=== PATIENT | male | born 1970 | race Caucasian/White ===

== ENCOUNTER → 2017-04-14 14:17 | Outpatient (CLI) | payer MEDICARE, MEDICAID, SELFPAY ==
[2017-04-14 16:30] LABS: Hemoglobin A1C 10.5 % (0.0-7.0)
== END ==
PROVIDERS: Visit Provider Nurse Practitioner Family
DX: E11.9 Type 2 diabetes mellitus without complications (principal)
CPT/HCPCS: 83036

== ENCOUNTER 2017-05-04 15:12 | Emergency (ER) | payer MEDICARE, MEDICAID, SELFPAY ==
[2017-05-04 15:21] VITALS: BP 164/61; PULSE 91; RESP 18; TEMP 36.4; O2SAT 97; BMI 44.9
--- NOTE | 2017-05-04 15:35 | HMH.EDGENADL ---
ED Disposition Clinical Impression: Sialoadenitis of submandibular gland, Diabetes Disposition: Home, Self-Care Condition on Discharge: Good Additional Instructions: 1- continue current abx. 2- added clindamycin. 30 motrin q 6 as needed. 4- gargle with antiseptic 3-4 times a day. 5- tight diabetes control. 6- follow up with maryuri staples in am Prescriptions: Ibuprofen [Motrin 600mg Tablet] 600 mg PO Q6HP PRN #20 tab PRN Reason: Moderate Pain Clindamycin HCl [Clindamycin 300mg Cap] 300 mg PO Q8 #21 capsule - Critical Care Critical Care Time: No Attestation: On , the high probability of a clinically significant, sudden or life threatening deterioration of the following system(s) required my full and direct attention, intervention and personal management. The time I documented below is in addition to time spent performing reported procedures but includes the following listed in this critical care notation. Medical Decision Making Vital Signs: 05/04/17 15:21 Temperature 97.6 F Temperature Source Tympanic Pulse Rate [Left Radial] 91 H Respiratory Rate 18 Blood Pressure [Left Arm] 164/61 Blood Pressure Mean [Left Arm] 95 Blood Pressure Source [Left Arm] Automatic Cuff Blood Pressure Position [Left Arm] Sitting 02 Sat by Pulse Oximetry 97 Oxygen Delivery Method Room Air - Johnnie Inquiry Pt receiving controlled substance: No Johnnie was queried for this patient: No Medical Decision Making Narrative: Patient informed me that he is an antibiotic for an upper respiratory infection starts with the letter a most likely amoxicillin or Augmentin. This will not work for a inflamed left submandibular gland which usually covers gram-negative and anaerobe. I informed him that he will need to be into antibiotics and follow-up with Kevan staples in am. General Adult HPI - General Chief complaint: PAIN Stated complaint: knot on throat Mode of Arrival: Ambulatory Limitations: No Limitations Description of Symptoms (Recalled from ER Triage Doc. by RN): lump on left side of neck that was about the size of a dime this morning and now is as big as a golf ball - History of Present Illness HPI narrative: 47 years old white male diabetic. Developed left oral pain dating down his left neck. No breathing difficulty. Onset (ago): hour(s) (4 hours.) Quality: sharp Consistency: constant Relieving factors: none Exacerbating factors: none Associated symptoms: denies other symptoms Treatments prior to arrival: none - Related Data Home Medications Medication Instructions Recorded Confirmed bupropion HCl SR 100 mg tablet,12 100 mg PO QAM tab 04/11/17 05/04/17 hr sustained-release gabapentin 100 mg capsule 100 mg PO BID cap 04/11/17 05/04/17 insulin NPH and reg human insulin 11 unit SUB-Q BID ml 04/11/17 05/04/17 100 unit/mL (70-30)subcutaneous susp lisinopril 2.5 mg tablet 2.5 mg PO QDAY 04/11/17 05/04/17 simvastatin 5 mg tablet 5 mg PO QPM 04/11/17 05/04/17 tramadol 50 mg tablet 50 mg PO BID tab 04/11/17 05/04/17 Previous Rx's Medication Instructions Recorded Clindamycin HCl [Clindamycin 300mg 300 mg PO Q8 #21 capsule 05/04/17 Cap] Ibuprofen [Motrin 600mg 600 mg PO Q6HP PRN #20 tab 05/04/17 Tablet] Allergies Allergy/AdvReac Type Severity Reaction Status Date / Time acetaminophen [From VICODIN] Allergy Unknown Unverified 03/25/17 15:26 hydrocodone [From VICODIN] Allergy Unknown Unverified 03/25/17 15:26 methadone [METHADONE] Allergy Unknown Unverified 03/25/17 15:26 morphine [MORPHINE] Allergy Unknown Unverified 03/25/17 15:26 [facility] History I have reviewed the patient's past medical history: Yes Medical History: Reports:: Diabetes Mellitus Type 2 Denies:: Cancer, Diabetes Mellitus Type 1, MRSA Other Surgeries: Yes: Hernia Repair Amputation: No Fractures: No - *Social History Educational Level: Completed High School Smoking Status: Never smo
--- NOTE | 2017-05-04 15:38 | ED_ITS ---
ED Disposition Clinical Impression: Sialoadenitis of submandibular gland, Diabetes Disposition: Home, Self-Care Condition on Discharge: Good Additional Instructions: 1- continue current abx. 2- added clindamycin. 30 motrin q 6 as needed. 4- gargle with antiseptic 3-4 times a day. 5- tight diabetes control. 6- follow up with maryuri staples in am Prescriptions: Ibuprofen [Motrin 600mg Tablet] 600 mg PO Q6HP PRN #20 tab PRN Reason: Moderate Pain Clindamycin HCl [Clindamycin 300mg Cap] 300 mg PO Q8 #21 capsule - Critical Care Critical Care Time: No Attestation: On , the high probability of a clinically significant, sudden or life threatening deterioration of the following system(s) required my full and direct attention, intervention and personal management. The time I documented below is in addition to time spent performing reported procedures but includes the following listed in this critical care notation. Medical Decision Making Vital Signs: 05/04/17 15:21 Temperature 97.6 F Temperature Source Tympanic Pulse Rate [Left Radial] 91 H Respiratory Rate 18 Blood Pressure [Left Arm] 164/61 Blood Pressure Mean [Left Arm] 95 Blood Pressure Source [Left Arm] Automatic Cuff Blood Pressure Position [Left Arm] Sitting 02 Sat by Pulse Oximetry 97 Oxygen Delivery Method Room Air - Johnnie Inquiry Pt receiving controlled substance: No Johnnie was queried for this patient: No Medical Decision Making Narrative: Patient informed me that he is an antibiotic for an upper respiratory infection starts with the letter a most likely amoxicillin or Augmentin. This will not work for a inflamed left submandibular gland which usually covers gram-negative and anaerobe. I informed him that he will need to be into antibiotics and follow-up with Kevan staples in am. General Adult HPI - General Chief complaint: PAIN Stated complaint: knot on throat Mode of Arrival: Ambulatory Limitations: No Limitations Description of Symptoms (Recalled from ER Triage Doc. by RN): lump on left side of neck that was about the size of a dime this morning and now is as big as a golf ball - History of Present Illness HPI narrative: 47 years old white male diabetic. Developed left oral pain dating down his left neck. No breathing difficulty. Onset (ago): hour(s) (4 hours.) Quality: sharp Consistency: constant Relieving factors: none Exacerbating factors: none Associated symptoms: denies other symptoms Treatments prior to arrival: none - Related Data Home Medications Medication Instructions Recorded Confirmed bupropion HCl SR 100 mg tablet,12 100 mg PO QAM tab 04/11/17 05/04/17 hr sustained-release gabapentin 100 mg capsule 100 mg PO BID cap 04/11/17 05/04/17 insulin NPH and reg human insulin 11 unit SUB-Q BID ml 04/11/17 05/04/17 100 unit/mL (70-30)subcutaneous susp lisinopril 2.5 mg tablet 2.5 mg PO QDAY 04/11/17 05/04/17 simvastatin 5 mg tablet 5 mg PO QPM 04/11/17 05/04/17 tramadol 50 mg tablet 50 mg PO BID tab 04/11/17 05/04/17 Previous Rx's Medication Instructions Recorded Clindamycin HCl [Clindamycin 300mg 300 mg PO Q8 #21 capsule 05/04/17 Cap] Ibuprofen [Motrin 600mg 600 mg PO Q6HP PRN #20 tab 05/04/17 Tablet]
[2017-05-04 15:50] VITALS: BP 162/98; PULSE 88; RESP 18; O2SAT 95
== END 2017-05-04 15:51 | disposition home or self-care (01) ==
PROVIDERS: Emergency Provider Emergency Medicine; PCP Nurse Practitioner Family
DX: K11.20 Sialoadenitis, unspecified (principal); E11.9 Type 2 diabetes mellitus without complications; Z79.4 Long term (current) use of insulin; I10 Essential (primary) hypertension; F12.10 Cannabis abuse, uncomplicated; E78.5 Hyperlipidemia, unspecified; Z88.6 Allergy status to analgesic agent
CPT/HCPCS: 99282

== ENCOUNTER → 2017-05-13 16:52 | Outpatient (REF) | payer MEDICARE, MEDICAID, SELFPAY ==
[2017-05-13 21:36] LABS: Amphetamine/Metha Screen,Urine Negative ng/mL (<1000); Barbiturates Screen,Urine Negative ng/mL (<200); Benzodiazepines Screen,Urine Negative ng/mL (200); Cannabinoid Screen,Urine Negative ng/mL (<50); Cocaine Screen,Urine Negative ng/g (<300); Methadone Screen,Urine Negative ng/mL (<300); Opiate Screen,Urine Negative ng/mL (<300); Phencyclidine Screen,Urine Negative ng/mL (<25)
== END ==
LOC: LAB 16:52
PROVIDERS: Visit Provider Nurse Practitioner Family
DX: Z79.899 Other long term (current) drug therapy (principal)
CPT/HCPCS: 80305

== ENCOUNTER → 2017-05-15 13:46 | Outpatient (CLI) | payer MEDICARE, MEDICAID, SELFPAY ==
--- NOTE | 2017-05-15 13:48 | US_ITS ---
US thyroid HISTORY: Thyroid nodules, raspy voice ITS.REASON: neck ORDERING PHYSICIAN: Miriam Jimenez PATIENT AGE: 47 years COMPARISON: None FINDINGS: The right lobe measures 4.8 x 2.4 x 2.3 cm. There is an ill-defined 17 x 7 mm area of decreased echogenicity in the deep right lobe posteriorly and may represent a developing nodule. This area is not well delineated and may be better evaluated with CT due to its depth. The left lobe is 4.1 x 2 x 2.4 cm. The isthmus is unremarkable. IMPRESSION: Thyromegaly with possible nodule on the right. Consider CT of the neck without and with contrast for confirmation.
== END ==
PROVIDERS: PCP Nurse Practitioner Family; Visit Provider Nurse Practitioner Family
DX: R59.9 Enlarged lymph nodes, unspecified (principal)
CPT/HCPCS: 76536

== ENCOUNTER → 2017-05-19 15:21 | Outpatient (CLI) | payer MEDICARE, MEDICAID, SELFPAY ==
[2017-05-19 15:43] LABS: Basophils % 0.5 % (0.1-2.0); Eosinophils # 0.1 K/mm3 (0.0-0.4); Eosinophils % 1.8 % (0.1-12.0); Hemoglobin 15.4 g/dL (14.1-18.0); Lymphocytes # 1.6 K/mm3 (0.7-4.5); Lymphocytes % 21.7 K/mm3 (10-50); Mean Corpuscular HGB Conc 34.3 g/dL (31.8-35.4); Mean Corpuscular Hemoglobin 31.1 pg (27.0-31.2); Mean Corpuscular Volume 90.8 fl (80-94); Mean Platelet Volume 7.3 fl (7.4-10.4); Monocytes # 0.3 K/mm3 (0.1-1.0); Monocytes % 3.8 % (1.7-9.3); Neutrophils # 5.3 K/mm3 (1.8-7.8); Neutrophils % 72.2 % (37.0-80.0); Platelet Count 230 K/mm3 (142-424); Red Blood Count 4.96 M/mm3 (4.60-6.20); White Blood Count 7.3 K/mm3 (4.8-10.8)
[2017-05-19 16:45] LABS: Alanine Aminotransferase 67 U/L (12-78); Albumin Level 3.6 gm/dL (3.4-5.0); Alkaline Phosphatase 82 U/L (46-116); Anion Gap 14.3 mEq/L (5-15); Bilirubin,Total 0.4 mg/dL (0.2-1.0); Blood Urea Nitrogen 14 mg/dL (7-18); Calcium 8.8 mg/dL (8.5-10.1); Carbon Dioxide 26 mmol/L (21.0-32.0); Chloride 99 mmol/L (98-107); Estimated Glomerular Filt Rate 91 ml/min (>60); GFR (African American) 110 ML/MIN (>60); Globulin 3.6 gm/dl (1.3-3.2); Sodium 135 mmol/L (136-145); Total Protein,Serum 7.2 gm/dL (6.4-8.2)
[2017-05-19 16:55] LABS: Free T4 (Free Thyroxine) 1.19 ng/dl (0.76-1.46); Thyroid Stimulating Hormone 1.53 uIU/ml (0.358-3.740)
[2017-05-19 17:00] LABS: Glucose 454 mg/dL (74-106)
[2017-05-19 17:01] LABS: Potassium 4.3 mmoL/L (3.5-5.1)
[2017-05-19 17:17] LABS: Aspartate Amino Transferase 21 U/L (15-37)
== END ==
PROVIDERS: PCP Nurse Practitioner Family; Visit Provider Otolaryngology
DX: E01.0 Iodine-deficiency related diffuse (endemic) goiter (principal); R59.0 Localized enlarged lymph nodes
CPT/HCPCS: 36415; 80053; 84439; 84443; 85025

== ENCOUNTER → 2017-05-28 13:13 | Outpatient (CLI) | payer MEDICARE, MEDICAID, SELFPAY ==
--- NOTE | 2017-05-28 13:13 | CT_ITS ---
CT soft tissue neck wo con INDICATION: Evaluate thyroid nodule, Enlarged lymph nodes, adenopathy, follow-up abnormal ultrasound ITS.REASON: LOCALIZED LYMPH NODE ORDERING PHYSICIAN: Randell Yancey MD PATIENT AGE: 47 years COMPARISON: Ultrasound of 05/15/2017 TECHNIQUE: Axial images are obtained without contrast. Sagittal and coronal reformatted images are reviewed as well. FINDINGS: Unfortunately, IV access could not be obtained despite multiple attempts. Therefore, post enhanced images were not obtained. There are scattered small lymph nodes in the neck. No dominant adenopathy is evident. The nasopharynx and pharynx, and hypopharynx have an unremarkable appearance. The epiglottis and glottic region is unremarkable. No parotid or submandibular mass. On the ultrasound of questionable a nodule in the deep aspect of the right lobe of the thyroid gland. This however cannot be confirmed by CT. The right lobe has a posterior extension with subtle decreased attenuation posteriorly that could be related to artifact.. The decreased attenuation and decreased echogenicity could be explained by the posterior extension of the thyroid lobe. The trachea and esophagus are midline. There is mild degenerative disc disease at C3-C4 with a mildly prominent anterior osteophyte at that level. Lung apices are clear. IMPRESSION: 1. Cannot confirm the presence of a thyroid nodule. Vague decreased attenuation is present in the posterior extension of the right lobe of the thyroid gland There is posterior extension of the right lobe of the thyroid gland which could account for the decreased attenuation and decreased echogenicity. Suggest 6 month follow-up ultrasound 2. Otherwise negative CT neck without contrast.
== END ==
PROVIDERS: PCP Nurse Practitioner Family; Visit Provider Otolaryngology
DX: K11.20 Sialoadenitis, unspecified (principal); D49.89 Neoplasm of unspecified behavior of other specified sites
CPT/HCPCS: 70490

== ENCOUNTER 2017-06-11 14:03 | Emergency (ER) | payer MEDICARE, MEDICAID, SELFPAY ==
[2017-06-11 14:19] VITALS: BP 129/75; PULSE 99; RESP 20; TEMP 36.8; O2SAT 96; BMI 43.2
--- NOTE | 2017-06-11 14:27 | XR_ITS ---
XR hip RT 2-3V w/pelvis HISTORY: Right hip pain ITS.REASON: Fall on right hip ORDERING PHYSICIAN: River Perry MD PATIENT AGE: 47 years COMPARISON: 01/23/2017 FINDINGS: No acute fracture or dislocation is evident. Sclerosis of the right femoral head once again noted consistent with avascular necrosis as previously described with some minimal subcortical eccentric lucency. IMPRESSION: 1. No acute fracture. 2. Avascular necrosis of the right femoral head
--- NOTE | 2017-06-11 15:23 | HMH.EDGENADL ---
ED Disposition Clinical Impression: Contusion of right hip Qualifiers: Encounter type: initial encounter Qualified Code(s): S70.01XA - Contusion of right hip, initial encounter Disposition: Home, Self-Care Condition on Discharge: Good Additional Instructions: Additional instructions for EXTREMITY PAIN: See your physician as soon as possible for further evaluation. Return to an emergency department immediately if you have uncontrollable pain, fever, loss of feeling or inability to move your injured extremity. Referrals: Garret Euceda MD [Primary Care Provider] - 3 days - Critical Care Critical Care Time: No Attestation: On 06/11/17, the high probability of a clinically significant, sudden or life threatening deterioration of the following system(s) required my full and direct attention, intervention and personal management. The time I documented below is in addition to time spent performing reported procedures but includes the following listed in this critical care notation. Medical Decision Making Vital Signs: 06/11/17 14:19 Temperature 98.3 F Temperature Source Oral Pulse Rate [Right Radial] 99 H Respiratory Rate 20 Blood Pressure [Right Arm] 129/75 Blood Pressure Mean [Right Arm] 93 Blood Pressure Source [Right Arm] Automatic Cuff Blood Pressure Position [Right Arm] Sitting 02 Sat by Pulse Oximetry 96 Oxygen Delivery Method Room Air - Radiology Data #1 Image(s): Hip Image Reviewed: Yes I have reviewed radiologist's interpretation Avascular necrosis right femoral head. No fracture or dislocation. - Johnnie Inquiry Pt receiving controlled substance: No Johnnie was queried for this patient: Yes Reference #:: [id number] Comment: 7 rxs. last rx tramadol on 03/21/18. Medical Decision Making Narrative: Call placed to Domingo Rivera to discuss the ED findings, but she is unable to be reached. General Adult HPI - General Chief complaint: PAIN Stated complaint: AO [id number] Right Hip/home ao Mode of Arrival: Ambulatory Limitations: Physical Limitations Description of Symptoms (Recalled from ER Triage Doc. by RN): Patient fell this morning at [id number], fell onto his right hip onto his tub. - History of Present Illness HPI narrative: Patient fell today striking his posterior-lateral right hip on a bathtub. He is able to walk and bear weight but says it causes pain. He has a prior history of avascular necrosis of his right hip, surgery in 2010. Had an MRI done last year and says his avascular necrosis is back. He was seen in his primary care office by Domingo Rivera, sent to the emergency room for evaluation. No numbness or weakness or other injuries. - Related Data Home Medications Medication Instructions Recorded Confirmed famotidine 20 mg tablet 20 mg PO QHS PRN 05/27/17 gabapentin 100 mg capsule 100 mg PO QHS 05/27/17 tramadol 50 mg tablet 50 mg PO .q12 tab 05/27/17 Previous Rx's Medication Instructions Recorded bupropion HCl SR 100 mg tablet,12 150 mg PO QAM #90 tab 05/13/17 hr sustained-release lisinopril 2.5 mg tablet 2.5 mg PO QDAY #90 tab 05/13/17 simvastatin 5 mg tablet 5 mg PO QPM #90 tab 05/13/17 insulin human U-100 NPH-regulr 18 unit SUB-Q BID #10 ml 06/11/17 70-30 mix 100 unit/mL subcutaneous susp Allergies Allergy/AdvReac Type Severity Reaction Status Date / Time acetaminophen [From VICODIN] Allergy Unknown Verified 06/11/17 14:25 hydrocodone [From VICODIN] Allergy Unknown Verified 06/11/17 14:25 methadone [METHADONE] Allergy Unknown Verified 06/11/17 14:25 morphine [MORPHINE] Allergy Unknown Verified 06/11/17 14:25 [facility] History I have reviewed the patient's past medical history: Yes Medical History: Reports:: Depression, Diabetes Mellitus Type 2, Hiatal Hernia, Hypertension, Kidney Stones Denies:: Cancer, Diabetes Mellitus Type 1, MRSA Comment: BX UNDER RIGHT ARM, POLYP REMOVED FROM THROAT, CORE DECOMPRESSION ON RIGHT HIP Other Surg
[2017-06-11 16:01] VITALS: BP 140/85; PULSE 78; RESP 20; TEMP 36.7; O2SAT 98
== END 2017-06-11 16:03 | disposition home or self-care (01) ==
PROVIDERS: Emergency Provider Emergency Medicine; PCP Emergency Medicine
DX: S70.01XA Contusion of right hip, initial encounter (principal); E11.9 Type 2 diabetes mellitus without complications; Z79.4 Long term (current) use of insulin; I10 Essential (primary) hypertension; F32.9 Major depressive disorder, single episode, unspecified; Z88.6 Allergy status to analgesic agent; F10.10 Alcohol abuse, uncomplicated; W18.2XXA Fall in (into) shower or empty bathtub, initial encounter; Y92.012 Bathroom of single-family (private) house as the place of occurrence of the external cause
CPT/HCPCS: 73502; 99282

== ENCOUNTER → 2017-08-07 10:26 | Outpatient (REF) | payer MEDICARE, MEDICAID, SELFPAY ==
[2017-08-07 13:41] LABS: Basophils % 0.6 % (0.1-2.0); Eosinophils # 0.2 K/mm3 (0.0-0.4); Hematocrit 46.8 % (42.0-52.0); Lymphocytes # 1.5 K/mm3 (0.7-4.5); Lymphocytes % 23.1 K/mm3 (10-50); Mean Corpuscular HGB Conc 34.2 g/dL (31.8-35.4); Mean Corpuscular Hemoglobin 31.1 pg (27.0-31.2); Mean Corpuscular Volume 90.9 fl (80-94); Monocytes # 0.4 K/mm3 (0.1-1.0); Monocytes % 5.6 % (1.7-9.3); Neutrophils # 4.4 K/mm3 (1.8-7.8); Neutrophils % 67.8 % (37.0-80.0); Platelet Count 257 K/mm3 (142-424); Red Blood Count 5.15 M/mm3 (4.60-6.20); Red Cell Distribution Width 12.5 % (11.5-17.5); White Blood Count 6.4 K/mm3 (4.8-10.8)
[2017-08-07 14:21] LABS: Alanine Aminotransferase 69 U/L (12-78); Albumin Level 3.8 gm/dL (3.4-5.0); Alkaline Phosphatase 77 U/L (46-116); Anion Gap 17.2 mEq/L (5-15); Aspartate Amino Transferase 41 U/L (15-37); Bilirubin,Total 0.6 mg/dL (0.2-1.0); Blood Urea Nitrogen 12 mg/dL (7-18); Calcium 9.7 mg/dL (8.5-10.1); Carbon Dioxide 23 mmol/L (21.0-32.0); Chloride 100 mmol/L (98-107); Chol/HDL Ratio 5.9 (1-3.5); Cholesterol 225 mg/dL (140-200); Creatinine,Serum 0.85 mg/dL (0.70-1.30); Estimated Glomerular Filt Rate 97 ml/min (>60); GFR (African American) 118 ML/MIN (>60); Globulin 3.9 gm/dl (1.3-3.2); Glucose 390 mg/dL (74-106); HDL Cholesterol 38 mg/dL (27-67); Potassium 4.2 mmoL/L (3.5-5.1); Sodium 136 mmol/L (136-145); T4 (Thyroxine) 10.5 ug/dl (4.7-13.3); Thyroid Stimulating Hormone 1.65 uIU/ml (0.358-3.740); Total Protein,Serum 7.7 gm/dL (6.4-8.2)
[2017-08-07 14:40] LABS: Hemoglobin A1C 10.2 % (0.0-7.0); Triglycerides 402 mg/dL (30-200)
[2017-08-08 10:19] LABS: Vitamin D 25 Hydroxy 18.1 ng/mL (30.0-100.0)
[2017-08-08 22:20] LABS: Testosterone,Free 8.5 pg/mL (6.8-21.5)
[2017-08-10 17:30] LABS: Testosterone, Total, LC/MS 375.2 ng/dL (264.0-916.0)
== END ==
LOC: LAB 10:26
PROVIDERS: Visit Provider Nurse Practitioner Family
DX: E11.9 Type 2 diabetes mellitus without complications (principal); R53.83 Other fatigue; N52.9 Male erectile dysfunction, unspecified
CPT/HCPCS: 80053; 80061; 82652; 83036; 84402; 84436; 84443; 85025

== ENCOUNTER → 2017-09-26 09:55 | Outpatient (CLI) | payer MEDICARE, MEDICAID, SELFPAY ==
[2017-09-26 13:59] LABS: Amphetamine/Metha Screen,Urine Negative ng/mL (<1000); Barbiturates Screen,Urine Negative ng/mL (<200); Benzodiazepines Screen,Urine Negative ng/mL (200); Cannabinoid Screen,Urine Negative ng/mL (<50); Cocaine Screen,Urine Negative ng/g (<300); Methadone Screen,Urine Negative ng/mL (<300); Opiate Screen,Urine Negative ng/mL (<300); Phencyclidine Screen,Urine Negative ng/mL (<25)
== END ==
PROVIDERS: Visit Provider Nurse Practitioner Family
DX: Z79.899 Other long term (current) drug therapy (principal)
CPT/HCPCS: 80305

== ENCOUNTER → 2018-02-24 14:28 | Outpatient (CLI) | payer MEDICARE, MEDICAID, SELFPAY ==
--- NOTE | 2018-02-24 14:30 | US_ITS ---
US thyroid HISTORY: Follow-up thyroid nodule ITS.REASON: possible thyroid nodule ORDERING PHYSICIAN: Randell Yancey MD PATIENT AGE: 47 years Comparison: 05/15/2017 FINDINGS: The isthmus is slightly prominent at 5 mm not significant change. The right lobe is 5 x 2.2 x 3.2 cm. There is an ill-defined 12 mm slightly hypoechoic nodule posteriorly not significant changed. This is not well delineated and could only represent an area of heterogeneous echogenicity. The left lobe is 4.2 x 1.8 x 2.4 cm also having some decreased echogenicity posteriorly without discrete mass. IMPRESSION: Enlarged thyroid gland with persistent area of decreased echogenicity in the right lobe posteriorly not significantly changed
== END ==
PROVIDERS: PCP Nurse Practitioner Family; Visit Provider Otolaryngology
DX: E01.0 Iodine-deficiency related diffuse (endemic) goiter (principal); E04.1 Nontoxic single thyroid nodule
CPT/HCPCS: 76536

== ENCOUNTER → 2018-05-14 14:24 | Outpatient (CLI) | payer MEDICARE, MEDICAID, SELFPAY | PROVIDERS: Visit Provider Nurse Practitioner Family | DX: R53.83 Other fatigue ==

== ENCOUNTER → 2018-05-14 17:58 | Outpatient (CLI) | payer MEDICARE, MEDICAID, SELFPAY ==
[2018-05-15 12:31] LABS: Basophils % 0.5 % (0.1-2.0); Eosinophils # 0.1 K/mm3 (0.0-0.4); Eosinophils % 1.3 % (0.1-12.0); Hematocrit 52.1 % (42.0-52.0); Hemoglobin 16.6 g/dL (14.1-18.0); Lymphocytes # 1.6 K/mm3 (0.7-4.5); Lymphocytes % 24.4 % (10-50); Mean Corpuscular HGB Conc 31.8 g/dL (31.8-35.4); Mean Corpuscular Hemoglobin 30.4 pg (27.0-31.2); Mean Corpuscular Volume 95.6 fl (80-94); Mean Platelet Volume 8.7 fl (7.4-10.4); Monocytes # 0.3 K/mm3 (0.1-1.0); Monocytes % 5.2 % (1.7-9.3); Neutrophils # 4.4 K/mm3 (1.8-7.8); Neutrophils % 68.6 % (37.0-80.0); Platelet Count 276 K/mm3 (142-424); Red Blood Count 5.45 M/mm3 (4.60-6.20); Red Cell Distribution Width 13.4 % (11.5-17.5); White Blood Count 6.4 K/mm3 (4.8-10.8)
[2018-05-15 12:51] LABS: Alanine Aminotransferase 53 U/L (12-78); Albumin/Globulin Ratio 1.1 (1.1-1.8); Alkaline Phosphatase 77 U/L (46-116); Anion Gap 14.2 mEq/L (5-15); Aspartate Amino Transferase 25 U/L (15-37); Bilirubin,Total 0.4 mg/dL (0.2-1.0); Blood Urea Nitrogen 17 mg/dL (7-18); Calcium 9.2 mg/dL (8.5-10.1); Carbon Dioxide 26 mmol/L (21.0-32.0); Chloride 99 mmol/L (98-107); Chol/HDL Ratio 7.9 (1-3.5); Cholesterol 252 mg/dL (140-200); Creatinine,Serum 0.87 mg/dL (0.70-1.30); Estimated Glomerular Filt Rate 94 ml/min (>60); Free Thyroxine Index 3.1 ug/dL (5.93-13.13); GFR (African American) 114 ML/MIN (>60); Globulin 3.7 gm/dl (1.3-3.2); Glucose 302 mg/dL (74-106); HDL Cholesterol 32 mg/dL (27-67); Phosphorous 3.4 mg/dL (2.4-4.9); Potassium 4.2 mmoL/L (3.5-5.1); Sodium 135 mmol/L (136-145); T4 (Thyroxine) 10.1 ug/dl (4.7-13.3); Thyroid Stimulating Hormone 2.75 uIU/ml (0.358-3.740); Total Protein,Serum 7.7 gm/dL (6.4-8.2); Triiodothryronine (T3) Uptake 31 % (31-39)
[2018-05-15 13:05] LABS: Triglycerides 464 mg/dL (30-200)
[2018-05-15 15:29] LABS: Hemoglobin A1C 9.5 % (0.0-7.0)
[2018-05-18 08:36] LABS: Microalbumin, Urine 41.7 ug/mL (Not Estab.); Vitamin D 25 Hydroxy 16.3 ng/mL (30.0-100.0)
== END ==
LOC: LAB 17:59 → LAB.DROPOF 05-15 09:29
PROVIDERS: Visit Provider Nurse Practitioner Family
DX: E10.8 Type 1 diabetes mellitus with unspecified complications (principal); I10 Essential (primary) hypertension; R53.83 Other fatigue
CPT/HCPCS: 80053; 80061; 80069; 82043; 82652; 83036; 84436; 84443; 84479; 85025

== ENCOUNTER → 2018-08-10 15:47 | Outpatient (CLI) | payer MEDICARE, MEDICAID, SELFPAY ==
--- NOTE | 2018-08-10 15:49 | US_ITS ---
US thyroid HISTORY: Follow-up enlarged thyroid gland with possible nodule ITS.REASON: thyroid ORDERING PHYSICIAN: Randell Yancey MD PATIENT AGE: 48 years Comparison: 02/24/2018 FINDINGS: The right lobe is 4.8 x 2.1 x 2.1 cm. The left lobe is 4.1 x 1.8 x 2.1 cm. The isthmus has an unremarkable appearance. There remains an area of decreased echogenicity along the right lobe of the posteriorly not significant changed proximally 10 x 8 mm. No new nodules are evident IMPRESSION: Overall no change in the enlarged thyroid gland with persistent hypoechoic area in the posterior aspect of the right lobe inferiorly. This is stable compared to May 15, 2017 as well
== END ==
PROVIDERS: PCP Nurse Practitioner Family; Visit Provider Otolaryngology
DX: E01.0 Iodine-deficiency related diffuse (endemic) goiter (principal)
CPT/HCPCS: 76536

== ENCOUNTER → 2019-08-09 16:49 | Outpatient (CLI) | payer MEDICARE, MEDICAID, SELFPAY ==
[2019-08-09 16:53] LABS: Adenovirus F 40/41, stool Not Detected (NotDetected); Astrovirus Not Detected (NotDetected); Campylobacter Not Detected (NotDetected); Clostridium Difficile A/B, PCR Not Detected (NotDetected); Cryptosporidium Not Detected (NotDetected); Cyclospora Cayetanesis Not Detected (NotDetected); Entamoeba histolytica Not Detected (NotDetected); Enteroaggregative E coli Not Detected (NotDetected); Enteropathogenic E coli Not Detected (NotDetected); Enterotoxigenic E coli Not Detected (NotDetected); Giardia lamblia Not Detected (NotDetected); Norovirus Not Detected (NotDetected); Plesimonas Shigalloides, PCR Not Detected (NotDetected); Rotavirus A Not Detected (NotDetected); Salmonella, PCR Not Detected (NotDetected); Sapovirus Not Detected (NotDetected); Shiga-like toxin E coli Not Detected (NotDetected); Shigella Enterovasive E coli Not Detected (NotDetected); Vibrio Cholerae Not Detected (NotDetected); Vibrio, PCR Not Detected (NotDetected); Yersinia Entercolitica, PCR Not Detected (NotDetected)
[2019-08-09 19:13] LABS: Occult Blood,Stool Negative (Negative)
== END ==
PROVIDERS: Visit Provider Emergency Medicine
DX: R19.7 Diarrhea, unspecified (principal)
CPT/HCPCS: 82272; 87506; G0328

== ENCOUNTER 2019-10-20 13:45 | Emergency (ER) | payer MEDICARE, MEDICAID, SELFPAY ==
[2019-10-20 14:08] VITALS: BP 140/84; PULSE 101; RESP 18; TEMP 36; O2SAT 97; BMI 38.9
--- NOTE | 2019-10-20 14:12 | US_ITS ---
PROCEDURE: US TESTICULAR CLINICAL INDICATION: pain and swelling Left testicular pain COMPARISON: No exams were available for comparison FINDINGS: Right testicle is 4.6 x 2 x 3.4 cm. Left testicle is 4 x 2 x 23.2 cm. There is bilateral testicular blood flow without obvious mass. There is heterogeneous echogenicity of the superior aspect of the left epididymis with some increase in blood flow suggesting epididymitis. Small left hydrocele. Small epididymal cyst noted on the right measuring 5 mm IMPRESSION: Suspect left epididymitis with small left hydrocele Dictated by: Gideon Klein MD 10/20/2019 15:26 Electronically signed by Gideon Klein MD in [place] 10/20/2019 15:26
--- NOTE | 2019-10-20 14:42 | PC.NURSE ---
Pt is with ultrasound and has been for the past several minutes. v/s delayed.
--- NOTE | 2019-10-20 14:57 | PC.NURSE ---
Pt returned from MD duran at bedside
--- NOTE | 2019-10-20 15:10 | HMH.EDGENADL ---
ED Disposition Clinical Impression: Acute epididymitis Disposition: Home, Self-Care Condition on Discharge: Good Instructions: DI for Epididymitis Prescriptions: Ciprofloxacin HCl [Cipro 500mg Tab] 500 mg PO BID 10 Days #20 tab Transmission Status: Pending to [facility] # Nabumetone 750 mg PO BID 10 Days #20 tab Transmission Status: Pending to [facility] # Referrals: Domingo Rivera APRN [Primary Care Provider] - - Critical Care Critical Care Time: No Attestation: On 10/20/19, the high probability of a clinically significant, sudden or life threatening deterioration of the following system(s) required my full and direct attention, intervention and personal management. The time I documented below is in addition to time spent performing reported procedures but includes the following listed in this critical care notation. Medical Decision Making - Medical Records Medical records reviewed: Yes: I reviewed the patient's medical records. - Johnnie Inquiry Pt receiving controlled substance: No Vital Signs: 10/20/19 14:08 Temperature 96.8 F L Temperature Source Temporal Artery Scan Pulse Rate [Radial] 101 H Respiratory Rate 18 Blood Pressure [Right Arm] 140/84 Blood Pressure Mean [Right Arm] 102 Blood Pressure Source [Right Arm] Automatic Cuff Blood Pressure Position [Right Arm] Sitting 02 Sat by Pulse Oximetry 97 Oxygen Delivery Method Room Air - Lab Data Lab results reviewed: Yes: I reviewed the patient's lab results. Orders (Tests/Meds): ED MEDICATIONS Discontinued Medications Generic Name Dose Route Start Last Admin Trade Name Freq PRN Reason Stop Dose Admin Hydromorphone HCl 2 mg 10/20/19 14:27 10/20/19 14:28 Dilaudid 2mg/Ml Syringe IM 10/20/19 14:28 2 mg ONCE ONE Administration ORDERS Category Date Time Status UA [Urinalysis and Microscopic] Stat Lab 10/20/19 14:56 Ordered US Testicular Stat Ultrasound 10/20/19 14:12 Taken - US Data US Images: Other (Testicular) Findings Narrative: Acute epididymitis General Adult HPI - General Chief complaint: PAIN Stated complaint: groin pain Time Seen by Provider: 10/20/19 15:10 Mode of Arrival: Ambulatory Limitations: No Limitations Description of Symptoms (Recalled from ER Triage Doc. by RN): Complain of swollen left testicle and pain. - History of Present Illness HPI narrative: 49-year-old male has left-sided testicular pain and some mild swelling. He states this pain started on Friday and is progressively gotten worse as the days have progressed. He rates his pain a pain secondary to 7-8 out of 10 classifies it as a dull ache/sharp sensation. He states exacerbating factors include ambulation and alleviating factors include rest. Patient denies any trauma to the area. Patient also denies any other associated symptoms such as nausea vomiting or diarrhea patient also denies any dysuria.Patient denies any recent cough or shortness of breath, patient denies any sore throat or headache, patient denies any loss of taste or smell, patient denies any malaise or fatigue, patient denies any abdominal pain nausea vomiting or diarrhea. - Related Data Home Medications Medication Instructions Recorded Confirmed vilazodone 20 mg tablet 20 mg PO DAILY 03/15/19 07/22/19 Gabapentin [Gabapentin 300mg Cap] 300 mg PO BID 07/07/19 07/22/19 Insulin Aspart Prot/Insuln Asp 8 unit SQ BID 07/07/19 07/22/19 [Novolog Mix 70-30FlexPen U-100] Pen Needle, Diabetic [Clickfine] See Rx Instructions .ROUTE 07/07/19 07/22/19 .MEDSUPPLY methylPREDNISolone [Medrol] 4 mg PO DIRECTED 07/07/19 07/22/19 Previous Rx's Medication Instructions Recorded zolpidem 5 mg tablet See Rx Instructions PO QHS PRN #45 03/08/19 tab zolpidem 10 mg tablet 10 mg PO QHS PRN #30 tab 03/09/19 Albuterol Sulfate [Proventil-HFA 1 - 2 puffs IH Q4HP PRN 30 Days #1 07/03/19 90mcg/puff Inh] inh Apixaban [E
[2019-10-20 15:26] VITALS: BP 132/89; PULSE 100; RESP 16; TEMP 36.8; O2SAT 100
== END 2019-10-20 15:27 | disposition home or self-care (01) ==
PROVIDERS: Emergency Provider Family Medicine; PCP Nurse Practitioner Family
DX: N45.1 Epididymitis (principal); E11.9 Type 2 diabetes mellitus without complications; I10 Essential (primary) hypertension; K21.9 Gastro-esophageal reflux disease without esophagitis; E78.5 Hyperlipidemia, unspecified; F41.8 Other specified anxiety disorders; Z95.0 Presence of cardiac pacemaker; Z87.442 Personal history of urinary calculi; Z88.5 Allergy status to narcotic agent
CPT/HCPCS: 76870; 96372; 99282

== ENCOUNTER 2019-10-22 12:33 | Emergency (ER) | payer MEDICARE, MEDICAID, SELFPAY ==
[2019-10-22 12:35] VITALS: BP 162/75; PULSE 104; RESP 18; TEMP 37; O2SAT 94; BMI 38.5
--- NOTE | 2019-10-22 12:40 | PC.NURSE ---
Pt wound examined and cleaned per joann pyle
--- NOTE | 2019-10-22 13:00 | PC.NURSE ---
Asked MD if he would like me to put any orders in, no new orders given
--- NOTE | 2019-10-22 15:23 | HMH.EDSKAF ---
ED Disposition Clinical Impression: Left against medical advice Disposition: Home, Self-Care Condition on Discharge: Good Instructions: DI for Skin Abscess Referrals: Domingo Rivera APRN [Primary Care Provider] - - Critical Care Critical Care Time: No Attestation: On 10/22/19, the high probability of a clinically significant, sudden or life threatening deterioration of the following system(s) required my full and direct attention, intervention and personal management. The time I documented below is in addition to time spent performing reported procedures but includes the following listed in this critical care notation. Medical Decision Making - Medical Records Medical records reviewed: Yes: I reviewed the patient's medical records. - Johnnie Inquiry Pt receiving controlled substance: No Vital Signs: 10/22/19 12:35 Temperature 98.6 F Temperature Source Oral Pulse Rate [Right] 104 H Respiratory Rate 18 Blood Pressure [Right Arm] 162/75 H Blood Pressure Mean [Right Arm] 104 02 Sat by Pulse Oximetry 94 L Medical Decision Narrative: During patient's emergency emergency course here in our department we were extremely busy and by the time he went to go see the patient he was extremely irate and would not stop using profanities. He also displayed threatening and aggressive behavior not only towards the ER physician but also 1 of the nurses as well. I politely asked him that he needs to leave or we will call the police. Skin/Abscess/FB HPI - General Chief complaint: Skin/Abscess/Foreign Body Stated complaint: boil Time Seen by Provider: 10/22/19 15:00 Mode of Arrival: Ambulatory Source of Information: Patient Limitations: No Limitations Description of Symptoms (Recalled from ER Triage Doc. by RN): Pt c/o a boil to his left groin. Pt denies fever, redness, or drainage from area. - History of Present Illness HPI narrative: 49-year-old male presents the emergency department with a possible abscess in the left groin region. Patient was recently seen here 2 days prior had an ultrasound done and diagnosed with acute epididymitis and subsequently put on anti-inflammatories and antibiotics. Patient is actually walking to his room said profanities not only to me but to the nurse as well. - Related Data Home Medications Medication Instructions Recorded Confirmed vilazodone 20 mg tablet 20 mg PO DAILY 03/15/19 07/22/19 Gabapentin [Gabapentin 300mg Cap] 300 mg PO BID 07/07/19 07/22/19 Insulin Aspart Prot/Insuln Asp 8 unit SQ BID 07/07/19 07/22/19 [Novolog Mix 70-30FlexPen U-100] Pen Needle, Diabetic [Clickfine] See Rx Instructions .ROUTE 07/07/19 07/22/19 .MEDSUPPLY methylPREDNISolone [Medrol] 4 mg PO DIRECTED 07/07/19 07/22/19 Previous Rx's Medication Instructions Recorded zolpidem 5 mg tablet See Rx Instructions PO QHS PRN #45 03/08/19 tab zolpidem 10 mg tablet 10 mg PO QHS PRN #30 tab 03/09/19 Albuterol Sulfate [Proventil-HFA 1 - 2 puffs IH Q4HP PRN 30 Days #1 07/03/19 90mcg/puff Inh] inh Apixaban [Eliquis 5mg Tablet] 10 mg PO BID 7 Days #28 tab 07/07/19 hydrocodone 5 mg-acetaminophen 325 1 tab PO BID PRN 3 Days #6 tab 07/08/19 mg tablet apixaban 5 mg tablet See Rx Instructions .ROUTE 10/04/19 .COMPLEX #60 tab Ciprofloxacin HCl [Cipro 500mg 500 mg PO BID 10 Days #20 tab 10/20/19 Tab] Nabumetone 750 mg PO BID 10 Days #20 tab 10/20/19 Allergies Allergy/AdvReac Type Severity Reaction Status Date / Time acetaminophen [From VICODIN] Allergy Unknown Verified 07/22/19 11:04 hydrocodone [From VICODIN] Allergy Unknown Verified 07/22/19 11:04 methadone [METHADONE] Allergy Unknown Verified 07/22/19 11:04 morphine [MORPHINE] Allergy Unknown Verified 07/22/19 11:04 [facility] History - Hepatitis A Screen Drug use history?: No High risk sexual behaviors?: No History of sexually transmitted infection?: No Currently employed?: No Childcare worker?: No Do you have indoor
[2019-10-22 15:55] VITALS: BP 0/0; PULSE 0; RESP 0; TEMP -17.7; TEMP 0; O2SAT 0
== END 2019-10-22 15:00 | disposition home or self-care (01) ==
PROVIDERS: Emergency Provider Family Medicine; PCP Nurse Practitioner Family
DX: Z53.21 Procedure and treatment not carried out due to patient leaving prior to being seen by health care provider (principal); L02.91 Cutaneous abscess, unspecified
CPT/HCPCS: 99211

== ENCOUNTER → 2020-02-18 17:34 | Outpatient (CLI) | payer MEDICARE, MEDICAID, SELFPAY ==
[2020-02-18 17:51] LABS: Basophils % 0.4 % (0.1-2.0); Eosinophils # 0.2 K/mm3 (0.0-0.4); Eosinophils % 2.1 % (0.1-12.0); Hematocrit 50.3 % (42.0-52.0); Hemoglobin 17.5 g/dL (14.1-18.0); Lymphocytes # 1.5 K/mm3 (0.7-4.5); Lymphocytes % 18.2 % (10-50); Mean Corpuscular HGB Conc 34.8 g/dL (31.8-35.4); Mean Corpuscular Hemoglobin 32.3 pg (27.0-31.2); Mean Corpuscular Volume 92.7 fl (80-94); Monocytes # 0.4 K/mm3 (0.1-1.0); Monocytes % 4.7 % (1.7-9.3); Neutrophils # 6.2 K/mm3 (1.8-7.8); Neutrophils % 74.6 % (37.0-80.0); Platelet Count 254 K/mm3 (142-424); Red Blood Count 5.43 M/mm3 (4.60-6.20); Red Cell Distribution Width 13.2 % (11.5-17.5); White Blood Count 8.4 K/mm3 (4.8-10.8)
[2020-02-18 17:57] LABS: Alanine Aminotransferase 54 U/L (12-78); Albumin Level 4.2 g/dl (3.5-5.0); Albumin/Globulin Ratio 1.3 (1.1-1.8); Alkaline Phosphatase 106 U/L (38-126); Anion Gap 15.2 mEq/L (5-15); Aspartate Amino Transferase 44 U/L (17-59); Bilirubin,Total 1.1 mg/dl (0.2-1.3); Blood Urea Nitrogen 12 mg/dl (9-20); Calcium 9.7 mg/dl (8.4-10.2); Carbon Dioxide 25 mmol/L (22.0-30.0); Chloride 98 mmol/L (98-107); Chol/HDL Ratio 8.5 (1-3.5); Cholesterol 237 mg/dl (140-200); Estimated Glomerular Filt Rate 121 ml/min (>60); GFR (African American) 146 ML/MIN (>60); Globulin 3.3 g/dL (1.3-3.2); Glucose 350 mg/dl (74-100); HDL Cholesterol 28 mg/dl (40-60); Potassium 4.2 mmoL/L (3.5-5.1); Sodium 134 mmol/L (136-145); Total Protein,Serum 7.5 g/dl (6.3-8.2); Triglycerides 389 mg/dl (30-150); VLDL Cholesterol 78 mg/dL (0-40)
[2020-02-18 18:09] LABS: Direct LDL Cholesterol 138.52 mg/dL (100-129)
[2020-02-18 18:14] LABS: T4 (Thyroxine) 10.8 ug/dl (5.53-11.0)
[2020-02-18 18:28] LABS: Thyroid Stimulating Hormone 1.93 uIU/mL (0.465-4.68)
[2020-02-18 18:29] LABS: 25-OH Vitamin D, Total 20.5 ng/mL (30-100)
[2020-02-18 18:53] LABS: Hemoglobin A1C 11.5 % (4.0-6.0)
== END ==
PROVIDERS: Visit Provider Nurse Practitioner Family
DX: E11.9 Type 2 diabetes mellitus without complications (principal); I10 Essential (primary) hypertension; R53.83 Other fatigue; E55.9 Vitamin D deficiency, unspecified; R06.00 Dyspnea, unspecified; Z79.4 Long term (current) use of insulin
CPT/HCPCS: 80053; 80061; 82306; 83036; 84436; 84443; 85025

== ENCOUNTER → 2020-03-25 08:02 | Outpatient (CLI) | payer MEDICARE, MEDICAID, SELFPAY ==
[2020-03-25 10:29] LABS: Coronavirus 19 IgG Antibody Negative (Negative); Coronavirus 19 IgM Antibody Negative (Negative)
== END ==
PROVIDERS: Visit Provider Internal Medicine Gastroenterology
DX: Z01.818 Encounter for other preprocedural examination (principal); Z03.818 Encounter for observation for suspected exposure to other biological agents ruled out; Z12.11 Encounter for screening for malignant neoplasm of colon
CPT/HCPCS: 36415; 86328

== ENCOUNTER 2020-03-27 09:06 | Day surgery (SDC) | payer MEDICARE, MEDICAID, SELFPAY ==
[2020-03-22 11:01] VITALS: BMI 38.5
[2020-03-27 09:30] VITALS: BP 150/73; PULSE 95; RESP 18; TEMP 36.3; O2SAT 97
[2020-03-27 09:42] LABS: POC Glucose,Bedside 232 (70-110)
--- NOTE | 2020-03-27 10:04 | HMH.ANESCL ---
[facility] Anesthesia Checklist - Structural Data Admitted From: Home Planned Operative Procedure/s: colonoscopy Consent for Planned Operative Procedure(s) Verified: Yes - Additional verifications Anesthesia Reactions: No Hx Blood Transfusions: No Blood Transfusion Reaction: Yes - Airway Assessment C-Spine Mobility Assessed: Yes TMJ Mobility Assessed: Yes Dentition: Poor Dentition - Neurological Assessment Level of Consciousness: Awake, Alert, Appropriate - Anesthesia Plan Anesthesia Risk discussed: Yes Anesthesia Plan: Verified ASA Class: III Anesthesia Type: MAC [facility] History I have reviewed the patient's past medical history: Yes Medical History: Reports:: Anxiety, Depression, Diabetes Mellitus Type 2, Hiatal Hernia, Hyperlipidemia, Hypertension, Kidney Stones, Pulmonary Embolism, Transient Ischemic Attacks (TIA) Denies:: Cancer, Diabetes Mellitus Type 1, Internal Pacemaker, MRSA, Seizures *Have you ever received a pneumonia vaccine?: Yes *Have you received a flu vaccine this season?: No Other Medical History: Reports: Blood Transfusion Reaction Anesthesia experience/problems:: none Laterality Cases: Right: Arthroscopy Hip, Bilateral: Other Other Surgeries: Yes: Hernia Repair, Other. No: Pacemaker Amputation: No Fractures: No - *Social History Last grade of school completed: GED Smoking Status: Current every day smoker Tobacco Type: e-cigarettes # Packs/Day (cigarettes): 1 Alcohol Intake: current Alcohol Intake Frequency:: holidays/special occasions only Substance Use Type: marijuana *Occupational Status:: disabled Housing: house Household Members: none *Travel in the last 8 weeks: None - Psychiatric History Pschychiatric History:: Reports:: Anxiety, Depression Family Hx:: Heart Attack, Stroke
[2020-03-27 10:25] VITALS: O2SAT 98
--- NOTE | 2020-03-27 10:43 | P.PCN_ITS ---
[facility] Procedure Note Procedure Note:: Colonoscopy Procedure Report: Colonoscopy with cold snare polypectomy and monopolar ablation/coagulation of internal hemorrhoids Endoscopist: Yoan Oliva II, MD Referring physician: Donnie MEYER Date of Procedure: March 27, 2020 Equipment: Olympus 180 variable stiffness pediatric colonoscope Sedation: MAC sedation Indication: Mr. Andrade is a 50-year-old gentleman who is here for diagnostic colonoscopy secondary to frequent rectal bleeding. This began in February 2019 and he was having blood with most bowel movements. He would also see blood clots on the tissue. Occasionally he will see blood or pink tinge in the toilet bowl. He does have chronic diarrhea for which he takes Imodium. He will often start out with a solid bowel movement that becomes more of liquid. He does get some abdominal cramps and bowel urgency. This has been going on for the last year. He does report some bloating. He has excessive wiping with obstipation/incomplete defecation. He reports no abdominal pain, weight loss or family history of colon cancer. This is his first colonoscopy. Procedure: Prior to the procedure, a history and physical exam was performed, and patient's medications and allergies were reviewed. The risks, benefits and alternatives of the sedation and procedure were discussed with the patient. All questions were answered and informed consent was obtained. The patient was brought to the procedure room. Patient identification and proposed procedure were verified by the physician and the nurse. The patient was placed in a left lateral decubitus position and the scope was passed under direct vision. Throughout the procedure, the patient's blood pressure, pulse, and oxygen saturations were monitored continuously. The colonoscopy was accomplished without difficulty. The patient tolerated the procedure well. Findings: On digital rectal examination there was normal rectal tone. There were no external hemorrhoids. The colonoscope was introduced through the anal canal to the rectum and advanced to the cecum. The ileocecal valve and appendiceal orifice were identified. The scope was advanced a short distance into the ileum which appeared grossly normal. The scope was then withdrawn into the colon. There were a total of 7 colon polyps (ascending x4 (4, 4, 6 and 7 mm), transverse x1 (8 mm) and descending x2 (3 and 5 mm)). All of these polyps were removed via cold snare polypectomy. The remaining cecum, ascending and transverse colon and mucosa were grossly normal. There were scattered diverticuli throughout the descending and sigmoid colon (LEFT colon). The rectum itself was normal. Upon retroflexion within the rectum there were grade 1-2 internal hemorrhoids. These hemorrhoids were ablated/coagulated using monopolar ablation to destruction. The preparation was excellent throughout with Daisetta Preparation Score of 9. The cecal time was 11 minutes. Impression: 1. Colonic polyps x7 2. Left-sided diverticulosis 3. Grade 1-2 internal hemorrhoids status post monopolar ablation/coagulation Plan: I would encourage bulk fiber supplementation on a long-term daily maintenance basis. We will discuss dietary measures as well. Based upon the number, size and adenomatous nature of these polyps, I would recommend repeat surveillance colonoscopy again in 3 years. I will follow up the pathology/histology.
[2020-03-27 10:45] VITALS: BP 103/67; PULSE 82; RESP 18; TEMP 36.5; O2SAT 94
[2020-03-27 10:55] VITALS: BP 153/79; PULSE 94; RESP 18; O2SAT 96
[2020-03-27 11:05] VITALS: BP 126/90; PULSE 82; RESP 18; O2SAT 97
[2020-03-27 11:45] VITALS: BP 137/77; PULSE 80; RESP 18; O2SAT 97
== END 2020-03-27 11:48 | disposition home or self-care (01) ==
LOC: OUTP 09:08
PROVIDERS: PCP Nurse Practitioner Family; Visit Provider Internal Medicine Gastroenterology
PROC: 0DJD8ZZ Inspection of Lower Intestinal Tract, Via Natural or Artificial Opening Endoscopic (ICD-10-PCS; CPT 45378; principal; 2020-03-27 10:00)
DX: K63.5 Polyp of colon; K57.30 Diverticulosis of large intestine without perforation or abscess without bleeding; K64.0 First degree hemorrhoids; E11.9 Type 2 diabetes mellitus without complications; F41.9 Anxiety disorder, unspecified; F32.9 Major depressive disorder, single episode, unspecified; E78.5 Hyperlipidemia, unspecified; I10 Essential (primary) hypertension; Z86.711 Personal history of pulmonary embolism; G45.9 Transient cerebral ischemic attack, unspecified; Z79.899 Other long term (current) drug therapy; Z79.4 Long term (current) use of insulin
CPT/HCPCS: 45385; 46930; 82962; 88305; C2618

== ENCOUNTER → 2020-05-10 13:48 | Outpatient (CLI) | payer MEDICARE, MEDICAID, SELFPAY ==
[2020-05-10 14:00] LABS: Chloride 94 mmol/L (98-107); Sodium 132 mmol/L (136-145)
[2020-05-10 14:01] LABS: Potassium 4.5 mmoL/L (3.5-5.1)
[2020-05-10 14:03] LABS: Alanine Aminotransferase 48 U/L (12-78); Albumin Level 4.6 g/dl (3.5-5.0); Albumin/Globulin Ratio 1.2 (1.1-1.8); Alkaline Phosphatase 111 U/L (38-126); Anion Gap 13.5 mEq/L (5-15); Aspartate Amino Transferase 40 U/L (17-59); Bilirubin,Total 0.6 mg/dl (0.2-1.3); Blood Urea Nitrogen 11 mg/dl (9-20); Calcium 10.4 mg/dl (8.4-10.2); Carbon Dioxide 29 mmol/L (22.0-30.0); Chol/HDL Ratio 6.5 (1-3.5); Cholesterol 265 mg/dl (140-200); Estimated Glomerular Filt Rate 120 ml/min (>60); GFR (African American) 146 ML/MIN (>60); Globulin 3.8 g/dL (1.3-3.2); HDL Cholesterol 41 mg/dl (40-60); Total Protein,Serum 8.4 g/dl (6.3-8.2)
[2020-05-10 14:09] LABS: Creatinine,Urine Random 27 mg/dL (Not Estab.)
[2020-05-10 14:14] LABS: Microalbumin < 6.000 mg/L (0-16.7)
[2020-05-10 14:16] LABS: Direct LDL Cholesterol 93.35 mg/dL (100-129)
[2020-05-10 14:22] LABS: T4 (Thyroxine) 11.4 ug/dl (5.53-11.0)
[2020-05-10 14:36] LABS: Thyroid Stimulating Hormone 3.72 uIU/mL (0.465-4.68)
[2020-05-10 14:39] LABS: Basophils # 0.1 K/mm3 (0-0.2); Basophils % 0.7 % (0.1-2.0); Eosinophils # 0.2 K/mm3 (0.0-0.4); Eosinophils % 2.2 % (0.1-12.0); Hematocrit 47.4 % (42.0-52.0); Hemoglobin 15.7 g/dL (14.1-18.0); Lymphocytes % 27.3 % (10-50); Mean Corpuscular HGB Conc 33.1 g/dL (31.8-35.4); Mean Corpuscular Volume 93.6 fl (80-94); Mean Platelet Volume 8.3 fl (7.4-10.4); Monocytes # 0.4 K/mm3 (0.1-1.0); Monocytes % 5.2 % (1.7-9.3); Neutrophils # 4.7 K/mm3 (1.8-7.8); Neutrophils % 64.5 % (37.0-80.0); Platelet Count 270 K/mm3 (142-424); Red Blood Count 5.06 M/mm3 (4.60-6.20); Red Cell Distribution Width 12.7 % (11.5-17.5); White Blood Count 7.2 K/mm3 (4.8-10.8)
[2020-05-10 15:09] LABS: Hemoglobin A1C 10.9 % (4.0-6.0)
[2020-05-10 15:15] LABS: Glucose 577 mg/dl (74-100); Triglycerides 720 mg/dl (30-150)
[2020-05-18 18:10] LABS: Testosterone, Total, LC/MS 321.4 ng/dL (264.0-916.0); Testosterone,Free 6.7 pg/mL (6.8-21.5)
== END ==
PROVIDERS: Visit Provider Nurse Practitioner Family
DX: E11.9 Type 2 diabetes mellitus without complications (principal); R06.00 Dyspnea, unspecified; I10 Essential (primary) hypertension; R53.83 Other fatigue; S70.01XA Contusion of right hip, initial encounter; Z79.4 Long term (current) use of insulin
CPT/HCPCS: 80053; 80061; 82043; 82570; 83036; 84402; 84403; 84436; 84443; 85025

== ENCOUNTER 2020-08-28 09:00 | Emergency (ER) | payer MEDICARE, MEDICAID, SELFPAY ==
[2020-08-28 09:05] VITALS: BP 132/91; PULSE 78; RESP 21; TEMP 37; O2SAT 96; BMI 43.0
--- NOTE | 2020-08-28 09:38 | HMH.EDUTC ---
[facility] [place] Clinical Impression: Diabetic foot infection Disposition: Home, Self-Care Condition on Discharge: Good Instructions: Diabetic Foot Ulcer, DI for Diabetic Foot Ulcer, Diabetic Nephropathy Additional Instructions: Keep area clean and dry Take medication as prescribed Follow up with Family Doctor for further evaluation and examination as soon as possible Follow up with Podiatry as advised, Call office for appointment Non stick dressing to the area Straight to ER if any life threatening symptoms Wear post op shoe to keep pressure off of toe Prescriptions: Mupirocin [Bactroban 2% Ointment 22gm tube] 1 applicatio TP TID 10 Days #1 tube Transmission Status: Received by [facility] # clindamycin HCL [Clindamycin HCl] 300 mg PO Q8H 7 Days #21 cap Transmission Status: Received by [facility] # Referrals: Domingo Rivera APRN [Primary Care Provider] - Flakita Topete DPM [Staff Physician] - As needed (Call office for appointment) Time of Disposition: 09:58 Medical Decision Making - Johnnie Inquiry Pt receiving controlled substance: No Johnnie was queried for this patient: No Vital Signs: 08/28/20 09:05 08/28/20 09:57 Temperature 98.6 F 98.6 F Temperature Source Oral Pulse Rate 78 Pulse Rate [Right Brachial] 78 Respiratory Rate 21 21 Blood Pressure 132/91 H Blood Pressure [Right Arm] 132/91 H Blood Pressure Mean [Right Arm] 104 Blood Pressure Source [Right Arm] Automatic Cuff Blood Pressure Position [Right Arm] Sitting 02 Sat by Pulse Oximetry 96 Oxygen Delivery Method Room Air - Physician Consults Physician Consulted: Efrem Time: 09:45 Reason -: Podiatry Eval/Care Comment/Response: Spoke with Staff in Dr Topete office and Sarah came to [facility] and observed the toe Advised to clean and dress place in post op shoe, antibiotics and patient to call office for appointment [facility] - General Stated complaint: both toes peeling Time Seen by Provider: 08/28/20 09:40 Mode of Arrival: Ambulatory Source of Information: Patient Limitations: No Limitations Description of Symptoms (Recalled from Triage Doc. by RN): PATIENT C/O SKIN PEELING OFF OF LEFT SECOND TOE AND RIGHT GREAT TOE X 3 DAYS. LEFT TOE IS RED AND POSSIBLY INFECTED HEENT Symptoms (Recalled from RN notes): No Resp Symptoms (Recalled from RN notes): No Skin Symptoms (Recalled from RN notes): Yes MS Symptoms (Recalled from RN notes): Yes Functional Status (Recalled from RN notes): WNL - History of Present Illness Provider Complaint: Patient states that he noticed a couple days ago that the skin was peeling off is left second toe and looked red and also has area that is peeling on the tip of his right great toe States that he is a diabetic and has neropathy and doesnt feel pain in his feet but today he noticed the second toe on left foot looked worse and looked infected so he came in - Related Data Home Medications Medication Instructions Recorded Confirmed Gabapentin [Gabapentin 300mg Cap] 300 mg PO . PRN 07/07/19 06/08/20 Cinnamon Bark [Cinnamon] 2,000 mg PO DAILY 03/22/20 06/08/20 Ergocalciferol (Vitamin D2) 50,000 unit PO QWEEK 03/22/20 06/08/20 [Drisdol] Loperamide HCl [Imodium A-D] 1 mg PO DAILY 03/22/20 06/08/20 lisinopriL [Lisinopril 2.5mg Tab] 2.5 mg PO DAILY 03/22/20 06/08/20 calcium polycarbophil 625 mg tablet 1,250 mg PO DAILY 04/12/20 06/08/20 Previous Rx's Medication Instructions Recorded Albuterol Sulfate [Proventil-HFA 1 - 2 puffs IH Q4HP PRN 30 Days #1 07/03/19 90mcg/puff Inh] inh zolpidem 10 mg tablet 10 mg PO QHS PRN #30 tab 02/08/20 apixaban 5 mg tablet 5 mg PO BID #180 tab 04/02/20 blood sugar diagnostic See Rx Instructions .ROUTE 04/12/20 .MEDSUPPLY #10 each blood-glucose meter See Rx Instructions .ROUTE 04/12/20 .MEDSUPPLY #1 each insulin aspar prot-insulin aspart 10 unit SQ BID #3 ml 04/12/20 100 unit/mL (70-30) subcutaneous pen pen needle, diabetic
[2020-08-28 09:57] VITALS: BP 132/91; PULSE 78; RESP 21; TEMP 37; O2SAT 96
== END 2020-08-28 10:05 | disposition home or self-care (01) ==
PROVIDERS: Emergency Provider Nurse Practitioner; PCP Nurse Practitioner Family
DX: E11.621 Type 2 diabetes mellitus with foot ulcer (principal); F41.8 Other specified anxiety disorders; I10 Essential (primary) hypertension; Z95.0 Presence of cardiac pacemaker; L97.521 Non-pressure chronic ulcer of other part of left foot limited to breakdown of skin; Z79.84 Long term (current) use of oral hypoglycemic drugs
CPT/HCPCS: G0463; 99202

== ENCOUNTER → 2020-08-31 11:59 | Outpatient (CLI) | payer MEDICARE, MEDICAID, SELFPAY ==
--- NOTE | 2020-08-31 12:14 | XR_ITS ---
PROCEDURE: XR FOOT WT BEARING LT 3V CLINICAL INDICATION: foot pain COMPARISON: No exams were available for comparison FINDINGS: No fracture or dislocation. No lytic or blastic change. There is normal mineralization. The joint spaces are well-preserved. No significant degenerative/arthritic changes. No erosive changes evident. Other findings:Minimal hypertrophic change at the neck of the talus anteriorly. Small calcaneal spur and Achilles enthesophyte. Nonspecific soft tissue calcification noted dorsal to the talus. Bandage artifact is at the 2nd toe. No obvious bony destructive changes. IMPRESSION: No acute findings. Dictated by: Gideon Klein MD 08/31/2020 13:56 Gideon Klein MD in [place] 08/31/2020 13:56
--- NOTE | 2020-08-31 12:14 | XR_ITS ---
PROCEDURE: XR FOOT WT BEARING RT 3V CLINICAL INDICATION: foot pain COMPARISON: No exams were available for comparison FINDINGS: There is bandage artifact at the great toe. No obvious bony destructive process apparent. Minimal hyperostosis involves the neck of the talus anteriorly. There is a small calcaneal spur and Achilles enthesophyte. Other findings:None. IMPRESSION: No acute findings. Dictated by: Gideon Klein MD 08/31/2020 13:55 Gideon Klein MD in [place] 08/31/2020 13:55
[2020-08-31 12:43] LABS: Basophils # 0.1 K/mm3 (0-0.2); Basophils % 0.6 % (0.1-2.0); Eosinophils # 0.2 K/mm3 (0.0-0.4); Eosinophils % 2.6 % (0.1-12.0); Hematocrit 45.1 % (42.0-52.0); Hemoglobin 15.7 g/dL (14.1-18.0); Lymphocytes # 2.1 K/mm3 (0.7-4.5); Lymphocytes % 25.5 % (10-50); Mean Corpuscular HGB Conc 34.8 g/dL (31.8-35.4); Mean Corpuscular Hemoglobin 31.4 pg (27.0-31.2); Mean Corpuscular Volume 90.2 fl (80-94); Monocytes # 0.4 K/mm3 (0.1-1.0); Monocytes % 4.8 % (1.7-9.3); Neutrophils # 5.4 K/mm3 (1.8-7.8); Neutrophils % 66.5 % (37.0-80.0); Platelet Count 286 K/mm3 (142-424); Red Cell Distribution Width 12.8 % (11.5-17.5); White Blood Count 8.1 K/mm3 (4.8-10.8)
[2020-08-31 13:17] LABS: Alanine Aminotransferase 46 U/L (12-78); Albumin Level 4.1 g/dl (3.5-5.0); Albumin/Globulin Ratio 1.3 (1.1-1.8); Alkaline Phosphatase 103 U/L (38-126); Anion Gap 13.5 mEq/L (5-15); Aspartate Amino Transferase 41 U/L (17-59); Bilirubin,Total 0.6 mg/dl (0.2-1.3); Blood Urea Nitrogen 15 mg/dl (9-20); Calcium 9.2 mg/dl (8.4-10.2); Carbon Dioxide 23 mmol/L (22.0-30.0); Chloride 100 mmol/L (98-107); Estimated Glomerular Filt Rate 120 ml/min (>60); GFR (African American) 146 ML/MIN (>60); Globulin 3.2 g/dL (1.3-3.2); Potassium 4.5 mmoL/L (3.5-5.1); Sodium 132 mmol/L (136-145); Total Protein,Serum 7.3 g/dl (6.3-8.2)
[2020-08-31 13:22] LABS: Glucose 401 mg/dl (74-100)
[2020-08-31 14:43] LABS: Hemoglobin A1C 12.4 % (4.0-6.0)
[2020-08-31 16:12] LABS: Erythrocyte Sedimentation Rate 91 mm/hr (0-15)
== END ==
PROVIDERS: Visit Provider Nurse Practitioner
DX: Z51.89 Encounter for other specified aftercare (principal); E11.628 Type 2 diabetes mellitus with other skin complications; L08.9 Local infection of the skin and subcutaneous tissue, unspecified; S70.01XA Contusion of right hip, initial encounter; Z79.4 Long term (current) use of insulin
CPT/HCPCS: 73630; 80053; 83036; 85025; 85651; 86140; 87070; 87077; 87186; 87205

== ENCOUNTER → 2020-09-19 16:42 | Outpatient (CLI) | payer MEDICARE, MEDICAID, SELFPAY ==
[2020-09-19 18:01] LABS: Basophils % 0.4 % (0.1-2.0); Eosinophils # 0.1 K/mm3 (0.0-0.4); Eosinophils % 1.7 % (0.1-12.0); Hematocrit 43.6 % (42.0-52.0); Hemoglobin 15.5 g/dL (14.1-18.0); Lymphocytes % 24.8 % (10-50); Mean Corpuscular HGB Conc 35.4 g/dL (31.8-35.4); Mean Corpuscular Hemoglobin 32.1 pg (27.0-31.2); Mean Corpuscular Volume 90.6 fl (80-94); Mean Platelet Volume 7.5 fl (7.4-10.4); Monocytes # 0.4 K/mm3 (0.1-1.0); Monocytes % 5.3 % (1.7-9.3); Neutrophils # 5.4 K/mm3 (1.8-7.8); Neutrophils % 67.7 % (37.0-80.0); Platelet Count 242 K/mm3 (142-424); Red Blood Count 4.82 M/mm3 (4.60-6.20); Red Cell Distribution Width 12.9 % (11.5-17.5)
[2020-09-19 18:45] LABS: Erythrocyte Sedimentation Rate 13 mm/hr (0-15)
[2020-09-19 19:46] LABS: Alanine Aminotransferase 44 U/L (12-78); Albumin Level 4.3 g/dl (3.5-5.0); Albumin/Globulin Ratio 1.3 (1.1-1.8); Alkaline Phosphatase 73 U/L (38-126); Anion Gap 13.5 mEq/L (5-15); Aspartate Amino Transferase 39 U/L (17-59); Bilirubin,Total 0.9 mg/dl (0.2-1.3); Blood Urea Nitrogen 14 mg/dl (9-20); Calcium 9.2 mg/dl (8.4-10.2); Carbon Dioxide 24 mmol/L (22.0-30.0); Chloride 100 mmol/L (98-107); Estimated Glomerular Filt Rate 120 ml/min (>60); GFR (African American) 146 ML/MIN (>60); Globulin 3.2 g/dL (1.3-3.2); Potassium 4.5 mmoL/L (3.5-5.1); Sodium 133 mmol/L (136-145); Total Protein,Serum 7.5 g/dl (6.3-8.2)
[2020-09-19 19:51] LABS: C-Reactive Protein 10.3 mg/L (0-4)
[2020-09-19 20:42] LABS: Glucose 458 mg/dl (74-100)
== END ==
PROVIDERS: Visit Provider Nurse Practitioner
DX: Z51.89 Encounter for other specified aftercare (principal); S70.01XA Contusion of right hip, initial encounter
CPT/HCPCS: 80053; 85025; 85651; 86140

== ENCOUNTER 2020-12-23 11:24 | Emergency (ER) | payer MEDICARE, MEDICAID, SELFPAY ==
[2020-12-23 12:31] VITALS: BP 129/73; PULSE 70; RESP 16; TEMP 36.8; O2SAT 98; BMI 37.3
--- NOTE | 2020-12-23 13:41 | HMH.EDUTC ---
[facility] [place]ression: Abscess of right groin Diabetes Qualifiers: Diabetes mellitus type: type 2 Diabetes mellitus usp insulin use: unspecified usp insulin use status Diabetes mellitus complication status: with other specified complication Qualified Code(s): E11.69 - Type 2 diabetes mellitus with other specified complication Disposition: Home, Self-Care Condition on Discharge: Good Instructions: Boil Additional Instructions: Apply warm wet compresses to the affected sites three or four times per day for 15 minutes as tolerated. Take the antibiotics as directed. Follow up with your regular doctor pn Friday. The packing will need to be removed and the wound reassessed. GO TO THE ER FOR ANY WORSENING SYMPTOMS OR CONCERNS Prescriptions: Sulfamethoxazole/Trimethoprim [Bactrim DS tablet] 1 each PO BID 10 Days #20 tab Transmission Status: Received by [facility] #[id number] Mupirocin [Bactroban 2% Ointment 22gm tube] 1 applicatio TP TID 7 Days #1 gm Transmission Status: Received by [facility] #[id number] cephALEXin [cephALEXin 500mg capsule] 500 mg PO Q6H 10 Days #40 cap Transmission Status: Received by [facility] #[id number] Referrals: Domingo Rivera APRN [Primary Care Provider] - Time of Disposition: 13:58 Medical Decision Making - Medical Records Medical records reviewed: No: I reviewed the patient's medical records. - Johnnie Inquiry Pt receiving controlled substance: No Vital Signs: 12/23/20 12:31 12/23/20 14:07 Temperature 98.2 F 98.2 F Temperature Source Oral Oral Pulse Rate 70 Pulse Rate [Apical] 70 Respiratory Rate 16 16 Blood Pressure 129/73 Blood Pressure [Right Arm] 129/73 Blood Pressure Mean [Right Arm] 91 Blood Pressure Source Automatic Cuff Blood Pressure Source [Right Arm] Automatic Cuff Blood Pressure Position Sitting Blood Pressure Position [Right Arm] Sitting 02 Sat by Pulse Oximetry 98 Oxygen Delivery Method Room Air Room Air Orders (Tests/Meds): ED MEDICATIONS Discontinued Medications Generic Name Dose Route Start Last Admin Trade Name Freq PRN Reason Stop Dose Admin Ceftriaxone Sodium 1 gm 12/23/20 13:40 12/23/20 13:48 Ceftriaxone 1gm Vial IM 12/23/20 13:41 1 gm ONCE ONE Administration Lidocaine HCl 0 ml 12/23/20 13:40 12/23/20 13:48 Lidocaine 1% 5ml Pf Vial IM 12/23/20 13:41 2.1 ml ONCE ONE Administration ORDERS Category Date Time Status Wound Culture and Gram Stain Stat Micro 12/22/20 13:58 Results Medical Decision Narrative: He refused transfer to the er. [facility] [place] - General Stated complaint: boil Time Seen by Provider: 12/23/20 12:45 Mode of Arrival: Ambulatory Source of Information: Patient Limitations: No Limitations Description of Symptoms (Recalled from Triage Doc. by RN): boil HEENT Symptoms (Recalled from RN notes): No Resp Symptoms (Recalled from RN notes): No Skin Symptoms (Recalled from RN notes): Yes (boil) MS Symptoms (Recalled from RN notes): No Functional Status (Recalled from RN notes): na - History of Present Illness Provider Complaint: He states that he has had a boil on the right side of his groin area for the past 5 days. He states that it has progressively got more swollen. He denies any fever or chills. He is a diabetic. He has had trouble with boils like this before. He refuses to go to the ER today. He states that he has went to the ER here with a similar issue and he was unsatisfied with the care he recieved. He is willing to return vahid to the ER if he goes home but begins to feel worse. - Related Data Home Medications Medication Instructions Recorded Confirmed Gabapentin [Gabapentin 300mg Cap] 300 mg PO . PRN 07/07/19 11/02/20 Cinnamon Bark [Cinnamon] 2,000 mg PO DAILY 03/22/20 11/02/20 Ergocalciferol (Vitamin D2) 50,000 unit PO QWEEK 03/22/20 11/02/20 [Drisdol] Loperamide HCl [Imodium A-D] 1 mg PO DAILY 03/22/20 0
[2020-12-23 14:07] VITALS: BP 129/73; PULSE 70; RESP 16; TEMP 36.8; O2SAT 98
== END 2020-12-23 14:00 | disposition home or self-care (01) ==
PROVIDERS: Emergency Provider Nurse Practitioner Family; PCP Nurse Practitioner Family
DX: L02.214 Cutaneous abscess of groin; E11.69 Type 2 diabetes mellitus with other specified complication; Z79.899 Other long term (current) drug therapy; Z88.6 Allergy status to analgesic agent; Z72.0 Tobacco use
CPT/HCPCS: 10060; 87070; 87077; 87186; 87205; 96372; 99202; G0463

== ENCOUNTER → 2020-12-29 11:16 | Outpatient (CLI) | payer MEDICARE, MEDICAID, SELFPAY ==
[2020-12-29 11:50] LABS: Basophils % 0.4 % (0.1-2.0); Eosinophils # 0.2 K/mm3 (0.0-0.4); Eosinophils % 2.4 % (0.1-12.0); Hematocrit 44.7 % (42.0-52.0); Lymphocytes # 2.3 K/mm3 (0.7-4.5); Lymphocytes % 28.4 % (10-50); Mean Corpuscular HGB Conc 33.6 g/dL (31.8-35.4); Mean Corpuscular Hemoglobin 31.7 pg (27.0-31.2); Mean Corpuscular Volume 94.2 fl (80-94); Monocytes # 0.4 K/mm3 (0.1-1.0); Monocytes % 4.6 % (1.7-9.3); Neutrophils # 5.2 K/mm3 (1.8-7.8); Neutrophils % 64.2 % (37.0-80.0); Platelet Count 338 K/mm3 (142-424); Red Blood Count 4.75 M/mm3 (4.60-6.20); Red Cell Distribution Width 12.2 % (11.5-17.5)
[2020-12-29 13:00] LABS: Anion Gap 15.3 mEq/L (5-15); Blood Urea Nitrogen 14 mg/dl (9-20); Calcium 9.3 mg/dl (8.4-10.2); Carbon Dioxide 26 mmol/L (22.0-30.0); Chloride 95 mmol/L (98-107); Estimated Glomerular Filt Rate 120 ml/min (>60); GFR (African American) 146 ML/MIN (>60); Potassium 4.3 mmoL/L (3.5-5.1); Sodium 132 mmol/L (136-145)
[2020-12-29 13:20] LABS: Glucose 407 mg/dl (74-100)
== END ==
PROVIDERS: Visit Provider Surgery
DX: L02.224 Furuncle of groin (principal); Z01.812 Encounter for preprocedural laboratory examination; Z11.52 Encounter for screening for COVID-19; S70.01XA Contusion of right hip, initial encounter
CPT/HCPCS: 36415; 80048; 85025; C9803; U0003; U0005

== ENCOUNTER 2021-01-01 05:58 | Day surgery (SDC) | payer MEDICARE, MEDICAID, SELFPAY ==
[2021-01-01] VITALS (11 sets, daily range): BP systolic 113–145; BP diastolic 67–87; PULSE 67–95; RESP 16–20; TEMP 36.3–36.7; O2SAT 93–100; BMI 36.4
[2021-01-01 06:41] LABS: POC Glucose,Bedside 345 (70-110)
--- NOTE | 2021-01-01 07:47 | HMH.OPNOTE ---
Date of procedure: 01/01/21 Pre-op Diagnosis:: Right groin abscess Post-op Diagnosis:: Same Procedure performed:: Incision and drainage of right groin abscess with limited debridement of subcutaneous tissue Surgeon:: Franklyn Del Rosario MD CONCESSION SUPERVISOR:: Other Anesthesia: LMA Estimated blood loss (mL): 5 Clinical Note:: Patient is a 50-year-old diabetic male referred by Denver Espinoza for right groin abscess. He states that he has had an area present in the right groin area for about 3 weeks which started as a small pimple. However, over the past week or so it had increased in size. He was seen in the urgent treatment center last Friday on 12/23/2020. Patient refused to being seen in the emergency department by report. He underwent limited incision and drainage in the [facility]. He was started on Bactrim. He followed up with his primary care provider on 12/26/2020. He was found to have an appreciable abscess and was referred for surgical consultation. Patient states that the area has actually gotten somewhat better. He was seen in the office on 12/29/2020. He had what appeared to be significant abscessed hidradenitis in the right groin with induration fluctuance and purulent drainage. Plan was made for incision and drainage. Of note, his blood sugar the day of consultation was greater than 400. The day of surgery it was 345. Patient states that he always runs blood sugar as high as 500. He has been prescribed an insulin pen but states that it does not work so he quit using it. He has been unable to tolerate Metformin because he has diarrhea. Operative findings:: Findings consistent with abscess hidradenitis. There was some necrotic purulent underlying subcutaneous debris. Operative note:: Patient was taken to the operating room. He was positioned supine position. General anesthesia was induced via LMA. Right groin area was prepped and draped in the standard surgical fashion. Lateral wound was probed which was draining pus. This communicated medially. Overlying skin was incised with electrocautery. There was some underlying purulent material which was sent for culture. There was some necrotic purulent debris in the subcutaneous tissues and this was debrided mostly using blunt abrasive debridement with Ray-Aly gauze. Once the wound was fully cleaned out it was irrigated. Hemostasis was assured. Local anesthetic was infiltrated. Wound was packed with saline moistened 4 x 4 and covered with clean dry sterile dressing. Condition: stable Disposition: PACU Specimens:: Culture sent Complications:: None immediately apparent
--- NOTE | 2021-01-01 07:57 | P.PN_ITS ---
[facility] Anesthesia Checklist - Patient Identification Patient Identification: Arm Band, Verbal (Name & ) - Structural Data Admitted From: Home Planned Operative Procedure/s: i and d right groin abcess Consent for Planned Operative Procedure(s) Verified: Yes Verified Documents: History and Physical - NPO Status Verified Time NPO: 00:00 - Chart Verification Results Verified: CBC, BMP - Additional verifications Patient : No Anesthesia Reactions: No Hx Blood Transfusions: No Blood Transfusion Reaction: Yes Cephalosporin Allergy: No Previous Colonoscopy: No - Cardiovascular Assessment Heart Sounds: S1 & S2 Pulse Strength: Baseline Pulse Rhythm: Regular Peripheral Edema: No - Airway Assessment C-Spine Mobility Assessed: Yes TMJ Mobility Assessed: Yes Dentition: Good Dentition - Neurological Assessment Level of Consciousness: Awake, Alert, Appropriate Hx Seizures: No Numbness or tingling in extremities: No - Anesthesia Plan Anesthesia Risk discussed: Yes Anesthesia Plan: Verified ASA Class: III Anesthesia Type: General [facility] History I have reviewed the patient's past medical history: Yes Medical History: Reports:: Anxiety, Depression, Diabetes Mellitus Type 2, Hiatal Hernia, Hyperlipidemia, Hypertension, Kidney Stones, Pulmonary Embolism, Seizures, Transient Ischemic Attacks (TIA) Denies:: Cancer, Diabetes Mellitus Type 1, Internal Pacemaker, MRSA *Have you ever received a pneumonia vaccine?: Yes *Have you received a flu vaccine this season?: No Other Medical History: Reports: Blood Transfusion Reaction Anesthesia experience/problems:: none Laterality Cases: Right: Arthroscopy Hip, Bilateral: Other Other Surgeries: Yes: No Previous Surgery, Colonoscopy, Hernia Repair, Other. No: Pacemaker Amputation: No Fractures: No - *Social History Last grade of school completed: High school graduate Smoking Status: Current every day smoker Tobacco Type: e-cigarettes # Packs/Day (cigarettes): 1 Alcohol Intake: current Alcohol Intake Frequency:: holidays/special occasions only Substance Use Type: marijuana Last Used Substance: days (ago) *Occupational Status:: disabled Housing: house Household Members: none *Travel in the last 8 weeks: None - Psychiatric History Pschychiatric History:: Reports:: Anxiety, Depression Family Hx:: No significant family history
--- NOTE | 2021-01-01 07:58 | HMH.ANESI ---
[facility] Anesthesia Record Part I Intake, IV Amount: 300 Estimated blood loss (mL): 10 Urine output (mL): 0 Blood Products used (#): none Blood Pressure: 113/67 SaO2: 96 Pulse Rate: 80 Respiratory Rate: 18 Temperature: 98.1 F Patient is:: Awake, Stable Stable to PACU at:: 07:54
[2021-01-01 08:06] LABS: POC Glucose,Bedside 327 (70-110)
--- NOTE | 2021-01-01 08:19 | PC.NURSE ---
0800-checked fsbs with results of 327-notified FREDI Saleem with no further orders at this time 0816-pt drinking water w/out difficulty, denies nausea
--- NOTE | 2021-01-01 08:30 | PC.NURSE ---
0822-detailed report called to LUIS Rockwell 0824-pt transported to post op via stretcher w/damon rails up and left in care of LUIS Rockwell with bed locked in lowest position, vss, pt stable
--- NOTE | 2021-01-01 13:51 | P.PN_ITS ---
[facility] Anesthesia Record Part II Discharge Time: 08:24 Destination: Surgical Day Care (OP Surgery) PACU nurse assessment reviewed?: Yes Patient Condition:: Good Anesthesia Complications:: None Swallowing reflex intact?: Yes Cyanosis?: No Blood Pressure: 133/77 Pulse Rate: 71 Temperature: 97.8 F Mental Status: Alert & Oriented Pain level:: 0 Nausea and/or vomitting:: None Intake, IV Amount: 50
== END 2021-01-01 09:17 | disposition home or self-care (01) ==
LOC: OR 06:02
PROVIDERS: PCP Nurse Practitioner Family; Visit Provider Surgery
DX: L02.214 Cutaneous abscess of groin (principal); E11.9 Type 2 diabetes mellitus without complications; F41.9 Anxiety disorder, unspecified; F32.9 Major depressive disorder, single episode, unspecified; E78.5 Hyperlipidemia, unspecified; I10 Essential (primary) hypertension; Z86.711 Personal history of pulmonary embolism; Z87.442 Personal history of urinary calculi; Z86.73 Personal history of transient ischemic attack (TIA), and cerebral infarction without residual deficits; R56.9 Unspecified convulsions; Z72.0 Tobacco use; F12.90 Cannabis use, unspecified, uncomplicated
CPT/HCPCS: 10061; 82962; 87070; 87075; 87205; 96374; J2405

== ENCOUNTER 2021-01-02 08:59 | Outpatient (CLI) | payer MEDICARE, MEDICAID, SELFPAY | END 2021-01-02 09:30 | disposition home or self-care (01) | LOC: INF 09:01 | PROVIDERS: PCP Nurse Practitioner Family; Visit Provider Surgery | DX: L02.224 Furuncle of groin (principal); Z48.01 Encounter for change or removal of surgical wound dressing | CPT/HCPCS: G0463 ==

== ENCOUNTER 2021-01-03 08:48 | Outpatient (CLI) | payer MEDICARE, MEDICAID, SELFPAY | END 2021-01-03 09:09 | disposition home or self-care (01) | LOC: INF 08:50 | PROVIDERS: PCP Nurse Practitioner Family; Visit Provider Surgery | DX: L02.224 Furuncle of groin (principal) | CPT/HCPCS: G0463 ==

== ENCOUNTER → 2021-01-03 13:33 | Outpatient (CLI) | payer MEDICARE, MEDICAID, SELFPAY ==
[2021-01-04 14:13] LABS: Hemoglobin A1C 13.6 % (4.0-6.0)
[2021-01-04 14:13] LABS: 25-OH Vitamin D, Total 15.7 ng/mL (30-100); Anion Gap 16.4 mEq/L (5-15); Blood Urea Nitrogen 9 mg/dl (9-20); Carbon Dioxide 24 mmol/L (22.0-30.0); Chloride 97 mmol/L (98-107); Estimated Glomerular Filt Rate 144 ml/min (>60); GFR (African American) 174 ML/MIN (>60); Potassium 4.4 mmoL/L (3.5-5.1); Sodium 133 mmol/L (136-145)
[2021-01-04 14:14] LABS: Alanine Aminotransferase 41 U/L (12-78); Albumin/Globulin Ratio 1.1 (1.1-1.8); Alkaline Phosphatase 94 U/L (38-126); Aspartate Amino Transferase 36 U/L (17-59); Bilirubin,Total 0.6 mg/dl (0.2-1.3); Calcium 9.8 mg/dl (8.4-10.2); Chol/HDL Ratio 4.8 (1-3.5); Cholesterol 223 mg/dl (140-200); Direct LDL Cholesterol 101.92 mg/dL (100-129); Globulin 3.8 g/dL (1.3-3.2); HDL Cholesterol 46 mg/dl (40-60); Prostate Specific Ag Screen 1.8 ng/ml (0.0-4.0); T4 (Thyroxine) 11.1 ug/dl (5.53-11.0); Thyroid Stimulating Hormone 2.71 uIU/mL (0.465-4.68); Total Protein,Serum 7.8 g/dl (6.3-8.2); Triglycerides 327 mg/dl (30-150); VLDL Cholesterol 65 mg/dL (0-40)
[2021-01-04 14:16] LABS: Glucose 508 mg/dl (74-100)
[2021-01-04 14:18] LABS: Basophils % 0.6 % (0.1-2.0); Eosinophils % 1.3 % (0.1-12.0); Hematocrit 49.1 % (42.0-52.0); Lymphocytes % 28.2 % (10-50); Mean Corpuscular HGB Conc 32.5 g/dL (31.8-35.4); Mean Corpuscular Hemoglobin 31.9 pg (27.0-31.2); Mean Corpuscular Volume 98.2 fl (80-94); Mean Platelet Volume 10.5 fl (7.4-10.4); Monocytes % 4.9 % (1.7-9.3); Platelet Count 383 K/mm3 (142-424); Red Cell Distribution Width 13.2 % (11.5-17.5); White Blood Count 7.2 K/mm3 (4.8-10.8)
[2021-01-04 14:19] LABS: Monocytes # 0.4 K/mm3 (0.1-1.0); Neutrophils # 4.7 K/mm3 (1.8-7.8)
[2021-01-04 14:20] LABS: Eosinophils # 0.1 K/mm3 (0.0-0.4)
[2021-01-06 12:09] LABS: C-Peptide 3.4 ng/mL (1.1-4.4)
== END ==
PROVIDERS: Visit Provider Nurse Practitioner Family
DX: E11.628 Type 2 diabetes mellitus with other skin complications (principal); E55.9 Vitamin D deficiency, unspecified; I10 Essential (primary) hypertension; L08.9 Local infection of the skin and subcutaneous tissue, unspecified; S70.01XA Contusion of right hip, initial encounter; Z12.5 Encounter for screening for malignant neoplasm of prostate
CPT/HCPCS: 80053; 80061; 82306; 83036; 84436; 84443; 84681; 85025; G0103; G0463

== ENCOUNTER 2021-01-04 08:44 | Outpatient (CLI) | payer MEDICARE, MEDICAID, SELFPAY | END 2021-01-04 08:59 | disposition home or self-care (01) | PROVIDERS: PCP Nurse Practitioner Family; Visit Provider Nurse Practitioner Family | DX: E55.9 Vitamin D deficiency, unspecified; Z12.5 Encounter for screening for malignant neoplasm of prostate; L02.224 Furuncle of groin; Z48.01 Encounter for change or removal of surgical wound dressing | CPT/HCPCS: G0463 ==

== ENCOUNTER 2021-01-05 08:44 | Outpatient (CLI) | payer MEDICARE, MEDICAID, SELFPAY | END 2021-01-05 09:00 | disposition home or self-care (01) | LOC: INF 08:45 | PROVIDERS: PCP Nurse Practitioner Family; Visit Provider Surgery | DX: L02.224 Furuncle of groin (principal); Z48.01 Encounter for change or removal of surgical wound dressing | CPT/HCPCS: G0463 ==

== ENCOUNTER 2021-01-06 08:38 | Outpatient (CLI) | payer MEDICARE, MEDICAID, SELFPAY | END 2021-01-06 08:45 | disposition home or self-care (01) | LOC: INF 08:41 | PROVIDERS: PCP Nurse Practitioner Family; Visit Provider Surgery | DX: L02.224 Furuncle of groin (principal); Z48.01 Encounter for change or removal of surgical wound dressing | CPT/HCPCS: G0463 ==

== ENCOUNTER 2021-01-07 09:14 | Outpatient (CLI) | payer MEDICARE, MEDICAID, SELFPAY ==
--- NOTE | 2021-01-07 15:16 | PC.NURSE ---
care completed by PEDRO Tyler RN, charting completed per Everett Tyler request.
== END 2021-01-07 09:30 | disposition home or self-care (01) ==
LOC: INF 09:16
PROVIDERS: PCP Nurse Practitioner Family; Visit Provider Surgery
DX: L02.224 Furuncle of groin (principal); Z48.01 Encounter for change or removal of surgical wound dressing
CPT/HCPCS: G0463

== ENCOUNTER 2021-01-09 08:47 | Outpatient (CLI) | payer MEDICARE, MEDICAID, SELFPAY | END 2021-01-09 09:10 | disposition home or self-care (01) | LOC: INF 08:48 | PROVIDERS: PCP Nurse Practitioner Family; Visit Provider Surgery | DX: L02.224 Furuncle of groin (principal); Z48.01 Encounter for change or removal of surgical wound dressing | CPT/HCPCS: G0463 ==

== ENCOUNTER 2021-01-10 10:25 | Outpatient (CLI) | payer MEDICARE, MEDICAID, SELFPAY | END 2021-01-10 10:42 | disposition home or self-care (01) | LOC: INF 10:26 | PROVIDERS: PCP Nurse Practitioner Family; Visit Provider Surgery | DX: L02.214 Cutaneous abscess of groin (principal); Z48.01 Encounter for change or removal of surgical wound dressing | CPT/HCPCS: G0463 ==

== ENCOUNTER 2021-01-11 10:02 | Outpatient (CLI) | payer MEDICARE, MEDICAID, SELFPAY | END 2021-01-11 11:53 | disposition home or self-care (01) | LOC: INF 10:03 | PROVIDERS: PCP Nurse Practitioner Family; Visit Provider Surgery | DX: L02.214 Cutaneous abscess of groin (principal); Z48.01 Encounter for change or removal of surgical wound dressing | CPT/HCPCS: G0463 ==

== ENCOUNTER 2021-01-12 09:08 | Outpatient (CLI) | payer MEDICARE, MEDICAID, SELFPAY | END 2021-01-12 09:41 | disposition home or self-care (01) | LOC: INF 09:10 | PROVIDERS: PCP Nurse Practitioner Family; Visit Provider Surgery | DX: L02.214 Cutaneous abscess of groin (principal); Z48.01 Encounter for change or removal of surgical wound dressing | CPT/HCPCS: G0463 ==

== ENCOUNTER 2021-01-13 09:48 | Outpatient (CLI) | payer MEDICARE, MEDICAID, SELFPAY ==
--- NOTE | 2021-01-13 11:16 | PC.NURSE ---
Old dressing removed, site cleansed with Dakin's solution and saline. Site packed with wet 2x2, covered with dry 4x4 and tegaderm. Wound bed was beefy pink with no signs of infection. Skin around site noted to have some irritation, possibly from tape from previous dressings. Pt tolerated well.
== END 2021-01-13 10:18 | disposition home or self-care (01) ==
LOC: INF 09:49
PROVIDERS: PCP Nurse Practitioner Family; Visit Provider Surgery
DX: L02.214 Cutaneous abscess of groin (principal); Z48.01 Encounter for change or removal of surgical wound dressing
CPT/HCPCS: G0463

== ENCOUNTER 2021-01-14 11:22 | Outpatient (CLI) | payer MEDICARE, MEDICAID, SELFPAY ==
[2021-01-14 11:55] VITALS: BP 131/75; PULSE 68; RESP 16; O2SAT 98
--- NOTE | 2021-01-14 12:00 | PC.NURSE ---
Old packing removed, wound cleansed with dakins solution and saline, packed w/wet 2x2 and covered w/dry 4x4 and tegaderm. Skin around wound is red and appears irritated. Pt tolerated dressing change well.
== END 2021-01-14 11:37 | disposition home or self-care (01) ==
LOC: INF 11:22
PROVIDERS: PCP Nurse Practitioner Family; Visit Provider Surgery
DX: L02.214 Cutaneous abscess of groin (principal); Z48.01 Encounter for change or removal of surgical wound dressing
CPT/HCPCS: G0463

== ENCOUNTER 2021-01-15 08:54 | Outpatient (CLI) | payer MEDICARE, MEDICAID, SELFPAY | END 2021-01-15 09:10 | disposition home or self-care (01) | LOC: INF 08:54 | PROVIDERS: PCP Nurse Practitioner Family; Visit Provider Surgery | DX: L02.214 Cutaneous abscess of groin (principal); Z48.01 Encounter for change or removal of surgical wound dressing | CPT/HCPCS: G0463 ==

== ENCOUNTER 2021-01-16 08:51 | Outpatient (CLI) | payer MEDICARE, MEDICAID, SELFPAY | END 2021-01-16 09:10 | disposition home or self-care (01) | LOC: INF 08:52 | PROVIDERS: PCP Nurse Practitioner Family; Visit Provider Surgery | DX: L02.214 Cutaneous abscess of groin (principal); Z48.01 Encounter for change or removal of surgical wound dressing | CPT/HCPCS: G0463 ==

== ENCOUNTER 2021-01-17 08:37 | Outpatient (CLI) | payer MEDICARE, MEDICAID, SELFPAY | END 2021-01-17 09:05 | disposition home or self-care (01) | LOC: INF 08:38 | PROVIDERS: PCP Nurse Practitioner Family; Visit Provider Surgery | DX: L02.214 Cutaneous abscess of groin (principal); Z48.01 Encounter for change or removal of surgical wound dressing | CPT/HCPCS: G0463 ==

== ENCOUNTER 2021-01-18 09:08 | Outpatient (CLI) | payer MEDICARE, MEDICAID, SELFPAY | END 2021-01-18 09:25 | disposition home or self-care (01) | LOC: INF 09:08 | PROVIDERS: PCP Nurse Practitioner Family; Visit Provider Surgery | DX: L02.214 Cutaneous abscess of groin (principal); Z48.01 Encounter for change or removal of surgical wound dressing | CPT/HCPCS: G0463 ==

== ENCOUNTER 2021-01-19 08:21 | Outpatient (CLI) | payer MEDICARE, MEDICAID, SELFPAY | END 2021-01-19 08:40 | disposition home or self-care (01) | LOC: INF 08:23 | PROVIDERS: PCP Nurse Practitioner Family; Visit Provider Surgery | DX: L02.214 Cutaneous abscess of groin (principal); Z48.01 Encounter for change or removal of surgical wound dressing | CPT/HCPCS: G0463 ==

== ENCOUNTER 2021-01-20 13:28 | Outpatient (CLI) | payer MEDICARE, MEDICAID, SELFPAY | END 2021-01-20 13:45 | disposition home or self-care (01) | LOC: INF 13:29 | PROVIDERS: PCP Nurse Practitioner Family; Visit Provider Surgery | DX: L02.214 Cutaneous abscess of groin (principal); Z48.01 Encounter for change or removal of surgical wound dressing | CPT/HCPCS: G0463 ==

== ENCOUNTER 2021-01-23 10:43 | Outpatient (CLI) | payer MEDICARE, MEDICAID, SELFPAY | END 2021-01-23 11:30 | disposition home or self-care (01) | LOC: INF 10:45 | PROVIDERS: PCP Nurse Practitioner Family; Visit Provider Surgery | DX: L02.214 Cutaneous abscess of groin (principal); Z48.01 Encounter for change or removal of surgical wound dressing | CPT/HCPCS: G0463 ==

== ENCOUNTER 2021-01-24 09:14 | Outpatient (CLI) | payer MEDICARE, MEDICAID, SELFPAY | END 2021-01-24 10:19 | disposition home or self-care (01) | LOC: INF 09:15 | PROVIDERS: PCP Nurse Practitioner Family; Visit Provider Surgery | DX: L02.214 Cutaneous abscess of groin (principal); Z48.01 Encounter for change or removal of surgical wound dressing | CPT/HCPCS: G0463 ==

== ENCOUNTER 2021-01-25 09:50 | Outpatient (CLI) | payer MEDICARE, MEDICAID, SELFPAY | END 2021-01-25 10:00 | disposition home or self-care (01) | LOC: INF 09:52 | PROVIDERS: PCP Nurse Practitioner Family; Visit Provider Surgery | DX: L02.214 Cutaneous abscess of groin (principal); Z48.01 Encounter for change or removal of surgical wound dressing | CPT/HCPCS: G0463 ==

== ENCOUNTER → 2021-01-26 14:49 | Outpatient (CLI) | payer MEDICARE, MEDICAID, SELFPAY | PROVIDERS: PCP Nurse Practitioner Family; Visit Provider Surgery | DX: L02.214 Cutaneous abscess of groin (principal); Z48.01 Encounter for change or removal of surgical wound dressing | CPT/HCPCS: G0463 ==

== ENCOUNTER 2021-01-28 15:27 | Outpatient (CLI) | payer MEDICARE, MEDICAID, SELFPAY ==
--- NOTE | 2021-01-28 17:19 | PC.NURSE ---
Old packing removed. Small amount of carpenter and serosanguineous drainage noted to old packing. Wound cleansed w/dakins solution and pack with dry piece of 2x2 and covered w/dry 2x2 and medipore tape. Pt tolerated well.
== END 2021-01-28 15:44 | disposition home or self-care (01) ==
LOC: INF 15:29
PROVIDERS: PCP Nurse Practitioner Family; Visit Provider Surgery
DX: L02.214 Cutaneous abscess of groin (principal); Z48.01 Encounter for change or removal of surgical wound dressing
CPT/HCPCS: G0463

== ENCOUNTER 2021-01-30 12:20 | Outpatient (CLI) | payer MEDICARE, MEDICAID, SELFPAY | END 2021-01-30 12:35 | disposition home or self-care (01) | LOC: INF 12:21 | PROVIDERS: PCP Nurse Practitioner Family; Visit Provider Surgery | DX: L02.214 Cutaneous abscess of groin (principal); Z48.01 Encounter for change or removal of surgical wound dressing | CPT/HCPCS: G0463 ==

== ENCOUNTER 2021-01-31 11:04 | Outpatient (CLI) | payer MEDICARE, MEDICAID, SELFPAY | END 2021-01-31 11:20 | disposition home or self-care (01) | LOC: INF 11:05 | PROVIDERS: PCP Nurse Practitioner Family; Visit Provider Surgery | DX: L02.214 Cutaneous abscess of groin (principal); Z48.01 Encounter for change or removal of surgical wound dressing | CPT/HCPCS: G0463 ==

== ENCOUNTER 2021-02-01 15:37 | Outpatient (CLI) | payer MEDICARE, MEDICAID, SELFPAY ==
--- NOTE | 2021-02-01 16:42 | PC.NURSE ---
1543- GREEN CHUCKS PUT DOWN FOR PT. BLANKET PROVIDED FOR PRIVACY AND NURSE STEPPED OUT OF THE ROOM FOR PT TO CHANGE.
== END 2021-02-01 15:50 | disposition home or self-care (01) ==
LOC: INF 15:38
PROVIDERS: PCP Nurse Practitioner Family; Visit Provider Surgery
DX: L02.214 Cutaneous abscess of groin (principal)
CPT/HCPCS: G0463

== ENCOUNTER 2021-02-04 09:07 | Outpatient (CLI) | payer MEDICARE, MEDICAID, SELFPAY ==
--- NOTE | 2021-02-04 09:29 | PC.NURSE ---
Dressing changed. Upon arrival pt states that his old dressing came off while in the shower. small amount of gauze was noted to still be in wound bed. wound bed irrigated with saline, edge of 4x4 packed into wound and remainder of gauze was used to cover wound. dressed with tegaderm. pt tolerated we. no exudate was noted.
== END 2021-02-04 09:29 | disposition home or self-care (01) ==
LOC: INF 09:08
PROVIDERS: PCP Nurse Practitioner Family; Visit Provider Surgery
DX: L02.214 Cutaneous abscess of groin (principal); Z48.01 Encounter for change or removal of surgical wound dressing
CPT/HCPCS: G0463

== ENCOUNTER 2021-02-08 09:53 | Outpatient (CLI) | payer MEDICARE, MEDICAID, SELFPAY | END 2021-02-08 10:18 | disposition home or self-care (01) | LOC: INF 09:54 | PROVIDERS: PCP Nurse Practitioner Family; Visit Provider Surgery | DX: L02.214 Cutaneous abscess of groin (principal); Z48.01 Encounter for change or removal of surgical wound dressing | CPT/HCPCS: G0463 ==

== ENCOUNTER → 2021-03-12 09:11 | Outpatient (CLI) | payer MEDICARE, MEDICAID, SELFPAY | PROVIDERS: PCP Nurse Practitioner Family; Visit Provider Nurse Practitioner | DX: Z20.822 Contact with and (suspected) exposure to COVID-19 (principal) | CPT/HCPCS: C9803; U0003; U0005 ==

== ENCOUNTER 2021-03-13 11:20 | Emergency (ER) | payer MEDICARE, MEDICAID, SELFPAY ==
[2021-03-13 12:59] VITALS: BP 127/80; PULSE 89; RESP 19; TEMP 36.6; O2SAT 98; BMI 37.7
--- NOTE | 2021-03-13 13:14 | HMH.EDUTC ---
[facility] [place] Impression: Abscess and cellulitis of gluteal region Disposition: Home, Self-Care Condition on Discharge: Good Instructions: Cellulitis, Clindamycin, Mupirocin Additional Instructions: *Continue taking prescxribed antibiotic(s) and be sure to take as ordered for the FULL length of time although you may be feeling better or start to see improvement in the next 24-48 hours *Monitor closely. Outlined redness so that you can monitor easier. Follow up immediately for new or worsening symptoms including but not limited to redness, swelling, streaking from site fever or chills. *Warm compress 15 minutes 3-4 times day *Never squeeze or pop these on your own. Seek immediate medical attention next time this occurs *Monitor Temp. Tylenol every 4 hours as needed and ibuprofen every 6 hours as needed (as long as your primary care doctor has told you that it is ok to take both. For fever, aches, pain. ER if no less that 101 despite Tylenol and ibuprofen Follow up with your family doctor/primary care physician in the next 48-72 hours if no improvement Return if needed Straight to ER if any life threatening symptoms Follow up with [facility] if no improvement or any worsening of symptoms Prescriptions: Mupirocin Calcium [Mupirocin 2% Cream 15gm] 1 applicatio TP TID #15 gm Transmission Status: Received by [facility] #[id number] Referrals: Domingo Rivera APRN [Primary Care Provider] - Hai Marin MD [Staff Physician] - Franklyn Del Rosario MD [Staff Physician] - Time of Disposition: 13:32 Medical Decision Making - Johnnie Inquiry Pt receiving controlled substance: No Johnnie was queried for this patient: No Vital Signs: 03/13/21 12:59 03/13/21 13:50 Temperature 98 F 98 F Temperature Source Oral Pulse Rate 89 Pulse Rate [Left] 89 Respiratory Rate 19 19 Blood Pressure 127/80 Blood Pressure [Right Arm] 127/80 Blood Pressure Mean [Right Arm] 95 02 Sat by Pulse Oximetry 98 Orders (Tests/Meds): ORDERS Category Date Time Status Wound Culture and Gram Stain Stat Micro 03/13/21 13:30 Results [facility] [place] - General Stated complaint: covid symptoms Time Seen by Provider: 03/13/21 13:14 Mode of Arrival: Ambulatory Source of Information: Patient Limitations: No Limitations Description of Symptoms (Recalled from Triage Doc. by RN): pt c/o a boil on his inner L thigh close to the groin. x3 days HEENT Symptoms (Recalled from RN notes): No Resp Symptoms (Recalled from RN notes): No Skin Symptoms (Recalled from RN notes): Yes MS Symptoms (Recalled from RN notes): No Functional Status (Recalled from RN notes): wnl - History of Present Illness Provider Complaint: Patient states that he gets a boil in his groin area and sometimes it will go away with antibiotics and sometime it has to be lanced States that he has been mashing on it and trying to care for it at home but noticed it was looking more large so he came in to get antibiotics - Related Data Home Medications Medication Instructions Recorded Confirmed Gabapentin [Gabapentin 300mg Cap] 300 mg PO . PRN 07/07/19 03/09/21 Cinnamon Bark [Cinnamon] 2,000 mg PO DAILY 03/22/20 03/09/21 Previous Rx's Medication Instructions Recorded zolpidem 10 mg tablet 10 mg PO QHS PRN #30 tab 02/08/20 insulin lispro 100 unit/mL 1 sliding scale dose SQ 01/15/21 subcutaneous solution USEASDIRECTD #10 ml flash glucose scanning reader See Rx Instructions MISCELLANE 01/31/21 .MEDSUPPLY #1 each flash glucose sensor See Rx Instructions .MEDSUPPLY #2 01/31/21 each clindamycin HCl 300 mg capsule 300 mg PO TID 14 Days #42 cap 03/09/21 Mupirocin Calcium [Mupirocin 2% 1 applicatio TP TID #15 gm 03/13/21 Cream 15gm] Allergies Allergy/AdvReac Type Severity Reaction Status Date / Time hydrocodone [From VICODIN] Allergy Unknown Unknown Verified 03/09/21 11:02 allergy reaction methadone [METHADONE] Allergy Unknown Unknown Verified 03/09
[2021-03-13 13:50] VITALS: BP 127/80; PULSE 89; RESP 19; TEMP 36.6
== END 2021-03-13 13:51 | disposition home or self-care (01) ==
PROVIDERS: Emergency Provider Nurse Practitioner; PCP Nurse Practitioner Family
DX: L02.31 Cutaneous abscess of buttock (principal); F41.8 Other specified anxiety disorders; E11.9 Type 2 diabetes mellitus without complications; I10 Essential (primary) hypertension; E78.5 Hyperlipidemia, unspecified; F17.290 Nicotine dependence, other tobacco product, uncomplicated
CPT/HCPCS: G0463; 87070; 87077; 87186; 87205; 99202

== ENCOUNTER 2021-03-14 11:32 | Observation (INO) | payer MEDICARE, MEDICAID, SELFPAY ==
[2021-03-14] VITALS (20 sets, daily range): BP systolic 96–148; BP diastolic 54–82; PULSE 75–100; RESP 12–18; TEMP 36.6–37.6; O2SAT 94–98; BMI 37.3
[2021-03-14 12:48] LABS: Coronavirus 19, PCR Not Detected (NotDetected); Influenza A, PCR Not Detected (NotDetected); Influenza B, PCR Not Detected (NotDetected)
--- NOTE | 2021-03-14 13:11 | HMH.PHAVTE ---
[facility] Pharmacy VTE Monitoring - Patient Demographics Admission date: 03/14/21 Report Date: 03/14/21 Time: 13:11 Allergies/Adverse Reactions: Patient Allergies hydrocodone [From VICODIN] Allergy (Unknown, Verified 03/14/21 10:34) Unknown allergy reaction methadone [METHADONE] Allergy (Unknown, Verified 03/14/21 10:34) Unknown allergy reaction morphine [MORPHINE] Allergy (Unknown, Verified 03/14/21 10:34) Unknown allergy reaction Height: 1.88 m Weight: 132.052 kg - Prophylaxis VTE Prophylaxis Ordered?: Yes Types of VTE Prophylaxis: TEDS Knee High Location of Applied Device: Bilateral Lower Extremeties
--- NOTE | 2021-03-14 13:19 | HMH.HP ---
*Admission Date: 03/14/21 *Chief complaint: abscess *History of present illness: 51-year-old uncontrolled diabetic male. Presented to the urgent treatment center yesterday with a several day history of LEFT medial proximal thigh abscess and left great toe ulcer. He states that this was aspirated with a needle. He followed up in office today and the area had increased in size and pain.Pt has been on antibotics and both areas has increased in indurating pass marked areas and escar tissue He is admitted for IV antibiotics and Surgical consultation was obtained. [facility] History I have reviewed the patient's past medical history: Yes Medical History: Reports:: Anxiety, Cancer, Deep Vein Thrombosis, Depression, Diabetes Mellitus Type 2, Hiatal Hernia, Hyperlipidemia, Hypertension, Kidney Stones, MRSA, Pulmonary Embolism, Transient Ischemic Attacks (TIA) Denies:: Diabetes Mellitus Type 1, Internal Pacemaker, Seizures *Have you ever received a pneumonia vaccine?: No *Have you received a flu vaccine this season?: No Other Medical History: Reports: Arthritis, Blood Transfusion Reaction, Chemotherapy Laterality Cases: Right: Arthroscopy Hip, Bilateral: Other Other Surgeries: Yes: No Previous Surgery, Colonoscopy, Hernia Repair, Other. No: Pacemaker Amputation: No Fractures: No - *Social History Smoking Status: Current every day smoker Tobacco Type: e-cigarettes # Packs/Day (cigarettes): 0 Alcohol Intake: never Alcohol Intake Frequency:: holidays/special occasions only Substance Use Type: marijuana *Occupational Status:: disabled Housing: house Household Members: none *Travel in the last 8 weeks: None - Psychiatric History Pschychiatric History:: Reports:: Anxiety, Depression Family Hx:: No significant family history Review of Systems - Review of Systems Review of systems:: pertinent systems reviewed and negative unless documented below - Constitutional Denies body ache(s), Denies increased appetite - Eyes Denies change in vision - ENT Denies change in voice - *Cardiovascular Denies chest pain with activity - *Respiratory Denies chest congestion - *Gastrointestinal Denies belching - *Genitourinary Denies difficulty urinating - *Musculoskeletal Denies abnormal walking - Integumentary/Breasts Reports boil, Reports skin ulcer, Reports wounds, Denies hair loss - *Neurologic Denies abnormal walking - Psychiatric Denies abnormal sleep pattern - Endocrine Denies excessive sweating - Hematologic/Lymphatic Denies easy bruising - Allergic/Immunologic Denies itchy eyes Meds Home Medications Medication Instructions Recorded Confirmed Type Gabapentin [Gabapentin 300mg Cap] 300 mg PO . PRN 07/07/19 03/14/21 History zolpidem 10 mg tablet 10 mg PO QHS PRN #30 tab 02/08/20 03/14/21 Rx Cinnamon Bark [Cinnamon] 2,000 mg PO DAILY 03/22/20 03/14/21 History insulin lispro 100 unit/mL 1 sliding scale dose SQ 01/15/21 03/14/21 Rx subcutaneous solution USEASDIRECTD #10 ml flash glucose scanning reader See Rx Instructions MISCELLANE 01/31/21 03/14/21 Rx .MEDSUPPLY #1 each flash glucose sensor See Rx Instructions .MEDSUPPLY #2 01/31/21 03/14/21 Rx each clindamycin HCl 300 mg capsule 300 mg PO TID 14 Days #42 cap 03/09/21 03/14/21 Rx Mupirocin Calcium [Mupirocin 2% 1 applicatio TP TID #15 gm 03/13/21 03/14/21 Rx Cream 15gm] Allergies Allergy/AdvReac Type Severity Reaction Status Date / Time hydrocodone [From VICODIN] Allergy Unknown Unknown Verified 03/14/21 10:34 allergy reaction methadone [METHADONE] Allergy Unknown Unknown Verified 03/14/21 10:34 allergy reaction morphine [MORPHINE] Allergy Unknown Unknown Verified 03/14/21 10:34 allergy reaction Exam Vital signs and Labs for Last 24 Hours: Temp Pulse Resp BP Pulse Ox 98.2 F 90 18 141/69 H 98 03/14/21 12:23 03/14/21 12:23 03/14/21 12:23 03/14/21 12:23 03/14/21 12:23 Laboratory Results - last
--- NOTE | 2021-03-14 13:38 | HMH.GSCON ---
*Admission Date: 03/14/21 *Reason for consult:: Groin abscess *History of present illness: 51-year-old diabetic male. I had recently seen him for a right groin abscess hidradenitis. This area had finally healed. He had presented to the urgent treatment center yesterday with a several day history of LEFT medial proximal thigh abscess. He states that this was aspirated with a needle. He followed up in his primary care provider's office today and the area had progressed. He is admitted for inpatient management. Surgical consultation was obtained. Review of Systems - Review of Systems Review of systems:: pertinent systems reviewed and negative unless documented below [facility] History I have reviewed the patient's past medical history: Yes Medical History: Reports:: Anxiety, Cancer, Deep Vein Thrombosis, Depression, Diabetes Mellitus Type 2, Hiatal Hernia, Hyperlipidemia, Hypertension, Kidney Stones, MRSA, Pulmonary Embolism, Transient Ischemic Attacks (TIA) Denies:: Diabetes Mellitus Type 1, Internal Pacemaker, Seizures *Have you ever received a pneumonia vaccine?: No *Have you received a flu vaccine this season?: No Other Medical History: Reports: Arthritis, Blood Transfusion Reaction, Chemotherapy Laterality Cases: Right: Arthroscopy Hip, Bilateral: Other Other Surgeries: Yes: No Previous Surgery, Colonoscopy, Hernia Repair, Other. No: Pacemaker Amputation: No Fractures: No - *Social History Smoking Status: Current every day smoker Tobacco Type: e-cigarettes # Packs/Day (cigarettes): 0 Alcohol Intake: never Alcohol Intake Frequency:: holidays/special occasions only Substance Use Type: marijuana *Occupational Status:: disabled Housing: house Household Members: none *Travel in the last 8 weeks: None - Psychiatric History Pschychiatric History:: Reports:: Anxiety, Depression Family Hx:: No significant family history Meds Home Medications Medication Instructions Recorded Confirmed Type Gabapentin [Gabapentin 300mg Cap] 300 mg PO . PRN 07/07/19 03/14/21 History zolpidem 10 mg tablet 10 mg PO QHS PRN #30 tab 02/08/20 03/14/21 Rx Cinnamon Bark [Cinnamon] 2,000 mg PO DAILY 03/22/20 03/14/21 History insulin lispro 100 unit/mL 1 sliding scale dose SQ 01/15/21 03/14/21 Rx subcutaneous solution USEASDIRECTD #10 ml flash glucose scanning reader See Rx Instructions MISCELLANE 01/31/21 03/14/21 Rx .MEDSUPPLY #1 each flash glucose sensor See Rx Instructions .MEDSUPPLY #2 01/31/21 03/14/21 Rx each clindamycin HCl 300 mg capsule 300 mg PO TID 14 Days #42 cap 03/09/21 03/14/21 Rx Mupirocin Calcium [Mupirocin 2% 1 applicatio TP TID #15 gm 03/13/21 03/14/21 Rx Cream 15gm] Allergies Allergy/AdvReac Type Severity Reaction Status Date / Time hydrocodone [From VICODIN] Allergy Unknown Unknown Verified 03/14/21 10:34 allergy reaction methadone [METHADONE] Allergy Unknown Unknown Verified 03/14/21 10:34 allergy reaction morphine [MORPHINE] Allergy Unknown Unknown Verified 03/14/21 10:34 allergy reaction Exam Vital signs and Labs for Last 24 Hours: Temp Pulse Resp BP Pulse Ox 98.2 F 90 18 141/69 H 98 03/14/21 12:23 03/14/21 12:23 03/14/21 12:23 03/14/21 12:23 03/14/21 12:23 Laboratory Results - last 24 hr 03/14/21 12:40: SARS-CoV-2 (PCR) Not detected, Influenza A Untype (PCR) Not detected, Influenza Type B (PCR) Not detected I & O for Last 24 hours: Intake & Output 03/12/21 03/13/21 03/14/21 03/15/21 11:59 11:59 11:59 11:59 Weight 291 lb 2 oz - Constitutional no acute distress - *Routine HEENT Exam Head: Present: normocephalic Eye: Present: EOMI, PERRL ENT: Present: mucous membranes moist - *Routine Neck Exam Present: supple. Absent: lymphadenopathy - *Routine Respiratory Exam Present: CTA bilaterally - *Routine Cardiovascular Exam Present: RRR - *Routine Abdominal Exam Present: soft, normoactive bowel sounds. Absent: tenderness -
[2021-03-14 13:57] LABS: Alanine Aminotransferase 30 U/L (12-78); Albumin Level 4.2 g/dl (3.5-5.0); Albumin/Globulin Ratio 1.1 (1.1-1.8); Alkaline Phosphatase 93 U/L (38-126); Anion Gap 11.1 mEq/L (5-15); Aspartate Amino Transferase 30 U/L (17-59); Bilirubin,Total 1.3 mg/dl (0.2-1.3); Blood Urea Nitrogen 9 mg/dl (9-20); Calcium 9.8 mg/dl (8.4-10.2); Carbon Dioxide 28 mmol/L (22.0-30.0); Chloride 95 mmol/L (98-107); Creatinine Clearance Estimated 278 mL/min (50-200); Estimated Glomerular Filt Rate 143 ml/min (>60); GFR (African American) 173 ML/MIN (>60); Globulin 3.9 g/dL (1.3-3.2); Glucose 336 mg/dl (74-100); Potassium 4.1 mmoL/L (3.5-5.1); Sodium 130 mmol/L (136-145); Total Protein,Serum 8.1 g/dl (6.3-8.2)
[2021-03-14 13:59] LABS: Lactic Acid 1.4 mmol/L (0.7-2.1)
--- NOTE | 2021-03-14 14:08 | HMH.PHACONS ---
- Pharmacy Consult Date: 03/14/21 Time: 14:08 Referring provider: DR. ALMARAZ Reason for Consult:: VANCOMYCIN DOSING CONSULT Allergies and ADEs:: Allergies Allergy/AdvReac Type Severity Reaction Status Date / Time hydrocodone [From VICODIN] Allergy Unknown Unknown Verified 03/14/21 10:34 allergy reaction methadone [METHADONE] Allergy Unknown Unknown Verified 03/14/21 10:34 allergy reaction morphine [MORPHINE] Allergy Unknown Unknown Verified 03/14/21 10:34 allergy reaction Home Medications:: Home Medications Medication Instructions Recorded Confirmed Type Gabapentin [Gabapentin 300mg Cap] 300 mg PO . PRN 07/07/19 03/14/21 History zolpidem 10 mg tablet 10 mg PO QHS PRN #30 tab 02/08/20 03/14/21 Rx Cinnamon Bark [Cinnamon] 2,000 mg PO DAILY 03/22/20 03/14/21 History insulin lispro 100 unit/mL 1 sliding scale dose SQ 01/15/21 03/14/21 Rx subcutaneous solution USEASDIRECTD #10 ml flash glucose scanning reader See Rx Instructions MISCELLANE 01/31/21 03/14/21 Rx .MEDSUPPLY #1 each flash glucose sensor See Rx Instructions .MEDSUPPLY #2 01/31/21 03/14/21 Rx each clindamycin HCl 300 mg capsule 300 mg PO TID 14 Days #42 cap 03/09/21 03/14/21 Rx Mupirocin Calcium [Mupirocin 2% 1 applicatio TP TID #15 gm 03/13/21 03/14/21 Rx Cream 15gm] Height: 1.88 m Weight: 132.052 kg Laboratory Results:: Laboratory Results - last 24 hr 03/14/21 12:15: Sodium 130 L, Potassium 4.1, Chloride 95 L, Carbon Dioxide 28, Anion Gap 11.1, BUN 9, Creatinine 0.60 L, Estimated Creat Clear 278, Estimated GFR 143, Est GFR ( Amer) 173, Glucose 336 H, Calcium 9.8, Total Bilirubin 1.3, AST 30, ALT 30, Alkaline Phosphatase 93, Total Protein 8.1, Albumin 4.2, Globulin 3.9 H, Albumin/Globulin Ratio 1.1 03/14/21 12:40: SARS-CoV-2 (PCR) Not detected, Influenza A Untype (PCR) Not detected, Influenza Type B (PCR) Not detected 03/14/21 13:15: Lactate 1.4 Medical History: Reports:: Anxiety, Cancer, Deep Vein Thrombosis, Depression, Diabetes Mellitus Type 2, Hiatal Hernia, Hyperlipidemia, Hypertension, Kidney Stones, MRSA, Pulmonary Embolism, Transient Ischemic Attacks (TIA) Denies:: Diabetes Mellitus Type 1, Internal Pacemaker, Seizures Assessment and Plan - Assessment and plan all Dx Assessment and Plan for all problems:: Pharmacokinetic dosing service AT Objective: Age: 51 yo Serum creatinine: 0.6 mg/dL Height: 74.0 Inches Weight (kg): 132.052 Diagnosis: GROIN ABSCESS Assessment: IBW (kg): 82.20 Dosing wt(kg): 102.1 Estimated Creatinine clearance (ml/min): 130 Clearance limited to 130 ml/min to reduce risk of overdosing. CRCL method: Cockcroft and Gault using ibw(default). Drug selected: Vancomycin Loading dose (mg): Vd (liters): 71.5 (factor used: 0.7 L/kg) Vitaliy (hr-1): 0.112 Half life (hrs): 6.19 CLvanco=?? 8.008 L/hr Recommended dose: 2000 mg Interval: 12 hrs Infusion time (hrs): 2.0 Predicted peak (mcg/mL): 33.9 Predicted trough (mcg/mL): 11.06 Adjusted body weight was selected for vancomycin dosing. Recommendations: ONE-TIME DOSE OF VANCOMYCIN 2000 MG IV GIVEN 03/14/21 AT 13:54. Give Vancomycin 2000 mg q 12 hrs with an expected Cpeak of 33.9 mcg/ml and an expected Ctrough of 11.06 mcg/ml TO START 03/15/21 AT 02:00. AUC 0-24 /EFREM Data: EFREM 0.5 mcg/mL:?? AUC/EFREM:? 999.0 EFREM 1.0 mcg/mL:?? AUC/EFREM:? 499.5 --------- EFREM 1.5 mcg/mL:?? AUC/EFREM:? 333.0 EFREM 2.0 mcg/mL:?? AUC/EFREM:? 249.8 Thank you for the consult, will continue to follow.
[2021-03-14 14:30] LABS: Basophils % 0.4 % (0.1-2.0); Eosinophils # 0.1 K/mm3 (0.0-0.4); Eosinophils % 1.2 % (0.1-12.0); Hematocrit 43.3 % (42.0-52.0); Hemoglobin 15.2 g/dL (14.1-18.0); Lymphocytes # 1.5 K/mm3 (0.7-4.5); Lymphocytes % 14.6 % (10-50); Mean Corpuscular HGB Conc 35.2 g/dL (31.8-35.4); Mean Corpuscular Hemoglobin 31.7 pg (27.0-31.2); Mean Platelet Volume 7.7 fl (7.4-10.4); Monocytes # 0.5 K/mm3 (0.1-1.0); Monocytes % 5.1 % (1.7-9.3); Neutrophils # 7.9 K/mm3 (1.8-7.8); Neutrophils % 78.7 % (37.0-80.0); Platelet Count 267 K/mm3 (142-424); Red Blood Count 4.81 M/mm3 (4.60-6.20); Red Cell Distribution Width 12.6 % (11.5-17.5); White Blood Count 10.1 K/mm3 (4.8-10.8)
--- NOTE | 2021-03-14 15:06 | XR_ITS ---
PROCEDURE INFORMATION: Exam: XR Left Foot Exam date and time: 03/14/2021 3:06 PM Age: 51 years old Clinical indication: Other: Hallux ulcer; Additional info: Left hallux ulcer TECHNIQUE: Imaging protocol: XR Left foot. Views: 3 or more views. COMPARISON: CR XR FOOT WT BEARING LT 3V 08/31/2020 12:21 PM FINDINGS: Bones/joints: Normal. Soft tissues: Soft tissue swelling great toe. IMPRESSION: Soft tissue swelling great toe.
--- NOTE | 2021-03-14 15:09 | P.CONS_ITS ---
*Admission Date: 03/14/21 <Deanna Alamo 03/14/21 17:34> *Reason for consult:: Left hallux diabetic foot ulcer <Deanna Alamo 03/14/21 17:34> *History of present illness: Podiatry consult for left hallux diabetic foot ulcer: Patient is a 51 year old diabetic male known to the podiatry team who was admitted today for Left medial proximal thigh abscess and left great toe ulcer. PCP team consulted podiatry for management of left hallux diabetic foot ulcer. Patient was resting in the bed upon entering the room alert and oriented x3. No acute distress noted. Patient assessment findings: left hallux plantar site diabetic ulcer dressing removed. Wound noted with 25 % black eschar and 75% granular. No drainage noted when compressed. Both feet present with erythema, dry cracked skin with fissures noted. Discussed with patient treatment options for left hallux ulcer as well as skin care. Patient is not a candidate for surgical intervention upon observation but will we will treat conservatily with Santyl ointment for wound and urea cream for skin care until x-rays confirm otherwise. <Deanna Alamo 03/14/21 18:10> [facility] History I have reviewed the patient's past medical history: Yes <Cyrus Alamoher 03/14/21 18:10> Medical History: Reports:: Anxiety, Cancer, Deep Vein Thrombosis, Depression, Diabetes Mellitus Type 2, Hiatal Hernia, Hyperlipidemia, Hypertension, Kidney Stones, MRSA, Pulmonary Embolism, Transient Ischemic Attacks (TIA) Denies:: Diabetes Mellitus Type 1, Internal Pacemaker, Seizures <Cyrus Alamoher 03/14/21 15:35> *Have you ever received a pneumonia vaccine?: No <CallyDeanna 03/14/21 15:35> *Have you received a flu vaccine this season?: No <CallyDeanna 03/14/21 15:35> Other Medical History: Reports: Arthritis, Blood Transfusion Reaction, Chemotherapy <CallyDeanna 03/14/21 15:35> Laterality Cases: Right: Arthroscopy Hip, Bilateral: Other <CallyDeanna 03/14/21 15:35> Other Surgeries: Yes: No Previous Surgery, Colonoscopy, Hernia Repair, Other. No: Pacemaker <[facility] 03/14/21 15:35> Amputation: No <[facility] 03/14/21 15:35> Fractures: No <[facility] 03/14/21 15:35> - *Social History Last grade of school completed: High school graduate <[facility] 03/14/21 15:35> Smoking Status: Current every day smoker <[facility] 03/14/21 15:35> Tobacco Type: e-cigarettes <[facility] 03/14/21 15:35> # Packs/Day (cigarettes): 0 <[facility] 03/14/21 15:35> Alcohol Intake: never <[facility] 03/14/21 15:35> Alcohol Intake Frequency:: holidays/special occasions only <[facility] 03/14/21 15:35> Substance Use Type: marijuana <[facility] 03/14/21 15:35> *Occupational Status:: unemployed <[facility] 03/14/21 15:35> [facility] 03/14/21 15:35> Household Members: none <[facility] 03/14/21 15:35> *Travel in the last 8 weeks: None <[facility] 03/14/21 15:35> - Psychiatric History Pschychiatric History:: Reports:: Anxiety, Depression <[facility] 03/14/21 15:35> Family Hx:: No significant family history <[facility] 03/14/21 15:35> Review of Systems - Eyes Denies change in vision <[facility] 03/14/21 18:10> - ENT Denies abnormal hearing <[facility] 03/14/21 18:10> - *Cardiovascular Denies shortness of breath <[facility] 03/14/21 18:10> - *Respiratory Denies shortness of breath <[facility] 03/14/21 18:10> - *Gastrointestinal Denies abdominal pain <Deanna Alamo - 03/14/21 18:10> - *Genitourinary Denies difficulty urinating
--- NOTE | 2021-03-14 15:09 | HMH.ORTHOCON ---
*Admission Date: 03/14/21 <Deanna Alamo 03/14/21 17:34> *Reason for consult:: Left hallux diabetic foot ulcer <Deanna Alamo 03/14/21 17:34> *History of present illness: Podiatry consult for left hallux diabetic foot ulcer: Patient is a 51 year old diabetic male known to the podiatry team who was admitted today for Left medial proximal thigh abscess and left great toe ulcer. PCP team consulted podiatry for management of left hallux diabetic foot ulcer. Patient was resting in the bed upon entering the room alert and oriented x3. No acute distress noted. Patient assessment findings: left hallux plantar site diabetic ulcer dressing removed. Wound noted with 25 % black eschar and 75% granular. No drainage noted when compressed. Both feet present with erythema, dry cracked skin with fissures noted. Discussed with patient treatment options for left hallux ulcer as well as skin care. Patient is not a candidate for surgical intervention upon observation but will we will treat conservatily with Santyl ointment for wound and urea cream for skin care until x-rays confirm otherwise. <Deanna Alamo 03/14/21 18:10> [facility] History I have reviewed the patient's past medical history: Yes <Cyrus Alamoher 03/14/21 18:10> Medical History: Reports:: Anxiety, Cancer, Deep Vein Thrombosis, Depression, Diabetes Mellitus Type 2, Hiatal Hernia, Hyperlipidemia, Hypertension, Kidney Stones, MRSA, Pulmonary Embolism, Transient Ischemic Attacks (TIA) Denies:: Diabetes Mellitus Type 1, Internal Pacemaker, Seizures <Cyrus Alamoher 03/14/21 15:35> *Have you ever received a pneumonia vaccine?: No <CallyDeanna 03/14/21 15:35> *Have you received a flu vaccine this season?: No <CallyDeanna 03/14/21 15:35> Other Medical History: Reports: Arthritis, Blood Transfusion Reaction, Chemotherapy <CallyDeanna 03/14/21 15:35> Laterality Cases: Right: Arthroscopy Hip, Bilateral: Other <CallyDeanna 03/14/21 15:35> Other Surgeries: Yes: No Previous Surgery, Colonoscopy, Hernia Repair, Other. No: Pacemaker <[facility] 03/14/21 15:35> Amputation: No <[facility] 03/14/21 15:35> Fractures: No <[facility] 03/14/21 15:35> - *Social History Last grade of school completed: High school graduate <[facility] 03/14/21 15:35> Smoking Status: Current every day smoker <[facility] 03/14/21 15:35> Tobacco Type: e-cigarettes <[facility] 03/14/21 15:35> # Packs/Day (cigarettes): 0 <[facility] 03/14/21 15:35> Alcohol Intake: never <[facility] 03/14/21 15:35> Alcohol Intake Frequency:: holidays/special occasions only <[facility] 03/14/21 15:35> Substance Use Type: marijuana <[facility] 03/14/21 15:35> *Occupational Status:: unemployed <[facility] 03/14/21 15:35> [facility] 03/[facility] 15:35> Household Members: none <[facility] 03/14/21 15:35> *Travel in the last 8 weeks: None <[facility] 03/14/21 15:35> - Psychiatric History Pschychiatric History:: Reports:: Anxiety, Depression <[facility] 03/14/21 15:35> Family Hx:: No significant family history <[facility] 03/14/21 15:35> Review of Systems - Eyes Denies change in vision <[facility] 03/14/21 18:10> - ENT Denies abnormal hearing <[facility] 03/14/21 18:10> - *Cardiovascular Denies shortness of breath <[facility] 03/14/21 18:10> - *Respiratory Denies shortness of breath <[facility] 03/14/21 18:10> - *Gastrointestinal Denies abdominal pain <[facility] 03/14/21 18:10> - *Genitourinary Denies difficulty urinating <[facility] 03/14/21 18:10> - *Musculoskeletal Denies abnormal walking <[facility] 03/14/21 18:10> - Integumentary/Breasts Reports dry skin, Reports skin ulcer (Left hallux diabetic foot ulcer), Reports other (Left groin abscess) <[facility] 03/14/21 18:10> - *Neurologic
--- NOTE | 2021-03-14 16:12 | HMH.ANESCL ---
[facility] Anesthesia Checklist - Structural Data Admitted From: Inpatient Planned Operative Procedure/s: i/d l thigh abcess Consent for Planned Operative Procedure(s) Verified: Yes - Additional verifications Anesthesia Reactions: No Hx Blood Transfusions: No Blood Transfusion Reaction: Yes - Airway Assessment C-Spine Mobility Assessed: Yes TMJ Mobility Assessed: Yes Dentition: Edentulous - Neurological Assessment Level of Consciousness: Awake, Alert, Appropriate - Anesthesia Plan Anesthesia Risk discussed: Yes Anesthesia Plan: Verified ASA Class: III Anesthesia Type: General [facility] History I have reviewed the patient's past medical history: Yes Medical History: Reports:: Anxiety, Cancer, Deep Vein Thrombosis, Depression, Diabetes Mellitus Type 2, Hiatal Hernia, Hyperlipidemia, Hypertension, Kidney Stones, MRSA, Pulmonary Embolism, Transient Ischemic Attacks (TIA) Denies:: Diabetes Mellitus Type 1, Internal Pacemaker, Seizures *Have you ever received a pneumonia vaccine?: No *Have you received a flu vaccine this season?: No Other Medical History: Reports: Arthritis, Blood Transfusion Reaction, Chemotherapy Anesthesia experience/problems:: none Laterality Cases: Right: Arthroscopy Hip, Bilateral: Other Other Surgeries: Yes: No Previous Surgery, Colonoscopy, Hernia Repair, Other. No: Pacemaker Amputation: No Fractures: No - *Social History Last grade of school completed: High school graduate Smoking Status: Current every day smoker Tobacco Type: e-cigarettes # Packs/Day (cigarettes): 0 Alcohol Intake: never Alcohol Intake Frequency:: holidays/special occasions only Substance Use Type: marijuana *Occupational Status:: unemployed Housing: house Household Members: none *Travel in the last 8 weeks: None - Psychiatric History Pschychiatric History:: Reports:: Anxiety, Depression Family Hx:: No significant family history
--- NOTE | 2021-03-14 16:17 | HMH.OPNOTE ---
Date of procedure: 03/14/21 Pre-op Diagnosis:: Abscess with soft tissue infection of the left medial proximal thigh Post-op Diagnosis:: Same Procedure performed:: Incision and drainage of complex left thigh abscess with debridement of skin and subcutaneous tissue Surgeon:: Franklyn Del Rosario MD TRAVEL REGISTERED NURSE ICU:: Rodrigue Huffman Anesthesia: LMA Estimated blood loss (mL): 15 Clinical Note:: Patient is a 51-year-old poorly controlled diabetic. He recently had a right groin abscess hidradenitis which required incision and drainage and debridement and ultimately had healed. He had presented to the [facility] last night due to a several day history of a left medial proximal thigh boil . Patient has tried to squeeze the area. He was seen and evaluated in the [facility] and given antibiotics and topical therapy. He presented to his primary care provider's office today on 03/14/2021. Patient was admitted for inpatient management due to some progression of the abscess and soft tissue infection. Operative findings:: He had an area of full-thickness necrosis of skin and subcutaneous tissue. There was underlying purulence tracking deep into the abductor muscles and fascia. There is no evidence of any necrotizing fasciitis. Operative note:: Consent was obtained and patient was taken to the operating room. He was given preoperative intravenous antibiotic consisting of vancomycin. In the operating room he was placed in a supine position. Anesthesia was induced via LMA. He was positioned in lithotomy position. The area was prepped and draped in the standard surgical fashion. A circular incision was made at the area of obvious tissue necrosis. There was underlying purulence which exuded from the wound. This was sent for aerobic anaerobic cultures. Tissue was excised. There was some underlying necrotic tissue in the subcutaneous region which was debrided using electrocautery as well. This was sent as debrided tissue. Deep probing of the wound resulted in some additional evacuation of loculated purulence. Once it was felt that all loculations were freed and obviously necrotic tissue was debrided the wound was thoroughly irrigated. Local anesthetic was infiltrated. The wound was packed with saline moistened Kerlix gauze and covered with clean dry sterile dressing. Condition: stable Disposition: PACU Specimens:: Debrided tissue Aerobic and anaerobic culture sent Complications:: None immediately apparent
--- NOTE | 2021-03-14 16:29 | HMH.ANESI ---
[facility] Anesthesia Record Part I Intake, IV Amount: 1,500 Estimated blood loss (mL): 0 Urine output (mL): 0 Blood Pressure: 102/54 SaO2: 94 Pulse Rate: 77 Respiratory Rate: 12 Temperature: 98.9 F Patient is:: Awake, Stable Stable to PACU at:: 16:25
[2021-03-14 16:41] LABS: POC Glucose,Bedside 271 (70-110)
[2021-03-14 18:14] LABS: POC Glucose,Bedside 396 (70-110)
[2021-03-15] VITALS (7 sets, daily range): BP systolic 120–159; BP diastolic 57–90; PULSE 80–95; RESP 16–20; TEMP 36.4–37.6; O2SAT 95–99; BMI 37.3
[2021-03-15 00:02] LABS: POC Glucose,Bedside 215 (70-110)
--- NOTE | 2021-03-15 03:02 | PC.NURSE ---
pt noted to be itching all over, no rash seen anywhere, no difficulty breathing or swelling noted, pt alert and on side of bed, dr. Ramírez notified and orders received for benadryl iv and tylenol po and given per orders.
--- NOTE | 2021-03-15 04:51 | PC.NURSE ---
pt has been restless most of the night, pt complained of shivering and pain, pt given dilaudid x2 doses and after second dilaudid administered pt complained of itching all over intensely, no rash noted, no soa, no other signs of adverse reactions noted, dr. bridges called for dr. aguilar and iv benadryl was given with no relief post 1 hr infusion, iv pepcid was then ordered with some slight relief but pt still complains of itching, dressing to left inner thigh/groin area reinforced after pt up and down to bathroom and sweating, started iv to right arm after complaints of iv being in left arm, dressing remains intact, pt states blood sugars at home stay in the 300-500 range due to insurance issues.
[2021-03-15 06:27] LABS: POC Glucose,Bedside 235 (70-110)
[2021-03-15 06:50] LABS: Basophils % 0.2 % (0.1-2.0); Eosinophils # 0.2 K/mm3 (0.0-0.4); Eosinophils % 1.5 % (0.1-12.0); Hematocrit 38.7 % (42.0-52.0); Lymphocytes # 1.9 K/mm3 (0.7-4.5); Mean Corpuscular HGB Conc 34.7 g/dL (31.8-35.4); Mean Corpuscular Hemoglobin 31.6 pg (27.0-31.2); Mean Corpuscular Volume 90.8 fl (80-94); Mean Platelet Volume 7.8 fl (7.4-10.4); Monocytes # 0.7 K/mm3 (0.1-1.0); Monocytes % 5.7 % (1.7-9.3); Neutrophils # 9.1 K/mm3 (1.8-7.8); Neutrophils % 76.6 % (37.0-80.0); Platelet Count 256 K/mm3 (142-424); Red Blood Count 4.26 M/mm3 (4.60-6.20); Red Cell Distribution Width 12.7 % (11.5-17.5); White Blood Count 11.9 K/mm3 (4.8-10.8)
[2021-03-15 06:59] LABS: Anion Gap 8.4 mEq/L (5-15); Blood Urea Nitrogen 14 mg/dl (9-20); Calcium 8.3 mg/dl (8.4-10.2); Carbon Dioxide 27 mmol/L (22.0-30.0); Chloride 95 mmol/L (98-107); Creatinine Clearance Estimated 278 mL/min (50-200); Estimated Glomerular Filt Rate 143 ml/min (>60); GFR (African American) 173 ML/MIN (>60); Glucose 227 mg/dl (74-100); Potassium 3.4 mmoL/L (3.5-5.1); Sodium 127 mmol/L (136-145)
--- NOTE | 2021-03-15 06:59 | HMH.GSPN ---
Subjective Narrative: Moderate pain that increases significantly with movement. He reported itching with Dilaudid. Progress Note: A&P (1) Ulcer of left great toe due to diabetes mellitus Status: Acute (2) Fissure in skin of both feet Status: Acute (3) Pain of left great toe Status: Acute (4) Diabetic foot ulcer Status: Acute (5) Xerosis of skin Status: Acute (6) Encounter for wound care Status: Acute (7) Xerosis of skin Status: Acute (8) Abscess of left thigh Status: Acute Assessment and plan: Overall, doing fairly well status post incision and drainage. No sign of spreading cellulitis. Fairly significant pain with movement/dressing changes. Seemingly, he has somewhat of an allergic reaction (itching) with Dilaudid. Dressing changes twice daily Continue IV antibiotics for now Percocet ordered Exam Vital signs and Labs for Last 24 Hours: Temp Pulse Resp BP Pulse Ox 97.5 F L 86 16 133/90 97 03/15/21 04:00 03/15/21 04:00 03/15/21 04:00 03/15/21 04:00 03/15/21 04:00 Laboratory Results - last 24 hr 03/14/21 12:15: Sodium 130 L, Potassium 4.1, Chloride 95 L, Carbon Dioxide 28, Anion Gap 11.1, BUN 9, Creatinine 0.60 L, Estimated Creat Clear 278, Estimated GFR 143, Est GFR ( Amer) 173, Glucose 336 H, Calcium 9.8, Total Bilirubin 1.3, AST 30, ALT 30, Alkaline Phosphatase 93, Total Protein 8.1, Albumin 4.2, Globulin 3.9 H, Albumin/Globulin Ratio 1.1 03/14/21 12:40: SARS-CoV-2 (PCR) Not detected, Influenza A Untype (PCR) Not detected, Influenza Type B (PCR) Not detected 03/14/21 13:15: Lactate 1.4 03/14/21 14:20: WBC 10.1, RBC 4.81, Hgb 15.2, Hct 43.3, MCV 90.0, MCH 31.7 H, MCHC 35.2, RDW 12.6, Plt Count 267, MPV 7.7, Neut % (Auto) 78.7, Lymph % (Auto) 14.6, [place] % (Auto) 5.1, Eos % (Auto) 1.2, Baso % (Auto) 0.4, Neut # (Auto) 7.9 H, Lymph # (Auto) 1.5, [place] # (Auto) 0.5, Eos # (Auto) 0.1, Baso # (Auto) 0.0 03/14/21 16:33: POC Glucose 271 H 03/14/21 18:03: POC Glucose 396 H* 03/14/21 21:34: POC Glucose 215 H 03/15/21 06:15: POC Glucose 235 H I & O for Last 24 hours: Intake & Output 03/12/21 03/13/21 03/14/21 03/15/21 11:59 11:59 11:59 11:59 Intake Total 1860 / 1860 Balance 1860 / 1860 Weight 291 lb 2 oz Microbiology Reports for the Last 24 Hours: Microbiology 03/14/21 16:02 Thigh - Left Gram Stain - Final - Constitutional no acute distress - *Routine Respiratory Exam Absent: respiratory distress - *Routine Cardiovascular Exam Absent: tachycardia - *Routine Extremities Exam Comments: Left medial thigh wound margin clean. No spreading cellulitis.
[2021-03-15 07:21] LABS: Hemoglobin 13.3 g/dL (14.1-18.0)
[2021-03-15 07:53] LABS: Hemoglobin A1C 11.4 % (4.0-6.0)
--- NOTE | 2021-03-15 08:24 | HMH.ACPN2 ---
Internal Medicine - PN: Subj *Date: 03/15/21 *Time: 10:11 Interval history: 51-year-old male patient resting in bed tolerating breakfast without difficulty, denies any nausea/vomiting/diarrhea. Does report some pain during the night he did receive 1 dose of Dilaudid with positive effect. He then reports at 2:15 AM he received another dose of Dilaudid and by 2:40 AM was itching from head to toe . He reports having morphine in the past and was ineffective, surgery has ordered Percocet for pain and we will see if that controls his pain status. He complains of intense pain during dressing changes. Currently dressing to left upper inner thigh clean/dry/intact as well as dressing to left great toe. Exam Vital signs and Labs for Last 24 Hours: Temp Pulse Resp BP Pulse Ox 97.5 F L 86 16 133/90 97 03/15/21 04:00 03/15/21 04:00 03/15/21 04:00 03/15/21 04:00 03/15/21 04:00 Laboratory Results - last 24 hr 03/14/21 12:15: Sodium 130 L, Potassium 4.1, Chloride 95 L, Carbon Dioxide 28, Anion Gap 11.1, BUN 9, Creatinine 0.60 L, Estimated Creat Clear 278, Estimated GFR 143, Est GFR ( Amer) 173, Glucose 336 H, Calcium 9.8, Total Bilirubin 1.3, AST 30, ALT 30, Alkaline Phosphatase 93, Total Protein 8.1, Albumin 4.2, Globulin 3.9 H, Albumin/Globulin Ratio 1.1 03/14/21 12:40: SARS-CoV-2 (PCR) Not detected, Influenza A Untype (PCR) Not detected, Influenza Type B (PCR) Not detected 03/14/21 13:15: Lactate 1.4 03/14/21 14:20: WBC 10.1, RBC 4.81, Hgb 15.2, Hct 43.3, MCV 90.0, MCH 31.7 H, MCHC 35.2, RDW 12.6, Plt Count 267, MPV 7.7, Neut % (Auto) 78.7, Lymph % (Auto) 14.6, [place] % (Auto) 5.1, Eos % (Auto) 1.2, Baso % (Auto) 0.4, Neut # (Auto) 7.9 H, Lymph # (Auto) 1.5, [place] # (Auto) 0.5, Eos # (Auto) 0.1, Baso # (Auto) 0.0 03/14/21 16:33: POC Glucose 271 H 03/14/21 18:03: POC Glucose 396 H* 03/14/21 21:34: POC Glucose 215 H 03/15/21 05:43: WBC 11.9 H, RBC 4.26 L, Hgb 13.3 L D, Hct 38.7 L, MCV 90.8, MCH 31.6 H, MCHC 34.7, RDW 12.7, Plt Count 256, MPV 7.8, Neut % (Auto) 76.6, Lymph % (Auto) 16.0, [place] % (Auto) 5.7, Eos % (Auto) 1.5, Baso % (Auto) 0.2, Neut # (Auto) 9.1 H, Lymph # (Auto) 1.9, [place] # (Auto) 0.7, Eos # (Auto) 0.2, Baso # (Auto) 0.0 03/15/21 05:43: Sodium 127 L, Potassium 3.4 L, Chloride 95 L, Carbon Dioxide 27, Anion Gap 8.4, BUN 14 D, Creatinine 0.60 L, Estimated Creat Clear 278, Estimated GFR 143, Est GFR ( Amer) 173, Glucose 227 H D, Calcium 8.3 L 03/15/21 05:43: Hemoglobin A1c 11.4 H D 03/15/21 06:15: POC Glucose 235 H I & O for Last 24 hours: Intake & Output 03/12/21 03/13/21 03/14/21 03/15/21 23:59 23:59 23:59 23:59 Intake Total 1860 / 1860 Balance 1860 / 1860 Weight 291 lb 2 oz Microbiology Reports for the Last 24 Hours: Microbiology 03/14/21 16:02 Thigh - Left Gram Stain - Final 03/14/21 16:02 Thigh - Left Abscess Culture - Preliminary - Constitutional no acute distress - *Routine HEENT Exam Head: Present: normocephalic Eye: Present: EOMI ENT: Present: mucous membranes moist - *Routine Neck Exam Present: trachea midline. Absent: tracheal deviation - *Routine Respiratory Exam Present: CTA bilaterally. Absent: accessory muscle use - *Routine Cardiovascular Exam Present: RRR - *Routine Abdominal Exam Present: soft, normoactive bowel sounds. Absent: tenderness - *Routine Extremities Exam Present: full ROM, pulses intact. Absent: cyanosis, clubbing - *Routine Skin Exam Present: dry, warm, wounds. Absent: intact, erythema Comments: Drsg L Inner Upper Thigh C/D/I Drsg L Grt Toe C/D/I - *Routine Neurological Exam Present: alert, oriented X3. Absent: motor deficit - Routine Psychiatric Exam Present: normal affect, normal thought process. Absent: homicidal ideation Assessment and Plan (1) Ulcer of left great toe due to diabetes mellitus Start date: 03/14/21 Start time: 14:45 Status: Acute Category: Medical Code(s): E11.621 - Type 2 diabet
--- NOTE | 2021-03-15 08:47 | HMH.ORTHPN ---
Subjective Date: 03/15/21 <Minoo Monsivais - 03/15/21 10:08> Time: 08:15 <Minoo Monsivais - 03/15/21 10:08> Principal diagnosis: Left hallux diabetic foot ulcer <Minoo Monsivais - 03/15/21 10:08> Interval history: Patient resting in bed this morning denied any pain to the left hallux. He was reporting the pain that was from his postop site left groin with removal of abscess. Plan to do Santyl and dry sterile dressing on the patient this morning. <Minoo Monsivais - 03/15/21 10:08> PN: Obj Ex Vital signs: Temp Pulse Resp BP Pulse Ox 98.0 F 90 18 148/67 H 95 03/15/21 12:00 03/15/21 12:00 03/15/21 12:00 03/15/21 12:00 03/15/21 12:00 <Flakita Topete - 03/15/21 15:21> Temp Pulse Resp BP Pulse Ox 97.5 F L 86 16 133/90 97 03/15/21 04:00 03/15/21 04:00 03/15/21 04:00 03/15/21 04:00 03/15/21 04:00 <Minoo Monsivais - 03/15/21 10:08> - Constitutional no acute distress <Minoo Monsivais - 03/15/21 10:08> - Routine HEENT Exam Head: Present: normocephalic <Minoo Monsivais - 03/15/21 10:08> Eye: Present: EOMI <Minoo Monsivais - 03/15/21 10:08> ENT: Present: mucous membranes moist <Minoo Monsivais - 03/15/21 10:08> - Routine Neck Exam Present: trachea midline <Minoo Monsivais - 03/15/21 10:08> - Routine Respiratory Exam Absent: accessory muscle use, respiratory distress <Minoo Monsivais - 03/15/21 10:08> - Routine Cardiovascular Exam Present: RRR <Minoo Monsivais - 03/15/21 10:08> - Routine Abdominal Exam Present: soft <Minoo Monsivais - 03/15/21 10:08> - Routine Extremities Exam Present: full ROM, pulses intact, normal capillary refill. Absent: edema, calf tenderness <Minoo Monsivais - 03/15/21 10:08> - Detailed Lower Extremity Exam Bottom foot image: 1 - Left hallux diabetic ulcer, no drainage noted. 5% brown eschar, 75% yellow fibrotic tissue, 20% granular tissue noted. Site was cleaned with saline flush and then dressed with Santyl on the ulcer with dry gauze and Coban dressing. The area was not debrided at bedside this morning. Site measurements are still approximated from yesterday's post debridement measurements 2.0 x 2.5 x 0.0 cm. Placed order for nursing to continue to do daily dressing changes while patient remains in patient with the Santyl, dry 4 x 4, Coban dressing changes. <Minoo Monsivais - 03/15/21 10:08> - Routine Back/Spine/Pelvis Exam Back/Spine: Present: full ROM <Minoo Monsivais Kenn - 03/15/21 10:08> - Routine Skin Exam Present: erythema, dry, warm, lesions (Surgical incision site covered with dry sterile dressing from a left groin abscess I&D yesterday), wounds (Left hallux diabetic ulcer) <Minoo Monsivais Kenn - 03/15/21 10:08> - Routine Neurological Exam Present: oriented X3, moving all extremities, normal tone, hearing grossly intact, normal speech <Minoo Monsivais Kenn 03/15/21 10:08> - Routine Psychiatric Exam Present: normal affect, cooperative <Minoo Monsivais Kenn 03/15/21 10:08> Progress Note: A&P (1) Ulcer of left great toe due to diabetes mellitus Status: Acute (2) Fissure in skin of both feet Status: Acute (3) Pain of left great toe Status: Acute (4) Diabetic foot ulcer Status: Acute (5) Xerosis of skin Status: Acute (6) Encounter for wound care Status: Acute (7) Xerosis of skin Status: Acute (8) Abscess of left thigh Status: Acute <Minoo Monsivais Kenn - 03/15/21 08:47> (1) Ulcer of left great toe due to diabetes mellitus Status: Acute (2) Fissure in skin of both feet Status: Acute (3) Pain of left great toe Status: Acute (4) Diabetic foot ulcer Status: Acute (5) Xerosis of skin Status: Acute (6) Encounter for wound care Status: Acute (7) Xerosis of skin Status: Acute (8) Abscess of left thigh Status: Acute (9) Obesity (BMI 30-39.9) Status: Acute
--- NOTE | 2021-03-15 09:01 | P.PN_ITS ---
[facility] Anesthesia Record Part II Discharge Time: 16:55 Destination: Surgical Day Care (OP Surgery) PACU nurse assessment reviewed?: Yes Patient Condition:: Good Anesthesia Complications:: None Swallowing reflex intact?: Yes Cyanosis?: No Blood Pressure: 131/67 Pulse Rate: 80 Temperature: 97.9 F Mental Status: Alert & Oriented Pain level:: 0 Nausea and/or vomitting:: None Intake, IV Amount: 0
--- NOTE | 2021-03-15 11:31 | SW/DCPLANNER ---
Addendum entered by Supriya Dubon 03/16/21 11:56: PATIENT MAY DISCHARGE OVER THE WEEKEND AND WILL RETURN BACK TO [facility] FOR WOUND CARE AND POSSIBLY IV ANTIBIOTICS... Original Note: I spoke with this patient this AM regarding the possible need for IV antibiotics and daily dressing changes once medically stable for discharge. I explained to patient different options: home with home health and assistance from family w/ for dressing changes and IV antibiotics vs return to [facility] outpatient daily for services. Patient stated that he would not have assistance at home and prefers to return to [facility] outpatient daily. I will continue to follow up with this patient until medically stable for discharge. Patient could potentially discharge home tomorrow.
--- NOTE | 2021-03-15 12:56 | DIET.NUTRFU ---
RD provided and reviewed diabetic diet recommendations. RD encouraged him to start making small changes, if the diabetes continues to be poorly controlled he will experience further health issues. Patient unwilling to change lifestyle/diet feels his finical issues inhabit him from making changes. Only has limited amount of food stamps and access to meds.
--- NOTE | 2021-03-15 18:46 | PC.NURSE ---
DSG CHANGED PER ORDER TO SURGICAL INCISION ON THIGH. DSG TO GREAT TOE CHANGED THIS SHIFT BY PODIATRY. PT STATES THAT HIS PAIN IS WELL CONTROLLED WITH PERCOCET FOR DSG CHANGES.
[2021-03-16] VITALS: BP 148/80; PULSE 96; RESP 20; TEMP 36.8; O2SAT 95
[2021-03-16 02:00] LABS: Vancomycin,Trough 8.2 ug/mL (5.0-10.0)
[2021-03-16 04:00] VITALS: BP 137/82; PULSE 95; RESP 22; TEMP 36.8; O2SAT 98
[2021-03-16 05:00] VITALS: BMI 38.1
--- NOTE | 2021-03-16 05:22 | PC.NURSE ---
pt has been restless and awake all shift, dressing changed x1 and pt tolerated well, pt was pre-medicated with prescribed pain pills prior to dressing change, VSS, vancomycin continued at scheduled dose after calling trough to pharmacy nightwatch emr implementation specialist. pt states that he will not give himself shots at home for his diabetes and that if he cannot receive the omnipod that he will not comply after discussing importance of diabetic management.
--- NOTE | 2021-03-16 05:27 | HMH.PHAINT ---
pharmacy was called with vancomycin trough prior to administration, jennifer with pharmacy night watch stated to give normal scheduled dose of vancomycin, repeated and verified.
[2021-03-16 06:59] LABS: Chloride 98 mmol/L (98-107); Potassium 4.1 mmoL/L (3.5-5.1); Sodium 135 mmol/L (136-145)
[2021-03-16 07:02] LABS: Anion Gap 12.1 mEq/L (5-15); Blood Urea Nitrogen 13 mg/dl (9-20); Carbon Dioxide 29 mmol/L (22.0-30.0); Creatinine Clearance Estimated 243 mL/min (50-200); Estimated Glomerular Filt Rate 120 ml/min (>60); GFR (African American) 145 ML/MIN (>60)
[2021-03-16 07:03] LABS: Calcium 8.8 mg/dl (8.4-10.2); Glucose 288 mg/dl (74-100)
[2021-03-16 07:56] LABS: Vancomycin,Peak 18.1 ug/ml (11-39)
[2021-03-16 08:00] VITALS: BP 126/69; PULSE 89; RESP 16; TEMP 36.7; O2SAT 98
[2021-03-16 08:00] LABS: Basophils % 0.3 % (0.1-2.0); Eosinophils # 0.1 K/mm3 (0.0-0.4); Eosinophils % 1.3 % (0.1-12.0); Hematocrit 43.1 % (42.0-52.0); Hemoglobin 14.6 g/dL (14.1-18.0); Lymphocytes # 1.7 K/mm3 (0.7-4.5); Lymphocytes % 18.4 % (10-50); Mean Corpuscular Hemoglobin 31.3 pg (27.0-31.2); Mean Corpuscular Volume 92.2 fl (80-94); Mean Platelet Volume 7.4 fl (7.4-10.4); Monocytes # 0.5 K/mm3 (0.1-1.0); Monocytes % 4.9 % (1.7-9.3); Neutrophils # 7.1 K/mm3 (1.8-7.8); Neutrophils % 75.2 % (37.0-80.0); Platelet Count 322 K/mm3 (142-424); Red Blood Count 4.68 M/mm3 (4.60-6.20); Red Cell Distribution Width 12.1 % (11.5-17.5); White Blood Count 9.5 K/mm3 (4.8-10.8)
--- NOTE | 2021-03-16 08:01 | HMH.GSPN ---
Subjective Narrative: Patient without significant complaints. He does state that he has some difficulty sitting on the bowel movement due to the wound. Progress Note: A&P (1) Ulcer of left great toe due to diabetes mellitus Status: Acute (2) Fissure in skin of both feet Status: Acute (3) Pain of left great toe Status: Acute (4) Diabetic foot ulcer Status: Acute (5) Xerosis of skin Status: Acute (6) Encounter for wound care Status: Acute (7) Xerosis of skin Status: Acute (8) Abscess of left thigh Status: Acute (9) Obesity (BMI 30-39.9) Status: Acute Assessment and Plan for All Diagnoses:: Patient showed some increase in white blood cell count yesterday. Cultures pending. He is only on vancomycin. Due to the persistence and the cellulitis may need to add more broad-spectrum coverage. I will add Zosyn. Exam Vital signs and Labs for Last 24 Hours: Temp Pulse Resp BP Pulse Ox 98.3 F 95 H 22 137/82 98 03/16/21 04:00 03/16/21 04:00 03/16/21 04:00 03/16/21 04:00 03/16/21 04:00 Laboratory Results - last 24 hr 03/16/21 01:18: Vancomycin Trough 8.2 03/16/21 06:20: Sodium 135 L, Potassium 4.1 D, Chloride 98, Carbon Dioxide 29, Anion Gap 12.1, BUN 13, Creatinine 0.70, Estimated Creat Clear 243, Estimated GFR 120, Est GFR ( Amer) 145, Glucose 288 H, Calcium 8.8 I & O for Last 24 hours: Intake & Output 03/13/21 03/14/21 03/15/21 03/16/21 11:59 11:59 11:59 11:59 Intake Total 2220 / 2220 360 / 360 Output Total 0 / 0 Balance 2220 / 2220 360 / 360 Weight 291 lb 2 oz 297 lb Microbiology Reports for the Last 24 Hours: Microbiology 03/14/21 16:02 Thigh - Left Gram Stain - Final 03/14/21 16:02 Thigh - Left Abscess Culture - Preliminary - *Routine Skin Exam Comments: Wound is clean. However there is some induration and a quite extensive erythema persistent.
--- NOTE | 2021-03-16 09:50 | HMH.ACPN2 ---
Internal Medicine - PN: Subj *Date: 03/16/21 *Time: 08:10 Interval history: pt laying in bed states some pain and discomfort. Exam Vital signs and Labs for Last 24 Hours: Temp Pulse Resp BP Pulse Ox 98.0 F 89 16 126/69 98 03/16/21 08:00 03/16/21 08:00 03/16/21 08:00 03/16/21 08:00 03/16/21 08:00 Laboratory Results - last 24 hr 03/16/21 01:18: Vancomycin Trough 8.2 03/16/21 06:20: WBC 9.5, RBC 4.68, Hgb 14.6, Hct 43.1, MCV 92.2, MCH 31.3 H, MCHC 34.0, RDW 12.1, Plt Count 322 D, MPV 7.4, Neut % (Auto) 75.2, Lymph % (Auto) 18.4, [place] % (Auto) 4.9, Eos % (Auto) 1.3, Baso % (Auto) 0.3, Neut # (Auto) 7.1, Lymph # (Auto) 1.7, [place] # (Auto) 0.5, Eos # (Auto) 0.1, Baso # (Auto) 0.0 03/16/21 06:20: Sodium 135 L, Potassium 4.1 D, Chloride 98, Carbon Dioxide 29, Anion Gap 12.1, BUN 13, Creatinine 0.70, Estimated Creat Clear 243, Estimated GFR 120, Est GFR ( Amer) 145, Glucose 288 H, Calcium 8.8 03/16/21 06:20: Vancomycin Peak 18.1 I & O for Last 24 hours: Intake & Output 03/13/21 03/14/21 03/15/21 03/16/21 11:59 11:59 11:59 11:59 Intake Total 2220 / 2220 840 / 840 Output Total 0 / 0 Balance 2220 / 2220 840 / 840 Weight 291 lb 2 oz 297 lb Microbiology Reports for the Last 24 Hours: Microbiology 03/14/21 16:02 Thigh - Left Gram Stain - Final 03/14/21 16:02 Thigh - Left Abscess Culture - Preliminary - Constitutional no acute distress, obese - *Routine HEENT Exam Head: Present: normocephalic Eye: Present: PERRL ENT: Present: mucous membranes moist - *Routine Neck Exam Present: supple. Absent: lymphadenopathy - *Routine Respiratory Exam Present: CTA bilaterally - *Routine Cardiovascular Exam Present: RRR - *Routine Abdominal Exam Present: soft, normoactive bowel sounds - *Routine Extremities Exam Present: normal capillary refill. Absent: cyanosis, clubbing, edema - *Routine Skin Exam Present: wounds Comments: left upper inter thigh redness and packing in place - *Routine Neurological Exam Present: alert, oriented X3 Assessment and Plan (1) Ulcer of left great toe due to diabetes mellitus Start date: 03/14/21 Start time: 14:45 Status: Acute Category: Medical Code(s): E11.621 - Type 2 diabetes mellitus with foot ulcer; L97.529 - Non-pressure chronic ulcer of other part of left foot with unspecified severity (2) Fissure in skin of both feet Start date: 03/14/21 Start time: 14:45 Status: Acute Category: Medical Code(s): R23.4 - Changes in skin texture (3) Pain of left great toe Start date: 03/14/21 Start time: 14:45 Status: Acute Category: Medical Code(s): M79.675 - Pain in left toe(s) (4) Diabetic foot ulcer Start date: 03/14/21 Start time: 14:45 Status: Acute Category: Medical Code(s): E11.621 - Type 2 diabetes mellitus with foot ulcer; L97.509 - Non-pressure chronic ulcer of other part of unspecified foot with unspecified severity (5) Xerosis of skin Status: Acute Category: Medical Code(s): L85.3 - Xerosis cutis (6) Encounter for wound care Status: Acute Category: Medical Code(s): Z51.89 - Encounter for other specified aftercare (7) Xerosis of skin Start date: 03/14/21 Start time: 14:45 Status: Acute Category: Medical Code(s): L85.3 - Xerosis cutis (8) Abscess of left thigh Status: Acute Category: Medical Code(s): L02.416 - Cutaneous abscess of left lower limb (9) Obesity (BMI 30-39.9) Status: Acute Category: Medical Code(s): E66.9 - Obesity, unspecified - Assessment and plan all Dx Assessment and Plan for all problems:: rounded with dr aguilar all orders per dr aguilar wait culture results
--- NOTE | 2021-03-16 10:47 | HMH.PHACONS ---
- Pharmacy Consult Date: 03/16/21 Time: 10:47 Referring provider: DR ALMARAZ Reason for Consult:: VANCOMYCIN DOSING ADJUSTMENT Allergies and ADEs:: Allergies Allergy/AdvReac Type Severity Reaction Status Date / Time hydrocodone [From VICODIN] Allergy Unknown Unknown Verified 03/14/21 10:34 allergy reaction methadone [METHADONE] Allergy Unknown Unknown Verified 03/14/21 10:34 allergy reaction morphine [MORPHINE] Allergy Unknown Unknown Verified 03/14/21 10:34 allergy reaction Home Medications:: Home Medications Medication Instructions Recorded Confirmed Type Gabapentin [Gabapentin 300mg Cap] 300 mg PO NEEDED PRN 07/07/19 03/15/21 History Cinnamon Bark [Cinnamon] 2,000 mg PO DAILY 03/22/20 03/15/21 History Insulin Lispro 0 unit SQ DIRECTED 03/14/21 03/15/21 History Zolpidem Tartrate 10 mg PO HSP PRN 03/15/21 03/15/21 History Height: 1.88 m Weight: 134.717 kg Laboratory Results:: Laboratory Results - last 24 hr 03/16/21 01:18: Vancomycin Trough 8.2 03/16/21 06:20: WBC 9.5, RBC 4.68, Hgb 14.6, Hct 43.1, MCV 92.2, MCH 31.3 H, MCHC 34.0, RDW 12.1, Plt Count 322 D, MPV 7.4, Neut % (Auto) 75.2, Lymph % (Auto) 18.4, [place] % (Auto) 4.9, Eos % (Auto) 1.3, Baso % (Auto) 0.3, Neut # (Auto) 7.1, Lymph # (Auto) 1.7, [place] # (Auto) 0.5, Eos # (Auto) 0.1, Baso # (Auto) 0.0 03/16/21 06:20: Sodium 135 L, Potassium 4.1 D, Chloride 98, Carbon Dioxide 29, Anion Gap 12.1, BUN 13, Creatinine 0.70, Estimated Creat Clear 243, Estimated GFR 120, Est GFR ( Amer) 145, Glucose 288 H, Calcium 8.8 03/16/21 06:20: Vancomycin Peak 18.1 Medical History: Reports:: Anxiety, Cancer, Deep Vein Thrombosis, Depression, Diabetes Mellitus Type 2, Hiatal Hernia, Hyperlipidemia, Hypertension, Kidney Stones, MRSA, Pulmonary Embolism, Transient Ischemic Attacks (TIA) Denies:: Diabetes Mellitus Type 1, Internal Pacemaker, Seizures Assessment and Plan (1) Ulcer of left great toe due to diabetes mellitus Start date: 03/14/21 Start time: 14:45 Status: Acute Category: Medical Code(s): E11.621 - Type 2 diabetes mellitus with foot ulcer; L97.529 - Non-pressure chronic ulcer of other part of left foot with unspecified severity (2) Fissure in skin of both feet Start date: 03/14/21 Start time: 14:45 Status: Acute Category: Medical Code(s): R23.4 - Changes in skin texture (3) Pain of left great toe Start date: 03/14/21 Start time: 14:45 Status: Acute Category: Medical Code(s): M79.675 - Pain in left toe(s) (4) Diabetic foot ulcer Start date: 03/14/21 Start time: 14:45 Status: Acute Category: Medical Code(s): E11.621 - Type 2 diabetes mellitus with foot ulcer; L97.509 - Non-pressure chronic ulcer of other part of unspecified foot with unspecified severity (5) Xerosis of skin Status: Acute Category: Medical Code(s): L85.3 - Xerosis cutis (6) Encounter for wound care Status: Acute Category: Medical Code(s): Z51.89 - Encounter for other specified aftercare (7) Xerosis of skin Start date: 03/14/21 Start time: 14:45 Status: Acute Category: Medical Code(s): L85.3 - Xerosis cutis (8) Abscess of left thigh Status: Acute Category: Medical Code(s): L02.416 - Cutaneous abscess of left lower limb (9) Obesity (BMI 30-39.9) Status: Acute Category: Medical Code(s): E66.9 - Obesity, unspecified - Assessment and plan all Dx Assessment and Plan for all problems:: Pharmacokinetic dosing service Objective: Age: 51 yo Serum creatinine: 0.7 mg/dL Height: 74.0 Inches Weight (kg): 132.052 Diagnosis: GROIN ABSCESS Assessment: IBW (kg): 82.20 Dosing wt(kg): 102.1 Estimated Creatinine clearance (ml/min): 120 Clearance limited to 130 ml/min to reduce risk of overdosing. CRCL method: Cockcroft and Gault using ibw(default). Drug selected: Vanc
[2021-03-16 11:35] LABS: POC Glucose,Bedside 323 (70-110)
--- NOTE | 2021-03-16 12:46 | P.PN_ITS ---
Subjective Narrative: Patient without complaints. Progress Note: A&P (1) Ulcer of left great toe due to diabetes mellitus Status: Acute (2) Fissure in skin of both feet Status: Acute (3) Pain of left great toe Status: Acute (4) Diabetic foot ulcer Status: Acute (5) Xerosis of skin Status: Acute (6) Encounter for wound care Status: Acute (7) Xerosis of skin Status: Acute (8) Abscess of left thigh Status: Acute (9) Obesity (BMI 30-39.9) Status: Acute Assessment and Plan for All Diagnoses:: Cultures still pending. Given the degree of persistent cellulitis recommend awaiting culture results. If they do return as MRSA I would recommend outpatient Zyvox as opposed to Bactrim. Would also advocate adding anaerobic coverage such as clindamycin. For outpatient dressings recommend once daily packing with saline moistened gauze. Exam Vital signs and Labs for Last 24 Hours: Temp Pulse Resp BP Pulse Ox 98.0 F 89 16 126/69 98 03/16/21 08:00 03/16/21 08:00 03/16/21 08:00 03/16/21 08:00 03/16/21 08:00 Laboratory Results - last 24 hr 03/16/21 01:18: Vancomycin Trough 8.2 03/16/21 06:20: WBC 9.5, RBC 4.68, Hgb 14.6, Hct 43.1, MCV 92.2, MCH 31.3 H, MCHC 34.0, RDW 12.1, Plt Count 322 D, MPV 7.4, Neut % (Auto) 75.2, Lymph % (Auto) 18.4, [place] % (Auto) 4.9, Eos % (Auto) 1.3, Baso % (Auto) 0.3, Neut # (Auto) 7.1, Lymph # (Auto) 1.7, [place] # (Auto) 0.5, Eos # (Auto) 0.1, Baso # (Auto) 0.0 03/16/21 06:20: Sodium 135 L, Potassium 4.1 D, Chloride 98, Carbon Dioxide 29, Anion Gap 12.1, BUN 13, Creatinine 0.70, Estimated Creat Clear 243, Estimated GFR 120, Est GFR ( Amer) 145, Glucose 288 H, Calcium 8.8 03/16/21 06:20: Vancomycin Peak 18.1 03/16/21 11:11: POC Glucose 323 H* I & O for Last 24 hours: Intake & Output 03/14/21 03/15/21 03/16/21 03/17/21 11:59 11:59 11:59 11:59 Intake Total 2220 / 2220 840 / 840 Output Total 0 / 0 Balance 2220 / 2220 840 / 840 Weight 291 lb 2 oz 297 lb Microbiology Reports for the Last 24 Hours: Microbiology 03/14/21 16:02 Thigh - Left Gram Stain - Final 03/14/21 16:02 Thigh - Left Abscess Culture - Preliminary
[2021-03-16 16:00] VITALS: BP 140/80; PULSE 88; RESP 16; TEMP 36.9; O2SAT 95
[2021-03-16 16:03] LABS: POC Glucose,Bedside 273 (70-110)
--- NOTE | 2021-03-16 16:49 | PC.NURSE ---
Pt has been pleasant and cooperative this shift. A&O X4. No complaints of pain thus far. Pt is on room air with sats. >90%. Lungs CTA. No edema noted. LT great toe dressing changed this AM with Santyl, 4X4's, and Coban. LT thigh/groin dressing changed this AM with saline-soaked 4X4, dry 4X4, and perforated tape. Appetite is good and pt eats the majority of all meals. Pt ambulates independently to/from the bathroom and throughout the room. FSBS results have been 323 and 273. Urine is clear and yellow. No BM thus far today. 20 G peripheral IV in the RT forearm is patent and infusing NS @ 50 ML/HR. VSS. Call light within reach. Will continue to monitor.
[2021-03-16 19:21] VITALS: BP 122/73; PULSE 87; RESP 20; TEMP 37.5; O2SAT 98
[2021-03-16 20:00] VITALS: RESP 20; O2SAT 98
[2021-03-16 21:47] LABS: POC Glucose,Bedside 336 (70-110)
[2021-03-17 04:00] VITALS: BP 136/80; PULSE 79; RESP 22; TEMP 36.9; O2SAT 99
--- NOTE | 2021-03-17 04:35 | PC.NURSE ---
pt A&Ox4, has been ambulating in room and hallway, complained of pain one time this shift and was treated per JUN, dressing change done to left inner thigh this shift, pt remains on room air, O2 sats 98-99%
[2021-03-17 05:20] VITALS: BMI 39.3
[2021-03-17 06:34] LABS: Basophils % 0.3 % (0.1-2.0); Eosinophils # 0.2 K/mm3 (0.0-0.4); Eosinophils % 1.8 % (0.1-12.0); Hematocrit 41.2 % (42.0-52.0); Hemoglobin 13.8 g/dL (14.1-18.0); Lymphocytes # 2.1 K/mm3 (0.7-4.5); Mean Corpuscular HGB Conc 33.6 g/dL (31.8-35.4); Mean Corpuscular Hemoglobin 30.8 pg (27.0-31.2); Mean Corpuscular Volume 91.6 fl (80-94); Mean Platelet Volume 7.2 fl (7.4-10.4); Monocytes # 0.5 K/mm3 (0.1-1.0); Monocytes % 5.4 % (1.7-9.3); Neutrophils % 68.5 % (37.0-80.0); Platelet Count 330 K/mm3 (142-424); Red Cell Distribution Width 12.2 % (11.5-17.5); White Blood Count 8.7 K/mm3 (4.8-10.8)
[2021-03-17 06:50] LABS: Chloride 100 mmol/L (98-107); Potassium 4.1 mmoL/L (3.5-5.1); Sodium 135 mmol/L (136-145)
[2021-03-17 06:53] LABS: Anion Gap 11.1 mEq/L (5-15); Blood Urea Nitrogen 9 mg/dl (9-20); Calcium 8.7 mg/dl (8.4-10.2); Carbon Dioxide 28 mmol/L (22.0-30.0); Creatinine Clearance Estimated 251 mL/min (50-200); Estimated Glomerular Filt Rate 120 ml/min (>60); GFR (African American) 145 ML/MIN (>60); Glucose 353 mg/dl (74-100)
[2021-03-17 08:00] VITALS: BP 137/73; PULSE 80; RESP 14; TEMP 36.7; O2SAT 99
--- NOTE | 2021-03-17 10:06 | HMH.GSPN ---
Subjective Narrative: He states that he feels a little better now . Dressing changes are a little less painful . Progress Note: A&P (1) Ulcer of left great toe due to diabetes mellitus Status: Acute (2) Fissure in skin of both feet Status: Acute (3) Pain of left great toe Status: Acute (4) Diabetic foot ulcer Status: Acute (5) Xerosis of skin Status: Acute (6) Encounter for wound care Status: Acute (7) Xerosis of skin Status: Acute (8) Abscess of left thigh Status: Acute Assessment and plan: Overall, showing slow improvement status post incision and drainage and antibiotic coverage (now on vancomycin/Zosyn). Final cultures still pending. Forwarded from Dr. Del Rosario's evaluation yesterday: Given the degree of persistent cellulitis recommend awaiting culture results. If they do return as MRSA I would recommend outpatient Zyvox as opposed to Bactrim. Would also advocate adding anaerobic coverage such as clindamycin. For outpatient dressings recommend once daily packing with saline moistened gauze. (9) Obesity (BMI 30-39.9) Status: Acute Exam Vital signs and Labs for Last 24 Hours: Temp Pulse Resp BP Pulse Ox 98.0 F 80 14 137/73 99 03/17/21 08:00 03/17/21 08:00 03/17/21 08:00 03/17/21 08:00 03/17/21 08:00 Laboratory Results - last 24 hr 03/16/21 11:11: POC Glucose 323 H* 03/16/21 15:32: POC Glucose 273 H 03/16/21 20:26: POC Glucose 336 H* 03/17/21 05:43: WBC 8.7, RBC 4.50 L, Hgb 13.8 L, Hct 41.2 L, MCV 91.6, MCH 30.8, MCHC 33.6, RDW 12.2, Plt Count 330, MPV 7.2 L, Neut % (Auto) 68.5, Lymph % (Auto) 24.0, [place] % (Auto) 5.4, Eos % (Auto) 1.8, Baso % (Auto) 0.3, Neut # (Auto) 6.0, Lymph # (Auto) 2.1, [place] # (Auto) 0.5, Eos # (Auto) 0.2, Baso # (Auto) 0.0 03/17/21 05:43: Sodium 135 L, Potassium 4.1, Chloride 100, Carbon Dioxide 28, Anion Gap 11.1, BUN 9 D, Creatinine 0.70, Estimated Creat Clear 251, Estimated GFR 120, Est GFR ( Amer) 145, Glucose 353 H D, Calcium 8.7 I & O for Last 24 hours: Intake & Output 03/14/21 03/15/21 03/16/21 03/17/21 11:59 11:59 11:59 11:59 Intake Total 2220 / 2220 840 / 840 5965 / 5965 Output Total 0 / 0 Balance 2220 / 2220 840 / 840 5965 / 5965 Weight 291 lb 2 oz 297 lb 306 lb 6 oz Microbiology Reports for the Last 24 Hours: Microbiology 03/14/21 16:02 Thigh - Left - Final 03/14/21 13:15 Blood Blood Culture - Preliminary NO GROWTH AFTER 48 HOURS 03/14/21 13:15 Blood Blood Culture - Preliminary NO GROWTH AFTER 48 HOURS 03/14/21 16:02 Thigh - Left Gram Stain - Final 03/14/21 16:02 Thigh - Left Abscess Culture - Preliminary - Constitutional no acute distress - *Routine Respiratory Exam Absent: respiratory distress - *Routine Cardiovascular Exam Absent: tachycardia - *Routine Skin Exam Comments: Left groin wound margin clean. Some improvement with regard to cellulitic component. No spreading cellulitis.
[2021-03-17 13:10] LABS: POC Glucose,Bedside 249 (70-110)
--- NOTE | 2021-03-17 13:47 | PC.WOUNDNOTE ---
LT inner-thigh surgical wound
[2021-03-17 15:55] LABS: POC Glucose,Bedside 263 (70-110)
[2021-03-17 16:00] VITALS: BP 159/97; PULSE 85; RESP 16; TEMP 36.7; O2SAT 96
--- NOTE | 2021-03-17 17:14 | HMH.ACPN2 ---
Internal Medicine - PN: Subj *Date: 03/17/21 *Time: 08:00 Interval history: pt states he feels some better, would like to go home Exam Vital signs and Labs for Last 24 Hours: Temp Pulse Resp BP Pulse Ox 98.1 F 85 16 159/97 H 96 03/17/21 16:00 03/17/21 16:00 03/17/21 16:00 03/17/21 16:00 03/17/21 16:00 Laboratory Results - last 24 hr 03/16/21 20:26: POC Glucose 336 H* 03/17/21 05:43: WBC 8.7, RBC 4.50 L, Hgb 13.8 L, Hct 41.2 L, MCV 91.6, MCH 30.8, MCHC 33.6, RDW 12.2, Plt Count 330, MPV 7.2 L, Neut % (Auto) 68.5, Lymph % (Auto) 24.0, [place] % (Auto) 5.4, Eos % (Auto) 1.8, Baso % (Auto) 0.3, Neut # (Auto) 6.0, Lymph # (Auto) 2.1, [place] # (Auto) 0.5, Eos # (Auto) 0.2, Baso # (Auto) 0.0 03/17/21 05:43: Sodium 135 L, Potassium 4.1, Chloride 100, Carbon Dioxide 28, Anion Gap 11.1, BUN 9 D, Creatinine 0.70, Estimated Creat Clear 251, Estimated GFR 120, Est GFR ( Amer) 145, Glucose 353 H D, Calcium 8.7 03/17/21 12:24: POC Glucose 249 H 03/17/21 15:44: POC Glucose 263 H I & O for Last 24 hours: Intake & Output 03/15/21 03/16/21 03/17/21 03/18/21 11:59 11:59 11:59 11:59 Intake Total 2220 / 2220 840 / 840 5965 / 5965 480 / 480 Output Total 0 / 0 Balance 2220 / 2220 840 / 840 5965 / 5965 480 / 480 Weight 297 lb 306 lb 6 oz Microbiology Reports for the Last 24 Hours: Microbiology 03/14/21 16:02 Thigh - Left Gram Stain - Final 03/14/21 16:02 Thigh - Left Abscess Culture - Preliminary 03/14/21 16:02 Thigh - Left - Final 03/14/21 13:15 Blood Blood Culture - Preliminary NO GROWTH AFTER 48 HOURS 03/14/21 13:15 Blood Blood Culture - Preliminary NO GROWTH AFTER 48 HOURS - Constitutional no acute distress - *Routine HEENT Exam Head: Present: normocephalic Eye: Present: PERRL ENT: Present: mucous membranes moist - *Routine Neck Exam Present: supple. Absent: lymphadenopathy - *Routine Respiratory Exam Present: CTA bilaterally - *Routine Cardiovascular Exam Present: RRR - *Routine Abdominal Exam Present: soft, normoactive bowel sounds. Absent: tenderness - *Routine Extremities Exam Absent: cyanosis, clubbing, edema - *Routine Skin Exam Present: wounds Comments: dressing c/d/i, redness noted - *Routine Neurological Exam Present: alert, oriented X3 Assessment and Plan (1) Ulcer of left great toe due to diabetes mellitus Start date: 03/14/21 Start time: 14:45 Status: Acute Category: Medical Code(s): E11.621 - Type 2 diabetes mellitus with foot ulcer; L97.529 - Non-pressure chronic ulcer of other part of left foot with unspecified severity (2) Fissure in skin of both feet Start date: 03/14/21 Start time: 14:45 Status: Acute Category: Medical Code(s): R23.4 - Changes in skin texture (3) Pain of left great toe Start date: 03/14/21 Start time: 14:45 Status: Acute Category: Medical Code(s): M79.675 - Pain in left toe(s) (4) Diabetic foot ulcer Start date: 03/14/21 Start time: 14:45 Status: Acute Category: Medical Code(s): E11.621 - Type 2 diabetes mellitus with foot ulcer; L97.509 - Non-pressure chronic ulcer of other part of unspecified foot with unspecified severity (5) Xerosis of skin Status: Acute Category: Medical Code(s): L85.3 - Xerosis cutis (6) Encounter for wound care Status: Acute Category: Medical Code(s): Z51.89 - Encounter for other specified aftercare (7) Xerosis of skin Start date: 03/14/21 Start time: 14:45 Status: Acute Category: Medical Code(s): L85.3 - Xerosis cutis (8) Abscess of left thigh Status: Acute Category: Medical Code(s): L02.416 - Cutaneous abscess of left lower limb (9) Obesity (BMI 30-39.9) Status: Acute Category: Medical Code(s): E66.9 - Obesity, unspecified - Assessment and plan all Dx Assessment and Plan for all problems:: lauren rounded all orders per lauren wait f
--- NOTE | 2021-03-17 17:18 | PC.NURSE ---
Pt has been pleasant and cooperative this shift. A&O X4. No complaints of pain thus far. Pt is on room air with sats. >90%. Lungs CTA. No edema noted. LT great toe dressing changed this AM with Santyl, 4X4's, and Coban. LT thigh/groin dressing changed this AM with saline-soaked 4X4, dry 4X4, and perforated tape. Appetite is good and pt eats the majority of all meals. Pt ambulates independently to/from the bathroom and throughout the room. Pt also sat up in the recliner for several hours today. FSBS results have been 249 and 263. Urine is clear and yellow. No BM thus far this shift. 20 G peripheral IV in the LT forearm is patent and infusing NS @ 50 ML/HR. VSS. Call light within reach. Will continue to monitor.
--- NOTE | 2021-03-17 19:00 | PC.WOUNDNOTE ---
Stage 2 ulceration noted to LT great toe. Santyl applied and covered with 4X4 + Coban.
[2021-03-17 20:00] VITALS: BP 126/66; PULSE 90; RESP 20; TEMP 36.8; O2SAT 97
[2021-03-17 21:11] LABS: POC Glucose,Bedside 288 (70-110)
[2021-03-17 21:33] LABS: POC Glucose,Bedside 272 (70-110)
[2021-03-17 21:33] LABS: POC Glucose,Bedside 267 (70-110)
[2021-03-17 21:33] LABS: POC Glucose,Bedside 267 (70-110)
[2021-03-17 21:33] LABS: POC Glucose,Bedside 333 (70-110)
[2021-03-17 21:33] LABS: POC Glucose,Bedside 246 (70-110)
[2021-03-18 04:01] VITALS: BP 146/73; PULSE 64; RESP 18; TEMP 36.7; O2SAT 97
[2021-03-18 05:15] VITALS: BMI 39.4
[2021-03-18 05:37] LABS: POC Glucose,Bedside 225 (70-110)
--- NOTE | 2021-03-18 06:37 | PC.NURSE ---
pt has rested well t/o shift, has ambulated in room, dressing change done this shift, remains on room air, no complaints of pain this shift
--- NOTE | 2021-03-18 07:12 | HMH.GSPN ---
Subjective Narrative: Patient states that he feels fine . He states that he want(s) to go home . Progress Note: A&P (1) Ulcer of left great toe due to diabetes mellitus Status: Acute (2) Fissure in skin of both feet Status: Acute (3) Pain of left great toe Status: Acute (4) Diabetic foot ulcer Status: Acute (5) Xerosis of skin Status: Acute (6) Encounter for wound care Status: Acute (7) Xerosis of skin Status: Acute (8) Abscess of left thigh Status: Acute Assessment and plan: Overall continuing to improve on vancomycin/Zosyn. Final cultures remain pending. As the patient has improved on Zosyn and vancomycin, it may ultimately be reasonable to discharge on Augmentin and appropriate MRSA coverage. Please see Dr. Del Rosario's note from 03/16 forwarded below. Forwarded from Dr. Del Rosario's evaluation 03/16: Given the degree of persistent cellulitis recommend awaiting culture results. If they do return as MRSA I would recommend outpatient Zyvox as opposed to Bactrim. Would also advocate adding anaerobic coverage such as clindamycin. For outpatient dressings recommend once daily packing with saline moistened gauze. (9) Obesity (BMI 30-39.9) Status: Acute Exam Vital signs and Labs for Last 24 Hours: Temp Pulse Resp BP Pulse Ox 98.0 F 64 18 146/73 H 97 03/18/21 04:01 03/18/21 04:01 03/18/21 04:01 03/18/21 04:01 03/18/21 04:01 Laboratory Results - last 24 hr 03/15/21 12:11: POC Glucose 267 H 03/15/21 17:28: POC Glucose 246 H 03/15/21 22:14: POC Glucose 272 H 03/16/21 06:31: POC Glucose 267 H 03/17/21 05:52: POC Glucose 333 H* 03/17/21 12:24: POC Glucose 249 H 03/17/21 15:44: POC Glucose 263 H 03/17/21 20:26: POC Glucose 288 H 03/18/21 02:10: Vancomycin Trough 10.0 03/18/21 05:29: POC Glucose 225 H I & O for Last 24 hours: Intake & Output 03/15/21 03/16/21 03/17/21 03/18/21 11:59 11:59 11:59 11:59 Intake Total 2220 / 2220 840 / 840 5965 / 5965 3075 / 3075 Output Total 0 / 0 Balance 2220 / 2220 840 / 840 5965 / 5965 3075 / 3075 Weight 297 lb 306 lb 6 oz 307 lb 6 oz Microbiology Reports for the Last 24 Hours: Microbiology 03/14/21 16:02 Thigh - Left Gram Stain - Final 03/14/21 16:02 Thigh - Left Abscess Culture - Preliminary - Constitutional no acute distress - *Routine Respiratory Exam Absent: respiratory distress - *Routine Cardiovascular Exam Absent: tachycardia - *Routine Skin Exam Comments: Wound base with patchy granulation and beefy redness . No marginal spreading cellulitis.
[2021-03-18 07:16] LABS: Basophils % 0.2 % (0.1-2.0); Eosinophils # 0.1 K/mm3 (0.0-0.4); Hematocrit 37.7 % (42.0-52.0); Hemoglobin 12.9 g/dL (14.1-18.0); Lymphocytes # 1.6 K/mm3 (0.7-4.5); Lymphocytes % 23.6 % (10-50); Mean Corpuscular HGB Conc 34.1 g/dL (31.8-35.4); Mean Corpuscular Volume 90.9 fl (80-94); Mean Platelet Volume 7.1 fl (7.4-10.4); Monocytes # 0.3 K/mm3 (0.1-1.0); Monocytes % 4.8 % (1.7-9.3); Neutrophils # 4.8 K/mm3 (1.8-7.8); Neutrophils % 69.3 % (37.0-80.0); Platelet Count 282 K/mm3 (142-424); Red Blood Count 4.15 M/mm3 (4.60-6.20); Red Cell Distribution Width 12.1 % (11.5-17.5); White Blood Count 6.9 K/mm3 (4.8-10.8)
[2021-03-18 07:25] LABS: Chloride 105 mmol/L (98-107); Potassium 3.8 mmoL/L (3.5-5.1); Sodium 136 mmol/L (136-145)
[2021-03-18 07:28] LABS: Anion Gap 9.8 mEq/L (5-15); Blood Urea Nitrogen 7 mg/dl (9-20); Calcium 8.4 mg/dl (8.4-10.2); Carbon Dioxide 25 mmol/L (22.0-30.0); Creatinine Clearance Estimated 252 mL/min (50-200); Estimated Glomerular Filt Rate 120 ml/min (>60); GFR (African American) 145 ML/MIN (>60); Glucose 216 mg/dl (74-100)
[2021-03-18 07:54] LABS: Vancomycin,Peak 19.1 ug/ml (11-39)
[2021-03-18 08:00] VITALS: BP 135/84; PULSE 86; RESP 14; TEMP 36.9; O2SAT 97
--- NOTE | 2021-03-18 09:05 | HMH.PHACONS ---
- Pharmacy Consult Date: 03/18/21 Time: 09:05 Referring provider: DR. ALMARAZ Reason for Consult:: VANCOMYCIN LEVELS AND DOSE CHANGE Allergies and ADEs:: Allergies Allergy/AdvReac Type Severity Reaction Status Date / Time hydrocodone [From VICODIN] Allergy Unknown Unknown Verified 03/14/21 10:34 allergy reaction methadone [METHADONE] Allergy Unknown Unknown Verified 03/14/21 10:34 allergy reaction morphine [MORPHINE] Allergy Unknown Unknown Verified 03/14/21 10:34 allergy reaction Home Medications:: Home Medications Medication Instructions Recorded Confirmed Type Gabapentin [Gabapentin 300mg Cap] 300 mg PO NEEDED PRN 07/07/19 03/15/21 History Cinnamon Bark [Cinnamon] 2,000 mg PO DAILY 03/22/20 03/15/21 History Insulin Lispro 0 unit SQ DIRECTED 03/14/21 03/15/21 History Zolpidem Tartrate 10 mg PO HSP PRN 03/15/21 03/15/21 History Height: 1.88 m Weight: 139.423 kg Laboratory Results:: Laboratory Results - last 24 hr 03/15/21 12:11: POC Glucose 267 H 03/15/21 17:28: POC Glucose 246 H 03/15/21 22:14: POC Glucose 272 H 03/16/21 06:31: POC Glucose 267 H 03/17/21 05:52: POC Glucose 333 H* 03/17/21 12:24: POC Glucose 249 H 03/17/21 15:44: POC Glucose 263 H 03/17/21 20:26: POC Glucose 288 H 03/18/21 02:10: Vancomycin Trough 10.0 03/18/21 05:29: POC Glucose 225 H 03/18/21 06:50: WBC 6.9, RBC 4.15 L, Hgb 12.9 L, Hct 37.7 L, MCV 90.9, MCH 31.0, MCHC 34.1, RDW 12.1, Plt Count 282, MPV 7.1 L, Neut % (Auto) 69.3, Lymph % (Auto) 23.6, [place] % (Auto) 4.8, Eos % (Auto) 2.0, Baso % (Auto) 0.2, Neut # (Auto) 4.8, Lymph # (Auto) 1.6, [place] # (Auto) 0.3, Eos # (Auto) 0.1, Baso # (Auto) 0.0 03/18/21 06:50: Sodium 136, Potassium 3.8, Chloride 105, Carbon Dioxide 25, Anion Gap 9.8, BUN 7 L, Creatinine 0.70, Estimated Creat Clear 252, Estimated GFR 120, Est GFR ( Amer) 145, Glucose 216 H, Calcium 8.4 03/18/21 06:50: Vancomycin Peak 19.1 Medical History: Reports:: Anxiety, Cancer, Deep Vein Thrombosis, Depression, Diabetes Mellitus Type 2, Hiatal Hernia, Hyperlipidemia, Hypertension, Kidney Stones, MRSA, Pulmonary Embolism, Transient Ischemic Attacks (TIA) Denies:: Diabetes Mellitus Type 1, Internal Pacemaker, Seizures Assessment and Plan (1) Ulcer of left great toe due to diabetes mellitus Start date: 03/14/21 Start time: 14:45 Status: Acute Category: Medical Code(s): E11.621 - Type 2 diabetes mellitus with foot ulcer; L97.529 - Non-pressure chronic ulcer of other part of left foot with unspecified severity (2) Fissure in skin of both feet Start date: 03/14/21 Start time: 14:45 Status: Acute Category: Medical Code(s): R23.4 - Changes in skin texture (3) Pain of left great toe Start date: 03/14/21 Start time: 14:45 Status: Acute Category: Medical Code(s): M79.675 - Pain in left toe(s) (4) Diabetic foot ulcer Start date: 03/14/21 Start time: 14:45 Status: Acute Category: Medical Code(s): E11.621 - Type 2 diabetes mellitus with foot ulcer; L97.509 - Non-pressure chronic ulcer of other part of unspecified foot with unspecified severity (5) Xerosis of skin Status: Acute Category: Medical Code(s): L85.3 - Xerosis cutis (6) Encounter for wound care Status: Acute Category: Medical Code(s): Z51.89 - Encounter for other specified aftercare (7) Xerosis of skin Start date: 03/14/21 Start time: 14:45 Status: Acute Category: Medical Code(s): L85.3 - Xerosis cutis (8) Abscess of left thigh Status: Acute Category: Medical Code(s): L02.416 - Cutaneous abscess of left lower limb (9) Obesity (BMI 30-39.9) Status: Acute Category: Medical Code(s): E66.9 - Obesity, unspecified - Assessment and plan all Dx Assessment and Plan for all problems:: BASED ON PATIENT FACTORS AND VANCOMYCIN TROUGH LEVEL OF 10.0 AND PEAK OF 19.1, RECOMMEND INCREASING VANCOMYCIN DOSE TO 2,750MG EVERY 12 HOURS. CALCULATED AUC IS 583.7. PHARMACY WILL CO
--- NOTE | 2021-03-18 10:15 | HMH.DCSUM ---
General - General Admission date:: 03/14/21 Discharge date: 03/18/21 HPI HPI: 51-year-old uncontrolled diabetic male. Presented to the urgent treatment center yesterday with a several day history of LEFT medial proximal thigh abscess and left great toe ulcer. He states that this was aspirated with a needle. He followed up in office today and the area had increased in size and pain.Pt has been on antibotics and both areas has increased in indurating pass marked areas and escar tissue He is admitted for IV antibiotics and Surgical consultation was obtained. Hospital Course Hospital Course: pt was admitted with abscess and was seen by surg -51-year-old diabetic male. I had recently seen him for a right groin abscess hidradenitis. This area had finally healed. He had presented to the urgent treatment center yesterday with a several day history of LEFT medial proximal thigh abscess. He states that this was aspirated with a needle. He followed up in his primary care provider's office today and the area had progressed. Pre-op Diagnosis:: Abscess with soft tissue infection of the left medial proximal thigh Post-op Diagnosis:: Same Procedure performed:: Incision and drainage of complex left thigh abscess with debridement of skin and subcutaneous tissue Surgeon:: Franklyn Del Rosario MD PRODUCT MARKETING ENGINEER:: Rodrigue Huffman Anesthesia: LMA Estimated blood loss (mL): 15 Clinical Note:: Patient is a 51-year-old poorly controlled diabetic. He recently had a right groin abscess hidradenitis which required incision and drainage and debridement and ultimately had healed. He had presented to the [facility] last night due to a several day history of a left medial proximal thigh boil . Patient has tried to squeeze the area. He was seen and evaluated in the [facility] and given antibiotics and topical therapy. He presented to his primary care provider's office today on 03/14/2021. Patient was admitted for inpatient management due to some progression of the abscess and soft tissue infection. Operative findings:: He had an area of full-thickness necrosis of skin and subcutaneous tissue. There was underlying purulence tracking deep into the abductor muscles and fascia. There is no evidence of any necrotizing fasciitis. Operative note:: Consent was obtained and patient was taken to the operating room. He was given preoperative intravenous antibiotic consisting of vancomycin. In the operating room he was placed in a supine position. Anesthesia was induced via LMA. He was positioned in lithotomy position. The area was prepped and draped in the standard surgical fashion. A circular incision was made at the area of obvious tissue necrosis. There was underlying purulence which exuded from the wound. This was sent for aerobic anaerobic cultures. Tissue was excised. There was some underlying necrotic tissue in the subcutaneous region which was debrided using electrocautery as well. This was sent as debrided tissue. Deep probing of the wound resulted in some additional evacuation of loculated purulence. Once it was felt that all loculations were freed and obviously necrotic tissue was debrided the wound was thoroughly irrigated. Local anesthetic was infiltrated. The wound was packed with saline moistened Kerlix gauze and covered with clean dry sterile dressing. pt also was seen by podiatry consult for left hallux diabetic foot ulcer: Patient is a 51 year old diabetic male known to the podiatry team who was admitted today for Left medial proximal thigh abscess and left great toe ulcer. PCP team consulted podiatry for management of left hallux diabetic foot ulcer. Patient was resting in the bed upon entering the room alert and oriented x3. No acute distress noted. Patient assessment findings: left hallux plantar site diabetic ulcer dressing removed. Wound noted with 25 % black eschar and 75% granular. No drainage noted when compressed. Both feet present with erythema, dry cr
[2021-03-18 11:58] LABS: POC Glucose,Bedside 307 (70-110)
[2022-01-03 10:55] LABS: POC Glucose,Bedside 276 (70-110)
== END 2021-03-18 15:05 | disposition home or self-care (01) ==
PROVIDERS: Nurse Practitioner Family; Surgery; Admitting Provider Emergency Medicine; PCP Emergency Medicine; Visit Provider Emergency Medicine
PROC: (CPT 10061; principal; 2021-03-14 15:30)
DX: L02.416 Cutaneous abscess of left lower limb (principal); E11.65 Type 2 diabetes mellitus with hyperglycemia; E11.621 Type 2 diabetes mellitus with foot ulcer; L97.512 Non-pressure chronic ulcer of other part of right foot with fat layer exposed; Z79.4 Long term (current) use of insulin; L03.116 Cellulitis of left lower limb; B95.1 Streptococcus, group B, as the cause of diseases classified elsewhere; Z20.822 Contact with and (suspected) exposure to COVID-19; L97.521 Non-pressure chronic ulcer of other part of left foot limited to breakdown of skin
CPT/HCPCS: 10061; 11042; G0378; G0379; 36415; 73630; 80048; 80053; 80202; 82962; 83036; 83605; 85025; 87040; 87070; 87075; 87077; 87186; 87205; 88304; C9803; J2405; J2543; J3370; U0003; U0005

== ENCOUNTER → 2021-03-19 08:21 | Outpatient (CLI) | payer MEDICARE, MEDICAID, SELFPAY | PROVIDERS: PCP Nurse Practitioner Family; Visit Provider Surgery | DX: L02.416 Cutaneous abscess of left lower limb (principal) | CPT/HCPCS: G0463 ==

== ENCOUNTER 2021-03-20 07:59 | Outpatient (CLI) | payer MEDICARE, MEDICAID, SELFPAY ==
[2021-03-20 20:15] VITALS: BP 196/108; PULSE 92; RESP 18; TEMP 36.7; O2SAT 97
== END 2021-03-20 20:30 | disposition home or self-care (01) ==
PROVIDERS: PCP Nurse Practitioner Family; Visit Provider Surgery
DX: L02.214 Cutaneous abscess of groin (principal); Z48.01 Encounter for change or removal of surgical wound dressing
CPT/HCPCS: G0463

== ENCOUNTER 2021-03-21 10:58 | Outpatient (CLI) | payer MEDICARE, MEDICAID, SELFPAY | END 2021-03-21 20:58 | disposition home or self-care (01) | LOC: INF 10:59 | PROVIDERS: PCP Nurse Practitioner Family; Visit Provider Surgery | DX: L02.214 Cutaneous abscess of groin (principal); Z48.01 Encounter for change or removal of surgical wound dressing | CPT/HCPCS: G0463 ==

== ENCOUNTER 2021-03-22 08:18 | Outpatient (CLI) | payer MEDICARE, MEDICAID, SELFPAY ==
[2021-03-22 20:39] VITALS: BMI 25.2
== END 2021-03-22 20:43 | disposition home or self-care (01) ==
PROVIDERS: PCP Nurse Practitioner Family; Visit Provider Surgery
DX: L02.214 Cutaneous abscess of groin (principal); Z48.01 Encounter for change or removal of surgical wound dressing; E11.621 Type 2 diabetes mellitus with foot ulcer; L97.529 Non-pressure chronic ulcer of other part of left foot with unspecified severity
CPT/HCPCS: G0463

== ENCOUNTER 2021-03-23 08:37 | Outpatient (CLI) | payer MEDICARE, MEDICAID, SELFPAY ==
[2021-03-23 21:45] VITALS: BMI 24.5
== END 2021-03-23 22:00 | disposition home or self-care (01) ==
LOC: INF 08:38
PROVIDERS: PCP Nurse Practitioner Family; Visit Provider Surgery
DX: L02.214 Cutaneous abscess of groin (principal); Z48.01 Encounter for change or removal of surgical wound dressing
CPT/HCPCS: G0463

== ENCOUNTER → 2021-03-24 09:47 | Outpatient (CLI) | payer MEDICARE, MEDICAID, SELFPAY | PROVIDERS: PCP Nurse Practitioner Family; Visit Provider Surgery | DX: L02.214 Cutaneous abscess of groin (principal); Z48.01 Encounter for change or removal of surgical wound dressing | CPT/HCPCS: G0463 ==

== ENCOUNTER 2021-03-25 08:27 | Outpatient (CLI) | payer MEDICARE, MEDICAID, SELFPAY ==
--- NOTE | 2021-03-25 08:30 | PC.NURSE ---
Dressing was changed in the Er by Arias Larson RN.
[2021-03-25 20:58] VITALS: BP 144/79; PULSE 73; RESP 18; TEMP 36.9; O2SAT 99
--- NOTE | 2021-03-25 21:05 | PC.NURSE ---
Wound dressing changed per material handling warehouse supervisor request. See documentation for details. Pt tolerated well and left via ambulation. No additional complaints or requests offered.
== END 2021-03-25 08:50 | disposition home or self-care (01) ==
PROVIDERS: PCP Nurse Practitioner Family; Visit Provider Surgery
DX: L02.214 Cutaneous abscess of groin (principal); Z48.01 Encounter for change or removal of surgical wound dressing
CPT/HCPCS: G0463

== ENCOUNTER → 2021-03-26 20:54 | Outpatient (CLI) | payer MEDICARE, MEDICAID, SELFPAY ==
[2021-03-26 20:56] VITALS: BP 124/85; PULSE 89; RESP 16; TEMP 36.9; O2SAT 99; BMI 34.4
--- NOTE | 2021-03-26 21:00 | PC.NURSE ---
Dressing change to left inner thigh. Old dressing with moderate amount of serous sang drainage, excoriation present around wound. Patient complains of pain with dressing removal. Wound cleansed with normal saline, saline soaked guauze packed into wound, tunnelling present, with moderate amount of yellow tissue present. Wound covered with ABD pad and covered with tegaderm instead of tape.
== END ==
PROVIDERS: PCP Emergency Medicine; Visit Provider Surgery
DX: L02.214 Cutaneous abscess of groin (principal); Z48.01 Encounter for change or removal of surgical wound dressing
CPT/HCPCS: G0463

== ENCOUNTER 2021-03-27 08:06 | Outpatient (CLI) | payer MEDICARE, MEDICAID, SELFPAY | END 2021-03-27 23:30 | disposition home or self-care (01) | LOC: INF 08:07 | PROVIDERS: PCP Nurse Practitioner Family; Visit Provider Surgery | DX: L02.214 Cutaneous abscess of groin (principal); Z48.01 Encounter for change or removal of surgical wound dressing | CPT/HCPCS: G0463 ==

== ENCOUNTER 2021-03-28 08:03 | Outpatient (CLI) | payer MEDICARE, MEDICAID, SELFPAY | END 2021-03-28 20:39 | disposition home or self-care (01) | LOC: INF 08:04 | PROVIDERS: PCP Nurse Practitioner Family; Visit Provider Surgery | DX: L02.214 Cutaneous abscess of groin (principal); Z48.01 Encounter for change or removal of surgical wound dressing | CPT/HCPCS: G0463 ==

== ENCOUNTER 2021-03-29 09:00 | Outpatient (RCR) | payer MEDICARE, MEDICAID, SELFPAY ==
--- NOTE | 2021-03-20 15:08 | HMH.PTOPWND ---
Rehab Outpt Wound Evaluation Rehab OP Wound Evaluation Start: 03/20/21 13:47 Freq: Status: Active Protocol: Document 03/20/21 14:25 RAZA (Rec: 03/20/21 15:08 PHORNE [id number]) Electronically Signed By Kelechi Jones, PT 03/20/21 14:25 Subjective/History History History Pt is 51 yowm who presents with L Great Toe DFU x ~ 2 wks per his report. He states, I really don' t know what caused it, it was just like a blister somehow. He also has hx of L thigh abcess that he had I&D performed on and is currently receiving IV Abx. 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 Subjective Subjective He reports no c/o pain in the L foot today. Wound Eval Wound Left Great Toe Wound Type Diabetic Foot Ulcer Is This a Chronic Wound No Wound Length (cm) 2.0 Wound Width (cm) 2.3 Wound Bed Appearance [place],Yellow Percentage Granulated (%) 95 Percentage of Eschar (Yellow) (%) 5 Wound Margins Description Well Defined Surrounding Tissue Appearance Indurated Drainage Description Serosanguineous Drainage Amount Small Wound Topical Solution/Irrigant Saline Irrigant Primary Dressing collagen Comment puracol Wound Secondary Dressing Type Composite,Gauze Roll/Wrap Wound Debridement Method Sharps,Forceps,Gauze Wound Debridement Amount of Tissue Minimal Removed Dressing Change Patient Tolerance Tolerated Well Wound Problems/Impairments Impairments Problems/Impairmments Impaired Endurance,Impaired Gait Pattern,Impaired Walking, Impaired Standing,Increased Edema,Wound Care Needs, Impaired Self Care/Self Management Prognosis Rehab Potential Good Clinical Impression Consistent with Diagnosis Yes Short Term Goals Number of Weeks 4 Decrease Wound Area Yes: by 50% Senior Living Goals Number of Weeks 8 Decrease Wound Area Yes: by 100% Patient to be Ind w/ HEP
== END 2021-03-29 09:05 | disposition home or self-care (01) ==
LOC: PT 09:00
PROVIDERS: PCP Nurse Practitioner Family; Visit Provider Nurse Practitioner Family
DX: E11.621 Type 2 diabetes mellitus with foot ulcer (principal); L97.529 Non-pressure chronic ulcer of other part of left foot with unspecified severity; Z79.4 Long term (current) use of insulin
CPT/HCPCS: 97162

== ENCOUNTER 2021-03-29 11:10 | Outpatient (CLI) | payer MEDICARE, MEDICAID, SELFPAY | END 2021-03-29 20:27 | disposition home or self-care (01) | PROVIDERS: PCP Nurse Practitioner Family; Visit Provider Surgery | DX: L02.214 Cutaneous abscess of groin (principal); Z48.01 Encounter for change or removal of surgical wound dressing | CPT/HCPCS: G0463 ==

== ENCOUNTER 2021-03-30 08:07 | Outpatient (CLI) | payer MEDICARE, MEDICAID, SELFPAY | END 2021-03-30 21:00 | disposition home or self-care (01) | LOC: INF 08:09 | PROVIDERS: PCP Nurse Practitioner Family; Visit Provider Surgery | DX: L02.214 Cutaneous abscess of groin (principal); Z48.01 Encounter for change or removal of surgical wound dressing | CPT/HCPCS: G0463 ==

== ENCOUNTER 2021-03-31 11:51 | Outpatient (CLI) | payer MEDICARE, MEDICAID, SELFPAY ==
--- NOTE | 2021-03-31 12:10 | PC.NURSE ---
PT ARRIVED- DRESSING CHANGED COMPLETED TO LEFT GROIN/BUTTOCKS AREA. YELLOW/SEROSANG DRAINAGE SOAKED THROUGH PACKING. IRRIGATED AND PACKED PER ORDER. RED EXCORIATION NOTED AROUND AREA. STERILE DRESSING REAPPLIED. PT TOLERATED WELL.
[2021-03-31 12:20] VITALS: BP 141/67; PULSE 71; RESP 20; TEMP 36.6; O2SAT 96
--- NOTE | 2021-03-31 21:48 | PC.NURSE ---
OLD DRESSING REMOVED FROM LEFT UPPER THIGH/GROIN AREA. CLEANSED SITE WITH NS. PACKED INCISION WITH SALINE MOIST GAUZE, COVERED WITH STERILE 4X4'S, ABD PAD AND MEDIPORE TAPE. PATIENT TOLERATED DRESSING CHANGE WELL.
== END 2021-03-31 21:51 | disposition home or self-care (01) ==
PROVIDERS: PCP Nurse Practitioner Family; Visit Provider Surgery
DX: L02.214 Cutaneous abscess of groin (principal); Z48.01 Encounter for change or removal of surgical wound dressing
CPT/HCPCS: G0463

== ENCOUNTER → 2021-04-01 11:19 | Outpatient (CLI) | payer MEDICARE, MEDICAID, SELFPAY ==
[2021-04-01 11:44] VITALS: BP 162/96; PULSE 88; RESP 20; TEMP 36.6; O2SAT 96
== END ==
PROVIDERS: PCP Nurse Practitioner Family; Visit Provider Surgery
DX: L02.214 Cutaneous abscess of groin (principal); Z48.01 Encounter for change or removal of surgical wound dressing
CPT/HCPCS: G0463

== ENCOUNTER 2021-04-02 10:12 | Outpatient (CLI) | payer MEDICARE, MEDICAID, SELFPAY ==
[2021-04-02 22:30] VITALS: BP 140/74; PULSE 90; RESP 18; TEMP 36.7; O2SAT 97
--- NOTE | 2021-04-02 22:56 | PC.WOUNDNOTE ---
REMOVED PURELENT DRAINAGE DRESSING,IRRIGATED WOUND SITE WITH STERILE WATER AND DID A WET TO DRY DRESSING WITH 4X4 GAUZE,TELFA AND TEGADERM.PT TOLERATED WELL
== END 2021-04-02 10:45 | disposition home or self-care (01) ==
LOC: INF 10:13
PROVIDERS: PCP Nurse Practitioner Family; Visit Provider Surgery
DX: L02.214 Cutaneous abscess of groin (principal); Z48.01 Encounter for change or removal of surgical wound dressing
CPT/HCPCS: G0463

== ENCOUNTER 2021-04-03 11:16 | Outpatient (CLI) | payer MEDICARE, MEDICAID, SELFPAY ==
--- NOTE | 2021-04-03 20:36 | PC.WOUNDNOTE ---
Dressing change to left inner thigh, Tissue surrounding wound pink, center of wound beefy red. granulated tissue present. wound packed with guaze soaked in normal saline, covered with tegaderm dressing.
== END 2021-04-03 11:35 | disposition home or self-care (01) ==
LOC: INF 11:16
PROVIDERS: PCP Nurse Practitioner Family; Visit Provider Surgery
DX: L02.214 Cutaneous abscess of groin (principal); Z48.01 Encounter for change or removal of surgical wound dressing
CPT/HCPCS: G0463

== ENCOUNTER 2021-04-04 08:54 | Outpatient (CLI) | payer MEDICARE, MEDICAID, SELFPAY | END 2021-04-04 21:01 | disposition home or self-care (01) | LOC: INF 08:56 | PROVIDERS: PCP Nurse Practitioner Family; Visit Provider Surgery | DX: L02.214 Cutaneous abscess of groin (principal); Z48.01 Encounter for change or removal of surgical wound dressing | CPT/HCPCS: G0463 ==

== ENCOUNTER → 2021-04-05 12:33 | Outpatient (CLI) | payer MEDICARE, MEDICAID, SELFPAY | PROVIDERS: Visit Provider Nurse Practitioner | DX: U07.1 COVID-19 (principal) | CPT/HCPCS: C9803; U0003; U0005 ==

== ENCOUNTER 2021-04-05 12:42 | Outpatient (CLI) | payer MEDICARE, MEDICAID, SELFPAY | END 2021-04-05 13:05 | disposition home or self-care (01) | LOC: INF 12:43 | PROVIDERS: PCP Nurse Practitioner Family; Visit Provider Surgery | DX: L02.214 Cutaneous abscess of groin (principal); Z48.01 Encounter for change or removal of surgical wound dressing | CPT/HCPCS: C9803; G0463; U0003; U0005 ==

== ENCOUNTER → 2021-04-06 08:14 | Outpatient (CLI) | payer MEDICARE, MEDICAID, SELFPAY ==
--- NOTE | 2021-04-06 10:10 | PC.NURSE ---
0810 - REMOVED PACKING AND DRESSING FROM WOUND. IRRIGATED WOUND WITH NS. WOUND BED RED AND MOIST. PACKED WITH DRY 4X4, COVERED WITH 2 DRY 4X4'S FOLDED IN HALF AND HELD IN PLACE WITH 2 TEGADERMS. PT TESTED COVID POSITIVE YESTERDAY SO FULL PPE WAS WORN WHILE IN PT ROOM.
== END ==
PROVIDERS: PCP Nurse Practitioner Family; Visit Provider Surgery
DX: L02.214 Cutaneous abscess of groin (principal); Z48.01 Encounter for change or removal of surgical wound dressing
CPT/HCPCS: G0463

== ENCOUNTER 2021-04-07 08:17 | Outpatient (CLI) | payer MEDICARE, MEDICAID, SELFPAY ==
--- NOTE | 2021-04-07 09:07 | PC.NURSE ---
Old packing removed. Moderate amount of drainage noted. Cleansed w/ns and packed w/dry 4x4. Covered w/dry 4x4 and tegaderm. Skin around incision is firm and red. Pt tolerated well.
== END 2021-04-07 20:26 | disposition home or self-care (01) ==
PROVIDERS: PCP Nurse Practitioner Family; Visit Provider Surgery
DX: L02.214 Cutaneous abscess of groin (principal); Z48.01 Encounter for change or removal of surgical wound dressing
CPT/HCPCS: G0463

== ENCOUNTER 2021-04-08 08:13 | Outpatient (CLI) | payer MEDICARE, MEDICAID, SELFPAY | END 2021-04-08 20:21 | disposition home or self-care (01) | LOC: INF 08:13 | PROVIDERS: PCP Nurse Practitioner Family; Visit Provider Surgery | DX: L02.214 Cutaneous abscess of groin (principal); Z48.01 Encounter for change or removal of surgical wound dressing | CPT/HCPCS: G0463 ==

== ENCOUNTER → 2021-04-09 08:27 | Outpatient (CLI) | payer MEDICARE, MEDICAID, SELFPAY | PROVIDERS: PCP Nurse Practitioner Family; Visit Provider Surgery | DX: L02.214 Cutaneous abscess of groin (principal); Z48.01 Encounter for change or removal of surgical wound dressing | CPT/HCPCS: G0463 ==

== ENCOUNTER 2021-04-10 08:16 | Outpatient (CLI) | payer MEDICARE, MEDICAID, SELFPAY ==
--- NOTE | 2021-04-10 08:37 | PC.NURSE ---
Pt states he is having increase in symptoms r/t covid positive dx. Pt was advised to seek further tx at ED but pt refused.
== END 2021-04-10 08:37 | disposition home or self-care (01) ==
LOC: INF 08:17
PROVIDERS: PCP Nurse Practitioner Family; Visit Provider Surgery
DX: L02.214 Cutaneous abscess of groin (principal); Z48.01 Encounter for change or removal of surgical wound dressing
CPT/HCPCS: G0463

== ENCOUNTER → 2021-04-11 08:29 | Outpatient (CLI) | payer MEDICARE, MEDICAID, SELFPAY | PROVIDERS: PCP Nurse Practitioner Family; Visit Provider Surgery | DX: L02.214 Cutaneous abscess of groin (principal); Z48.01 Encounter for change or removal of surgical wound dressing | CPT/HCPCS: G0463 ==

== ENCOUNTER 2021-04-11 08:45 | Emergency (ER) | payer MEDICARE, MEDICAID, SELFPAY ==
[2021-04-11 08:46] VITALS: BP 163/91; PULSE 109; RESP 20; TEMP 36.7; O2SAT 95; BMI 38.5
[2021-04-11 08:55] LABS: POC Glucose,Bedside 244 (70-110)
--- NOTE | 2021-04-11 08:56 | XR_ITS ---
FINAL REPORT CLINICAL HISTORY: cough FINDINGS: SINGLE VIEW CHEST The heart is normal in size. The mediastinum is unremarkable. There are patchy airspace infiltrates in the left perihilar region and the middle right base consistent with acute pneumonia. There is no pneumothorax. IMPRESSION: Acute pneumonia as described. Recommend continued follow-up. Reviewed, Interpreted and Dictated by Johan Peralta MD Transcribed by Indira Johns Authenticated by Johan Peralta MD on 04/11/2021 10:15:26 AM [facility]
[2021-04-11 09:00] VITALS: BP 135/89; PULSE 98; RESP 16; O2SAT 96
[2021-04-11 09:09] VITALS: BMI 38.5
--- NOTE | 2021-04-11 09:10 | PC.NURSE ---
rad notified of xray order
[2021-04-11 09:31] VITALS: BP 164/101; PULSE 91; RESP 16; O2SAT 97
--- NOTE | 2021-04-11 09:45 | HMH.EDGENADL ---
ED Disposition Clinical Impression: Pneumonia due to COVID-19 virus Disposition: Home, Self-Care Condition on Discharge: Good Instructions: Pneumonia-Adult Prescriptions: Albuterol Sulfate [Albuterol Sulfate Hfa] 2 puff IH Q4HP PRN #1 each PRN Reason: Wheezing Transmission Status: Pending to [facility] # methylPREDNISolone [Medrol 4mg tab] 4 mg PO DIRECTED #21 tab Transmission Status: Pending to [facility] # Azithromycin [Z-Chinedu 250mg Tab] 250 mg PO DIRECTED #6 tab Transmission Status: Pending to [facility] # Referrals: Domingo Rivera APRN [Primary Care Provider] - - Critical Care Critical Care Time: No Attestation: On 04/11/21, the high probability of a clinically significant, sudden or life threatening deterioration of the following system(s) required my full and direct attention, intervention and personal management. The time I documented below is in addition to time spent performing reported procedures but includes the following listed in this critical care notation. Medical Decision Making - Medical Records Medical records reviewed: Yes: I reviewed the patient's medical records. - Johnnie Inquiry Pt receiving controlled substance: No Vital Signs: 04/11/21 08:46 04/11/21 09:00 04/11/21 09:31 Temperature 98.1 F Temperature Source Oral Pulse Rate 98 H 91 H Pulse Rate [Right Radial] 109 H Respiratory Rate 20 16 16 Blood Pressure 135/89 164/101 H Blood Pressure [Right Arm] 163/91 H Blood Pressure Mean 104 117 Blood Pressure Mean [Right Arm] 115 Blood Pressure Source [Right Arm] Automatic Cuff Blood Pressure Position [Right Arm] Sitting 02 Sat by Pulse Oximetry 95 96 97 Oxygen Delivery Method Room Air - Lab Data Lab Results 04/11/21 08:47: POC Glucose 244 H Orders (Tests/Meds): ED MEDICATIONS Discontinued Medications Generic Name Dose Route Start Last Admin Trade Name Freq PRN Reason Stop Dose Admin Dexamethasone 10 mg 04/11/21 08:56 04/11/21 09:21 Dexamethasone 4mg Tablet PO 04/11/21 08:57 10 mg ONCE ONE Administration Diphenhydramine HCl 25 mg 04/11/21 08:56 04/11/21 09:21 Diphenhydramine 25mg Capsule PO 04/11/21 08:57 25 mg ONCE ONE Administration ORDERS Category Date Time Status XR chest portable Stat Exams 04/11/21 08:56 Taken - Radiology Data #1 Image(s): Chest Image Reviewed: Yes I reviewed the patient's radiology results, Yes I reviewed the patient's radiology image Bilateral infiltrates concerning for viral pneumonia - Reevaluation(s) Time: 10:11 Reevaluation #1: On reevaluation, patient is feeling better. Again there is no respiratory distress. We ambulated the patient without any desaturations. No supplemental oxygen required. Patient is also received cough suppression present from primary care physician. We will be discharging him on a short course antibiotics and steroids. Needs a follow-up in 48 hours. Given strict return precautions. Verbalized understanding. Medical Decision Narrative: 51-year-old male presented with some cough and shortness of breath. Findings are consistent with bronchitis versus pneumonia secondary to Covid. Patient is not in any respiratory distress. Not require supplemental oxygen. Work-up initiated. General Adult HPI - General Chief complaint: Weakness Stated complaint: weakness, covid + Time Seen by Provider: 04/11/21 08:50 Mode of Arrival: Ambulatory Limitations: No Limitations Description of Symptoms (Recalled from ER Triage Doc. by RN): Pt reports generalized weakness, productive cough, no appetite and chills, pt skin is clammy in nature. Pt reports he tested positive for covid 19 approx 1 week ago. Pt reports NAGEL for approx 2-3 days. No distress noted. - History of Present Illness HPI narrative: 51-year-old male presented to the emergency department with some generalized weakness and cough
[2021-04-11 10:01] VITALS: BP 125/59; PULSE 89; RESP 16; O2SAT 96
[2021-04-11 10:19] VITALS: BP 125/59; PULSE 87; RESP 18; TEMP 36.7; O2SAT 97
== END 2021-04-11 10:19 | disposition home or self-care (01) ==
PROVIDERS: Emergency Provider Emergency Medicine; PCP Nurse Practitioner Family
DX: U07.1 COVID-19 (principal); J12.82 Pneumonia due to coronavirus disease 2019; E11.65 Type 2 diabetes mellitus with hyperglycemia; E78.5 Hyperlipidemia, unspecified; I10 Essential (primary) hypertension; I25.10 Atherosclerotic heart disease of native coronary artery without angina pectoris; F17.290 Nicotine dependence, other tobacco product, uncomplicated; Z79.899 Other long term (current) drug therapy
CPT/HCPCS: 71045; 82962; 99282; G0463

== ENCOUNTER → 2021-04-12 08:20 | Outpatient (CLI) | payer MEDICARE, MEDICAID, SELFPAY | PROVIDERS: PCP Nurse Practitioner Family; Visit Provider Surgery | DX: L02.214 Cutaneous abscess of groin (principal); Z48.01 Encounter for change or removal of surgical wound dressing | CPT/HCPCS: G0463 ==

== ENCOUNTER 2021-04-14 16:23 | Inpatient (IN) | payer MEDICARE, MEDICAID, SELFPAY ==
[2021-04-14 16:24] VITALS: BP 124/64; PULSE 92; RESP 26; TEMP 36.5; O2SAT 85; BMI 38.5
[2021-04-14 16:37] VITALS: O2SAT 92
--- NOTE | 2021-04-14 16:39 | XR_ITS ---
PROCEDURE INFORMATION: Exam: XR Chest Exam date and time: 04/14/2021 4:39 PM Age: 51 years old Clinical indication: Cough TECHNIQUE: Imaging protocol: XR of the chest. Views: 1 view. COMPARISON: CR XR CHEST PORTABLE 04/11/2021 9:41 AM FINDINGS: Lungs: There are patchy opacities in the mid and lower lungs bilaterally which may reflect atelectasis or pneumonitis. Pleural spaces: No pleural effusion. No pneumothorax. Heart/Mediastinum: Unremarkable. No cardiomegaly. Bones/joints: Unremarkable. IMPRESSION: Atelectasis versus pneumonitis in the mid and lower lungs.
--- NOTE | 2021-04-14 16:39 | ECG_ITS ---
APPROVED REPORT Exam: Resting ECG HR:88 bpm ECG Measurements Heart Rate 88 AXES [place] 110 P 65 QRSd 134 QRS -41 QT 410 T 55 QTc 496 Conclusion Sinus rhythm with short [place] with fusion complexes Left axis deviation Right bundle branch block Moderate voltage criteria for LVH, may be normal variant Abnormal ECG Electronically signed by : Abilio Ramírez MD 04/15/2021 09:00:21
--- NOTE | 2021-04-14 16:41 | HMH.EDGENADL ---
ED Disposition Clinical Impression: COVID-19 Respiratory failure Qualifiers: Chronicity: acute Respiratory failure complication: hypoxia Qualified Code(s): J96.01 - Acute respiratory failure with hypoxia Pneumonia Qualifiers: Pneumonia type: due to COVID-19 virus Qualified Code(s): U07.1 - COVID-19 Disposition: Admitted As Inpatient Condition on Discharge: Serious Time of Disposition: 18:19 - Critical Care Critical Care Time: Yes Attestation: On 04/14/21, the high probability of a clinically significant, sudden or life threatening deterioration of the following system(s) required my full and direct attention, intervention and personal management. The time I documented below is in addition to time spent performing reported procedures but includes the following listed in this critical care notation. Total Critical Care Time: 30 Vital system(s) involved:: Circulatory Failure, Respiratory Failure My critical care processes included: Assessment & monitoring of V/S, Initial and Re-exams, Data Review/Interpretation, Coordinating Care, Medication Orders and management, Documentation Medical Decision Making - Medical Records Medical records reviewed: Yes: I reviewed the patient's medical records. - Johnnie Inquiry Pt receiving controlled substance: No Vital Signs: 04/14/21 16:24 04/14/21 16:37 Temperature 97.7 F Temperature Source Oral Pulse Rate [Left Radial] 92 H Respiratory Rate 26 H Blood Pressure [Right Arm] 124/64 Blood Pressure Mean [Right Arm] 84 Blood Pressure Source [Right Arm] Automatic Cuff Blood Pressure Position [Right Arm] Sitting 02 Sat by Pulse Oximetry 85 L 92 L Oxygen Delivery Method Room Air Nasal Cannula Oxygen Flow Rate (LPM) 3 - Lab Data Lab Results 04/14/21 16:57: WBC 7.6, RBC 5.14, Hgb 15.7, Hct 46.4, MCV 90.3, MCH 30.5, MCHC 33.8, RDW 13.7, Plt Count 261, MPV 8.9, Neut % (Auto) 82.8 H, Lymph % (Auto) 12.9, [place] % (Auto) 2.9, Eos % (Auto) 0.3, Baso % (Auto) 1.0, Neut # (Auto) 6.3, Lymph # (Auto) 1.0, [place] # (Auto) 0.2, Eos # (Auto) 0.0, Baso # (Auto) 0.1 04/14/21 16:57: D-Dimer 1.58 H 04/14/21 16:57: Sodium 132 L, Potassium 3.5, Chloride 98, Carbon Dioxide 26, Anion Gap 11.5, BUN 14, Creatinine 0.70, Estimated Creat Clear 246, Estimated GFR 120, Est GFR ( Amer) 145, Glucose 326 H, Calcium 9.2, Total Bilirubin 1.2, AST 50, ALT 36, Alkaline Phosphatase 86, Troponin I < 0.01, C-Reactive Protein 109.5 H, Total Protein 8.1, Albumin 4.0, Globulin 4.1 H, Albumin/Globulin Ratio 1.0 L Result diagrams: 04/14/21 16:57 04/14/21 16:57 Orders (Tests/Meds): ED MEDICATIONS Discontinued Medications Generic Name Dose Route Start Last Admin Trade Name Freq PRN Reason Stop Dose Admin Dexamethasone Sodium Phosphate 8 mg 04/14/21 18:11 Dexamethasone 4mg/Ml 1ml Vial IV 04/14/21 18:12 ONCE ONE Enoxaparin Sodium 40 mg 04/14/21 18:12 Enoxaparin 40mg/0.4ml Syringe SQ 04/14/21 18:13 ONCE ONE Iopamidol 70 ml 04/14/21 18:33 04/14/21 18:38 Iopamidol-370 (76%);100ml Bottle IV 04/14/21 18:34 70 ml ONCE ONE Administration Iopamidol 70 ml 04/14/21 18:35 Iopamidol-370 (76%);100ml Bottle IV 04/14/21 18:36 ONCE ONE Sodium Chloride 50 ml 04/14/21 18:33 04/14/21 18:37 0.9 % Sodium Chloride 50 Ml Vial IV 04/14/21 18:34 50 ml ONCE ONE Administration Sodium Chloride 10 ml 04/14/21 18:33 04/14/21 18:37 Sodium Chloride 0.9% 10ml Syr (Rad Only) IV 04/14/21 18:34 10 ml ONCE ONE Administration Sodium Chloride 50 ml 04/14/21 18:35 0.9 % Sodium Chloride 50 Ml Vial IV 04/14/21 18:36 ONCE ONE Sodium Chloride 10 ml 04/14/21 18:35 Sodium Chloride 0.9% 10ml Syr (Rad Only) IV 04/14/21 18:36 ONCE ONE ORDERS Category Date Time Status CT angio chest PE protocol Stat Cat Scan 04/14/21 18:12 Taken Troponin I Q3H Lab 04/14/21 19:45 Ordered Troponin I Q3H Lab 04/14/21 22:45 Ordered ECG Request by /Serenity Sta
[2021-04-14 17:00] VITALS: BP 131/78; PULSE 84; RESP 18; O2SAT 95
[2021-04-14 17:47] LABS: Basophils # 0.1 K/mm3 (0-0.2); Eosinophils % 0.3 % (0.1-12.0); Hematocrit 46.4 % (42.0-52.0); Hemoglobin 15.7 g/dL (14.1-18.0); Lymphocytes % 12.9 % (10-50); Mean Corpuscular HGB Conc 33.8 g/dL (31.8-35.4); Mean Corpuscular Hemoglobin 30.5 pg (27.0-31.2); Mean Corpuscular Volume 90.3 fl (80-94); Mean Platelet Volume 8.9 fl (7.4-10.4); Monocytes # 0.2 K/mm3 (0.1-1.0); Monocytes % 2.9 % (1.7-9.3); Neutrophils # 6.3 K/mm3 (1.8-7.8); Neutrophils % 82.8 % (37.0-80.0); Platelet Count 261 K/mm3 (142-424); Red Blood Count 5.14 M/mm3 (4.60-6.20); Red Cell Distribution Width 13.7 % (11.5-17.5); White Blood Count 7.6 K/mm3 (4.8-10.8)
[2021-04-14 17:54] LABS: Alanine Aminotransferase 36 U/L (12-78); Alkaline Phosphatase 86 U/L (38-126); Anion Gap 11.5 mEq/L (5-15); Aspartate Amino Transferase 50 U/L (17-59); Bilirubin,Total 1.2 mg/dl (0.2-1.3); Blood Urea Nitrogen 14 mg/dl (9-20); Calcium 9.2 mg/dl (8.4-10.2); Carbon Dioxide 26 mmol/L (22.0-30.0); Chloride 98 mmol/L (98-107); Creatinine Clearance Estimated 246 mL/min (50-200); Estimated Glomerular Filt Rate 120 ml/min (>60); GFR (African American) 145 ML/MIN (>60); Globulin 4.1 g/dL (1.3-3.2); Glucose 326 mg/dl (74-100); Potassium 3.5 mmoL/L (3.5-5.1); Sodium 132 mmol/L (136-145); Total Protein,Serum 8.1 g/dl (6.3-8.2)
[2021-04-14 18:00] VITALS: BP 133/69; PULSE 81; RESP 18; O2SAT 96
[2021-04-14 18:00] LABS: C-Reactive Protein 109.5 mg/L (0-4)
[2021-04-14 18:01] LABS: D-Dimer 1.58 ug/mL (0.0-0.5)
[2021-04-14 18:09] LABS: Troponin I < 0.01 ng/ml (0.00-0.034)
--- NOTE | 2021-04-14 18:12 | CT_ITS ---
PROCEDURE INFORMATION: Exam: CTA Chest With Contrast Exam date and time: 04/14/2021 6:12 PM Age: 51 years old Clinical indication: Cough; Patient HX: Covid positive -- patient contrast limited lost iv access before bollus of contrast went in all the way. Limited; Additional info: Positive d-dimer, short of breath, covid TECHNIQUE: Imaging protocol: Computed tomographic angiography of the chest with contrast. 3D rendering (Not supervised by radiologist): MIP and/or 3D reconstructed images were created by the technologist. Radiation optimization: All CT scans at this facility use at least one of these dose optimization techniques: automated exposure control; mA and/or kV adjustment per patient size (includes targeted exams where dose is matched to clinical indication); or iterative reconstruction. Contrast material: ISOVUE; Contrast volume: 70 ml; Contrast route: INTRAVENOUS (IV); COMPARISON: CR XR CHEST PORTABLE 04/14/2021 5:01 PM FINDINGS: Pulmonary arteries: Bolus timing is insufficient for definitive exclusion of small peripheral pulmonary emboli. No central pulmonary embolism is identified. Aorta: The thoracic aorta is normal caliber. No aneurysm or dissection is seen. Lungs: Ground-glass and patchy densities are seen in the lungs bilaterally, favoring the lower lobes and peripheral regions, consistent with the reported history of Covid. Pleural spaces: No pleural effusion. No pneumothorax. Heart: No cardiomegaly or pericardial effusion. Lymph nodes: Mediastinal and hilar lymphadenopathy is nonspecific, likely reactive. Spleen: Splenomegaly is incidentally noted. Bones/joints: Unremarkable. No acute fracture. IMPRESSION: 1. No central pulmonary embolism identified. 2. Ground-glass and patchy densities in the lungs bilaterally, appearance typical for Covid pneumonitis.
[2021-04-14 18:46] VITALS: BMI 36.1
[2021-04-14 18:59] LABS: Influenza A, PCR Not Detected (NotDetected); Influenza B, PCR Not Detected (NotDetected)
--- NOTE | 2021-04-14 19:09 | PC.NURSE ---
med/surg not able to take report on this time. med rec completed.
[2021-04-14 19:26] LABS: Coronavirus 19, PCR Detected (NotDetected)
[2021-04-14 20:05] LABS: Troponin I < 0.01 ng/ml (0.00-0.034)
[2021-04-14 20:33] VITALS: BP 108/59; PULSE 90; RESP 22; TEMP 36.6; O2SAT 94
--- NOTE | 2021-04-14 20:47 | PC.NURSE ---
patient up to floor via wheelchair @ this time
--- NOTE | 2021-04-14 20:57 | PC.NURSE ---
Confirmed with Dr. Euceda that pt is not admitted to step-down status. 2nd fl WC, and Charge Nurse notified
[2021-04-14 21:13] VITALS: BP 163/91; PULSE 94; RESP 26; TEMP 36.6; O2SAT 90
[2021-04-14 23:10] LABS: POC Glucose,Bedside 316 (70-110)
[2021-04-15] VITALS: BP 159/76; PULSE 66; RESP 20; TEMP 36.3; O2SAT 95
[2021-04-15 04:00] VITALS: BP 111/65; PULSE 79; RESP 22; TEMP 36.5; O2SAT 96
--- NOTE | 2021-04-15 04:59 | PC.WOUNDNOTE ---
open wound to left groin (apprx. 1cm in length at widest segment and 4 cm wide) that was previously an abscess that was I&D. Pt comes outpt for dressing changes. Pt gets wet to dry dressings secured with tegaderm. diabetic ulcer to L great toe. Pt states they also do drsg changes for this outpt. He is not exactly sure what they use for this except they put something on it that is in a silver package then wrap it with coban.
[2021-04-15 05:11] VITALS: BMI 36.1
[2021-04-15 06:01] LABS: POC Glucose,Bedside 473 (70-110)
--- NOTE | 2021-04-15 06:03 | PC.NURSE ---
called Dr. Euceda regarding blood glucose of 473. MD is going to look at patient chart then call back.
[2021-04-15 06:14] LABS: Basophils % 0.5 % (0.1-2.0); Eosinophils % 0.1 % (0.1-12.0); Hematocrit 42.6 % (42.0-52.0); Hemoglobin 14.3 g/dL (14.1-18.0); Lymphocytes # 0.5 K/mm3 (0.7-4.5); Lymphocytes % 8.5 % (10-50); Mean Corpuscular HGB Conc 33.7 g/dL (31.8-35.4); Mean Corpuscular Hemoglobin 30.8 pg (27.0-31.2); Mean Corpuscular Volume 91.4 fl (80-94); Mean Platelet Volume 8.6 fl (7.4-10.4); Monocytes # 0.2 K/mm3 (0.1-1.0); Monocytes % 2.9 % (1.7-9.3); Neutrophils # 5.2 K/mm3 (1.8-7.8); Platelet Count 225 K/mm3 (142-424); Red Blood Count 4.66 M/mm3 (4.60-6.20); Red Cell Distribution Width 13.7 % (11.5-17.5); White Blood Count 5.9 K/mm3 (4.8-10.8)
[2021-04-15 06:16] LABS: MANUAL DIFFERENTIAL MANUAL DIFFERENTIAL (MANUAL DIFF)
[2021-04-15 06:29] LABS: Lymphocytes % 10 % (10-50); Monocytes % 1 % (2-9); Neutrophils % 82 % (42-76); Platelet Estimate Normal; RBC Morphology Normal; Total Cells Counted 100
--- NOTE | 2021-04-15 06:31 | PC.NURSE ---
Called down to ER regarding blood glucose that I called about earlier and have not yet recieved orders for. [employer] asked Dr. Euceda if he is putting in orders or would call back with orders. states he will put orders in. Waiting for orders at this time.
[2021-04-15 06:34] LABS: Anion Gap 10.3 mEq/L (5-15); Blood Urea Nitrogen 15 mg/dl (9-20); Calcium 8.8 mg/dl (8.4-10.2); Carbon Dioxide 27 mmol/L (22.0-30.0); Chloride 98 mmol/L (98-107); Creatinine Clearance Estimated 323 mL/min (50-200); Estimated Glomerular Filt Rate 177 ml/min (>60); GFR (African American) 214 ML/MIN (>60); Glucose 396 mg/dl (74-100); Potassium 4.3 mmoL/L (3.5-5.1); Sodium 131 mmol/L (136-145)
--- NOTE | 2021-04-15 07:00 | XR_ITS ---
PROCEDURE INFORMATION: Exam: XR Chest Exam date and time: 04/15/2021 7:00 AM Age: 51 years old Clinical indication: Cough and shortness of breath; Additional info: Covid TECHNIQUE: Imaging protocol: XR of the chest. Views: 1 view. COMPARISON: CR XR CHEST PORTABLE 04/14/2021 5:01 PM FINDINGS: Lungs: Patchy left greater than right airspace disease is noted, this is improved on the right as compared to prior study. Pleural spaces: Unremarkable. No pleural effusion. No pneumothorax. Heart/Mediastinum: Unremarkable. No cardiomegaly. Bones/joints: Unremarkable. IMPRESSION: Improving infiltrates.
--- NOTE | 2021-04-15 07:22 | PC.NURSE ---
passed on to dayshimarija RN about pts blood glucose this AM and that no new orders have been recieved yet.
[2021-04-15 07:44] LABS: POC Glucose,Bedside 391 (70-110)
[2021-04-15 08:00] VITALS: BP 184/89; PULSE 66; RESP 18; TEMP 36.7; O2SAT 92
[2021-04-15 11:42] LABS: POC Glucose,Bedside 416 (70-110)
[2021-04-15 12:00] VITALS: BP 181/87; PULSE 93; RESP 20; TEMP 36.8; O2SAT 92
--- NOTE | 2021-04-15 12:57 | P.CONPHA_ITS ---
[facility] Pharmacy VTE Monitoring - Patient Demographics Admission date: 04/14/21 Report Date: 04/15/21 Time: 12:57 Allergies/Adverse Reactions: Patient Allergies hydrocodone [From VICODIN] Allergy (Unknown, Verified 04/02/21 14:15) Unknown allergy reaction hydromorphone [From Dilaudid] Allergy (Unknown, Verified 04/15/21 00:09) Rash methadone [METHADONE] Allergy (Unknown, Verified 04/02/21 14:15) Unknown allergy reaction morphine [MORPHINE] Allergy (Unknown, Verified 04/02/21 14:15) Unknown allergy reaction Height: 1.88 m Weight: 127.913 kg Patient Problems: Current Active Problems Respiratory failure (Acute) COVID-19 (Acute) Pneumonia (Acute) - VTE Risk Labs: VTE Related Lab Results Hgb 14.3 g/dL (14.1-18.0) 04/15/21 05:18 Hct 42.6 % (42.0-52.0) 04/15/21 05:18 Plt Count 225 K/mm3 (142-424) 04/15/21 05:18 BUN 15 mg/dl (9-20) 04/15/21 05:18 Creatinine 0.50 mg/dl (0.66-1.25) L D 04/15/21 05:18 Estimated Creat Clear 323 mL/min (50-200) H 04/15/21 05:18 Was VTE Risk Assessment Performed: Yes VTE Score: 8 VTE Risk Level: Moderate Risk Clinical Trial Participant: No - Prophylaxis VTE Prophylaxis Ordered?: Yes Types of VTE Prophylaxis: TEDS Knee High Location of Applied Device: Bilateral Lower Extremeties
--- NOTE | 2021-04-15 12:57 | HMH.PHAINT ---
MEDICATION RECONCILIATION COMPLETE USING LIST FROM MOST RECENT DISCHARGE, MD OFFICE VISITS, AND EXTERNAL PHARMACY FILL HISTORY.
--- NOTE | 2021-04-15 13:31 | HMH.HP ---
*Admission Date: 04/14/21 *Chief complaint: soa *History of present illness: 51-year-old male presented to the emergency department shortness of breath. He tested positive for COVID-19 9 days ago on 04/05/2021. Initially his symptoms are mild, cough and shortness of breath. Over the last 3 days symptoms have worsen, such as frequent cough,Feels very ill, fevers, chills and short of breath. Patient states he has to rest freq due to weakness and soa. Unable to eat and drink. Pt also has a abcess that requires packing on left groin. Patient admitted and consult for pulm placed. covid orders placed [facility] History I have reviewed the patient's past medical history: Yes Medical History: Reports:: Anxiety, Cancer, Coronary Artery Disease, Deep Vein Thrombosis, Depression, Diabetes Mellitus Type 2, Hiatal Hernia, Hyperlipidemia, Hypertension, Kidney Stones, MRSA, Pulmonary Embolism, Transient Ischemic Attacks (TIA) Denies:: Diabetes Mellitus Type 1, Internal Pacemaker, Seizures *Have you ever received a pneumonia vaccine?: No *Have you received a flu vaccine this season?: No Other Medical History: Reports: Anemia, Arthritis, Blood Transfusion Reaction, Chemotherapy Laterality Cases: Right: Arthroscopy Hip, Bilateral: Other Other Surgeries: Yes: No Previous Surgery, Colonoscopy, Hernia Repair, Other. No: Pacemaker Amputation: No Fractures: No - *Social History Smoking Status: Current every day smoker Tobacco Type: e-cigarettes # Packs/Day (cigarettes): 1 Alcohol Intake: current Alcohol Intake Frequency:: holidays/special occasions only Substance Use Type: marijuana *Occupational Status:: disabled Housing: house Household Members: none *Travel in the last 8 weeks: None - Psychiatric History Pschychiatric History:: Reports:: Anxiety, Depression Family Hx:: Heart Attack, Stroke Review of Systems - Review of Systems Review of systems:: pertinent systems reviewed and negative unless documented below - Constitutional Reports body ache(s), Reports chills, Reports fatigue, Denies fever(s) - Eyes Denies blurry vision - ENT Denies bleeding gums - *Cardiovascular Reports shortness of breath, Denies chest pain at rest - *Respiratory Reports chest congestion, Reports cough, Reports shortness of breath, Reports shortness of breath with activity - *Gastrointestinal Denies abdominal pain - *Genitourinary Denies difficulty urinating - *Musculoskeletal Denies joint pain - Integumentary/Breasts Denies bleeding lesions, Denies rash - *Neurologic Reports weakness, Denies seizure-like activity, Denies headache(s), Denies fainting - Psychiatric Denies lack of enjoyment - Endocrine Denies excessive sweating - Hematologic/Lymphatic Denies easy bruising - Allergic/Immunologic Denies itchy eyes Meds Home Medications Medication Instructions Recorded Confirmed Type Gabapentin [Gabapentin 300mg Cap] 300 mg PO BIDP PRN 07/07/19 04/15/21 History Zolpidem Tartrate 10 mg PO HSP PRN 03/15/21 04/15/21 History Albuterol Sulfate [Albuterol 2 puff IH Q4HP PRN #1 each 04/11/21 04/15/21 Rx Sulfate Hfa] Insulin Lispro 0 unit SQ DIRECTED 04/15/21 04/15/21 History Allergies Allergy/AdvReac Type Severity Reaction Status Date / Time hydrocodone [From VICODIN] Allergy Unknown Unknown Verified 04/02/21 14:15 allergy reaction hydromorphone [From Dilaudid] Allergy Unknown Rash Verified 04/15/21 00:09 methadone [METHADONE] Allergy Unknown Unknown Verified 04/02/21 14:15 allergy reaction morphine [MORPHINE] Allergy Unknown Unknown Verified 04/02/21 14:15 allergy reaction Exam Vital signs and Labs for Last 24 Hours: Temp Pulse Resp BP Pulse Ox 98.3 F 93 H 20 181/87 H 92 L 04/15/21 12:00 04/15/21 12:00 04/15/21 12:00 04/15/21 12:00 04/15/21 12:00 Laboratory Results - last 24 hr 04/14/21 16:57: WBC 7.6, RBC 5.14, Hgb 15.7, Hct 46.4, MCV 90.3, MCH 30.5, MCHC 33.8, RDW 13.7, Pl
[2021-04-15 15:32] VITALS: BP 157/82; PULSE 86; RESP 18; TEMP 36.7; O2SAT 91
[2021-04-15 17:52] LABS: POC Glucose,Bedside 328 (70-110)
--- NOTE | 2021-04-15 17:58 | PC.NURSE ---
Contacted by dispatch and notified that the patient had been located and was being transported to [facility]. Salena RN and Cristóbal MEYER at this time
--- NOTE | 2021-04-15 20:40 | HMH.DCSUM ---
General - General Admission date:: 04/14/21 Discharge date: 04/15/21 HPI HPI: 51-year-old male presented to the emergency department shortness of breath. He tested positive for COVID-19 9 days ago on 04/05/2021. Initially his symptoms are mild, cough and shortness of breath. Over the last 3 days symptoms have worsen, such as frequent cough,Feels very ill, fevers, chills and short of breath. Patient states he has to rest freq due to weakness and soa. Unable to eat and drink. Pt also has a abcess that requires packing on left groin. Patient admitted and consult for pulm placed. covid orders placed Hospital Course Hospital Course: Laboratory Tests 04/14/21 04/14/21 04/14/21 16:57 16:57 16:57 WBC 7.6 RBC 5.14 Hgb 15.7 Hct 46.4 MCV 90.3 MCH 30.5 MCHC 33.8 RDW 13.7 Plt Count 261 MPV 8.9 Neut % (Auto) 82.8 H Lymph % (Auto) 12.9 Rowan % (Auto) 2.9 Eos % (Auto) 0.3 Baso % (Auto) 1.0 Neut # (Auto) 6.3 Lymph # (Auto) 1.0 Rowan # (Auto) 0.2 Eos # (Auto) 0.0 Baso # (Auto) 0.1 Total Counted Neutrophils % (Manual) Band Neutrophils % Lymphocytes % (Manual) Monocytes % (Manual) Platelet Estimate RBC Morphology D-Dimer 1.58 H Sodium 132 L Potassium 3.5 Chloride 98 Carbon Dioxide 26 Anion Gap 11.5 BUN 14 Creatinine 0.70 Estimated Creat Clear 246 Estimated GFR 120 Est GFR ( Amer) 145 Glucose 326 H POC Glucose Calcium 9.2 Total Bilirubin 1.2 AST 50 ALT 36 Alkaline Phosphatase 86 Troponin I < 0.01 C-Reactive Protein 109.5 H Total Protein 8.1 Albumin 4.0 Globulin 4.1 H Albumin/Globulin Ratio 1.0 L SARS-CoV-2 (PCR) Influenza A Untype (PCR) Influenza Type B (PCR) 04/14/21 04/14/21 04/14/21 18:43 19:38 22:32 WBC RBC Hgb Hct MCV MCH MCHC RDW Plt Count MPV Neut % (Auto) Lymph % (Auto) Rowan % (Auto) Eos % (Auto) Baso % (Auto) Neut # (Auto) Lymph # (Auto) Rowan # (Auto) Eos # (Auto) Baso # (Auto) Total Counted Neutrophils % (Manual) Band Neutrophils % Lymphocytes % (Manual) Monocytes % (Manual) Platelet Estimate RBC Morphology D-Dimer Sodium Potassium Chloride Carbon Dioxide Anion Gap BUN Creatinine Estimated Creat Clear Estimated GFR Est GFR ( Amer) Glucose POC Glucose 316 H* Calcium Total Bilirubin AST ALT Alkaline Phosphatase Troponin I < 0.01 C-Reactive Protein Total Protein Albumin Globulin Albumin/Globulin Ratio SARS-CoV-2 (PCR) Detected A Influenza A Untype (PCR) Not detected Influenza Type B (PCR) Not detected 04/15/21 04/15/21 04/15/21 05:18 05:18 05:48 WBC 5.9 RBC 4.66 Hgb 14.3 Hct 42.6 MCV 91.4 MCH 30.8 MCHC 33.7 RDW 13.7 Plt Count 225 MPV 8.6 Neut % (Auto) 88.0 H Lymph % (Auto) 8.5 L Rowan % (Auto) 2.9 Eos % (Auto) 0.1 Baso % (Auto) 0.5 Neut # (Auto) 5.2 Lymph # (Auto) 0.5 L Rowan # (Auto) 0.2 Eos # (Auto) 0.0 Baso # (Auto) 0.0 Total Counted 100 Neutrophils % (Manual) 82 H Band Neutrophils % 7.0 Lymphocytes % (Manual) 10 Monocytes % (Manual) 1 L Platelet Estimate Normal RBC Morphology Normal D-Dimer Sodium 131 L Potassium 4.3 D Chloride 98 Carbon Dioxide 27 Anion Gap 10.3 BUN 15 Creatinine 0.50 L D Estimated Creat Clear 323 H Estimated GFR 177 Est GFR ( Amer) 214 D Glucose 396 H D POC Glucose 473 H* Calcium 8.8 Total Bilirubin AST ALT Alkaline Phosphatase Troponin I C-Reactive Protein Total Protein Albumin Globulin Albumin/Globulin Ratio SARS-CoV-2 (PCR) Influenza A Untype (PCR) Influenza Type B (PCR) 04/15/21 04/15/21
== END 2021-04-15 17:10 | disposition left against medical advice (07) | DRG 177 ==
LOC: ER 18:19 → 2ND 19:52
PROVIDERS: Admitting Provider Emergency Medicine; Emergency Provider Emergency Medicine; PCP Nurse Practitioner Family; Visit Provider Emergency Medicine
DX: U07.1 COVID-19 (principal); J12.82 Pneumonia due to coronavirus disease 2019; L02.416 Cutaneous abscess of left lower limb; Z85.9 Personal history of malignant neoplasm, unspecified; I25.10 Atherosclerotic heart disease of native coronary artery without angina pectoris; Z86.718 Personal history of other venous thrombosis and embolism; E11.9 Type 2 diabetes mellitus without complications; Z86.711 Personal history of pulmonary embolism; E78.5 Hyperlipidemia, unspecified; F17.290 Nicotine dependence, other tobacco product, uncomplicated; Z86.73 Personal history of transient ischemic attack (TIA), and cerebral infarction without residual deficits; E66.9 Obesity, unspecified; Z68.36 Body mass index [BMI] 36.0-36.9, adult; Z79.4 Long term (current) use of insulin
CPT/HCPCS: 71045; 71275; 80048; 80053; 82962; 84484; 85007; 85025; 85378; 86140; 87070; 87205; 93005; 96374; 96375; 99282; 99284; C9803; G0463; Q9967; U0003; U0005

== ENCOUNTER → 2021-07-23 19:18 | Outpatient (CLI) | payer MEDICARE, MEDICAID, SELFPAY | PROVIDERS: Visit Provider Nurse Practitioner Family | DX: T25.111A Burn of first degree of right ankle, initial encounter (principal); Z51.89 Encounter for other specified aftercare; B96.89 Other specified bacterial agents as the cause of diseases classified elsewhere; B95.7 Other staphylococcus as the cause of diseases classified elsewhere | CPT/HCPCS: 87070; 87077; 87186; 87205 ==

== ENCOUNTER 2021-08-31 09:29 | Emergency (ER) | payer MEDICARE, MEDICAID, SELFPAY ==
[2021-08-31 09:35] VITALS: BP 149/91; PULSE 102; RESP 19; TEMP 36.7; O2SAT 98; BMI 38.5
--- NOTE | 2021-08-31 10:07 | HMH.EDUTC ---
[facility] [place] Clinical Impression: Abscess Disposition: Home, Self-Care Condition on Discharge: Good Instructions: Trimethoprim/Sulfamethoxazole (Alternative Therapy), Cephalexin, DI for Skin Abscess Additional Instructions: *Start antibiotic(s) immediately and be sure to take as ordered for the FULL length of time although you may be feeling better or start to see improvement in the next 24-48 hours *Monitor closely. Outlined redness so that you can monitor easier. Follow up immediately for new or worsening symptoms including but not limited to redness, swelling, streaking from site fever or chills. *Warm compress 15 minutes 3-4 times day *Never squeeze or pop these on your own. Seek immediate medical attention next time this occurs *Monitor Temp. Tylenol every 4 hours as needed and ibuprofen every 6 hours as needed (as long as your primary care doctor has told you that it is ok to take both. For fever, aches, pain. ER if no less that 101 despite Tylenol and ibuprofen Follow up with your family doctor/primary care physician in the next 48-72 hours if no improvement Follow up in surgical clinic as schedule for evaluation of abscess Straight to ER if any worsening of symptoms, fever chills or body aches Prescriptions: Sulfamethoxazole/Trimethoprim [Bactrim DS tablet] 1 each PO BID 10 Days #20 tab Transmission Status: Received by [facility] #[id number] Mupirocin [Bactroban 2% Ointment 22gm tube] 1 applicatio TP TID 10 Days #22 gm Transmission Status: Received by [facility] #[id number] cephALEXin [cephALEXin 500mg capsule*] 500 mg PO QID 10 Days #40 cap Transmission Status: Received by [facility] #[id number] Referrals: ProviderDelbert MD [Primary Care Provider] - Franklyn Del Rosario MD [Staff Physician] - 09/04/21 10:30 am Time of Disposition: 10:28 Medical Decision Making - Johnnie Inquiry Pt receiving controlled substance: No Johnnie was queried for this patient: No Vital Signs: 08/31/21 09:35 08/31/21 10:12 Temperature 98.1 F 98.1 F Temperature Source Oral Pulse Rate 102 H Pulse Rate [Right Brachial] 102 H Respiratory Rate 19 19 Blood Pressure 149/91 H Blood Pressure [Right Arm] 149/91 H Blood Pressure Mean [Right Arm] 110 Blood Pressure Source [Right Arm] Automatic Cuff Blood Pressure Position [Right Arm] Sitting 02 Sat by Pulse Oximetry 98 Oxygen Delivery Method Room Air Medical Decision Narrative: Discussed with patient and recommended transfer to the ED for further work up and evaluation and he refused said he did not want to go to the ED Discussed with patient about I&D and he refused States that he wants to try antibiotics and if they do not help he will see Surgical clinic next week Discussed with patient risks and he agreed that he would return straight to ED for any worsening of symptoms fever or chills and he agreed to return despite the risks still refused transfer to the ED and I&D State that he has it draining when he applies heat [facility] HPI - General Stated complaint: abcess/boil Time Seen by Provider: 08/31/21 10:07 Mode of Arrival: Ambulatory Source of Information: Patient Limitations: No Limitations Description of Symptoms (Recalled from Triage Doc. by RN): PATIENT C/O BOIL TO INSIDE OF LEFT THIGH X 4 DAYS HEENT Symptoms (Recalled from RN notes): No Resp Symptoms (Recalled from RN notes): No Skin Symptoms (Recalled from RN notes): Yes MS Symptoms (Recalled from RN notes): No Functional Status (Recalled from RN notes): WNL - History of Present Illness Provider Complaint: Patient states that he has a boil on his left upper leg just below his buttock area States that he gets these and sometimes they will go away with antibiotics and he has had a couple that has had to be opened States that he has been having some drainage from it and wanted to come in to get some antibiotics to try to see if it would clear it up and he will follow up with surgical clinic if it doesnt im
[2021-08-31 10:12] VITALS: BP 149/91; PULSE 102; RESP 19; TEMP 36.7; O2SAT 98
== END 2021-08-31 10:33 | disposition home or self-care (01) ==
PROVIDERS: Emergency Provider Nurse Practitioner
DX: L02.416 Cutaneous abscess of left lower limb; Z88.5 Allergy status to narcotic agent; Z88.6 Allergy status to analgesic agent
CPT/HCPCS: 99212; G0463

== ENCOUNTER 2021-09-05 10:40 | Outpatient (CLI) | payer MEDICARE, MEDICAID, SELFPAY | END 2021-09-05 11:00 | disposition home or self-care (01) | LOC: INF 10:41 | PROVIDERS: Visit Provider Surgery | DX: L02.416 Cutaneous abscess of left lower limb (principal); Z48.01 Encounter for change or removal of surgical wound dressing | CPT/HCPCS: G0463 ==

== ENCOUNTER 2021-09-06 11:06 | Outpatient (CLI) | payer MEDICARE, MEDICAID, SELFPAY | END 2021-09-06 11:21 | disposition home or self-care (01) | LOC: INF 11:07 | PROVIDERS: Visit Provider Surgery | DX: L02.416 Cutaneous abscess of left lower limb (principal); Z48.01 Encounter for change or removal of surgical wound dressing | CPT/HCPCS: G0463 ==

== ENCOUNTER 2021-09-07 10:58 | Outpatient (CLI) | payer MEDICARE, MEDICAID, SELFPAY | END 2021-09-07 11:12 | disposition home or self-care (01) | LOC: INF 10:59 | PROVIDERS: Visit Provider Surgery | DX: L02.416 Cutaneous abscess of left lower limb (principal); Z48.01 Encounter for change or removal of surgical wound dressing | CPT/HCPCS: G0463 ==

== ENCOUNTER 2021-09-10 10:52 | Outpatient (CLI) | payer MEDICARE, MEDICAID, SELFPAY | END 2021-09-10 11:04 | disposition home or self-care (01) | LOC: INF 10:53 | PROVIDERS: Visit Provider Surgery | DX: L02.416 Cutaneous abscess of left lower limb (principal); Z48.01 Encounter for change or removal of surgical wound dressing | CPT/HCPCS: G0463 ==

== ENCOUNTER 2021-09-11 12:08 | Outpatient (CLI) | payer MEDICARE, MEDICAID, SELFPAY | END 2021-09-11 12:16 | disposition home or self-care (01) | LOC: INF 12:08 | PROVIDERS: Visit Provider Surgery | DX: L02.416 Cutaneous abscess of left lower limb (principal); Z48.01 Encounter for change or removal of surgical wound dressing | CPT/HCPCS: G0463 ==

== ENCOUNTER 2021-09-13 11:25 | Outpatient (CLI) | payer MEDICARE, MEDICAID, SELFPAY | END 2021-09-13 11:45 | disposition home or self-care (01) | LOC: INF 11:26 | PROVIDERS: Visit Provider Surgery | DX: L02.416 Cutaneous abscess of left lower limb (principal); Z48.01 Encounter for change or removal of surgical wound dressing | CPT/HCPCS: G0463 ==

== ENCOUNTER 2021-09-14 13:27 | Outpatient (CLI) | payer MEDICARE, MEDICAID, SELFPAY | END 2021-09-14 13:45 | disposition home or self-care (01) | LOC: INF 13:28 | PROVIDERS: Visit Provider Surgery | DX: L02.416 Cutaneous abscess of left lower limb (principal); Z48.01 Encounter for change or removal of surgical wound dressing | CPT/HCPCS: G0463 ==

== ENCOUNTER → 2021-09-17 13:27 | Outpatient (CLI) | payer MEDICARE, MEDICAID, SELFPAY | PROVIDERS: Visit Provider Surgery | DX: L02.416 Cutaneous abscess of left lower limb (principal); Z48.01 Encounter for change or removal of surgical wound dressing | CPT/HCPCS: G0463 ==

== ENCOUNTER 2022-02-05 20:42 | Emergency (ER) | payer MEDICARE, MEDICAID, SELFPAY ==
[2022-02-05 20:42] VITALS: BP 117/77; PULSE 88; RESP 20; TEMP 36.6; O2SAT 96; BMI 38.5
--- NOTE | 2022-02-05 20:55 | XR_ITS ---
PROCEDURE INFORMATION: Exam: XR Chest Exam date and time: 02/05/2022 9:03 PM Age: 51 years old Clinical indication: Other: Congestion TECHNIQUE: Imaging protocol: Radiologic exam of the chest. Views: 2 views. COMPARISON: CR XR CHEST PORTABLE 04/15/2021 6:03 AM FINDINGS: Lungs: No consolidation. Pleural spaces: No significant pleural effusion. No pneumothorax. Heart/Mediastinum: No cardiomegaly. Bones/joints: No displaced fracture. Soft tissues: Unremarkable. IMPRESSION: No definite acute cardiopulmonary disease.
[2022-02-05 21:57] LABS: Coronavirus 19, PCR Not Detected (NotDetected); Influenza A, PCR Detected (NotDetected); Influenza B, PCR Not Detected (NotDetected)
--- NOTE | 2022-02-05 23:23 | HMH.EDURI ---
Discharge Plan Disposition Patient Disposition: Home, Self-Care Prescriptions Prescriptions: New benzonatate 100 mg Capsule 100 mg PO Q8H Qty: 20 0RF prednisone [prednisone] 20 mg tablet 20 mg PO BID Qty: 10 0RF oseltamivir [Tamiflu] 75 mg capsule 75 mg PO BID 5 Days Qty: 10 0RF No Action tetracycline 500 mg capsule 500 mg PO Q12H 14 Days Qty: 28 0RF Referrals Follow up/Referrals: Provider,Referral, MD [Primary Care Provider] - See instructions Clinical Impressions Clinical Impression: Flu syndrome Instructions Patient Instructions: Influenza Discharge ED Provider: Garret Euceda URI/Sore Throat HPI General Chief Complaint: Upper Respiratory Infection Stated Complaint: SOA, runny nose,cough,chills Time Seen by Provider: 02/05/22 23:24 Mode of Arrival: Ambulatory Source of Information: Patient Limitations: No Limitations Description of Symptoms (Recalled from ER Triage Doc. by RN): pt c/o fever,chills,runny nose, congestion since friday History of Present Illness HPI Narrative: fever with uri sx with cough Complaint: fever and cough Onset (ago): day(s) Duration: intermittent Severity: moderate Relieving factors: OTC cold medicine Able to tolerate fluids by mouth: Yes Treatments prior to arrival: acetaminophen, ibuprofen and cold medicine Related Data Previous Rx's Medication Instructions Recorded tetracycline 500 mg capsule 500 mg PO Q12H 14 days #28 caps 09/18/21 benzonatate 100 mg capsule 100 mg PO Q8H #20 caps 02/05/22 oseltamivir 75 mg capsule (Tamiflu) 75 mg PO BID 5 days #10 caps 02/05/22 prednisone 20 mg tablet 20 mg PO BID #10 tabs 02/05/22 Allergies Allergy/AdvReac Type Severity Reaction Status Date / Time hydrocodone [From VICODIN] Allergy Unknown Unknown Verified 10/09/21 10:46 allergy reaction hydromorphone [From Dilaudid] Allergy Unknown Rash Verified 10/09/21 10:46 methadone [METHADONE] Allergy Unknown Unknown Verified 10/09/21 10:46 allergy reaction morphine [MORPHINE] Allergy Unknown Unknown Verified 10/09/21 10:46 allergy reaction PFSH PFSH Medical History (Updated 02/05/22 @ 23:41 by Garret Euceda MD) Diabetes Dyspnea Hypertensive disorder Social History Smoking Status: Current every day smoker tobacco type: e-cigarettes second hand exposure: No alcohol intake: never substance use type: marijuana current occupational status: other Travel in the last 8 weeks: None household members: none housing: house number of children: 0 current occupational exposures/hazards: No caffeine: No ROS Obtained: Yes All systems reviewed & no additional complaints except as documented Physical Exam General General appearance: alert and obese Head Head exam: normocephalic Eye Eye exam: Present PERRL and EOMI ENT ENT exam: Present mucous membranes moist Neck Neck exam: Present trachea midline Respiratory Respiratory exam: Present normal lung sounds bilaterally; Absent respiratory distress Cardiovascular Cardiovascular exam: Present regular rate Abdominal Exam Abdominal exam: Present soft Extremities Exam Extremities exam: Present full ROM Neurological Exam Neurological exam: Present alert, oriented X3 and CN II-XII intact Psychiatric Psychiatric exam: Present normal affect Skin Skin exam: Absent rash Medical Decision Making Medical Records Medical records reviewed: Yes I reviewed the patient's medical records. Johnnie Inquiry Pt receiving controlled substance: No Vital Signs: 02/05/22 20:42 Temperature 98 F Temperature Source Oral Pulse Rate [Right] 88 Respiratory Rate 20 Blood Pressure [Right Arm] 117/77 Blood Pressure Mean [Right Arm] 90 02 Sat by Pulse Oximetry 96 Lab Data Lab results reviewed: Yes I reviewed the patient's lab results. Lab Results 02/05/22 21:57: SARS-CoV-2 (PCR) Not detected, Influenza A Untype (PCR) Detected A, Influenza Type B (PCR) No
[2022-02-05 23:34] VITALS: BP 121/74; PULSE 80; RESP 20; TEMP 36.6; O2SAT 96
== END 2022-02-05 23:44 | disposition home or self-care (01) ==
PROVIDERS: Emergency Provider Emergency Medicine
DX: J10.1 Influenza due to other identified influenza virus with other respiratory manifestations (principal)
CPT/HCPCS: 71046; 99283; C9803; U0003; U0005

== ENCOUNTER → 2022-06-24 07:16 | Outpatient (CLI) | payer MEDICARE, MEDICAID, SELFPAY ==
[2022-06-24 07:23] LABS: MANUAL DIFFERENTIAL MANUAL DIFFERENTIAL (MANUAL DIFF)
[2022-06-24 08:32] LABS: Basophils # 0.1 K/mm3 (0-0.2); Basophils % 0.7 % (0.1-2.0); Eosinophils # 0.3 K/mm3 (0.0-0.4); Eosinophils % 3.4 % (0.1-12.0); Hematocrit 44.9 % (42.0-52.0); Hemoglobin 14.8 g/dL (14.1-18.0); Lymphocytes % 25.5 % (10-50); Mean Corpuscular Hemoglobin 30.4 pg (27.0-31.2); Mean Corpuscular Volume 92.2 fl (80-94); Monocytes # 0.4 K/mm3 (0.1-1.0); Monocytes % 5.5 % (1.7-9.3); Neutrophils # 5.2 K/mm3 (1.8-7.8); Neutrophils % 64.8 % (37.0-80.0); Platelet Count 286 K/mm3 (142-424); Red Blood Count 4.87 M/mm3 (4.60-6.20); Red Cell Distribution Width 12.7 % (11.5-17.5)
[2022-06-24 08:38] LABS: Hemoglobin A1C 9.7 % (4.0-6.0)
[2022-06-24 08:39] LABS: Alanine Aminotransferase 23 U/L (12-78); Albumin Level 3.8 g/dl (3.5-5.0); Albumin/Globulin Ratio 1.3 (1.1-1.8); Alkaline Phosphatase 69 U/L (38-126); Aspartate Amino Transferase 28 U/L (17-59); Bilirubin,Total 0.6 mg/dl (0.2-1.3); Blood Urea Nitrogen 15 mg/dl (9-20); Calcium 8.7 mg/dl (8.4-10.2); Carbon Dioxide 29 mmol/L (22.0-30.0); Chloride 98 mmol/L (98-107); Chol/HDL Ratio 3.5 (1-3.5); Cholesterol 159 mg/dl (140-200); Estimated Glomerular Filt Rate 119 ml/min (>60); GFR (African American) 144 ML/MIN (>60); Globulin 2.9 g/dL (1.3-3.2); Glucose 241 mg/dl (74-100); HDL Cholesterol 45 mg/dl (40-60); Sodium 133 mmol/L (136-145); Total Protein,Serum 6.7 g/dl (6.3-8.2); Triglycerides 90 mg/dl (30-150); VLDL Cholesterol 18 mg/dL (0-40)
[2022-06-24 08:52] LABS: Direct LDL Cholesterol 99.67 mg/dL (100-129)
[2022-06-24 09:13] LABS: Prostate Specific Ag Screen 0.9 ng/ml (0.0-4.0); Thyroid Stimulating Hormone 2.49 uIU/mL (0.465-4.68)
[2022-06-24 09:24] LABS: Lymphocytes % 28 % (10-50); Monocytes % 9 % (2-9); Neutrophils % 63 % (42-76); Platelet Estimate Normal; RBC Morphology Normal; Total Cells Counted 100
== END ==
PROVIDERS: PCP Family Medicine; Visit Provider Family Medicine
DX: E11.628 Type 2 diabetes mellitus with other skin complications (principal); E66.9 Obesity, unspecified; G62.9 Polyneuropathy, unspecified; I10 Essential (primary) hypertension; L08.9 Local infection of the skin and subcutaneous tissue, unspecified; M19.90 Unspecified osteoarthritis, unspecified site; R06.00 Dyspnea, unspecified; Z12.5 Encounter for screening for malignant neoplasm of prostate; Z68.35 Body mass index [BMI] 35.0-35.9, adult
CPT/HCPCS: 36415; 80053; 80061; 83036; 84443; 85007; 85014; 85018; 85048; 85049; G0103

== ENCOUNTER → 2022-07-10 13:48 | Outpatient (CLI) | payer MEDICARE, MEDICAID, SELFPAY ==
[2022-07-10 14:22] LABS: Basophils # 0.1 K/mm3 (0-0.2); Basophils % 0.6 % (0.1-2.0); Eosinophils # 0.1 K/mm3 (0.0-0.4); Eosinophils % 1.4 % (0.1-12.0); Hematocrit 40.6 % (42.0-52.0); Hemoglobin 13.6 g/dL (14.1-18.0); Lymphocytes # 1.9 K/mm3 (0.7-4.5); Lymphocytes % 18.6 % (10-50); Mean Corpuscular HGB Conc 33.5 g/dL (31.8-35.4); Mean Corpuscular Hemoglobin 30.5 pg (27.0-31.2); Mean Corpuscular Volume 91.2 fl (80-94); Mean Platelet Volume 7.3 fl (7.4-10.4); Monocytes # 0.6 K/mm3 (0.1-1.0); Monocytes % 5.7 % (1.7-9.3); Neutrophils # 7.4 K/mm3 (1.8-7.8); Neutrophils % 73.6 % (37.0-80.0); Platelet Count 346 K/mm3 (142-424); Red Blood Count 4.45 M/mm3 (4.60-6.20); Red Cell Distribution Width 12.6 % (11.5-17.5)
[2022-07-10 19:31] LABS: Chloride 104 mmol/L (98-107); Potassium 4.1 mmoL/L (3.5-5.1); Sodium 136 mmol/L (136-145)
[2022-07-10 19:34] LABS: Anion Gap 10.1 mEq/L (5-15); Blood Urea Nitrogen 16 mg/dl (9-20); Calcium 8.9 mg/dl (8.4-10.2); Carbon Dioxide 26 mmol/L (22.0-30.0); Estimated Glomerular Filt Rate 119 ml/min (>60); GFR (African American) 144 ML/MIN (>60); Glucose 193 mg/dl (74-100)
== END ==
PROVIDERS: PCP Family Medicine; Visit Provider Surgery Vascular Surgery
DX: I73.9 Peripheral vascular disease, unspecified (principal); I10 Essential (primary) hypertension
CPT/HCPCS: 36415; 80048; 85025

== ENCOUNTER → 2022-09-11 10:26 | Outpatient (CLI) | payer MEDICARE, MEDICAID, SELFPAY | PROVIDERS: PCP Nurse Practitioner Family; Visit Provider Nurse Practitioner Family | DX: E11.40 Type 2 diabetes mellitus with diabetic neuropathy, unspecified (principal); Z79.4 Long term (current) use of insulin ==

== ENCOUNTER → 2022-09-13 09:36 | Outpatient (CLI) | payer MEDICARE, MEDICAID, SELFPAY ==
[2022-09-13 10:41] LABS: Creatinine,Urine Random 73 mg/dL (Not Estab.)
[2022-09-13 10:46] LABS: Microalbumin < 6.000 mg/L (0-16.7)
[2022-09-13 10:47] LABS: Basophils % 0.3 % (0.1-2.0); Eosinophils # 0.2 K/mm3 (0.0-0.4); Eosinophils % 3.1 % (0.1-12.0); Hematocrit 37.7 % (42.0-52.0); Hemoglobin 12.4 g/dL (14.1-18.0); Lymphocytes # 1.6 K/mm3 (0.7-4.5); Lymphocytes % 23.7 % (10-50); Mean Corpuscular Hemoglobin 30.4 pg (27.0-31.2); Mean Platelet Volume 7.6 fl (7.4-10.4); Monocytes # 0.4 K/mm3 (0.1-1.0); Monocytes % 5.4 % (1.7-9.3); Neutrophils # 4.7 K/mm3 (1.8-7.8); Neutrophils % 67.5 % (37.0-80.0); Platelet Count 249 K/mm3 (142-424); Red Cell Distribution Width 13.4 % (11.5-17.5); White Blood Count 6.9 K/mm3 (4.8-10.8)
[2022-09-13 11:11] LABS: Alanine Aminotransferase 30 U/L (12-78); Albumin Level 3.9 g/dl (3.5-5.0); Albumin/Globulin Ratio 1.3 (1.1-1.8); Alkaline Phosphatase 69 U/L (38-126); Anion Gap 13.2 mEq/L (5-15); Aspartate Amino Transferase 34 U/L (17-59); Bilirubin,Total 0.5 mg/dl (0.2-1.3); Blood Urea Nitrogen 15 mg/dl (9-20); Carbon Dioxide 29 mmol/L (22.0-30.0); Chloride 101 mmol/L (98-107); Estimated Glomerular Filt Rate 143 ml/min (>60); GFR (African American) 173 ML/MIN (>60); Globulin 3.1 g/dL (1.3-3.2); Glucose 160 mg/dl (74-100); Potassium 4.2 mmoL/L (3.5-5.1); Sodium 139 mmol/L (136-145)
== END ==
PROVIDERS: PCP Nurse Practitioner Family; Visit Provider Nurse Practitioner Family
DX: E11.40 Type 2 diabetes mellitus with diabetic neuropathy, unspecified (principal); Z79.4 Long term (current) use of insulin; D64.9 Anemia, unspecified
CPT/HCPCS: 36415; 80053; 82043; 82570; 85025

== ENCOUNTER → 2022-11-11 15:03 | Outpatient (CLI) | payer MEDICARE, MEDICAID, SELFPAY ==
[2022-11-11 14:48] LABS: Hemoglobin A1C 10.1 % (4.0-6.0)
== END ==
PROVIDERS: PCP Nurse Practitioner Family; Visit Provider Nurse Practitioner Family
DX: E11.69 Type 2 diabetes mellitus with other specified complication; Z79.4 Long term (current) use of insulin
CPT/HCPCS: 83036

== ENCOUNTER → 2023-02-06 11:16 | Outpatient (CLI) | payer MEDICARE, MEDICAID, SELFPAY ==
[2023-02-06 11:14] LABS: Alanine Aminotransferase 40 U/L (12-78); Albumin Level 4.6 g/dl (3.5-5.0); Albumin/Globulin Ratio 1.2 (1.1-1.8); Alkaline Phosphatase 82 U/L (38-126); Anion Gap 15.6 mEq/L (5-15); Aspartate Amino Transferase 42 U/L (17-59); Bilirubin,Total 0.9 mg/dl (0.2-1.3); Blood Urea Nitrogen 19 mg/dl (9-20); Carbon Dioxide 29 mmol/L (22.0-30.0); Chloride 99 mmol/L (98-107); Estimated Glomerular Filt Rate 119 ml/min (>60); GFR (African American) 144 ML/MIN (>60); Globulin 3.8 g/dL (1.3-3.2); Glucose 250 mg/dl (74-100); Potassium 4.6 mmoL/L (3.5-5.1); Sodium 139 mmol/L (136-145); Total Protein,Serum 8.4 g/dl (6.3-8.2)
[2023-02-06 12:29] LABS: Hemoglobin A1C 8.9 % (4.0-6.0)
== END ==
PROVIDERS: PCP Nurse Practitioner Family; Visit Provider Nurse Practitioner Family
DX: E11.65 Type 2 diabetes mellitus with hyperglycemia (principal); Z01.89 Encounter for other specified special examinations; E11.69 Type 2 diabetes mellitus with other specified complication
CPT/HCPCS: 80053; 83036

== ENCOUNTER 2023-05-15 17:21 | Outpatient (CLI) | payer MEDICARE, MEDICAID, SELFPAY ==
[2023-05-15 23:54] LABS: Hemoglobin A1C 9.6 % (4.0-6.0)
== END 2023-05-15 23:59 ==
LOC: LAB.DROPOF 17:22
PROVIDERS: PCP Nurse Practitioner Family; Visit Provider Nurse Practitioner Family
DX: E11.9 Type 2 diabetes mellitus without complications (principal); Z79.85 Long-term (current) use of injectable non-insulin antidiabetic drugs
CPT/HCPCS: 83036

== ENCOUNTER 2023-05-22 10:52 | Outpatient (CLI) | payer MEDICARE, MEDICAID, SELFPAY ==
[2023-05-22 11:18] LABS: Basophils % 0.2 % (0.1-2.0); Eosinophils # 0.3 K/mm3 (0.0-0.4); Hemoglobin 15.7 g/dL (14.1-18.0); Lymphocytes # 1.8 K/mm3 (0.7-4.5); Lymphocytes % 11.9 % (10-50); Mean Corpuscular HGB Conc 35.6 g/dL (31.8-35.4); Mean Corpuscular Hemoglobin 31.2 pg (27.0-31.2); Mean Corpuscular Volume 87.6 fl (80-94); Mean Platelet Volume 7.5 fl (7.4-10.4); Monocytes # 0.6 K/mm3 (0.1-1.0); Monocytes % 3.9 % (1.7-9.3); Neutrophils # 12.4 K/mm3 (1.8-7.8); Neutrophils % 81.9 % (37.0-80.0); Platelet Count 373 K/mm3 (142-424); Red Blood Count 5.02 M/mm3 (4.60-6.20); White Blood Count 15.1 K/mm3 (4.8-10.8)
[2023-05-22 11:21] LABS: MANUAL DIFFERENTIAL MANUAL DIFFERENTIAL (MANUAL DIFF)
[2023-05-22 11:31] LABS: Eosinophils % 1 % (0-3); Lymphocytes % 13 % (10-50); Monocytes % 5 % (2-9); Neutrophils % 81 % (42-76); Total Cells Counted 100
[2023-05-22 11:32] LABS: Platelet Estimate Normal; RBC Morphology Normal
[2023-05-22 11:51] LABS: Anion Gap 15.2 mEq/L (5-15); Blood Urea Nitrogen 14 mg/dl (9-20); Calcium 9.6 mg/dl (8.4-10.2); Carbon Dioxide 24 mmol/L (22.0-30.0); Chloride 103 mmol/L (98-107); Estimated Glomerular Filt Rate 119 ml/min (>60); GFR (African American) 144 ML/MIN (>60); Glucose 219 mg/dl (74-100); Potassium 4.2 mmoL/L (3.5-5.1); Sodium 138 mmol/L (136-145)
== END 2023-05-22 23:59 ==
PROVIDERS: PCP Nurse Practitioner Family; Visit Provider Surgery
DX: L02.215 Cutaneous abscess of perineum (principal)
CPT/HCPCS: 36415; 80048; 85007; 85025

== ENCOUNTER 2023-05-23 10:59 | Day surgery (SDC) | payer MEDICARE, MEDICAID, SELFPAY ==
[2023-05-22 11:37] VITALS: BMI 33.2
[2023-05-23] VITALS (8 sets, daily range): BP systolic 122–176; BP diastolic 38–91; PULSE 75–91; RESP 14–19; TEMP 36.1–36.3; O2SAT 94–100
[2023-05-23 11:54] LABS: POC Glucose,Bedside 218 (70-110)
--- NOTE | 2023-05-23 12:06 | EXP.ANES.CKL ---
[facility] Disclaimer: The information contained in this section may have been updated after the patient was seen, as this information can be updated by other users. Medical History Abscess Abscess and cellulitis of gluteal region Abscess of left thigh Abscess of right groin Acute epididymitis Bronchitis Cellulitis Contusion of right hip COVID-19 Diabetes Diabetes mellitus type 2, uncontrolled, with complications Diabetic foot infection Diabetic foot ulcer Digital nerve laceration, finger Dyspnea Encounter for wound care Fissure in skin of both feet Fissure in skin of foot Flu syndrome Full thickness burn of right ankle Hemorrhoids Hypertensive disorder Influenza B Laceration of left middle finger Left against medical advice Noncompliance Open wound of right ankle Pain of left great toe Pain of toe of left foot Pain of toe of right foot Pneumonia Pneumonia due to COVID-19 virus Removal of staple Respiratory failure Routine lab draw Sialoadenitis of submandibular gland Sinusitis Superficial burn of right ankle Ulcer of left great toe due to diabetes mellitus Ulcer of right great toe due to diabetes mellitus Ulcer of second toe of left foot URI (upper respiratory infection) Viral infection Surgical History H/O colonoscopy H/O hernia repair S/P foot surgery, right 07/21/2022 pressure ulcer Status post surgery Family History Mother Dementia Diabetes Stroke Father Coronary artery disease Heart attack Social History Smoking Status: Former smoker tobacco type: e-cigarettes years smoked: 30 how long ago did patient quit smokin07/21/2022 second hand exposure: No alcohol intake: never substance use type: marijuana current occupational status: disabled Travel in the last 8 weeks: None household members: none housing: house number of children: 0 current occupational exposures/hazards: No caffeine: No [facility] Anesthesia Checklist Patient Identification Patient Identification: Arm Band and Family Structural Data Admitted From: Home Planned Operative Procedure/s: Perenium I & D Verified Documents: Surgical Consent and History and Physical NPO Status Verified Time NPO: 00:00 Additional verifications Patient : No Anesthesia Reactions: No Hx Blood Transfusions: No Blood Transfusion Reaction: No Cephalosporin Allergy: No Previous Colonoscopy: Yes Airway Assessment Mallampati Score:: Class II C-Spine Mobility Assessed: Yes TMJ Mobility Assessed: Yes Dentition: Edentulous Neurological Assessment Level of Consciousness: Awake, Alert, Appropriate and Follows Commands Hx Seizures: No Numbness or tingling in extremities: No Anesthesia Plan ASA Class: II Anesthesia Type: General Preoperative Comments Pre-Operative Comments: Smokes cigs and Marijuana.
[2023-05-23] MEDS: BUPIVACAINE 0.5% W/EPI 1:200,000 30ML VIAL 30 ML IJ (13:15)
[2023-05-23] MEDS: CLINDAMYCIN PHOSPHATE/D5W 900 MG/50 ML PIGGYBACK 106 MG IV (13:15)
--- NOTE | 2023-05-23 13:28 | P.OP_ITS ---
Date of procedure: 05/23/23 Pre-op Diagnosis:: Right perineal abscess Post-op Diagnosis:: Same Procedure performed:: Incision and drainage of complex perineal abscess Surgeon:: Franklyn Del Rosario MD Anesthesia: LMA Estimated blood loss (mL): 10 Clinical Note:: Patient is a 53-year-old male with history of diabetes with complications, hidradenitis. I had previously seen him for soft tissue infection abscesses. Have performed incision and drainage of right groin abscess on 01/01/2021, and incision and drainage of left medial proximal thigh abscess on 03/14/2021. He also was seen in August 2021 with an additional area in the proximal medial thigh which was able to be managed without surgical intervention. He states that he has had a boil in the buttock region for about 3 weeks. Has become much more severe over the past couple of weeks. He apparently was seen in the emergency department at [facility] in the afternoon of 05/21/2023. Incision and drainage in the emergency department was offered but the patient declined. Reportedly he was given prescription for antibiotics and pain medication. He had not filled this as of the time he was seen in the office yesterday on 05/22/2023. He had presented to his primary care provider with severe pain and was sent for urgent outpatient surgical evaluation. Patient was found to have significant right anterior peroneal soft tissue infection. Arrangements were made for incision and drainage to be done under anesthesia soon as possible. Operative findings:: He had about an 8 x 6 cm area of induration with abscess formation in the right perineum. It was tracking towards the right hemiscrotum and actually noted to be tracking towards the rectum but appeared to be more peritoneal as opposed to perirectal. Operative note:: Patient was taken to the operating room. He was positioned in supine position. General anesthesia was induced via LMA. He was then repositioned in lithotomy position. The area was prepped and draped in the standard surgical fashion. He had some appreciable soft tissue swelling with significant induration in the right perineal location measuring about 8 x 6 cm. There was some edema and blistering of the skin overlying this lesion. Incision was made centrally overlying the area of induration. The tissues were rather thickened but abscess cannot cavity was ultimately encountered. Some thick pus exuded from the wound. This was sent for culture. The wound was probed and opened somewhat using electrocautery. Loculations were freed. Underlying tissues were inspected and there appeared to be no evidence of any necrotizing infection of the subcutaneous tissues. Wound was then thoroughly irrigated. Local anesthetic was infiltrated. Wound was packed with dry Kerlix gauze and covered with clean dry sterile dressing. Condition: stable Disposition: PACU Complications:: None immediately apparent
--- NOTE | 2023-05-23 13:47 | EXP.ANES.I ---
[facility] Anesthesia Record Part I Anesthesia Record I Intake, IV Amount: 400 Hydration: Adequate Estimated blood loss (mL): 10 Urine output (mL): 0 Blood Products used (#): none Blood Pressure: 148/38 SaO2: 95 Pulse Rate: 75 Airway Patency: Patent Respiratory Rate: 18 Temperature: 97.2 F Patient is:: Drowsy and Stable Stable to PACU at:: 13:37
[2023-05-23] MEDS: KETOROLAC 30MG/ML VIAL 30 MG IV (13:48)
[2023-05-23 14:00] LABS: POC Glucose,Bedside 221 (70-110)
--- NOTE | 2023-05-24 11:56 | P.PNANES_ITS ---
[facility] Anesthesia Record Part II Anesthesia Record Part II Discharge Time: 14:07 Destination: Surgical Day Care (OP Surgery) PACU nurse assessment reviewed?: Yes Patient Condition:: Good Anesthesia Complications:: None Swallowing reflex intact?: Yes Airway Patency: Patent Cyanosis?: No Blood Pressure: 138/63 SaO2: 100 Respiratory Rate: 19 Pulse Rate: 85 Temperature: 97.3 F Mental Status: Alert & Oriented Pain level:: 8 Nausea and/or vomitting:: None Intake, IV Amount: 0 Hydration: Adequate
[2023-05-24 11:57] VITALS: BP 138/63; PULSE 85; RESP 19; TEMP 36.3; O2SAT 100
== END 2023-05-23 14:20 | disposition home or self-care (01) ==
PROVIDERS: PCP Nurse Practitioner Family; Visit Provider Surgery
PROC: (CPT 10060; principal; 2023-05-23 13:00)
DX: L02.215 Cutaneous abscess of perineum (principal); B96.89 Other specified bacterial agents as the cause of diseases classified elsewhere; E11.69 Type 2 diabetes mellitus with other specified complication; L73.2 Hidradenitis suppurativa
CPT/HCPCS: 10060; 82962; 87070; 87075; 87205; 96374; J2405

== ENCOUNTER 2023-05-24 09:09 | Outpatient (CLI) | payer MEDICARE, MEDICAID, SELFPAY ==
[2023-05-24 09:36] VITALS: BMI 35.2
[2023-05-24] MEDS: LIDOCAINE 2% UROJET 10ML TP (10:08)
--- NOTE | 2023-05-24 10:16 | PC.NURSE ---
Pt was unable to tolerate wound packing. photoflash powder mixer gen surg MD Hayden was called and she gave verbal orders to use urojet lidocaine in wound. Pt was able to tolerate packing afterwards.
== END 2023-05-24 10:16 | disposition home or self-care (01) ==
LOC: INF 09:10
PROVIDERS: PCP Nurse Practitioner Family; Visit Provider Surgery
DX: L02.215 Cutaneous abscess of perineum (principal); Z48.01 Encounter for change or removal of surgical wound dressing
CPT/HCPCS: G0463

== ENCOUNTER 2023-05-25 14:50 | Outpatient (CLI) | payer MEDICARE, MEDICAID, SELFPAY ==
[2023-05-25 15:28] VITALS: BMI 28.2
[2023-05-25] MEDS: LIDOCAINE 2% UROJET 10ML TP (15:33)
== END 2023-05-25 15:34 | disposition home or self-care (01) ==
LOC: INF 14:51
PROVIDERS: PCP Nurse Practitioner Family; Visit Provider Surgery
DX: L02.215 Cutaneous abscess of perineum (principal); Z48.01 Encounter for change or removal of surgical wound dressing
CPT/HCPCS: G0463

== ENCOUNTER 2023-05-26 12:06 | Outpatient (CLI) | payer MEDICARE, MEDICAID, SELFPAY ==
[2023-05-26] MEDS: LIDOCAINE 2% UROJET 10ML 10 ML (12:40)
== END 2023-05-26 23:59 ==
PROVIDERS: PCP Nurse Practitioner Family; Visit Provider Surgery
DX: L02.215 Cutaneous abscess of perineum (principal); Z48.01 Encounter for change or removal of surgical wound dressing
CPT/HCPCS: G0463

== ENCOUNTER 2023-05-27 11:01 | Outpatient (CLI) | payer MEDICARE, MEDICAID, SELFPAY ==
[2023-05-27] MEDS: LIDOCAINE 2% UROJET 10ML 10 ML (11:21)
--- NOTE | 2023-05-27 11:33 | PC.NURSE ---
lidocaine gel applied as ordered to wound area as ordered after removing old packing and prior to cleansing/repacking
== END 2023-05-27 11:38 | disposition home or self-care (01) ==
LOC: INF 11:02
PROVIDERS: PCP Nurse Practitioner Family; Visit Provider Surgery
DX: L02.215 Cutaneous abscess of perineum (principal); Z48.01 Encounter for change or removal of surgical wound dressing
CPT/HCPCS: G0463

== ENCOUNTER 2023-05-29 14:09 | Outpatient (CLI) | payer MEDICARE, MEDICAID, SELFPAY ==
[2023-05-29] MEDS: LIDOCAINE 2% UROJET 10ML 10 ML (14:25)
== END 2023-05-29 14:32 | disposition home or self-care (01) ==
LOC: INF 14:10
PROVIDERS: PCP Nurse Practitioner Family; Visit Provider Surgery
DX: L02.215 Cutaneous abscess of perineum (principal)
CPT/HCPCS: G0463

== ENCOUNTER 2023-05-30 13:30 | Outpatient (CLI) | payer MEDICARE, MEDICAID, SELFPAY | END 2023-05-30 13:45 | disposition home or self-care (01) | LOC: INF 13:31 | PROVIDERS: PCP Nurse Practitioner Family; Visit Provider Surgery | DX: L02.215 Cutaneous abscess of perineum (principal); Z48.01 Encounter for change or removal of surgical wound dressing | CPT/HCPCS: G0463 ==

== ENCOUNTER 2023-06-01 13:20 | Outpatient (CLI) | payer MEDICARE, MEDICAID, SELFPAY | END 2023-06-01 23:59 | PROVIDERS: PCP Nurse Practitioner Family; Visit Provider Surgery | DX: L02.215 Cutaneous abscess of perineum (principal); Z48.01 Encounter for change or removal of surgical wound dressing | CPT/HCPCS: G0463 ==

== ENCOUNTER 2023-06-02 14:20 | Outpatient (CLI) | payer MEDICARE, MEDICAID, SELFPAY ==
[2023-06-02] MEDS: LIDOCAINE 2% UROJET 10ML 10 ML (14:47)
== END 2023-06-02 14:52 | disposition home or self-care (01) ==
LOC: INF 14:20
PROVIDERS: PCP Nurse Practitioner Family; Visit Provider Surgery
DX: L02.215 Cutaneous abscess of perineum (principal); Z48.01 Encounter for change or removal of surgical wound dressing
CPT/HCPCS: G0463

== ENCOUNTER 2023-06-05 14:54 | Outpatient (CLI) | payer MEDICARE, MEDICAID, SELFPAY ==
[2023-06-05] MEDS: LIDOCAINE 2% UROJET 10ML 10 ML (15:01)
== END 2023-06-05 15:41 | disposition home or self-care (01) ==
LOC: INF 14:54
PROVIDERS: PCP Nurse Practitioner Family; Visit Provider Surgery
DX: L02.215 Cutaneous abscess of perineum (principal); Z48.01 Encounter for change or removal of surgical wound dressing
CPT/HCPCS: G0463

== ENCOUNTER 2023-06-07 11:58 | Outpatient (CLI) | payer MEDICARE, MEDICAID, SELFPAY | END 2023-06-07 23:59 | PROVIDERS: PCP Nurse Practitioner Family; Visit Provider Surgery | DX: L02.215 Cutaneous abscess of perineum (principal); Z48.01 Encounter for change or removal of surgical wound dressing | CPT/HCPCS: G0463 ==

== ENCOUNTER 2023-06-09 01:50 | Outpatient (CLI) | payer MEDICARE, MEDICAID, SELFPAY ==
[2023-06-09 01:50] VITALS: BP 139/81; PULSE 95; RESP 16; TEMP 36.6; O2SAT 99
[2023-06-09 02:46] VITALS: BMI 34.5
[2023-06-09] MEDS: LIDOCAINE 2% UROJET 10ML TP (03:00)
== END 2023-06-09 23:59 ==
PROVIDERS: PCP Nurse Practitioner Family; Visit Provider Surgery
DX: L02.215 Cutaneous abscess of perineum (principal); Z48.01 Encounter for change or removal of surgical wound dressing
CPT/HCPCS: G0463

== ENCOUNTER 2023-06-11 11:57 | Outpatient (CLI) | payer MEDICARE, MEDICAID, SELFPAY ==
[2023-06-11] MEDS: LIDOCAINE 2% UROJET 10ML 10 ML (12:13)
== END 2023-06-11 12:15 | disposition home or self-care (01) ==
LOC: INF 11:58
PROVIDERS: PCP Nurse Practitioner Family; Visit Provider Surgery
DX: L02.215 Cutaneous abscess of perineum (principal); Z48.01 Encounter for change or removal of surgical wound dressing
CPT/HCPCS: G0463

== ENCOUNTER 2023-06-12 09:50 | Outpatient (CLI) | payer MEDICARE, MEDICAID, SELFPAY ==
[2023-06-12] MEDS: LIDOCAINE 2% UROJET 10ML 10 ML (10:00)
== END 2023-06-12 10:10 | disposition home or self-care (01) ==
LOC: INF 09:52
PROVIDERS: PCP Nurse Practitioner Family; Visit Provider Surgery
DX: L02.215 Cutaneous abscess of perineum (principal); Z48.01 Encounter for change or removal of surgical wound dressing
CPT/HCPCS: G0463

== ENCOUNTER 2023-06-13 13:01 | Outpatient (CLI) | payer MEDICARE, MEDICAID, SELFPAY ==
[2023-06-13] MEDS: LIDOCAINE 2% UROJET 10ML 10 ML (13:10)
== END 2023-06-13 13:20 | disposition home or self-care (01) ==
LOC: INF 13:02
PROVIDERS: PCP Nurse Practitioner Family; Visit Provider Surgery
DX: L02.215 Cutaneous abscess of perineum (principal); Z48.01 Encounter for change or removal of surgical wound dressing
CPT/HCPCS: G0463

== ENCOUNTER 2023-06-14 11:45 | Outpatient (CLI) | payer MEDICARE, MEDICAID, SELFPAY | END 2023-06-14 23:59 | PROVIDERS: PCP Nurse Practitioner Family; Visit Provider Surgery | DX: Z48.01 Encounter for change or removal of surgical wound dressing (principal) | CPT/HCPCS: G0463 ==

== ENCOUNTER 2023-06-15 09:21 | Outpatient (CLI) | payer MEDICARE, MEDICAID, SELFPAY | END 2023-06-15 23:59 | PROVIDERS: PCP Nurse Practitioner Family; Visit Provider Surgery | DX: Z48.01 Encounter for change or removal of surgical wound dressing (principal) | CPT/HCPCS: G0463 ==

== ENCOUNTER 2023-06-16 11:51 | Outpatient (CLI) | payer MEDICARE, MEDICAID, SELFPAY ==
[2023-06-16] MEDS: LIDOCAINE 2% UROJET 10ML 10 ML (12:05)
== END 2023-06-16 12:15 | disposition home or self-care (01) ==
LOC: INF 11:53
PROVIDERS: PCP Nurse Practitioner Family; Visit Provider Surgery
DX: L02.215 Cutaneous abscess of perineum (principal); Z48.01 Encounter for change or removal of surgical wound dressing
CPT/HCPCS: G0463

== ENCOUNTER 2023-06-17 14:02 | Outpatient (CLI) | payer MEDICARE, MEDICAID, SELFPAY ==
[2023-06-17] MEDS: LIDOCAINE 2% UROJET 10ML 10 ML (14:15)
== END 2023-06-17 14:25 | disposition home or self-care (01) ==
PROVIDERS: PCP Nurse Practitioner Family; Visit Provider Surgery
DX: L02.215 Cutaneous abscess of perineum (principal); Z48.01 Encounter for change or removal of surgical wound dressing
CPT/HCPCS: G0463

== ENCOUNTER 2023-06-18 15:09 | Outpatient (CLI) | payer MEDICARE, MEDICAID, SELFPAY ==
[2023-06-18] MEDS: LIDOCAINE 2% UROJET 10ML 10 ML UR (15:25)
--- NOTE | 2023-06-18 16:04 | PC.NURSE ---
1525-REMOVED DRESSING FROM WOUND. IRRIGATED WITH NS, NUMBED WITH LIDOCAINE GEL, IRRIGATED AGAIN WITH NS, THEN DRIED OUT WITH GAUZE. PACKED WITH DRY GAUZE, COVERED WITH DRY GAUZE, THEN COVERED WITH TEGADERM.
== END 2023-06-18 15:35 | disposition home or self-care (01) ==
LOC: INF 15:11
PROVIDERS: PCP Nurse Practitioner Family; Visit Provider Surgery
DX: L02.215 Cutaneous abscess of perineum (principal); Z48.01 Encounter for change or removal of surgical wound dressing
CPT/HCPCS: G0463

== ENCOUNTER 2023-06-19 10:00 | Outpatient (CLI) | payer MEDICARE, MEDICAID, SELFPAY ==
[2023-06-19] MEDS: LIDOCAINE 2% UROJET 10ML 10 ML (10:10)
== END 2023-06-19 10:15 | disposition home or self-care (01) ==
LOC: INF 10:01
PROVIDERS: PCP Nurse Practitioner Family; Visit Provider Surgery
DX: Z48.01 Encounter for change or removal of surgical wound dressing (principal)
CPT/HCPCS: G0463

== ENCOUNTER 2023-06-20 15:08 | Outpatient (CLI) | payer MEDICARE, MEDICAID, SELFPAY ==
[2023-06-20] MEDS: LIDOCAINE 2% UROJET 10ML 10 ML (15:20)
--- NOTE | 2023-06-20 15:46 | PC.NURSE ---
1520-REMOVED DRESSING FROM RIGHT BUTTOCK. IRRIGATED WITH NS, APPLIED LIDOCAINE IN AND AROUND WOUND, IRRIGATED AGAIN WITH NS. DRIED OUT USING GAUZE, PACKED AND COVERED WITH DRY GAUZE, AND PLACED TEGADERM OVER TO HOLD IN PLACE.
== END 2023-06-20 15:30 | disposition home or self-care (01) ==
LOC: INF 15:09
PROVIDERS: PCP Nurse Practitioner Family; Visit Provider Surgery
DX: Z48.89 Encounter for other specified surgical aftercare (principal)
CPT/HCPCS: G0463

== ENCOUNTER 2023-06-22 09:47 | Outpatient (CLI) | payer MEDICARE, MEDICAID, SELFPAY | END 2023-06-22 09:59 | disposition home or self-care (01) | LOC: INF 09:47 | PROVIDERS: PCP Nurse Practitioner Family; Visit Provider Surgery | DX: L02.215 Cutaneous abscess of perineum (principal); Z48.01 Encounter for change or removal of surgical wound dressing | CPT/HCPCS: G0463 ==

== ENCOUNTER 2023-06-23 14:02 | Outpatient (CLI) | payer MEDICARE, MEDICAID, SELFPAY ==
[2023-06-23] MEDS: LIDOCAINE 2% UROJET 10ML 10 ML UR (14:05)
== END 2023-06-23 14:15 | disposition home or self-care (01) ==
LOC: INF 14:03
PROVIDERS: PCP Nurse Practitioner Family; Visit Provider Surgery
DX: Z48.01 Encounter for change or removal of surgical wound dressing (principal)
CPT/HCPCS: G0463

== ENCOUNTER 2023-06-24 12:29 | Outpatient (CLI) | payer MEDICARE, MEDICAID, SELFPAY ==
[2023-06-24] MEDS: LIDOCAINE 2% UROJET 10ML 10 ML TP (12:45)
== END 2023-06-24 12:50 | disposition home or self-care (01) ==
LOC: INF 12:30
PROVIDERS: PCP Nurse Practitioner Family; Visit Provider Surgery
DX: Z48.01 Encounter for change or removal of surgical wound dressing (principal)
CPT/HCPCS: G0463

== ENCOUNTER 2023-06-25 14:39 | Outpatient (CLI) | payer MEDICARE, MEDICAID, SELFPAY ==
[2023-06-25] MEDS: LIDOCAINE 2% UROJET 10ML TP (15:08)
== END 2023-06-25 15:07 | disposition home or self-care (01) ==
LOC: INF 14:40
PROVIDERS: PCP Nurse Practitioner Family; Visit Provider Surgery
DX: L02.215 Cutaneous abscess of perineum (principal); Z48.01 Encounter for change or removal of surgical wound dressing
CPT/HCPCS: G0463

== ENCOUNTER 2023-06-27 14:14 | Outpatient (CLI) | payer MEDICARE, MEDICAID, SELFPAY ==
[2023-06-27] MEDS: LIDOCAINE 2% UROJET 10ML 10 ML UR (14:20)
== END 2023-06-27 14:30 | disposition home or self-care (01) ==
LOC: INF 14:14
PROVIDERS: PCP Nurse Practitioner Family; Visit Provider Surgery
DX: Z48.01 Encounter for change or removal of surgical wound dressing (principal)
CPT/HCPCS: G0463

== ENCOUNTER 2023-06-28 13:25 | Outpatient (CLI) | payer MEDICARE, MEDICAID, SELFPAY ==
[2023-06-28] MEDS: LIDOCAINE 2% UROJET 10ML 10 ML TP (13:35)
== END 2023-06-28 23:59 ==
PROVIDERS: PCP Nurse Practitioner Family; Visit Provider Surgery
DX: Z48.01 Encounter for change or removal of surgical wound dressing (principal)
CPT/HCPCS: G0463

== ENCOUNTER 2023-06-29 13:56 | Outpatient (CLI) | payer MEDICARE, MEDICAID, SELFPAY ==
[2023-06-29] MEDS: LIDOCAINE 2% UROJET 10ML 10 ML TP (14:27)
== END 2023-06-29 14:38 | disposition home or self-care (01) ==
LOC: INF 13:58
PROVIDERS: PCP Nurse Practitioner Family; Visit Provider Surgery
DX: L02.215 Cutaneous abscess of perineum (principal)
CPT/HCPCS: G0463

== ENCOUNTER 2023-06-30 14:27 | Outpatient (CLI) | payer MEDICARE, MEDICAID, SELFPAY ==
[2023-06-30] MEDS: LIDOCAINE 2% UROJET 10ML 10 ML (14:40)
== END 2023-06-30 14:50 | disposition home or self-care (01) ==
PROVIDERS: PCP Nurse Practitioner Family; Visit Provider Surgery
DX: Z48.01 Encounter for change or removal of surgical wound dressing (principal)
CPT/HCPCS: G0463

== ENCOUNTER 2023-07-01 09:30 | Outpatient (CLI) | payer MEDICARE, MEDICAID, SELFPAY | END 2023-07-01 10:00 | disposition home or self-care (01) | LOC: INF 09:31 | PROVIDERS: PCP Nurse Practitioner Family; Visit Provider Surgery | DX: Z48.01 Encounter for change or removal of surgical wound dressing (principal) | CPT/HCPCS: G0463 ==

== ENCOUNTER 2023-07-02 11:46 | Outpatient (CLI) | payer MEDICARE, MEDICAID, SELFPAY | END 2023-07-02 12:34 | disposition home or self-care (01) | LOC: INF 11:47 | PROVIDERS: PCP Nurse Practitioner Family; Visit Provider Surgery | DX: Z48.01 Encounter for change or removal of surgical wound dressing (principal) | CPT/HCPCS: G0463 ==

== ENCOUNTER 2023-07-03 14:05 | Outpatient (CLI) | payer MEDICARE, MEDICAID, SELFPAY | END 2023-07-03 14:45 | disposition home or self-care (01) | LOC: INF 14:06 | PROVIDERS: PCP Nurse Practitioner Family; Visit Provider Surgery | DX: Z48.01 Encounter for change or removal of surgical wound dressing (principal) | CPT/HCPCS: G0463 ==

== ENCOUNTER 2023-07-04 13:55 | Outpatient (CLI) | payer MEDICARE, MEDICAID, SELFPAY | END 2023-07-04 14:15 | disposition home or self-care (01) | LOC: INF 13:57 | PROVIDERS: PCP Nurse Practitioner Family; Visit Provider Surgery | DX: Z48.01 Encounter for change or removal of surgical wound dressing (principal) | CPT/HCPCS: G0463 ==

== ENCOUNTER 2023-07-05 14:08 | Outpatient (CLI) | payer MEDICARE, MEDICAID, SELFPAY ==
[2023-07-05 14:10] VITALS: BP 151/75; PULSE 66; TEMP 36.5; O2SAT 94
--- NOTE | 2023-07-05 14:41 | PC.NURSE ---
Old packing removed, drainage greenish in color noted to packing. wound bed irrigated with ns then patted dry. new 2x2 moistened and inserted into wound bed. covered with tegaderm.
== END 2023-07-05 23:59 ==
PROVIDERS: PCP Nurse Practitioner Family; Visit Provider Surgery
DX: Z48.01 Encounter for change or removal of surgical wound dressing (principal)
CPT/HCPCS: G0463

== ENCOUNTER 2023-07-06 13:00 | Outpatient (CLI) | payer MEDICARE, MEDICAID, SELFPAY | END 2023-07-06 23:59 | PROVIDERS: PCP Nurse Practitioner Family; Visit Provider Surgery | DX: Z48.01 Encounter for change or removal of surgical wound dressing (principal) | CPT/HCPCS: G0463 ==

== ENCOUNTER 2023-07-08 13:19 | Outpatient (CLI) | payer MEDICARE, MEDICAID, SELFPAY | END 2023-07-08 13:47 | disposition home or self-care (01) | LOC: INF 13:20 | PROVIDERS: PCP Nurse Practitioner Family; Visit Provider Surgery | DX: Z48.89 Encounter for other specified surgical aftercare (principal) | CPT/HCPCS: G0463 ==

== ENCOUNTER 2023-07-09 12:50 | Outpatient (CLI) | payer MEDICARE, MEDICAID, SELFPAY | END 2023-07-09 13:05 | disposition home or self-care (01) | LOC: INF 12:51 | PROVIDERS: PCP Nurse Practitioner Family; Visit Provider Surgery | DX: Z48.01 Encounter for change or removal of surgical wound dressing (principal) | CPT/HCPCS: G0463 ==

== ENCOUNTER 2023-07-10 14:26 | Outpatient (CLI) | payer MEDICARE, MEDICAID, SELFPAY | END 2023-07-10 14:54 | disposition home or self-care (01) | LOC: INF 14:27 | PROVIDERS: PCP Nurse Practitioner Family; Visit Provider Surgery | DX: Z48.01 Encounter for change or removal of surgical wound dressing (principal) | CPT/HCPCS: G0463 ==

== ENCOUNTER 2023-07-11 15:21 | Outpatient (CLI) | payer MEDICARE, MEDICAID, SELFPAY | END 2023-07-11 15:34 | disposition home or self-care (01) | LOC: INF 15:22 | PROVIDERS: PCP Nurse Practitioner Family; Visit Provider Surgery | DX: L02.215 Cutaneous abscess of perineum (principal); Z48.01 Encounter for change or removal of surgical wound dressing | CPT/HCPCS: G0463 ==

== ENCOUNTER 2023-07-13 08:39 | Outpatient (CLI) | payer MEDICARE, MEDICAID, SELFPAY | END 2023-07-13 23:59 | LOC: INF 08:40 | PROVIDERS: PCP Nurse Practitioner Family; Visit Provider Surgery | DX: L02.215 Cutaneous abscess of perineum (principal); Z48.01 Encounter for change or removal of surgical wound dressing | CPT/HCPCS: G0463 ==

== ENCOUNTER 2023-07-14 12:32 | Outpatient (CLI) | payer MEDICARE, MEDICAID, SELFPAY | END 2023-07-14 12:52 | disposition home or self-care (01) | LOC: INF 12:33 | PROVIDERS: PCP Nurse Practitioner Family; Visit Provider Surgery | DX: Z48.01 Encounter for change or removal of surgical wound dressing (principal) | CPT/HCPCS: G0463 ==

== ENCOUNTER 2023-07-16 14:17 | Outpatient (CLI) | payer MEDICARE, MEDICAID, SELFPAY | END 2023-07-16 14:32 | disposition home or self-care (01) | LOC: INF 14:18 | PROVIDERS: PCP Nurse Practitioner Family; Visit Provider Surgery | DX: Z48.01 Encounter for change or removal of surgical wound dressing (principal) | CPT/HCPCS: G0463 ==

== ENCOUNTER 2023-07-17 13:01 | Outpatient (CLI) | payer MEDICARE, MEDICAID, SELFPAY | END 2023-07-17 13:25 | disposition home or self-care (01) | PROVIDERS: PCP Nurse Practitioner Family; Visit Provider Surgery | DX: L02.215 Cutaneous abscess of perineum (principal); Z48.01 Encounter for change or removal of surgical wound dressing | CPT/HCPCS: G0463 ==

== ENCOUNTER 2023-07-19 13:16 | Outpatient (CLI) | payer MEDICARE, MEDICAID, SELFPAY | END 2023-07-19 23:59 | disposition home or self-care (01) | PROVIDERS: PCP Nurse Practitioner Family; Visit Provider Surgery | DX: L02.215 Cutaneous abscess of perineum (principal); Z48.01 Encounter for change or removal of surgical wound dressing | CPT/HCPCS: G0463 ==

== ENCOUNTER 2023-07-20 13:11 | Outpatient (CLI) | payer MEDICARE, MEDICAID, SELFPAY | END 2023-07-20 13:57 | disposition home or self-care (01) | LOC: INF 13:12 | PROVIDERS: PCP Nurse Practitioner Family; Visit Provider Surgery | DX: L02.215 Cutaneous abscess of perineum (principal); Z48.01 Encounter for change or removal of surgical wound dressing | CPT/HCPCS: G0463 ==

== ENCOUNTER 2023-07-22 13:13 | Outpatient (CLI) | payer MEDICARE, MEDICAID, SELFPAY | END 2023-07-22 13:30 | disposition home or self-care (01) | LOC: INF 13:13 | PROVIDERS: PCP Nurse Practitioner Family; Visit Provider Surgery | DX: L02.215 Cutaneous abscess of perineum (principal); Z48.01 Encounter for change or removal of surgical wound dressing | CPT/HCPCS: G0463 ==

== ENCOUNTER 2023-07-23 13:08 | Outpatient (CLI) | payer MEDICARE, MEDICAID, SELFPAY | END 2023-07-23 13:15 | disposition home or self-care (01) | LOC: INF 13:09 | PROVIDERS: PCP Nurse Practitioner Family; Visit Provider Surgery | DX: L02.215 Cutaneous abscess of perineum (principal); Z48.01 Encounter for change or removal of surgical wound dressing | CPT/HCPCS: G0463 ==

== ENCOUNTER 2023-07-24 15:15 | Outpatient (CLI) | payer MEDICARE, MEDICAID, SELFPAY | END 2023-07-24 15:36 | disposition home or self-care (01) | LOC: INF 15:16 | PROVIDERS: PCP Nurse Practitioner Family; Visit Provider Surgery | DX: L02.215 Cutaneous abscess of perineum (principal); Z48.01 Encounter for change or removal of surgical wound dressing | CPT/HCPCS: G0463 ==

== ENCOUNTER 2023-07-25 14:26 | Outpatient (CLI) | payer MEDICARE, MEDICAID, SELFPAY | END 2023-07-25 14:48 | disposition home or self-care (01) | LOC: INF 14:28 | PROVIDERS: PCP Nurse Practitioner Family; Visit Provider Surgery | DX: L02.215 Cutaneous abscess of perineum (principal); Z48.01 Encounter for change or removal of surgical wound dressing | CPT/HCPCS: G0463 ==

== ENCOUNTER 2023-07-26 14:49 | Outpatient (CLI) | payer MEDICARE, MEDICAID, SELFPAY | END 2023-07-26 23:59 | disposition home or self-care (01) | LOC: INF 14:50 | PROVIDERS: PCP Nurse Practitioner Family; Visit Provider Surgery | DX: L02.215 Cutaneous abscess of perineum (principal); Z48.01 Encounter for change or removal of surgical wound dressing | CPT/HCPCS: G0463 ==

== ENCOUNTER 2023-07-27 14:08 | Outpatient (CLI) | payer MEDICARE, MEDICAID, SELFPAY | END 2023-07-27 23:59 | disposition home or self-care (01) | LOC: INF 14:10 | PROVIDERS: PCP Nurse Practitioner Family; Visit Provider Surgery | DX: L02.215 Cutaneous abscess of perineum (principal); Z48.01 Encounter for change or removal of surgical wound dressing | CPT/HCPCS: G0463 ==

== ENCOUNTER 2023-07-28 12:48 | Outpatient (CLI) | payer MEDICARE, MEDICAID, SELFPAY | END 2023-07-28 13:18 | disposition home or self-care (01) | LOC: INF 12:50 | PROVIDERS: PCP Nurse Practitioner Family; Visit Provider Surgery | DX: L02.215 Cutaneous abscess of perineum (principal); Z48.01 Encounter for change or removal of surgical wound dressing | CPT/HCPCS: G0463 ==

== ENCOUNTER 2023-08-14 12:33 | Outpatient (CLI) | payer MEDICARE, MEDICAID, SELFPAY ==
[2023-08-14 12:08] LABS: Microscopic, Urine URINE MICROSCOPIC (MICROSCOPIC)
[2023-08-14 12:20] LABS: Appearance,Urine CLEAR (Clear); Basophils # 0.1 K/mm3 (0-0.2); Basophils % 0.7 % (0.1-2.0); Bilirubin,Urine Negative (Negative); Blood, Urine TRACE-I (Negative); Color,Urine YELLOW (Yellow); Eosinophils # 0.4 K/mm3 (0.0-0.4); Eosinophils % 3.7 % (0.1-12.0); Glucose,Urine (UA) 3+ (Negative); Hematocrit 45.2 % (42.0-52.0); Hemoglobin 14.8 g/dL (14.1-18.0); Ketones,Urine Negative (Negative); Leukocyte Esterase,Urine TRACE (Negative); Lymphocytes # 2.1 K/mm3 (0.7-4.5); Lymphocytes % 20.1 % (10-50); Mean Corpuscular HGB Conc 32.8 g/dL (31.8-35.4); Mean Corpuscular Hemoglobin 31.1 pg (27.0-31.2); Mean Corpuscular Volume 94.7 fl (80-94); Mean Platelet Volume 8.6 fl (7.4-10.4); Monocytes # 0.4 K/mm3 (0.1-1.0); Monocytes % 3.9 % (1.7-9.3); Neutrophils # 7.4 K/mm3 (1.8-7.8); Neutrophils % 71.5 % (37.0-80.0); Nitrate,Urine POSITIVE (Negative); PH,Urine 6.5 (5.0-8.5); Platelet Count 337 K/mm3 (142-424); Protein,Urine TRACE (Negative); Red Blood Count 4.77 M/mm3 (4.60-6.20); Red Cell Distribution Width 13.2 % (11.5-17.5); Urobilinogen,Urine 0.2 EU/dl (0.2); White Blood Count 10.4 K/mm3 (4.8-10.8)
[2023-08-14 12:52] LABS: Alanine Aminotransferase 28 U/L (12-78); Albumin Level 4.2 g/dl (3.5-5.0); Albumin/Globulin Ratio 1.1 (1.1-1.8); Alkaline Phosphatase 79 U/L (38-126); Anion Gap 14.4 mEq/L (5-15); Aspartate Amino Transferase 34 U/L (17-59); Bilirubin,Total 0.7 mg/dl (0.2-1.3); Blood Urea Nitrogen 12 mg/dl (9-20); Calcium 9.4 mg/dl (8.4-10.2); Carbon Dioxide 28 mmol/L (22.0-30.0); Chloride 101 mmol/L (98-107); Chol/HDL Ratio 3.9 (1-3.5); Cholesterol 180 mg/dl (140-200); Estimated Glomerular Filt Rate 119 ml/min (>60); GFR (African American) 144 ML/MIN (>60); Globulin 3.7 g/dL (1.3-3.2); Glucose 271 mg/dl (74-100); HDL Cholesterol 46 mg/dl (40-60); Potassium 4.4 mmoL/L (3.5-5.1); Sodium 139 mmol/L (136-145); Total Protein,Serum 7.9 g/dl (6.3-8.2); Triglycerides 87 mg/dl (30-150); VLDL Cholesterol 17 mg/dL (0-40)
[2023-08-14 13:03] LABS: Direct LDL Cholesterol 115.25 mg/dL (100-129)
[2023-08-14 13:11] LABS: 25-OH Vitamin D, Total 13.8 ng/mL (30-100); Free T4 (Free Thyroxine) 1.17 ng/dl (0.78-2.19)
[2023-08-14 13:23] LABS: Prostate Specific Ag Screen 2.5 ng/ml (0.0-4.0); Thyroid Stimulating Hormone 1.62 uIU/mL (0.465-4.68)
[2023-08-14 13:42] LABS: Vitamin B12 414 pg/mL (239-931)
[2023-08-14 13:45] LABS: Bacteria,Urine 1+ /lpf; Squamous Epithelial Cell,Urine Occasional #/hpf (0-5)
[2023-08-14 15:34] LABS: Hemoglobin A1C 9.4 % (4.0-6.0)
[2023-08-14 21:27] LABS: Microalbumin/Creatinine Ratio 143.5
[2023-08-14 21:34] LABS: Creatinine,Urine Random 98 mg/dL (Not Estab.)
[2023-08-15 22:30] LABS: Neisseria gonorrhoeae, NAA Negative (Negative)
[2023-08-16 11:33] LABS: HBsAg Screen Negative (Negative); HCV Ab Non Reactive (Non Reactive); HIV Screen 4th Generation wRfx Non Reactive (Non Reactive); Hep A Ab, IGM Negative (Negative); Hep B Core Ab, IgM Negative (Negative)
[2023-08-16 12:10] LABS: Rapid Plasma Reagin Ab Titer Non Reactive titer (NonRea<1:1)
[2023-08-21 14:17] LABS: HSV-1 DNA Negative (Negative); HSV-2 DNA Negative (Negative)
== END 2023-08-14 23:59 | disposition home or self-care (01) ==
LOC: LAB.DROPOF 12:34
PROVIDERS: PCP Nurse Practitioner Family; Visit Provider Nurse Practitioner Family
DX: E11.9 Type 2 diabetes mellitus without complications (principal); Z11.3 Encounter for screening for infections with a predominantly sexual mode of transmission; D64.9 Anemia, unspecified; R39.198 Other difficulties with micturition; N39.43 Post-void dribbling; E11.69 Type 2 diabetes mellitus with other specified complication; Z13.220 Encounter for screening for lipoid disorders; F32.A Depression, unspecified; E66.9 Obesity, unspecified; R10.9 Unspecified abdominal pain; G62.9 Polyneuropathy, unspecified; Z12.5 Encounter for screening for malignant neoplasm of prostate; E55.9 Vitamin D deficiency, unspecified; I10 Essential (primary) hypertension; B95.7 Other staphylococcus as the cause of diseases classified elsewhere; Z11.4 Encounter for screening for human immunodeficiency virus [HIV]
CPT/HCPCS: 80053; 80061; 80074; 81001; 82043; 82306; 82570; 82607; 83036; 84156; 84439; 84443; 85025; 86593; 86703; 87086; 87088; 87186; 87491; 87529; 87591; G0103; G0432

== ENCOUNTER 2023-08-18 14:05 | Observation (INO) | payer MEDICARE, MEDICAID, SELFPAY ==
[2023-08-18] VITALS (10 sets, daily range): BP systolic 117–202; BP diastolic 58–107; PULSE 66–96; RESP 16–19; TEMP 36.6–36.8; O2SAT 96–99; BMI 34.1
--- NOTE | 2023-08-18 14:20 | PC.NURSE ---
Triaging pt at this time. He is visibly uncomfortable, calling out in the bed oh my god & ugh . He is not forthcoming with information repeating It's in my chart and I don't know or refusing to respond to questions. I let pt know I will view his recent PCP visit and med list / ax list. He asked for a blanket. I let him know I will bring one.
--- NOTE | 2023-08-18 14:21 | CT_ITS ---
FINAL REPORT CLINICAL HISTORY: Acute abdominal pain, nausea vomit diarrhea COMPARISON: 03/30/2018 FINDINGS: CT OF THE ABDOMEN AND PELVIS WITH CONTRAST Axial CT images of the abdomen and pelvis were obtained after the administration of IV contrast. Coronal and sagittal reformatted images were also obtained and reviewed. This study was performed with techniques to keep radiation doses as low as reasonably achievable (ALARA). Individualized dose reduction techniques using automated exposure control or adjustment of mA and/or kV according to the patient's size were employed. Abdomen: The lung bases are clear. The heart is normal in size. There is fatty infiltration of the liver. The spleen is unremarkable. No adrenal mass is present. The pancreas has an unremarkable appearance. There is a nonobstructing right renal stone smaller than 3 mm present. The aorta is normal in caliber, with mild vascular calcifications. There is no free fluid or adenopathy. No mass or abnormal fluid collection is seen. Pelvis: The appendix is normal in appearance. The urinary bladder is remarkable for bladder wall thickening. There is a 24 x 38 mm low-attenuation mass in the right side of the prostate gland, a finding of uncertain etiology and new since prior CT of 2018. This may represent a cyst or an abscess. There is no evidence of mass or adenopathy. There is wall thickening involving the transverse and descending portions of the colon, worrisome for colitis. IMPRESSION: Wall thickening involving the transverse and descending colon, worrisome for colitis. Low-attenuation mass as described in the right side of the prostate gland, new since the prior CT of 2018. This may represent a cyst or abscess. Bladder wall thickening, of uncertain etiology. Small less than 3 mm in size nonobstructing right renal stone. Reviewed, Interpreted and Dictated by Franklyn Edward III, MD Transcribed by Mell Ayala Authenticated and [facility]
--- NOTE | 2023-08-18 14:21 | ED_ITS ---
<Statement entered by Skye Hargrove DO - 08/18/23 15:27> I was consulted by the SERA, and we discussed the complexity of the problems being addressed. I approved the treatment and management plan for this patient's care in the emergency department, thus performing a substantive portion of the medical decision making. Skye Hargrove DO Discharge Plan Disposition Patient Disposition: Admitted Condition: Serious Clinical Impressions Clinical Impression: Intractable nausea and vomiting, Prostate mass Discharge ED Provider: Skye Hargrove General Adult HPI <SHYANNE Farah - Last Filed: 08/18/23 20:41> General Chief complaint: Nausea/Vomiting/Diarrhea Stated complaint: vomiting Time Seen by Provider: 08/18/23 14:11 History of Present Illness HPI narrative: Patient presents for evaluation of nausea vomiting diarrhea and urinary symptoms. Patient reports that he has had difficulty with urination over the last month with pain pressure dribbling. Patient saw his PCP on 08/14/2023 and was diagnosed with a urinary tract infection and started on Macrobid. Patient states that he has been on Macrobid it is making me sick . Patient also reports being prescribed Ozempic but not taking it correctly . He reports that he is now been taught how to take it correctly and is taking his first correct dose. Patient was recently tested for STDs as he has become sexually active again with men and was concerned that possibly he had a sexual transmitted disease given his urinary symptoms. Patient reports abdominal pain in the suprapubic area as well. Patient denies chest pain shortness of breath fever chills hemoptysis hematochezia melena hematemesis hematuria. Related Data Home Medications Medication Instructions Recorded Confirmed famotidine 20 mg tablet 20 mg PO DAILY PRN Stomach Upset 01/09/23 08/14/23 Previous Rx's Medication Instructions Recorded Ultra-Thin II Ins Pen [place] 29 #100 ea 06/17/22 gauge x 1/2 (pen needle, diabetic) blood sugar diagnostic (OneTouch #100 ea 09/16/22 Verio test strips) blood-glucose meter #1 ea 09/16/22 lancets 33 gauge #100 ea 09/16/22 clopidogrel 75 mg tablet 75 mg PO DAILY #90 tabs 03/10/23 ondansetron 4 mg disintegrating 4 mg PO Q8H PRN nausea and 03/10/23 tablet vomiting #30 tabs semaglutide 2 mg/dose (8 mg/3 mL) 2 mg (0.75 mL) SQ WEEKLY #3 mL 08/14/23 subcutaneous pen injector cholecalciferol (vitamin D3) 1,250 1,250 mcg PO WEEKLY #12 caps 08/15/23 mcg (50,000 unit) capsule tetracycline 500 mg capsule 500 mg PO Q6H 7 days #28 caps 08/17/23 Allergies Allergy/AdvReac Type Severity Reaction Status Date / Time hydrocodone [From VICODIN] Allergy Unknown Unknown Verified 08/14/23 08:56 allergy reaction methadone [METHADONE] Allergy Unknown Unknown Verified 08/14/23 08:56 allergy reaction morphine [MORPHINE] Allergy Unknown Unknown Verified 08/14/23 08:56 allergy reaction percocet AdvReac Mild itch Uncoded 08/14/23 08:56 [facility] <SHYANNE Farah - Last Filed: 08/18/23 20:41> [facility] Disclaimer: The information contained in this section may have been updated after the patient was seen, as this information can be updated by other users. Medical History (Updated 08/18/23 @ 20:02 by SHYANNE Farah) Establishing care with new doctor, encounter for Shingles rash URI (upper respiratory infection) Routine lab draw Diabetes mellitus type 2, uncontrolled, with complications Flu syndrome Superficial burn of right ankle Full thickness burn of right ankle Noncompliance Open wound of right ankle Pneumonia COVID-19 Respiratory failure Pneumonia due to COVID-19 virus Abscess of left thigh Diabetic foot ulcer Pain of left great toe Fissure in skin of both feet Ulcer of left great toe due to diabetes mellitus Abscess Abscess and cellulitis of gluteal region Abscess of right groin Fissure in skin of foot Ulcer of second toe of left foot Ulcer of right great toe due to diabetes mellitus Encounter for wound care Pain of toe of right foot Pain of toe of left foot Diabetic foot infection Acute epididymitis Viral infection Sinusitis Bronchitis Influenza B Left against medical advice Hemorrhoids Cellulitis Removal of staple Digital nerve laceration, finger Laceration of left middle finger Contusion of right hip Dyspnea Hypertensive disorder Diabetes Sialoadenitis of submandibular gland Surgical History History of incision and drainage S/P foot surgery, right H/O colonoscopy H/O hernia repair Status post surgery Family History Mother Dementia Diabetes Stroke Father Coronary artery disease Heart attack Social History Smoking Status: Former smoker tobacco type: e-cigarettes years smoked: 30 how long ago did patient quit smokin07/21/2022 second hand exposure: No alcohol intake: never substance use type: marijuana current occupational status: disabled Travel in the last 8 weeks: None household members: none housing: house number of children: 0 current occupational exposures/hazards: No caffeine: No <SHYANNE Farah - Last Filed: 08/18/23 20:41> ROS Obtained: Yes Systems reviewed as appropriate & no additional complaints except as documented Physical Exam <SHYANNE Farah - Last Filed: 08/18/23 20:41> General General appearance: alert and in no apparent distress Chest Chest inspection: Present normal inspection Respiratory Respiratory exam: Present normal lung sounds bilaterally Cardiovascular Cardiovascular exam: Present regular rate, normal rhythm and normal heart sounds Abdominal Exam Abdominal exam: Present soft, tenderness (Tender to palpation in suprapubic area no masses felt.) and normal bowel sounds; Absent distention, guarding, rebound or rigidity Extremities Exam Extremities exam: Present normal inspection Back Exam Back exam: Present normal inspection; Absent CVA tenderness (R) or CVA tenderness (L) Neurological Exam Neurological exam: Present alert, oriented X3 and CN II-XII intact Psychiatric Psychiatric exam: Present normal affect and other (Patient is irritable and angry and confrontational.) Skin Skin exam: Present warm Medical Decision Making <SHYANNE Farah Last Filed: 08/18/23 20:41> Medical Records Medical records reviewed: Yes I reviewed the patient's medical records. Johnnie Inquiry Pt receiving controlled substance: No Vital Signs: 08/18/23 14:06 08/18/23 15:10 08/18/23 15:30 Temperature 97.8 F Temperature Source Oral Pulse Rate 83 66 Pulse Rate [Right] 87 Respiratory Rate 19 Blood Pressure 149/95 H 169/77 H Blood Pressure [Right Arm] 202/107 H Blood Pressure Mean 116 107 Blood Pressure Mean [Right Arm] 138 Blood Pressure Source [Right Arm] Automatic Cuff 02 Sat by Pulse Oximetry 96 99 96 Oxygen Delivery Method Room Air 08/18/23 16:30 08/18/23 17:00 08/18/23 17:30 Temperature Temperature Source Pulse Rate 78 78 71 Pulse Rate [Right] Respiratory Rate 16 16 16 Blood Pressure 129/88 157/91 H 174/79 H Blood Pressure [Right Arm] Blood Pressure Mean 99 112 110 Blood Pressure Mean [Right Arm] Blood Pressure Source [Right Arm] 02 Sat by Pulse Oximetry 97 98 96 Oxygen Delivery Method 08/18/23 18:30 08/18/23 19:01 08/18/23 19:30 Temperature Temperature Source Pulse Rate 92 H 93 H 96 H Pulse Rate [Right] Respiratory Rate Blood Pressure 154/89 H 163/92 H 124/58 L Blood Pressure [Right Arm] Blood Pressure Mean 107 80 Blood Pressure Mean [Right Arm] Blood Pressure Source [Right Arm] 02 Sat by Pulse Oximetry 96 97 98 Oxygen Delivery Method Room Air Room Air Room Air Lab Data Lab results reviewed: Yes I reviewed the patient's lab results. Lab Results 08/18/23 14:59: WBC 10.7, RBC 5.05, Hgb 15.5, Hct 45.3, MCV 89.7, MCH 30.7, MCHC 34.2, RDW 13.4, Plt Count 333, MPV 7.6, Neut % (Auto) 83.0 H, Lymph % (Auto) 11.8, [place] % (Auto) 3.7, Eos % (Auto) 1.1, Baso % (Auto) 0.4, Neut # (Auto) 8.9 H, Lymph # (Auto) 1.3, [place] # (Auto) 0.4, Eos # (Auto) 0.1, Baso # (Auto) 0.0, Sodium 140, Potassium 3.5, Chloride 103, Carbon Dioxide 26, Anion Gap 14.5, BUN 13, Creatinine 0.80, Estimated Creat Clear 186, Estimated GFR 102, Est GFR ( Amer) 123, Glucose 195 H, Calcium 10.0, Magnesium 1.6, Total Bilirubin 1.1, AST 36, ALT 34, Alkaline Phosphatase 91, Total Protein 8.7 H, Albumin 4.4, Globulin 4.3 H, Albumin/Globulin Ratio 1.0 L, TSH 1.72 08/18/23 19:45: Urine Color Yellow, Urine Appearance Clear, Urine pH 6.5, Ur Specific [place] 1.015, Urine Protein 2+, Urine Glucose (UA) Negative, Urine Ketones 2+, Urine Blood Negative, Urine Nitrate Negative, Urine Bilirubin 1+ A, Urine Urobilinogen 1.0, Ur Leukocyte Esterase Negative, Urine RBC None, Urine WBC 3-5, Ur Squamous Epith Cells Occasional, Urine Bacteria None 08/18/23 14:59 08/18/23 14:59 Orders (Tests/Meds): ED MEDICATIONS Generic Name Dose Route Start Last Admin Trade Name Freq PRN Reason Stop Dose Admin Acetaminophen 650 mg 08/18/23 21:46 Acetaminophen 325mg Tab PO 09/17/23 21:45 Q4HP PRN Fever or Mild Pain (1-3) Levofloxacin/Dextrose 750 mg in 150 mls @ 100 mls/hr 08/18/23 21:45 08/18/23 22:16 Levofloxacin 750mg/150ml Premix IV 08/28/23 21:44 100 mls/hr Q24H CAS Administration Sodium Chloride 1,000 mls @ 100 mls/hr 08/18/23 21:45 08/18/23 22:16 Sod Chlor 0.9% 1000ml Bag IV 09/17/23 21:44 100 mls/hr .Q10H CAS Administration Ibuprofen 400 mg 08/18/23 21:46 Ibuprofen 400 Mg Tablet PO 09/17/23 21:45 Q6HP PRN Mild Pain (1-3) Insulin Human Lispro 0 unit 08/19/23 06:00 08/19/23 05:44 Humalog 100 Units/Ml 3ml Vial (Ssi) SQ 09/18/23 05:59 Not Given ACHS CAS Protocol Morphine Sulfate 2 mg 08/18/23 21:46 Morphine 2mg/Ml Syringe IV 09/17/23 21:45 Q4HP PRN Severe Pain (7-10) Ondansetron HCl 4 mg 08/18/23 21:46 Ondansetron 4mg/2ml Vial IV 09/17/23 21:45 Q8HP PRN Nausea Promethazine HCl 25 mg 08/18/23 21:46 Promethazine 25mg Tablet PO 09/17/23 21:45 Q6HP PRN Nausea And Vomiting Sodium Chloride 10 ml 08/18/23 21:38 Sodium Chloride 0.9% 10ml Flush Syringe IV 09/17/23 21:37 NEEDED PRN Maintain IV Site Discontinued Medications Generic Name Dose Route Start Last Admin Trade Name Whitney PRN Reason Stop Dose Admin Acetaminophen 1,000 mg 08/18/23 14:21 08/18/23 14:56 Acetaminophen 1,000mg/100ml Vial IV 08/18/23 14:22 1,000 mg ONCE ONE Administration Cocaine HCl 1 ml 08/18/23 19:32 08/18/23 22:04 Cocaine 4% Topical Soln 4ml Bottle TP 08/18/23 19:33 Not Given ONCE ONE Droperidol 5 mg 08/18/23 18:43 08/18/23 18:51 Droperidol 5mg/2ml Vial IV 08/18/23 18:44 5 mg ONCE ONE Administration Epinephrine HCl 1 mg 08/18/23 19:32 08/18/23 22:04 Epinephrine 1 Mg/Ml Ampul TP 08/18/23 19:33 Not Given ONCE ONE Lactated Ringer's 1,000 mls @ 999 mls/hr 08/18/23 14:21 08/18/23 14:56 Lactated Ringer's 1000 Ml Bag IV 08/18/23 15:21 999 mls/hr .Q1H1M ONE Administration Trimethoprim/Sulfamethoxazole 260 mls @ 173.333 mls/hr 08/18/23 20:00 08/18/23 22:44 10 ml/ Dextrose IV 08/28/23 19:59 Not Given Q12H CAS Clindamycin Phosphate 900 mg in 50 mls @ 100 mls/hr 08/18/23 20:01 08/18/23 22:44 Clindamycin 900mg/50ml D5w Premix IV 08/28/23 20:00 Not Given Q8H CAS Ketorolac Tromethamine 15 mg 08/18/23 14:21 08/18/23 14:56 Ketorolac 30mg/Ml Vial IV 08/18/23 14:22 15 mg ONCE ONE Administration Lidocaine HCl 1 ml 08/18/23 19:32 08/18/23 22:04 Lidocaine 2% Urojet 10ml TP 08/18/23 19:33 Not Given ONCE ONE Ondansetron HCl 4 mg 08/18/23 14:21 08/18/23 14:56 Ondansetron 4mg Odt SL 08/18/23 14:22 4 mg ONCE ONE Administration Promethazine HCl 12.5 mg 08/18/23 15:29 08/18/23 15:39 Promethazine Hcl 25mg/Ml 1ml Vial IV 08/18/23 15:30 12.5 mg ONCE ONE Administration Promethazine HCl 25 mg 08/18/23 17:26 08/18/23 17:39 Promethazine Hcl 25mg/Ml 1ml Vial IV 08/18/23 17:27 25 mg ONCE ONE Administration Sodium Chloride 25 ml 08/18/23 15:29 08/18/23 15:39 Sodium Chloride 0.9% 25ml Bag IV 08/18/23 15:30 25 ml ONCE ONE Administration Sodium Chloride 25 ml 08/18/23 17:26 08/18/23 17:39 Sodium Chloride 0.9% 25ml Bag IV 08/18/23 17:27 25 ml ONCE ONE Administration ORDERS Category Date Time Status CT abdomen pelvis w con Stat Cat Scan 08/18/23 14:21 Completed CBC w/Auto Diff [Complete Blood Count Auto Diff] Stat Lab 08/18/23 14:59 Completed CMP [Comprehensive Metabolic Panel] Stat Lab 08/18/23 14:59 Completed Diarrhea 23 Panel, PCR Stat Lab 08/18/23 14:22 Ordered Magnesium Stat Lab 08/18/23 14:59 Completed Thyroid Stimulating Hormone Stat Lab 08/18/23 14:59 Completed UA [Urinalysis and Microscopic] Stat Lab 08/18/23 19:45 Completed Medical Decision Narrative: In summary patient is a 83-year-old male who presents to the emergency department for evaluation of nausea vomiting diarrhea and dysuria. Patient had a UTI that was positive for Staph aureus on culture on 08/14/2023. Patient was started on Macrobid by his PCP. Patient is hypertensive but with a normal heart rate of 87 and normal sinus rhythm on the monitor, satting at 96% on room air respiratory rate of 19 Upon arrival, afebrile. Physical exam is remarkable for suprapubic tenderness without any masses normal bowel sounds negative CVA tenderness bilaterally.. Differential diagnosis includes urinary outlet obstruction, urinary tract infection, prostatitis, prostate abscess, colitis, bowel obstruction, etc. Initial workup will be conducted with hematologic labs, CT scan abdomen pelvis with contrast, urinalysis. Initial interventions include crystalloid bolus Toradol Tylenol Zofran. Initial workup reviewed by me was normal white count normal creatinine normal GFR however my informal interpretation of his imaging his imaging shows thickened bowel loops suggestive of colitis versus enteritis and a right prostate lobe mass versus abscess along with prostate enlargement and thickened bladder wall radiologist read pending. Upon repeat evaluation patient is continued to have vomiting and has been refractory to increasing doses of Zofran and full doses of Phenergan. Given this I had interactive discussion with [facility] regarding patient management. Unfortunately they are on divert however urology recommended placement of the Lo catheter and initiation of IV antibiotics and admission and if patient remained hemodynamically stable they would follow him up as an outpatient in their clinic. Given this I had an interactive discussion with hospital medicine who is agreed for admission for further evaluation and care. <[place] Richard, DO - Last Filed: 08/18/23 23:48> Vital Signs: 08/18/23 14:06 08/18/23 15:10 08/18/23 15:30 Temperature 97.8 F Temperature Source Oral Pulse Rate 83 66 Pulse Rate [Right] 87 Respiratory Rate 19 Blood Pressure 149/95 H 169/77 H Blood Pressure [Right Arm] 202/107 H Blood Pressure Mean 116 107 Blood Pressure Mean [Right Arm] 138 Blood Pressure Source [Right Arm] Automatic Cuff 02 Sat by Pulse Oximetry 96 99 96 Oxygen Delivery Method Room Air 08/18/23 16:30 08/18/23 17:00 08/18/23 17:30 Temperature Temperature Source Pulse Rate 78 78 71 Pulse Rate [Right] Respiratory Rate 16 16 16 Blood Pressure 129/88 157/91 H 174/79 H Blood Pressure [Right Arm] Blood Pressure Mean 99 112 110 Blood Pressure Mean [Right Arm] Blood Pressure Source [Right Arm] 02 Sat by Pulse Oximetry 97 98 96 Oxygen Delivery Method 08/18/23 18:30 08/18/23 19:01 08/18/23 19:30 Temperature Temperature Source Pulse Rate 92 H 93 H 96 H Pulse Rate [Right] Respiratory Rate Blood Pressure 154/89 H 163/92 H 124/58 L Blood Pressure [Right Arm] Blood Pressure Mean 107 80 Blood Pressure Mean [Right Arm] Blood Pressure Source [Right Arm] 02 Sat by Pulse Oximetry 96 97 98 Oxygen Delivery Method Room Air Room Air Room Air Lab Data Lab Results 08/18/23 14:59: WBC 10.7, RBC 5.05, Hgb 15.5, Hct 45.3, MCV 89.7, MCH 30.7, MCHC 34.2, RDW 13.4, Plt Count 333, MPV 7.6, Neut % (Auto) 83.0 H, Lymph % (Auto) 11.8, [place] % (Auto) 3.7, Eos % (Auto) 1.1, Baso % (Auto) 0.4, Neut # (Auto) 8.9 H, Lymph # (Auto) 1.3, [place] # (Auto) 0.4, Eos # (Auto) 0.1, Baso # (Auto) 0.0, Sodium 140, Potassium 3.5, Chloride 103, Carbon Dioxide 26, Anion Gap 14.5, BUN 13, Creatinine 0.80, Estimated Creat Clear 186, Estimated GFR 102, Est GFR ( Amer) 123, Glucose 195 H, Calcium 10.0, Magnesium 1.6, Total Bilirubin 1.1, AST 36, ALT 34, Alkaline Phosphatase 91, Total Protein 8.7 H, Albumin 4.4, Globulin 4.3 H, Albumin/Globulin Ratio 1.0 L, TSH 1.72 08/18/23 19:45: Urine Color Yellow, Urine Appearance Clear, Urine pH 6.5, Ur Specific [place] 1.015, Urine Protein 2+, Urine Glucose (UA) Negative, Urine Ketones 2+, Urine Blood Negative, Urine Nitrate Negative, Urine Bilirubin 1+ A, Urine Urobilinogen 1.0, Ur Leukocyte Esterase Negative, Urine RBC None, Urine WBC 3-5, Ur Squamous Epith Cells Occasional, Urine Bacteria None Orders (Tests/Meds): ED MEDICATIONS Generic Name Dose Route Start Last Admin Trade Name Freq PRN Reason Stop Dose Admin Acetaminophen 650 mg 08/18/23 21:46 Acetaminophen 325mg Tab PO 09/17/23 21:45 Q4HP PRN Fever or Mild Pain (1-3) Levofloxacin/Dextrose 750 mg in 150 mls @ 100 mls/hr 08/18/23 21:45 08/18/23 22:16 Levofloxacin 750mg/150ml Premix IV 08/28/23 21:44 100 mls/hr Q24H CAS Administration Sodium Chloride 1,000 mls @ 100 mls/hr 08/18/23 21:45 08/18/23 22:16 Sod Chlor 0.9% 1000ml Bag IV 09/17/23 21:44 100 mls/hr .Q10H CAS Administration Ibuprofen 400 mg 08/18/23 21:46 Ibuprofen 400 Mg Tablet PO 09/17/23 21:45 Q6HP PRN Mild Pain (1-3) Insulin Human Lispro 0 unit 08/19/23 06:00 08/19/23 05:44 Humalog 100 Units/Ml 3ml Vial (Ssi) SQ 09/18/23 05:59 Not Given ACHS CAS Protocol Morphine Sulfate 2 mg 08/18/23 21:46 Morphine 2mg/Ml Syringe IV 09/17/23 21:45 Q4HP PRN Severe Pain (7-10) Ondansetron HCl 4 mg 08/18/23 21:46 Ondansetron 4mg/2ml Vial IV 09/17/23 21:45 Q8HP PRN Nausea Promethazine HCl 25 mg 08/18/23 21:46 Promethazine 25mg Tablet PO 09/17/23 21:45 Q6HP PRN Nausea And Vomiting Sodium Chloride 10 ml 08/18/23 21:38 Sodium Chloride 0.9% 10ml Flush Syringe IV 09/17/23 21:37 NEEDED PRN Maintain IV Site Discontinued Medications Generic Name Dose Route Start Last Admin Trade Name Freq PRN Reason Stop Dose Admin Acetaminophen 1,000 mg 08/18/23 14:21 08/18/23 14:56 Acetaminophen 1,000mg/100ml Vial IV 08/18/23 14:22 1,000 mg ONCE ONE Administration Cocaine HCl 1 ml 08/18/23 19:32 08/18/23 22:04 Cocaine 4% Topical Soln 4ml Bottle TP 08/18/23 19:33 Not Given ONCE ONE Droperidol 5 mg 08/18/23 18:43 08/18/23 18:51 Droperidol 5mg/2ml Vial IV 08/18/23 18:44 5 mg ONCE ONE Administration Epinephrine HCl 1 mg 08/18/23 19:32 08/18/23 22:04 Epinephrine 1 Mg/Ml Ampul TP 08/18/23 19:33 Not Given ONCE ONE Lactated Ringer's 1,000 mls @ 999 mls/hr 08/18/23 14:21 08/18/23 14:56 Lactated Ringer's 1000 Ml Bag IV 08/18/23 15:21 999 mls/hr .Q1H1M ONE Administration Trimethoprim/Sulfamethoxazole 260 mls @ 173.333 mls/hr 08/18/23 20:00 08/18/23 22:44 10 ml/ Dextrose IV 08/28/23 19:59 Not Given Q12H CAS Clindamycin Phosphate 900 mg in 50 mls @ 100 mls/hr 08/18/23 20:01 08/18/23 22:44 Clindamycin 900mg/50ml D5w Premix IV 08/28/23 20:00 Not Given Q8H CAS Ketorolac Tromethamine 15 mg 08/18/23 14:21 08/18/23 14:56 Ketorolac 30mg/Ml Vial IV 08/18/23 14:22 15 mg ONCE ONE Administration Lidocaine HCl 1 ml 08/18/23 19:32 08/18/23 22:04 Lidocaine 2% Urojet 10ml TP 08/18/23 19:33 Not Given ONCE ONE Ondansetron HCl 4 mg 08/18/23 14:21 08/18/23 14:56 Ondansetron 4mg Odt SL 08/18/23 14:22 4 mg ONCE ONE Administration Promethazine HCl 12.5 mg 08/18/23 15:29 08/18/23 15:39 Promethazine Hcl 25mg/Ml 1ml Vial IV 08/18/23 15:30 12.5 mg ONCE ONE Administration Promethazine HCl 25 mg 08/18/23 17:26 08/18/23 17:39 Promethazine Hcl 25mg/Ml 1ml Vial IV 08/18/23 17:27 25 mg ONCE ONE Administration Sodium Chloride 25 ml 08/18/23 15:29 08/18/23 15:39 Sodium Chloride 0.9% 25ml Bag IV 08/18/23 15:30 25 ml ONCE ONE Administration Sodium Chloride 25 ml 08/18/23 17:26 08/18/23 17:39 Sodium Chloride 0.9% 25ml Bag IV 08/18/23 17:27 25 ml ONCE ONE Administration ORDERS Category Date Time Status CT abdomen pelvis w con Stat Cat Scan 08/18/23 14:21 Completed CBC w/Auto Diff [Complete Blood Count Auto Diff] Stat Lab 08/18/23 14:59 Completed CMP [Comprehensive Metabolic Panel] Stat Lab 08/18/23 14:59 Completed Diarrhea 23 Panel, PCR Stat Lab 08/18/23 14:22 Ordered Magnesium Stat Lab 08/18/23 14:59 Completed Thyroid Stimulating Hormone Stat Lab 08/18/23 14:59 Completed UA [Urinalysis and Microscopic] Stat Lab 08/18/23 19:45 Completed Medical Decision Narrative: In summary patient is a 83-year-old male who presents to the emergency department for evaluation of nausea vomiting diarrhea and dysuria. Patient had a UTI that was positive for Staph aureus on culture on 08/14/2023. Patient was started on Macrobid by his PCP. Patient is hypertensive but with a normal heart rate of 87 and normal sinus rhythm on the monitor, satting at 96% on room air respiratory rate of 19 Upon arrival, afebrile. Physical exam is remarkable for suprapubic tenderness without any masses normal bowel sounds negative CVA tenderness bilaterally.. Differential diagnosis includes urinary outlet obstruction, urinary tract infection, prostatitis, prostate abscess, colitis, bowel obstruction, etc. Initial workup will be conducted with hematologic labs, CT scan abdomen pelvis with contrast, urinalysis. Initial interventions include crystalloid bolus Toradol Tylenol Zofran. Initial workup reviewed by me was normal white count normal creatinine normal GFR however my informal interpretation of his imaging his imaging shows thickened bowel loops suggestive of colitis versus enteritis and a right prostate lobe mass versus abscess along with prostate enlargement and thickened bladder wall radiologist read pending. Upon repeat evaluation patient is continued to have vomiting and has been refractory to increasing doses of Zofran and full doses of Phenergan. Given this I had interactive discussion with [facility] regarding patient management. Unfortunately they are on divert however urology recommended placement of the Lo catheter and initiation of IV antibiotics and admission and if patient remained hemodynamically stable they would follow him up as an outpatient in their clinic. Given this I had an interactive discussion with hospital medicine who is agreed for admission for further evaluation and care. EKG personally interpreted by me. Sinus rhythm with sinus arrhythmia with rate of 78 bpm. No ischemic changes. I was consulted by the SERA, and we discussed the complexity of the problems being addressed. I approved the treatment and management plan for this patient's care in the Emergency Department, thus performing a substantive portion of the medical decision making. [place] Richard, Critical Care <SHYANNE Farah - Last Filed: 08/18/23 20:41> Critical Care Time Critical Care Time: No
--- NOTE | 2023-08-18 14:21 | PC.NURSE ---
Pt screamed somebody promised me a Goddammed blanket . I was receiving orders from the provider and collecting items to begin an IV. I brought 3 blankets to the pt and let him know why the blankets were not immediately brought to him. His call light is at bedside, however pt did not use it. Re-educated him to where the call light is and to please press the red button to call to staff. He stated his understanding.
--- NOTE | 2023-08-18 14:37 | PC.NURSE ---
pt refusing IV at this time
--- NOTE | 2023-08-18 14:40 | PC.NURSE ---
Pt ambulatory to bathroom
[2023-08-18] MEDS: KETOROLAC 30MG/ML VIAL 15 MG IV (14:56)
[2023-08-18] MEDS: LACTATED RINGERS 1000ML 1,000 ML 999 ML IV (14:56)
[2023-08-18] MEDS: ACETAMINOPHEN 1,000MG/100ML VIAL 1000 MG IV (14:56)
[2023-08-18] MEDS: ONDANSETRON 4MG ODT 4 MG SL (14:56)
--- NOTE | 2023-08-18 15:07 | PC.NURSE ---
Dr. Hargrove at [facility]
[2023-08-18 15:20] LABS: Chloride 103 mmol/L (98-107)
[2023-08-18 15:21] LABS: Basophils % 0.4 % (0.1-2.0); Eosinophils # 0.1 K/mm3 (0.0-0.4); Eosinophils % 1.1 % (0.1-12.0); Hematocrit 45.3 % (42.0-52.0); Hemoglobin 15.5 g/dL (14.1-18.0); Lymphocytes # 1.3 K/mm3 (0.7-4.5); Lymphocytes % 11.8 % (10-50); Mean Corpuscular HGB Conc 34.2 g/dL (31.8-35.4); Mean Corpuscular Hemoglobin 30.7 pg (27.0-31.2); Mean Corpuscular Volume 89.7 fl (80-94); Mean Platelet Volume 7.6 fl (7.4-10.4); Monocytes # 0.4 K/mm3 (0.1-1.0); Monocytes % 3.7 % (1.7-9.3); Neutrophils # 8.9 K/mm3 (1.8-7.8); Platelet Count 333 K/mm3 (142-424); Potassium 3.5 mmoL/L (3.5-5.1); Red Blood Count 5.05 M/mm3 (4.60-6.20); Red Cell Distribution Width 13.4 % (11.5-17.5); Sodium 140 mmol/L (136-145); White Blood Count 10.7 K/mm3 (4.8-10.8)
[2023-08-18 15:23] LABS: Alanine Aminotransferase 34 U/L (12-78); Alkaline Phosphatase 91 U/L (38-126); Anion Gap 14.5 mEq/L (5-15); Aspartate Amino Transferase 36 U/L (17-59); Bilirubin,Total 1.1 mg/dl (0.2-1.3); Blood Urea Nitrogen 13 mg/dl (9-20); Carbon Dioxide 26 mmol/L (22.0-30.0); Creatinine Clearance Estimated 186 mL/min (50-200); Estimated Glomerular Filt Rate 102 ml/min (>60); GFR (African American) 123 ML/MIN (>60)
[2023-08-18 15:24] LABS: Albumin Level 4.4 g/dl (3.5-5.0); Globulin 4.3 g/dL (1.3-3.2); Glucose 195 mg/dl (74-100); Magnesium 1.6 mg/dl (1.6-2.3); Total Protein,Serum 8.7 g/dl (6.3-8.2)
[2023-08-18] MEDS: PROMETHAZINE HCL 25MG/ML 1ML VIAL 12.5 MG IV (15:39)
[2023-08-18] MEDS: SODIUM CHLORIDE 0.9% 25ML BAG 25 ML IV ×2 (15:39→17:39)
--- NOTE | 2023-08-18 15:39 | PC.NURSE ---
pt going to ct
--- NOTE | 2023-08-18 15:42 | PC.NURSE ---
[facility] will come back in 10 min. for pt.
[2023-08-18 16:05] LABS: Thyroid Stimulating Hormone 1.72 uIU/mL (0.465-4.68)
--- NOTE | 2023-08-18 16:06 | PC.NURSE ---
pt returned from CT
[2023-08-18] MEDS: PROMETHAZINE HCL 25MG/ML 1ML VIAL 25 MG IV (17:39)
--- NOTE | 2023-08-18 18:10 | PC.NURSE ---
CT being power-shared to [facility]
--- NOTE | 2023-08-18 18:11 | PC.NURSE ---
Called [facility] for transfer, state they will have a provider call us back.
--- NOTE | 2023-08-18 18:48 | ECG_ITS ---
APPROVED REPORT Exam: Resting ECG HR:78 bpm ECG Measurements Heart Rate 78 AXES GA 143 P 38 QRSd 145 QRS -63 QT 413 T 23 QTc 447 Conclusion SINUS RHYTHM WITH SINUS ARRHYTHMIA RIGHT BUNDLE BRANCH BLOCK [120+ ms QRS DURATION, UPRIGHT V1, 40+ ms S IN I/aVL/V4/V5/V6] LEFT ANTERIOR FASCICULAR BLOCK [QRS AXIS <= -45, QR IN I, RS IN II] MINIMAL VOLTAGE CRITERIA FOR LVH, CONSIDER NORMAL VARIANT [MEETS CRITERIA IN ONE OF: R(aVL), S(V1), R(V5), R(V5/V6)+S(V1)] POSSIBLE ANTERIOR MYOCARDIAL INFARCTION , OF INDETERMINATE AGE [30 ms Q WAVE IN V3/V4, OR R < 0.2 mV IN V4] ABNORMAL ECG UNCONFIRMED REPORT Electronically signed by : CAMILLE CAPONE, 08/18/2023 23:50:25
[2023-08-18] MEDS: droPERidol 5MG/2ML VIAL 5 MG IV (18:51)
--- NOTE | 2023-08-18 19:10 | PC.NURSE ---
Mynor Moura [facility]C [facility] for [facility]
--- NOTE | 2023-08-18 20:03 | PC.NURSE ---
House called for admission
--- NOTE | 2023-08-18 20:32 | PC.NURSE ---
report called to LUIS caputo
[2023-08-18 20:36] LABS: Microscopic, Urine URINE MICROSCOPIC (MICROSCOPIC)
[2023-08-18 20:38] LABS: Appearance,Urine CLEAR (Clear); Blood, Urine Negative (Negative); Color,Urine YELLOW (Yellow); Glucose,Urine (UA) Negative (Negative); Ketones,Urine 2+ (Negative); Leukocyte Esterase,Urine Negative (Negative); Nitrate,Urine Negative (Negative); PH,Urine 6.5 (5.0-8.5); Protein,Urine 2+ (Negative); Specific Gravity, Urine 1.015 (1.005-1.030)
[2023-08-18 20:39] LABS: Bilirubin,Urine 1+ (Negative)
[2023-08-18 20:48] LABS: Squamous Epithelial Cell,Urine Occasional #/hpf (0-5)
--- NOTE | 2023-08-18 22:05 | PC.NURSE ---
When doing admission questions, pt kept blanket over head, responded each question with i dont know Fuck look it up should be in my records . Completed admission to best of my ability.
[2023-08-18] MEDS: 0.9 % SODIUM CHLORIDE 1000ML 1,000 ML 100 ML IV (22:16)
[2023-08-18] MEDS: LEVOFLOXACIN/D5W 750 MG/150 ML 750 MG/150 ML PIGGYBACK 100 MG IV (22:16)
--- NOTE | 2023-08-18 22:27 | PC.NURSE ---
Went in to hang IV fluids, pt said fuck cant you guys leave me alone I stated what i was doing. do what you have to do. Went to flush IV, pt screamed owe lady youre hurting me Went to check IV dressing, dressing all wrinkled, pulled dressing a little to check IV insertion, lady stop hurting me Pt request new nurse. Notified charge nurse.
--- NOTE | 2023-08-18 22:35 | PC.NURSE ---
IV placed in pt left wrist. Report received from Viktoria Novoa RN at this time. Pt is very confrontational with other staff and agitated.
--- NOTE | 2023-08-18 23:06 | EXP.HP ---
History of Present Illness *Admission Date: 08/18/23 *Reason for visit:: Difficulty with urination *History of present illness: This is a 53-year-old male with a past medical history of major depressive disorder, anxiety, T2DM, obesity, hypertension, CAD who presents to the emergency department today with complaints of difficulty with urination. States approximately 3 days ago he developed difficulty starting stream, dribbling, incomplete emptying of bladder. He was seen by his primary care doctor who started him on Macrobid. He states since that continuing symptoms. States that he also was concerned for an STD as he is been engaging in sexual intercourse with a man. Does have a history of rectal abscesses but denies any rectal pain at this time. Denies any fever. Further review of systems difficult to obtain secondary to patient's unwillingness to complete workup and further conversation Emergency department workup notable for urinalysis with +2 ketones, +1 bilirubin. Laboratory evaluation stable. CT imaging notable for wall thickening involving the transverse and descending colon worrisome for colitis with low attenuation mass on the right side of the prostate gland new since 2018. This may represent cyst or abscess. Bladder wall thickening as well. ED provider did consult with [facility] for possible transfer but recommended Lo catheter placement and IV antibiotics given patient is nontoxic-appearance. Patient can be discharged home to follow-up with urology outpatient if patient does not become sicker in the next 48 hours. [facility] Disclaimer: The information contained in this section may have been updated after the patient was seen, as this information can be updated by other users. Medical History (Updated 08/18/23 @ 20:02 by SHYANNE Farah) Establishing care with new doctor, encounter for Shingles rash URI (upper respiratory infection) Routine lab draw Diabetes mellitus type 2, uncontrolled, with complications Flu syndrome Superficial burn of right ankle Full thickness burn of right ankle Noncompliance Open wound of right ankle Pneumonia COVID-19 Respiratory failure Pneumonia due to COVID-19 virus Abscess of left thigh Diabetic foot ulcer Pain of left great toe Fissure in skin of both feet Ulcer of left great toe due to diabetes mellitus Abscess Abscess and cellulitis of gluteal region Abscess of right groin Fissure in skin of foot Ulcer of second toe of left foot Ulcer of right great toe due to diabetes mellitus Encounter for wound care Pain of toe of right foot Pain of toe of left foot Diabetic foot infection Acute epididymitis Viral infection Sinusitis Bronchitis Influenza B Left against medical advice Hemorrhoids Cellulitis Removal of staple Digital nerve laceration, finger Laceration of left middle finger Contusion of right hip Dyspnea Hypertensive disorder Diabetes Sialoadenitis of submandibular gland Surgical History History of incision and drainage S/P foot surgery, right H/O colonoscopy H/O hernia repair Status post surgery Family History Mother Dementia Diabetes Stroke Father Coronary artery disease Heart attack Social History Smoking Status: Former smoker tobacco type: e-cigarettes years smoked: 30 how long ago did patient quit smokin07/21/2022 second hand exposure: No alcohol intake: never substance use type: marijuana current occupational status: disabled Travel in the last 8 weeks: None household members: none housing: house number of children: 0 current occupational exposures/hazards: No caffeine: No Review of Systems Review of Systems Review of systems:: pertinent systems reviewed and negative unless documented below Meds Home Medications and Allergies Home Medications Medication Instructions Recorded Confirmed Type Ultra-Thin II Ins Pen [place] 29 #100 ea 06/17/22 08/14/23 Rx gauge x 1/2 (pen needle, diabetic) blood sugar diagnostic (OneTouch #100 ea 09/16/22 08/14/23 Rx Verio test strips) blood-glucose meter #1 ea 09/16/22 08/14/23 Rx lancets 33 gauge #100 ea 09/16/22 08/14/23 Rx famotidine 20 mg tablet 20 mg PO DAILY PRN Stomach Upset 01/09/23 08/14/23 History clopidogrel 75 mg tablet 75 mg PO DAILY #90 tabs 03/10/23 08/14/23 Rx ondansetron 4 mg disintegrating 4 mg PO Q8H PRN nausea and 03/10/23 08/14/23 Rx tablet vomiting #30 tabs semaglutide 2 mg/dose (8 mg/3 mL) 2 mg (0.75 mL) SQ WEEKLY #3 mL 08/14/23 08/14/23 Rx subcutaneous pen injector cholecalciferol (vitamin D3) 1,250 1,250 mcg PO WEEKLY #12 caps 08/15/23 08/15/23 Rx mcg (50,000 unit) capsule tetracycline 500 mg capsule 500 mg PO Q6H 7 days #28 caps 08/17/23 08/17/23 Rx New Prescriptions to Start Prescriptions: Allergies Allergy/AdvReac Type Severity Reaction Status Date / Time hydrocodone [From VICODIN] Allergy Unknown Unknown Verified 08/14/23 08:56 allergy reaction methadone [METHADONE] Allergy Unknown Unknown Verified 08/14/23 08:56 allergy reaction morphine [MORPHINE] Allergy Unknown Unknown Verified 08/14/23 08:56 allergy reaction percocet AdvReac Mild itch Uncoded 08/14/23 08:56 Exam Data for Last 24 hours Vital signs and Labs for Last 24 Hours: Temp Pulse Resp BP Pulse Ox O2 Del Method 98.2 F 84 16 117/75 98 Room Air 08/18/23 20:53 08/18/23 20:53 08/18/23 20:53 08/18/23 20:53 08/18/23 19:30 08/18/23 21:00 Laboratory Results - last 24 hr 08/18/23 14:59: WBC 10.7, RBC 5.05, Hgb 15.5, Hct 45.3, MCV 89.7, MCH 30.7, MCHC 34.2, RDW 13.4, Plt Count 333, MPV 7.6, Neut % (Auto) 83.0 H, Lymph % (Auto) 11.8, [place] % (Auto) 3.7, Eos % (Auto) 1.1, Baso % (Auto) 0.4, Neut # (Auto) 8.9 H, Lymph # (Auto) 1.3, [place] # (Auto) 0.4, Eos # (Auto) 0.1, Baso # (Auto) 0.0, Sodium 140, Potassium 3.5, Chloride 103, Carbon Dioxide 26, Anion Gap 14.5, BUN 13, Creatinine 0.80, Estimated Creat Clear 186, Estimated GFR 102, Est GFR ( Amer) 123, Glucose 195 H, Calcium 10.0, Magnesium 1.6, Total Bilirubin 1.1, AST 36, ALT 34, Alkaline Phosphatase 91, Total Protein 8.7 H, Albumin 4.4, Globulin 4.3 H, Albumin/Globulin Ratio 1.0 L, TSH 1.72 08/18/23 19:45: Urine Color Yellow, Urine Appearance Clear, Urine pH 6.5, Ur Specific [place] 1.015, Urine Protein 2+, Urine Glucose (UA) Negative, Urine Ketones 2+, Urine Blood Negative, Urine Nitrate Negative, Urine Bilirubin 1+ A, Urine Urobilinogen 1.0, Ur Leukocyte Esterase Negative, Urine RBC None, Urine WBC 3-5, Ur Squamous Epith Cells Occasional, Urine Bacteria None I & O for Last 24 hours: Intake & Output 08/15/23 08/16/23 08/17/23 08/18/23 23:59 23:59 23:59 23:59 Weight 120.656 kg Constitutional Constitutional: no acute distress *Routine HEENT Exam Head: Present normocephalic Eye: Present EOMI and PERRL ENT: Present mucous membranes moist *Routine Neck Exam Neck: Present supple; Absent lymphadenopathy *Routine Respiratory Exam Respiratory: Present CTA bilaterally *Routine Cardiovascular Exam Cardiovascular: Present RRR *Routine Abdominal Exam Abdominal: Present soft and normoactive bowel sounds; Absent tenderness *Routine Rectal Exam Rectal:: deferred *Routine Genitalia Exam Genitalia:: deferred *Routine Extremities Exam Extremities: Absent cyanosis, clubbing or edema *Routine Skin Exam Skin: Present warm; Absent rash *Routine Neurological Exam Neurological: Present alert and oriented X3 Assessment and Plan *Assessment and plan (1) Prostate mass: Status: Acute Category: Medical Code(s): N42.89 - Other specified disorders of prostate (2) Intractable nausea and vomiting: Status: Acute Category: Medical Code(s): R11.2 - Nausea with vomiting, unspecified (3) Slow urinary stream: Status: Acute Category: Medical Code(s): R39.198 - Other difficulties with micturition (4) MDD (major depressive disorder), recurrent episode: Status: Acute Qualifiers: Major depression episode severity: moderate Qualified Code(s): F33.1 - Major depressive disorder, recurrent, moderate Category: Medical Code(s): F33.9 - Major depressive disorder, recurrent, unspecified (5) Type 2 diabetes mellitus with diabetic neuropathy, with long-term current use of insulin: Status: Acute Category: Medical Code(s): E11.40 - Type 2 diabetes mellitus with diabetic neuropathy, unspecified; Z79.4 - longterm (current) use of insulin Plan #Prostate mass versus abscess Lo catheter placement. Continue maintenance IV fluids. Will continue IV Levaquin. Will need outpatient follow-up with urology for mass versus abscess #Intractable nausea vomiting Continue antiemetics. Labs stable #MDD Continue mood stabilization medications #CAD Continue home Plavix statin #T2DM Reports being on monotherapy with Ozempic Will check A1c Continue sliding scale DVT PPx SCDs Full Code
[2023-08-19 04:00] VITALS: BP 138/77; PULSE 85; RESP 18; TEMP 36.6; O2SAT 98; BMI 35.1
--- NOTE | 2023-08-19 04:37 | PC.NURSE ---
Pt is alert and oriented x4 and currently tolerating RA. Pt was aggressive staff upon admission but finally calmed down. Pt has had no acute changes this shift and denies needs.
[2023-08-19 05:42] LABS: POC Glucose,Bedside 136 (70-110)
[2023-08-19 07:11] LABS: Eosinophils # 0.2 K/mm3 (0.0-0.4); Lymphocytes # 2.1 K/mm3 (0.7-4.5)
[2023-08-19 07:24] LABS: Basophils # 0.1 K/mm3 (0-0.2); Basophils % 0.4 % (0.1-2.0); Hematocrit 38.6 % (42.0-52.0); Lymphocytes % 17.6 % (10-50); Mean Corpuscular HGB Conc 34.1 g/dL (31.8-35.4); Mean Corpuscular Hemoglobin 30.7 pg (27.0-31.2); Mean Platelet Volume 7.9 fl (7.4-10.4); Monocytes # 0.7 K/mm3 (0.1-1.0); Monocytes % 5.8 % (1.7-9.3); Neutrophils # 8.8 K/mm3 (1.8-7.8); Neutrophils % 74.2 % (37.0-80.0); Platelet Count 291 K/mm3 (142-424); Red Blood Count 4.29 M/mm3 (4.60-6.20); Red Cell Distribution Width 13.3 % (11.5-17.5); White Blood Count 11.8 K/mm3 (4.8-10.8)
[2023-08-19 07:31] LABS: Hemoglobin 13.2 g/dL (14.1-18.0)
[2023-08-19 08:00] VITALS: BP 136/74; PULSE 80; RESP 24; TEMP 36.4; O2SAT 98
[2023-08-19 08:15] LABS: Anion Gap 12.1 mEq/L (5-15); Blood Urea Nitrogen 14 mg/dl (9-20); Calcium 9.1 mg/dl (8.4-10.2); Carbon Dioxide 27 mmol/L (22.0-30.0); Chloride 102 mmol/L (98-107); Creatinine Clearance Estimated 256 mL/min (50-200); Estimated Glomerular Filt Rate 142 ml/min (>60); GFR (African American) 172 ML/MIN (>60); Glucose 124 mg/dl (74-100); Potassium 3.1 mmoL/L (3.5-5.1); Sodium 138 mmol/L (136-145)
--- NOTE | 2023-08-19 09:26 | HMH.PHAINT1 ---
Pharmacy Intervention Comments: MEDICATION RECONCILIATION COMPLETED ON PATIENT USING EXTERNAL FILL HISTORY FROM PHARMACY AND LIST FROM PCP OFFICE. -JOVAN ARROYO, VLADISLAVD
[2023-08-19] MEDS: POTASSIUM CHLORIDE 20MEQ TAB 40 MEQ PO (10:41)
[2023-08-19 11:00] LABS: POC Glucose,Bedside 183 (70-110)
--- NOTE | 2023-08-19 11:09 | P.DS_ITS ---
General Admission date:: 08/18/23 Discharge date: 08/19/23 HPI HPI HPI: This is a 53-year-old male with a past medical history of major depressive disorder, anxiety, T2DM, obesity, hypertension, CAD who presents to the emergency department today with complaints of difficulty with urination. States approximately 3 days ago he developed difficulty starting stream, dribbling, incomplete emptying of bladder. He was seen by his primary care doctor who started him on Macrobid. He states since that continuing symptoms. States that he also was concerned for an STD as he is been engaging in sexual intercourse w ith a man. Does have a history of rectal abscesses but denies any rectal pain at this time. Denies any fever. Further review of systems difficult to obtain secondary to patient's unwillingness to complete workup and further conversation Emergency department workup notable for urinalysis with +2 ketones, +1 bilirubin. Laboratory evaluation stable. CT imaging notable for wall thickening involving the transverse and descending colon worrisome for colitis with low attenuation mass on the right side of the prostate gland new since 2018. This may represent cyst or abscess. Bladder wall thickening as well. ED provider did consult with [facility] for possible transfer but recommended Guillory catheter placement and IV antibiotics given patient is nontoxic- appearance. Patient can be discharged home to follow-up with urology outpatient if patient does not become sicker in the next 48 hours. Hospital Course Hospital Course Hospital Course: #Prostate mass versus abscess Colitis DC on doxycyclin, Levofloxacin and flagyl follow up with urology as OP #Intractable nausea vomiting- resolved Stable for Discharge and f/u with urology as OP, patient will be discharged with guillory catheter until seen by urology. total time spent . 38 mins Exam Data for Last 24 hours Vital signs and Labs for Last 24 Hours: Temp Pulse Resp BP Pulse Ox O2 Del Method 97.5 F L 80 24 136/74 98 Room Air 08/19/23 08:00 08/19/23 08:00 08/19/23 08:00 08/19/23 08:00 08/19/23 08:00 08/19/23 10:26 Laboratory Results - last 24 hr 08/18/23 14:59: WBC 10.7, RBC 5.05, Hgb 15.5, Hct 45.3, MCV 89.7, MCH 30.7, MCHC 34.2, RDW 13.4, Plt Count 333, MPV 7.6, Neut % (Auto) 83.0 H, Lymph % (Auto) 11.8, [place] % (Auto) 3.7, Eos % (Auto) 1.1, Baso % (Auto) 0.4, Neut # (Auto) 8.9 H, Lymph # (Auto) 1.3, [place] # (Auto) 0.4, Eos # (Auto) 0.1, Baso # (Auto) 0.0, Sodium 140, Potassium 3.5, Chloride 103, Carbon Dioxide 26, Anion Gap 14.5, BUN 13, Creatinine 0.80, Estimated Creat Clear 186, Estimated GFR 102, Est GFR ( Amer) 123, Glucose 195 H, Calcium 10.0, Magnesium 1.6, Total Bilirubin 1.1, AST 36, ALT 34, Alkaline Phosphatase 91, Total Protein 8.7 H, Albumin 4.4, Globulin 4.3 H, Albumin/Globulin Ratio 1.0 L, TSH 1.72 08/18/23 19:45: Urine Color Yellow, Urine Appearance Clear, Urine pH 6.5, Ur Specific [place] 1.015, Urine Protein 2+, Urine Glucose (UA) Negative, Urine Ketones 2+, Urine Blood Negative, Urine Nitrate Negative, Urine Bilirubin 1+ A, Urine Urobilinogen 1.0, Ur Leukocyte Esterase Negative, Urine RBC None, Urine WBC 3-5, Ur Squamous Epith Cells Occasional, Urine Bacteria None 08/19/23 05:16: POC Glucose 136 H 08/19/23 06:18: WBC 11.8 H, RBC 4.29 L, Hgb 13.2 L D, Hct 38.6 L, MCV 90.0, MCH 30.7, MCHC 34.1, RDW 13.3, Plt Count 291, MPV 7.9, Neut % (Auto) 74.2, Lymph % (Auto) 17.6, [place] % (Auto) 5.8, Eos % (Auto) 2.0, Baso % (Auto) 0.4, Neut # (Auto) 8.8 H, Lymph # (Auto) 2.1, [place] # (Auto) 0.7, Eos # (Auto) 0.2, Baso # (Auto) 0.1, Sodium 138, Potassium 3.1 L, Chloride 102, Carbon Dioxide 27, Anion Gap 12.1, BUN 14, Creatinine 0.60 L D, Estimated Creat Clear 256, Estimated GFR 142, Est GFR ( Amer) 172 D, Glucose 124 H D, Calcium 9.1 08/19/23 10:45: POC Glucose 183 H I & O for Last 24 hours: Intake & Output 08/16/23 08/17/23 08/18/23 08/19/23 23:59 23:59 23:59 23:59 Intake Total 1070 / 1070 Output Total 550 / 550 Balance 520 / 520 Weight 120.656 kg 124.148 kg Constitutional Constitutional: no acute distress *Routine HEENT Exam Head: Present normocephalic Eye: Present EOMI and PERRL ENT: Present mucous membranes moist *Routine Neck Exam Neck: Present supple; Absent lymphadenopathy *Routine Respiratory Exam Respiratory: Present CTA bilaterally *Routine Cardiovascular Exam Cardiovascular: Present RRR *Routine Abdominal Exam Abdominal: Present soft and normoactive bowel sounds; Absent tenderness *Routine Extremities Exam Extremities: Absent cyanosis, clubbing or edema *Routine Skin Exam Skin: Present warm; Absent rash *Routine Neurological Exam Neurological: Present alert and oriented X3 Results Data Completed and Pending Labs on day of discharge: Labs from last 24 hours 08/19/23 08/19/23 08/19/23 10:45 06:18 05:16 WBC 11.8 H RBC 4.29 L Hgb 13.2 L D Hct 38.6 L MCV 90.0 MCH 30.7 MCHC 34.1 RDW 13.3 Plt Count 291 MPV 7.9 Neut % (Auto) 74.2 Lymph % (Auto) 17.6 [place] % (Auto) 5.8 Eos % (Auto) 2.0 Baso % (Auto) 0.4 Neut # (Auto) 8.8 H Lymph # (Auto) 2.1 [place] # (Auto) 0.7 Eos # (Auto) 0.2 Baso # (Auto) 0.1 Sodium 138 Potassium 3.1 L Chloride 102 Carbon Dioxide 27 Anion Gap 12.1 BUN 14 Creatinine 0.60 L D Estimated Creat Clear 256 Estimated GFR 142 Est GFR ( Amer) 172 D Glucose 124 H D POC Glucose 183 H 136 H Calcium 9.1 Magnesium Total Bilirubin AST ALT Alkaline Phosphatase Total Protein Albumin Globulin Albumin/Globulin Ratio TSH Urine Color Urine Appearance Urine pH Ur Specific [place] Urine Protein Urine Glucose (UA) Urine Ketones Urine Blood Urine Nitrate Urine Bilirubin Urine Urobilinogen Ur Leukocyte Esterase Urine RBC Urine WBC Ur Squamous Epith Cells Urine Bacteria 08/18/23 08/18/23 19:45 14:59 WBC 10.7 RBC 5.05 Hgb 15.5 Hct 45.3 MCV 89.7 MCH 30.7 MCHC 34.2 RDW 13.4 Plt Count 333 MPV 7.6 Neut % (Auto) 83.0 H Lymph % (Auto) 11.8 [place] % (Auto) 3.7 Eos % (Auto) 1.1 Baso % (Auto) 0.4 Neut # (Auto) 8.9 H Lymph # (Auto) 1.3 [place] # (Auto) 0.4 Eos # (Auto) 0.1 Baso # (Auto) 0.0 Sodium 140 Potassium 3.5 Chloride 103 Carbon Dioxide 26 Anion Gap 14.5 BUN 13 Creatinine 0.80 Estimated Creat Clear 186 Estimated GFR 102 Est GFR ( Amer) 123 Glucose 195 H POC Glucose Calcium 10.0 Magnesium 1.6 Total Bilirubin 1.1 AST 36 ALT 34 Alkaline Phosphatase 91 Total Protein 8.7 H Albumin 4.4 Globulin 4.3 H Albumin/Globulin Ratio 1.0 L TSH 1.72 Urine Color Yellow Urine Appearance Clear Urine pH 6.5 Ur Specific [place] 1.015 Urine Protein 2+ Urine Glucose (UA) Negative Urine Ketones 2+ Urine Blood Negative Urine Nitrate Negative Urine Bilirubin 1+ A Urine Urobilinogen 1.0 Ur Leukocyte Esterase Negative Urine RBC None Urine WBC 3-5 Ur Squamous Epith Cells Occasional Urine Bacteria None DS: Diagnosis Discharge Diagnosis (1) Prostate mass: Status: Acute Code(s): N42.89 - Other specified disorders of prostate (2) Intractable nausea and vomiting: Status: Acute Code(s): R11.2 - Nausea with vomiting, unspecified (3) Slow urinary stream: Status: Acute Code(s): R39.198 - Other difficulties with micturition (4) MDD (major depressive disorder), recurrent episode: Status: Acute Code(s): F33.9 - Major depressive disorder, recurrent, unspecified Qualifiers: Major depression episode severity: moderate Qualified Code(s): F33.1 - Major depressive disorder, recurrent, moderate (5) Type 2 diabetes mellitus with diabetic neuropathy, with long-term current use of insulin: Status: Acute Code(s): E11.40 - Type 2 diabetes mellitus with diabetic neuropathy, unspecified; Z79.4 - 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 Meds Home Medications and Allergies Home Medications Medication Instructions Recorded Confirmed Type Ultra-Thin II Ins Pen [place] 29 #100 ea 06/17/22 08/19/23 Rx gauge x 1/2 (pen needle, diabetic) blood sugar diagnostic (OneTouch #100 ea 09/16/22 08/19/23 Rx Verio test strips) blood-glucose meter #1 ea 09/16/22 08/19/23 Rx lancets 33 gauge #100 ea 09/16/22 08/19/23 Rx famotidine 20 mg tablet 20 mg PO DAILY 01/09/23 08/19/23 History clopidogrel 75 mg tablet 75 mg PO DAILY #90 tabs 03/10/23 08/19/23 Rx semaglutide 2 mg/dose (8 mg/3 mL) 2 mg (0.75 mL) SQ WEEKLY #3 mL 08/14/23 08/19/23 Rx subcutaneous pen injector cholecalciferol (vitamin D3) 1,250 1,250 mcg PO WEEKLY #12 caps 08/15/23 08/19/23 Rx mcg (50,000 unit) capsule tetracycline 500 mg capsule 500 mg PO Q6H 7 days #28 caps 08/17/23 08/19/23 Rx doxycycline hyclate 100 mg capsule 100 mg PO BID 10 days #20 caps 08/19/23 Rx levofloxacin 750 mg tablet 750 mg PO DAILY 10 days #10 tabs 08/19/23 Rx metronidazole 500 mg tablet 500 mg PO TID 7 days #21 tabs 08/19/23 Rx New Prescriptions to Start Prescriptions: doxycycline hyclate Eusebio,Irfan levofloxacin Eusebio,Irfan metronidazole Eusebio,Irfan Allergies Allergy/AdvReac Type Severity Reaction Status Date / Time acetaminophen [From Percocet] Allergy Intermediate Rash Verified 08/19/23 08:10 oxycodone [From Percocet] Allergy Intermediate Rash Verified 08/19/23 08:10 hydrocodone [From VICODIN] Allergy Unknown Unknown Verified 08/14/23 08:56 allergy reaction methadone [METHADONE] Allergy Unknown Unknown Verified 08/14/23 08:56 allergy reaction morphine [MORPHINE] Allergy Unknown Unknown Verified 08/14/23 08:56 allergy reaction Discharge Plan Disposition Patient Disposition: Home, Self-Care Condition: Good Follow up Plan Follow up with: Clementina Yost APRN [Nurse Practitioner] - Enter time for follow up Brian Ralph MD [Staff Physician] - 08/22/23 10:30 am ([facility]) Prescriptions/Medication Reconciliation: New doxycycline hyclate 100 mg capsule 100 mg PO BID 10 Days Qty: 20 0RF levofloxacin 750 mg tablet 750 mg PO DAILY 10 Days Qty: 10 0RF metronidazole 500 mg tablet 500 mg PO TID 7 Days Qty: 21 0RF Continued (DME) pen needle, diabetic [Ultra-Thin II Ins Pen [place]] 29 gauge x 1/2 needle See Rx Instructions .ROUTE .MEDSUPPLY Qty: 100 1RF Rx Instructions: qid famotidine 20 mg tablet 20 mg PO DAILY clopidogrel 75 mg tablet 75 mg PO DAILY Qty: 90 1RF semaglutide 2 mg/dose (8 mg/3 mL) pen injector 2 mg SQ WEEKLY Qty: 3 5RF tetracycline 500 mg capsule 500 mg PO Q6H 7 Days Qty: 28 0RF (DME) blood-glucose meter Misc See Rx Instructions .MEDSUPPLY Qty: 1 0RF Rx Instructions: As directed (DME) lancets 33 gauge misc See Rx Instructions .MEDSUPPLY Qty: 100 0RF Rx Instructions: Check Glucose 4 times daily (DME) OneTouch Verio test strips Strip See Rx Instructions .MEDSUPPLY Qty: 100 0RF Rx Instructions: Check Glucose 4 times daily cholecalciferol (vitamin D3) 1,250 mcg (50,000 unit) capsule 1,250 mcg PO WEEKLY Qty: 12 1RF Problem Reconciliation Problems Reviewed?: Yes Patient Discharge Instructions ACTIVITY: Ambulate as tolerated DIET: continue same diet Patient Instructions: DI for Nausea -- Adult, DI for Vomiting -- Adult Providers Primary Care Provider: Provider,Referral Admit Provider: Clint Juarez Attending Provider: Clint Juarez
== END 2023-08-19 12:01 | disposition home or self-care (01) ==
LOC: ER 20:02 → 2ND 20:08
PROVIDERS: Nurse Practitioner Acute Care; Physician Assistant; Admitting Provider Internal Medicine Adolescent Medicine; Emergency Provider Emergency Medicine; Visit Provider Internal Medicine Adolescent Medicine
DX: N42.89 Other specified disorders of prostate (principal); R11.2 Nausea with vomiting, unspecified; R39.198 Other difficulties with micturition; F33.1 Major depressive disorder, recurrent, moderate; E11.40 Type 2 diabetes mellitus with diabetic neuropathy, unspecified; Z79.4 Long term (current) use of insulin; F17.210 Nicotine dependence, cigarettes, uncomplicated; Z79.85 Long-term (current) use of injectable non-insulin antidiabetic drugs; F41.9 Anxiety disorder, unspecified; F32.A Depression, unspecified; Z79.899 Other long term (current) drug therapy; I25.10 Atherosclerotic heart disease of native coronary artery without angina pectoris; K52.9 Noninfective gastroenteritis and colitis, unspecified
CPT/HCPCS: 36415; 51702; 74177; 80048; 80053; 81001; 82962; 83735; 84443; 85025; 93005; 99285; G0378; J0131; J1790; J1956

== ENCOUNTER 2023-08-20 08:05 | Observation (INO) | payer MEDICARE, MEDICAID, SELFPAY ==
[2023-08-20] VITALS (8 sets, daily range): BP systolic 125–187; BP diastolic 62–110; PULSE 75–104; RESP 13–20; TEMP 36.4–36.7; O2SAT 98–100; BMI 32.1; BMI 32.8
--- NOTE | 2023-08-20 08:29 | ED_ITS ---
Discharge Plan Disposition Patient Disposition: Admitted Chief Complaint: Nausea/Vomiting/Diarrhea Clinical Impressions Clinical Impression: Vomiting Discharge ED Provider: Johnny Merritt General Adult HPI General Chief complaint: Nausea/Vomiting/Diarrhea Stated complaint: vomitting, cold sweats Time Seen by Provider: 08/20/23 08:08 Mode of Arrival: Ambulatory Source of Information: Patient Limitations: No Limitations Description of Symptoms (Recalled from ER Triage Doc. by RN): pt presents to ED with c/o vomitting that began this am approx 0530. pt reports he was discharged home yesterday. History of Present Illness HPI narrative: 53-year-old male history of hyper tension upper lip edema, poorly controlled with neuropathy, lower extremity wound, chronic prostatitis presenting with vomiting. Patient states that he has been recently increased on numerous of his diabetic medications including insulin, oral antihyperglycemic, semaglutide injections. Last weekOn 08/14/2023, patient semaglutide was increased to 2 mg, since that time he has been vomiting consistently. Unable to tolerate almost any p.o. intake. Was just admitted to the hospital here and discharged yesterday, 08/18. Discharged on doxycycline, Levaquin, Flagyl concerning for colitis and prostatitis. Recommended to return if he continues vomiting. Patient started vomiting at 5 AM today, 08/19. Is vomited 5 or 6 times since. No blood in his vomit. Still having bowel movements and passing gas. Epigastric pain in the setting of vomiting that does not radiate. Feels generally unwell and weak. Please note that above description of symptoms, in this electronic medical record under categorization of recalled from ER triage doctor by RN are reflective of an initial nursing assessment, however, is not reflective of my full history and physical exam that was personally taken and clarified. Consequentially, this preceding description of symptoms, which may include the patient's categorized chief complaint in the EMR, do not reflect my personal clinical impression, and the ultimate description of history of present illness and patient stated complaints should be deferred to this section of the note. Unless stated otherwise or congruent with this section of the note, additional signs, symptoms, or incongruence should be interpreted as inaccurate with my clinical impression. Related Data Home Medications Medication Instructions Recorded Confirmed famotidine 20 mg tablet 20 mg PO DAILY 01/09/23 08/19/23 Previous Rx's Medication Instructions Recorded Ultra-Thin II Ins Pen [place] 29 #100 ea 06/17/22 gauge x 1/2 (pen needle, diabetic) blood sugar diagnostic (OneTouch #100 ea 09/16/22 Verio test strips) blood-glucose meter #1 ea 09/16/22 lancets 33 gauge #100 ea 09/16/22 clopidogrel 75 mg tablet 75 mg PO DAILY #90 tabs 03/10/23 semaglutide 2 mg/dose (8 mg/3 mL) 2 mg (0.75 mL) SQ WEEKLY #3 mL 08/14/23 subcutaneous pen injector cholecalciferol (vitamin D3) 1,250 1,250 mcg PO WEEKLY #12 caps 08/15/23 mcg (50,000 unit) capsule tetracycline 500 mg capsule 500 mg PO Q6H 7 days #28 caps 08/17/23 doxycycline hyclate 100 mg capsule 100 mg PO BID 10 days #20 caps 08/19/23 levofloxacin 750 mg tablet 750 mg PO DAILY 10 days #10 tabs 08/19/23 metronidazole 500 mg tablet 500 mg PO TID 7 days #21 tabs 08/19/23 Allergies Allergy/AdvReac Type Severity Reaction Status Date / Time acetaminophen [From Percocet] Allergy Intermediate Rash Verified 08/19/23 08:10 oxycodone [From Percocet] Allergy Intermediate Rash Verified 08/19/23 08:10 hydrocodone [From VICODIN] Allergy Unknown Unknown Verified 08/14/23 08:56 allergy reaction methadone [METHADONE] Allergy Unknown Unknown Verified 08/14/23 08:56 allergy reaction morphine [MORPHINE] Allergy Unknown Unknown Verified 08/14/23 08:56 allergy reaction PFSH PFSH Disclaimer: The information contained in this section may have been updated after the patient was seen, as this information can be updated by other users. Medical History (Updated 08/20/23 @ 12:32 by Johnny Merritt MD) Establishing care with new doctor, encounter for Shingles rash URI (upper respiratory infection) Routine lab draw Diabetes mellitus type 2, uncontrolled, with complications Flu syndrome Superficial burn of right ankle Full thickness burn of right ankle Noncompliance Open wound of right ankle Pneumonia COVID-19 Respiratory failure Pneumonia due to COVID-19 virus Abscess of left thigh Diabetic foot ulcer Pain of left great toe Fissure in skin of both feet Ulcer of left great toe due to diabetes mellitus Abscess Abscess and cellulitis of gluteal region Abscess of right groin Fissure in skin of foot Ulcer of second toe of left foot Ulcer of right great toe due to diabetes mellitus Encounter for wound care Pain of toe of right foot Pain of toe of left foot Diabetic foot infection Acute epididymitis Viral infection Sinusitis Bronchitis Influenza B Left against medical advice Hemorrhoids Cellulitis Removal of staple Digital nerve laceration, finger Laceration of left middle finger Contusion of right hip Dyspnea Hypertensive disorder Diabetes Sialoadenitis of submandibular gland Surgical History History of incision and drainage S/P foot surgery, right H/O colonoscopy H/O hernia repair Status post surgery Family History Mother Dementia Diabetes Stroke Father Coronary artery disease Heart attack Social History Smoking Status: Current every day smoker tobacco type: e-cigarettes years smoked: 30 how long ago did patient quit smokin07/21/2022 second hand exposure: No alcohol intake: never substance use type: marijuana current occupational status: disabled Travel in the last 8 weeks: None household members: none housing: house number of children: 0 current occupational exposures/hazards: No caffeine: No ROS Obtained: Yes All systems reviewed & no additional complaints except as documented Physical Exam General General appearance: alert and in no apparent distress Head Head exam: atraumatic and normocephalic Eye Eye exam: Present normal appearance, PERRL and EOMI ENT ENT exam: Present mucous membranes moist Neck Neck exam: Present normal inspection, full ROM and trachea midline Respiratory Respiratory exam: Absent respiratory distress, wheezes, stridor, accessory muscle use or prolonged expiratory phase Cardiovascular Cardiovascular exam: Present normal rhythm Abdominal Exam Abdominal exam: Present soft; Absent distention, tenderness, guarding, rebound or rigidity Extremities Exam Extremities exam: Absent edema Neurological Exam Neurological exam: Present alert, oriented X3, CN II-XII intact and normal gait; Absent motor sensory deficit Skin Skin exam: Present warm and dry; Absent diaphoresis or erythema Medical Decision Making Medical Records Medical records reviewed: Yes I reviewed the patient's medical records. Johnnie Inquiry Pt receiving controlled substance: No Johnnie was queried for this patient: No Vital Signs: 08/20/23 08:06 08/20/23 10:59 08/20/23 11:00 Temperature 98.1 F Temperature Source Oral Pulse Rate 104 H 101 H Pulse Rate [Left Radial] 75 Respiratory Rate 13 Blood Pressure 180/110 H 187/104 H Blood Pressure [Right Arm] 158/86 H Blood Pressure Mean Blood Pressure Mean [Right Arm] 110 02 Sat by Pulse Oximetry 98 99 98 Oxygen Delivery Method Room Air Room Air Room Air 08/20/23 12:12 Temperature Temperature Source Pulse Rate 101 H Pulse Rate [Left Radial] Respiratory Rate Blood Pressure 170/81 H Blood Pressure [Right Arm] Blood Pressure Mean 120 Blood Pressure Mean [Right Arm] 02 Sat by Pulse Oximetry 99 Oxygen Delivery Method Room Air Lab Data Lab Results 08/20/23 08:31: WBC 11.1 H, RBC 4.74, Hgb 14.7, Hct 43.3, MCV 91.4, MCH 31.0, MCHC 33.9, RDW 13.3, Plt Count 306, MPV 8.0, Neut % (Auto) 81.5 H, Lymph % (Auto) 11.7, [place] % (Auto) 4.3, Eos % (Auto) 2.0, Baso % (Auto) 0.4, Neut # (Auto) 9.0 H, Lymph # (Auto) 1.3, [place] # (Auto) 0.5, Eos # (Auto) 0.2, Baso # (Auto) 0.1, Sodium 140, Potassium 3.7, Chloride 103, Carbon Dioxide 25, Anion Gap 15.7 H, BUN 13, Creatinine 0.70, Estimated Creat Clear 200, Estimated GFR 119, Est GFR ( Amer) 144, Glucose 164 H, Calcium 9.7, Total Bilirubin 1.1, AST 35, ALT 30, Alkaline Phosphatase 77, Total Protein 8.1, Albumin 4.2, G lobulin 3.9 H, Albumin/Globulin Ratio 1.1, Lipase 108 08/20/23 08:34: VBG pH 7.40, VBG pCO2 36.2, VBG pO2 58.1 H, VBG HCO3 22.1 L, VBG Total CO2 23.2, VBG O2 Saturation 88.7 H, VBG Base Excess -2.7 L, VBG Lactic Acid 1.3 08/20/23 09:56: Urine Color Yellow, Urine Appearance Clear, Urine pH 6.0, Ur Specific [place] >= 1.030, Urine Protein 2+, Urine Glucose (UA) Trace, Urine Ketones 3+, Urine Blood 3+, Urine Nitrate Negative, Urine Bilirubin 1+ A, Urine Urobilinogen 1.0, Ur Leukocyte Esterase Trace, Urine RBC 20-50, Urine WBC 5-10, Ur Squamous Epith Cells Occasional, Urine Bacteria 1+, Urine Mucus 1+ 08/20/23 08:31 08/20/23 08:31 Orders (Tests/Meds): ED MEDICATIONS Generic Name Dose Route Start Last Admin Trade Name Freq PRN Reason Stop Dose Admin Heparin Sodium (Porcine) 5,000 unit 08/20/23 12:15 Heparin Sodium 5,000 Unit/Ml Vial SQ 09/19/23 12:14 Q8H CAS Lactated Ringer's 1,000 mls @ 50 mls/hr 08/20/23 12:15 Lactated Ringer's 1000 Ml Bag IV 09/19/23 12:14 .Q20H CAS Promethazine HCl 25 mg 08/20/23 12:14 Promethazine Hcl 25mg/Ml 1ml Vial IV 09/19/23 12:13 Q6HP PRN Nausea And Vomiting Sodium Chloride 8 ml 08/20/23 08:48 Sodium Chloride 0.9% 10ml Vial IV 09/19/23 08:47 NEEDED PRN dilute pepcid Sodium Chloride 10 ml 08/20/23 12:14 Sodium Chloride 0.9% 10ml Flush Syringe IV 09/19/23 12:13 NEEDED PRN Maintain IV Site Sodium Chloride 25 ml 08/20/23 12:14 Sodium Chloride 0.9% 25ml Bag IV 09/19/23 12:13 NEEDED PRN for Use with IV Promethazine Discontinued Medications Generic Name Dose Route Start Last Admin Trade Name Freq PRN Reason Stop Dose Admin Belladonna Alkaloids 60 ml 08/20/23 08:48 08/20/23 08:53 Belladonna Alkaloids 60 Ml Ml PO 08/20/23 08:49 60 ml ONCE ONE Administration Famotidine 20 mg 08/20/23 08:48 08/20/23 08:53 Famotidine 20mg/2ml Vial IV 08/20/23 08:49 20 mg ONCE ONE Administration Lactated Ringer's 1,000 mls @ 999 mls/hr 08/20/23 08:25 08/20/23 08:41 Lactated Ringer's 1000 Ml Bag IV 08/20/23 09:25 999 mls/hr .Q1H1M ONE Administration Metoclopramide HCl 10 mg 08/20/23 08:25 08/20/23 08:41 Metoclopramide Hcl 10mg/2ml Vial IVP 08/20/23 08:26 10 mg ONCE ONE Administration Ondansetron HCl 4 mg 08/20/23 08:48 08/20/23 08:53 Ondansetron 4mg/2ml Vial IV 08/20/23 08:49 4 mg ONCE ONE Administration ORDERS Category Date Time Status CBC w/Auto Diff [Complete Blood Count Auto Diff] Stat Lab 08/20/23 08:31 Completed CMP [Comprehensive Metabolic Panel] Stat Lab 08/20/23 08:31 Completed Lipase Stat Lab 08/20/23 08:31 Completed UA [Urinalysis and Microscopic] Stat Lab 08/20/23 09:56 Completed VBG [Venous Blood Gas] Stat RT 08/20/23 08:34 Completed Medical Decision Narrative: 53-year-old male history of hyper tension upper lip edema, poorly controlled with neuropathy, lower extremity wound, chronic prostatitis presenting with vomiting. Patient states that he has been recently increased on numerous of his diabetic medications including insulin, oral antihyperglycemic, semaglutide injections. Last weekOn 08/14/2023, patient semaglutide was increased to 2 mg, since that time he has been vomiting consistently. Unable to tolerate almost any p.o. intake. Was just admitted to the hospital here and discharged yesterday, 08/18. Discharged on doxycycline, Levaquin, Flagyl concerning for colitis and prostatitis. Recommended to return if he continues vomiting. Patient started vomiting at 5 AM today, 08/19. Is vomited 5 or 6 times since. No blood in his vomit. Still having bowel movements and passing gas. Epigastric pain in the setting of vomiting that does not radiate. No abdominal discomfort or nausea vomiting. Feels generally unwell and weak. Should be noted that patient has had numerous medication changes which is likely complicating this ED visit. History was obtained via conversation with patient and chart review. On arrival, patient hemodynamically stable, alert, oriented x4, appropriate, GCS 15, moving all extremities spontaneously, pupils equal and reactive to light. Full physical exam performed and significant for tired appearing male no acute distress. Nontachycardic, normotensive, not actively retching on my exam. Abdomen is soft, nontender, nondistended. No overlying skin changes. Differential includes gastroparesis, medication side effect, pancreatitis, gastritis, enteritis, PUD, among others. Patient was given Reglan, fluids for symptomatic management and correction of underlying abnormalities. Workup independently interpreted and significant for nonactionable CBC or chemistry. VBG nonactionable. Lipase negative. UA with concern for ketones and UTI, patient currently on antibiotics for this. Patient's anion gap negative at 15.7, not acidotic and glucose only 164. CT abdomen pelvis was considered, but not administered at this time. Patient has story concerning for gastroparesis in the setting of uncontrolled diabetes and use of injectable GLP-1. Abdomen exam is benign and patient still passing gas, low concern for SBO or other acutely intervenable pathology. Patient to be admitted. Hospital medicine contacted and case was discussed at length, patient to be admitted. Reassurance given to patient, is recommended that next time he received injections, if ever, cut the dose in half, he voices understanding. Because patient high risk for clinical decompensation, deemed appropriate for inpatient admission. Results were relayed to patient who voiced understanding and patient was agreeable to inpatient admission and management. Patient was admitted to the hospital for further definitive management. Critical Care Critical Care Time Critical Care Time: No
[2023-08-20 08:41] LABS: Lactate Venous 1.3 mmol/L (0.4-2.0); VBG Base Excess -2.7 mmol/L (-2.4-2.3); VBG HCO3 22.1 mmol/L (23-30); VBG Oxygen Saturation 88.7 % (50-70); VBG PCO2 36.2 mmol/L (35-51); VBG PO2 58.1 mmol/L (28-40); VBG Total CO2 23.2 mmol/L (23-27)
[2023-08-20] MEDS: METOCLOPRAMIDE HCL 10MG/2ML VIAL 10 MG IVP (08:41)
[2023-08-20] MEDS: LACTATED RINGERS 1000ML 1,000 ML 999 ML IV (08:41)
[2023-08-20 08:53] LABS: Basophils # 0.1 K/mm3 (0-0.2); Basophils % 0.4 % (0.1-2.0); Eosinophils # 0.2 K/mm3 (0.0-0.4); Hematocrit 43.3 % (42.0-52.0); Hemoglobin 14.7 g/dL (14.1-18.0); Lymphocytes # 1.3 K/mm3 (0.7-4.5); Lymphocytes % 11.7 % (10-50); Mean Corpuscular HGB Conc 33.9 g/dL (31.8-35.4); Mean Corpuscular Volume 91.4 fl (80-94); Monocytes # 0.5 K/mm3 (0.1-1.0); Monocytes % 4.3 % (1.7-9.3); Neutrophils % 81.5 % (37.0-80.0); Platelet Count 306 K/mm3 (142-424); Red Blood Count 4.74 M/mm3 (4.60-6.20); Red Cell Distribution Width 13.3 % (11.5-17.5); White Blood Count 11.1 K/mm3 (4.8-10.8)
[2023-08-20] MEDS: BELLADONNA ALKALOIDS 60 ML ML PO (08:53)
[2023-08-20] MEDS: FAMOTIDINE 20MG/2ML VIAL 20 MG IV (08:53)
[2023-08-20] MEDS: ONDANSETRON 4MG/2ML VIAL 4 MG IV (08:53)
[2023-08-20 09:03] LABS: Alanine Aminotransferase 30 U/L (12-78); Albumin Level 4.2 g/dl (3.5-5.0); Albumin/Globulin Ratio 1.1 (1.1-1.8); Alkaline Phosphatase 77 U/L (38-126); Anion Gap 15.7 mEq/L (5-15); Aspartate Amino Transferase 35 U/L (17-59); Bilirubin,Total 1.1 mg/dl (0.2-1.3); Blood Urea Nitrogen 13 mg/dl (9-20); Calcium 9.7 mg/dl (8.4-10.2); Carbon Dioxide 25 mmol/L (22.0-30.0); Chloride 103 mmol/L (98-107); Creatinine Clearance Estimated 200 mL/min (50-200); Estimated Glomerular Filt Rate 119 ml/min (>60); GFR (African American) 144 ML/MIN (>60); Globulin 3.9 g/dL (1.3-3.2); Glucose 164 mg/dl (74-100); Potassium 3.7 mmoL/L (3.5-5.1); Sodium 140 mmol/L (136-145); Total Protein,Serum 8.1 g/dl (6.3-8.2)
[2023-08-20 09:04] LABS: Lipase 108 U/L (23-300)
[2023-08-20 10:00] LABS: Microscopic, Urine URINE MICROSCOPIC (MICROSCOPIC)
[2023-08-20 10:02] LABS: Appearance,Urine CLEAR (Clear); Blood, Urine 3+ (Negative); Color,Urine YELLOW (Yellow); Glucose,Urine (UA) TRACE (Negative); Ketones,Urine 3+ (Negative); Leukocyte Esterase,Urine TRACE (Negative); Nitrate,Urine Negative (Negative); Protein,Urine 2+ (Negative); Specific Gravity, Urine >= 1.030 (1.005-1.030)
[2023-08-20 10:15] LABS: Bilirubin,Urine 1+ (Negative)
[2023-08-20 10:18] LABS: Bacteria,Urine 1+ /lpf; Mucus,Urine 1+ /lpf; RBC,Urine 20-50 #/hpf (0-3); Squamous Epithelial Cell,Urine Occasional #/hpf (0-5)
--- NOTE | 2023-08-20 10:54 | PC.NURSE ---
rounded on pt he is asleep in bed call light in reach
--- NOTE | 2023-08-20 11:44 | PC.NURSE ---
ROUNDED ON PT WAS GIVEN LITTLE ICE WATER NO OTHER NEEDS AT THIS TIME,CALL LIGHT IN REACH
--- NOTE | 2023-08-20 12:01 | PC.NURSE ---
HS called for admit
--- NOTE | 2023-08-20 12:14 | PC.NURSE ---
report called to inga on second floor
--- NOTE | 2023-08-20 12:34 | HMH.PHAINT1 ---
Pharmacy Intervention Comments: MEDICATION RECONCILIATION COMPLETED ON PATIENT USING EXTERNAL FILL HISTORY FROM PHARMACY AND DISCHARGE SUMMARY FROM YESTERDAY. -VLADISLAV PELLETIERD
--- NOTE | 2023-08-20 12:34 | PC.NURSE ---
arrived by w/c from ED
[2023-08-20] MEDS: HEPARIN SODIUM 5,000 UNIT/ML VIAL 5000 UNIT SQ ×2 (13:34→20:55)
[2023-08-20] MEDS: LACTATED RINGERS 1000ML 1,000 ML 50 ML IV (13:39)
[2023-08-20] MEDS: CALCIUM CARBONATE 500MG CHEWTAB 500 MG PO (14:05)
--- NOTE | 2023-08-20 18:00 | EXP.HP ---
History of Present Illness *Admission Date: 08/20/23 *Reason for visit:: nausea vomiting *History of present illness: Patient is a 53-year-old male with past medical history of DVT, diabetes mellitus hypertension who presented to hospital due to recurrent nausea vomiting. According to patient he was dose of injectable semaglutide was recently increased and since then he has been having nausea vomiting and not being able to hold down the food. Otherwise denied chest pain shortness of breath diarrhea constipation dysuria. [facility] Disclaimer: The information contained in this section may have been updated after the patient was seen, as this information can be updated by other users. Medical History Establishing care with new doctor, encounter for Shingles rash URI (upper respiratory infection) Routine lab draw Diabetes mellitus type 2, uncontrolled, with complications Flu syndrome Superficial burn of right ankle Full thickness burn of right ankle Noncompliance Open wound of right ankle Pneumonia COVID-19 Respiratory failure Pneumonia due to COVID-19 virus Abscess of left thigh Diabetic foot ulcer Pain of left great toe Fissure in skin of both feet Ulcer of left great toe due to diabetes mellitus Abscess Abscess and cellulitis of gluteal region Abscess of right groin Fissure in skin of foot Ulcer of second toe of left foot Ulcer of right great toe due to diabetes mellitus Encounter for wound care Pain of toe of right foot Pain of toe of left foot Diabetic foot infection Acute epididymitis Viral infection Sinusitis Bronchitis Influenza B Left against medical advice Hemorrhoids Cellulitis Removal of staple Digital nerve laceration, finger Laceration of left middle finger Contusion of right hip Dyspnea Hypertensive disorder Diabetes Sialoadenitis of submandibular gland Surgical History History of incision and drainage S/P foot surgery, right H/O colonoscopy H/O hernia repair Status post surgery Family History Mother Dementia Diabetes Stroke Father Coronary artery disease Heart attack Social History (Updated 08/20/23 @ 13:06 by Nikole Chang RN) Smoking Status: Current every day smoker tobacco type: e-cigarettes years smoked: 30 how long ago did patient quit smokin07/21/2022 second hand exposure: No alcohol intake: never substance use type: marijuana current occupational status: disabled Travel in the last 8 weeks: None household members: none housing: house number of children: 0 current occupational exposures/hazards: No caffeine: No Review of Systems Review of Systems Review of systems:: pertinent systems reviewed and negative unless documented below Meds Home Medications and Allergies Home Medications Medication Instructions Recorded Confirmed Type Ultra-Thin II Ins Pen [place] 29 #100 ea 06/17/22 08/20/23 Rx gauge x 1/2 (pen needle, diabetic) blood sugar diagnostic (OneTouch #100 ea 09/16/22 08/19/23 Rx Verio test strips) blood-glucose meter #1 ea 09/16/22 08/20/23 Rx lancets 33 gauge #100 ea 09/16/22 08/20/23 Rx famotidine 20 mg tablet 20 mg PO DAILY 01/09/23 08/20/23 History clopidogrel 75 mg tablet 75 mg PO DAILY #90 tabs 03/10/23 08/20/23 Rx semaglutide 2 mg/dose (8 mg/3 mL) 2 mg (0.75 mL) SQ WEEKLY #3 mL 08/14/23 08/20/23 Rx subcutaneous pen injector cholecalciferol (vitamin D3) 1,250 1,250 mcg PO WEEKLY #12 caps 08/15/23 08/20/23 Rx mcg (50,000 unit) capsule doxycycline hyclate 100 mg capsule 100 mg PO BID 10 days #20 caps 08/19/23 08/20/23 Rx levofloxacin 750 mg tablet 750 mg PO DAILY 10 days #10 tabs 08/19/23 08/20/23 Rx metronidazole 500 mg tablet 500 mg PO TID 7 days #21 tabs 08/19/23 08/20/23 Rx New Prescriptions to Start Prescriptions: Allergies Allergy/AdvReac Type Severity Reaction Status Date / Time acetaminophen [From Percocet] Allergy Intermediate Rash Verified 08/19/23 08:10 oxycodone [From Percocet] Allergy Intermediate Rash Verified 08/19/23 08:10 hydrocodone [From VICODIN] Allergy Unknown Unknown Verified 08/14/23 08:56 allergy reaction methadone [METHADONE] Allergy Unknown Unknown Verified 08/14/23 08:56 allergy reaction morphine [MORPHINE] Allergy Unknown Unknown Verified 08/14/23 08:56 allergy reaction Exam Data for Last 24 hours Vital signs and Labs for Last 24 Hours: Temp Pulse Resp BP Pulse Ox O2 Del Method 97.6 F 88 18 167/86 H 98 Room Air 08/20/23 16:00 08/20/23 16:00 08/20/23 16:00 08/20/23 16:00 08/20/23 16:00 08/20/23 17:00 Laboratory Results - last 24 hr 08/20/23 08:31: WBC 11.1 H, RBC 4.74, Hgb 14.7, Hct 43.3, MCV 91.4, MCH 31.0, MCHC 33.9, RDW 13.3, Plt Count 306, MPV 8.0, Neut % (Auto) 81.5 H, Lymph % (Auto) 11.7, [place] % (Auto) 4.3, Eos % (Auto) 2.0, Baso % (Auto) 0.4, Neut # (Auto) 9.0 H, Lymph # (Auto) 1.3, [place] # (Auto) 0.5, Eos # (Auto) 0.2, Baso # (Auto) 0.1, Sodium 140, Potassium 3.7, Chloride 103, Carbon Dioxide 25, Anion Gap 15.7 H, BUN 13, Creatinine 0.70, Estimated Creat Clear 200, Estimated GFR 119, Est GFR ( Amer) 144, Glucose 164 H, Calcium 9.7, Total Bilirubin 1.1, AST 35, ALT 30, Alkaline Phosphatase 77, Total Protein 8.1, Albumin 4.2, Globulin 3.9 H, Albumin/Globulin Ratio 1.1, Lipase 108 08/20/23 08:34: VBG pH 7.40, VBG pCO2 36.2, VBG pO2 58.1 H, VBG HCO3 22.1 L, VBG Total CO2 23.2, VBG O2 Saturation 88.7 H, VBG Base Excess -2.7 L, VBG Lactic Acid 1.3 08/20/23 09:56: Urine Color Yellow, Urine Appearance Clear, Urine pH 6.0, Ur Specific [place] >= 1.030, Urine Protein 2+, Urine Glucose (UA) Trace, Urine Ketones 3+, Urine Blood 3+, Urine Nitrate Negative, Urine Bilirubin 1+ A, Urine Urobilinogen 1.0, Ur Leukocyte Esterase Trace, Urine RBC 20-50, Urine WBC 5-10, Ur Squamous Epith Cells Occasional, Urine Bacteria 1+, Urine Mucus 1+ I & O for Last 24 hours: Intake & Output 08/17/23 08/18/23 08/19/23 08/20/23 23:59 23:59 23:59 23:59 Output Total 0 / 0 Balance 0 / 0 Weight 116.176 kg Constitutional Constitutional: no acute distress *Routine HEENT Exam Head: Present normocephalic Eye: Present EOMI and PERRL ENT: Present mucous membranes moist *Routine Neck Exam Neck: Present supple; Absent lymphadenopathy *Routine Respiratory Exam Respiratory: Present CTA bilaterally *Routine Cardiovascular Exam Cardiovascular: Present RRR *Routine Abdominal Exam Abdominal: Present soft and normoactive bowel sounds; Absent tenderness *Routine Rectal Exam Rectal:: deferred *Routine Genitalia Exam Genitalia:: deferred *Routine Extremities Exam Extremities: Absent cyanosis, clubbing or edema *Routine Skin Exam Skin: Present warm; Absent rash *Routine Neurological Exam Neurological: Present alert and oriented X3 Assessment and Plan *Assessment and plan (1) Vomiting: Status: Acute Category: Medical Code(s): R11.10 - Vomiting, unspecified (2) Intractable nausea and vomiting: Status: Acute Category: Medical Code(s): R11.2 - Nausea with vomiting, unspecified (3) Anxiety and depression: Status: Acute Category: Medical Code(s): F41.9 - Anxiety disorder, unspecified; F32.A - Depression, unspecified (4) Type 2 diabetes mellitus with diabetic neuropathy, with long-term current use of insulin: Status: Acute Category: Medical Code(s): E11.40 - Type 2 diabetes mellitus with diabetic neuropathy, unspecified; Z79.4 - care home (current) use of insulin Plan Patient is a 53-year-old male with past medical history of DVT, diabetes mellitus hypertension who presented to hospital due to recurrent nausea vomiting. According to patient he was dose of injectable semaglutide was recently increased and since then he has been having nausea vomiting and not being able to hold down the food. Otherwise denied chest pain shortness of breath diarrhea constipation dysuria. Assessment and plan Intractable nausea vomiting Gentle IV fluid therapy As needed Zofran/Phenergan Hold home Ozempic Prostate abscess, colitis Started on doxycycline, levofloxacin, Flagyl has guillory cath #MDD Continue mood stabilization medications #CAD Continue home Plavix statin #T2DM Reports being on monotherapy with Ozempic Continue sliding scale DVT PPx SCDs Full Code
[2023-08-20] MEDS: LEVOFLOXACIN/D5W 750 MG/150 ML 750 MG/150 ML PIGGYBACK 100 MG IV (18:35)
[2023-08-20] MEDS: 0.9 % SODIUM CHLORIDE 1000ML 1,000 ML 75 ML IV (18:38)
[2023-08-20] MEDS: PANTOPRAZOLE 40MG VIAL 40 MG IV (20:54)
[2023-08-20] MEDS: METRONIDAZ/SOD CHL 500 MG/100 ML PIGGYBACK 100 MG IV (20:54)
[2023-08-20] MEDS: SODIUM CHLORIDE 0.9% 10ML VIAL 10 ML IV (20:55)
[2023-08-20 21:29] LABS: POC Glucose,Bedside 142 (70-110)
[2023-08-21] VITALS: BP 142/79; PULSE 82; RESP 18; TEMP 37.1; O2SAT 93
[2023-08-21] MEDS: METRONIDAZ/SOD CHL 500 MG/100 ML PIGGYBACK 100 MG IV ×2 (00:52→06:14)
[2023-08-21 04:00] VITALS: BP 129/80; PULSE 76; RESP 18; TEMP 37; O2SAT 99; BMI 32.8
[2023-08-21] MEDS: HEPARIN SODIUM 5,000 UNIT/ML VIAL 5000 UNIT SQ (04:24)
--- NOTE | 2023-08-21 05:34 | PC.NURSE ---
Pt is A&Ox4 and currently tolerating RA well. Pt denies pain and is tolerating antibiotic therapy well. Pt has not c/o N/V this shit and is able to tolerate small snacks.
[2023-08-21] MEDS: humaLOG 100 UNITS/ML 3ML VIAL (SSI) SQ (06:16)
[2023-08-21 06:30] LABS: Eosinophils # 0.2 K/mm3 (0.0-0.4)
[2023-08-21 06:37] LABS: Anion Gap 12.4 mEq/L (5-15); Blood Urea Nitrogen 13 mg/dl (9-20); Calcium 9.3 mg/dl (8.4-10.2); Carbon Dioxide 28 mmol/L (22.0-30.0); Chloride 100 mmol/L (98-107); Creatinine Clearance Estimated 179 mL/min (50-200); Estimated Glomerular Filt Rate 102 ml/min (>60); GFR (African American) 123 ML/MIN (>60); Glucose 170 mg/dl (74-100); Potassium 3.4 mmoL/L (3.5-5.1); Sodium 137 mmol/L (136-145)
[2023-08-21 06:43] LABS: Basophils % 0.3 % (0.1-2.0); Eosinophils % 2.2 % (0.1-12.0); Hematocrit 38.5 % (42.0-52.0); Lymphocytes # 1.8 K/mm3 (0.7-4.5); Lymphocytes % 18.3 % (10-50); Mean Corpuscular Hemoglobin 31.1 pg (27.0-31.2); Mean Corpuscular Volume 91.5 fl (80-94); Mean Platelet Volume 8.1 fl (7.4-10.4); Monocytes # 0.4 K/mm3 (0.1-1.0); Monocytes % 3.8 % (1.7-9.3); Neutrophils # 7.2 K/mm3 (1.8-7.8); Neutrophils % 75.4 % (37.0-80.0); Platelet Count 255 K/mm3 (142-424); Red Blood Count 4.21 M/mm3 (4.60-6.20); Red Cell Distribution Width 13.3 % (11.5-17.5); White Blood Count 9.6 K/mm3 (4.8-10.8)
[2023-08-21 06:45] LABS: Hemoglobin 13.1 g/dL (14.1-18.0)
[2023-08-21 07:06] LABS: POC Glucose,Bedside 173 (70-110)
[2023-08-21 08:00] VITALS: BP 124/81; PULSE 72; RESP 18; TEMP 36.4; O2SAT 96
[2023-08-21] MEDS: 0.9 % SODIUM CHLORIDE 1000ML 1,000 ML 75 ML IV (09:40)
[2023-08-21] MEDS: CLOPIDOGREL 75MG TAB 75 MG PO (09:40)
[2023-08-21] MEDS: DOCUSATE SODIUM 100 MG CAPSULE PO (09:40)
[2023-08-21] MEDS: PANTOPRAZOLE 40MG VIAL 40 MG IV (09:40)
[2023-08-21] MEDS: SODIUM CHLORIDE 0.9% 10ML VIAL 10 ML IV (09:41)
[2023-08-21] MEDS: FAMOTIDINE 20MG TABLET 20 MG PO (09:50)
--- NOTE | 2023-08-21 11:22 | EXP.DC.SUM ---
General Admission date:: 08/20/23 Discharge date: 08/21/23 HPI HPI HPI: Patient is a 53-year-old male with past medical history of DVT, diabetes mellitus hypertension who presented to hospital due to recurrent nausea vomiting. According to patient he was dose of injectable semaglutide was recently increased and since then he has been having nausea vomiting and not being able to hold down the food. Otherwise denied chest pain shortness of breath diarrhea constipation dysuria. Hospital Course Hospital Course Hospital Course: Patient is a 53-year-old male with past medical history of DVT, diabetes mellitus hypertension who presented to hospital due to recurrent nausea vomiting. According to patient he was dose of injectable semaglutide was recently increased and since then he has been having nausea vomiting and not being able to hold down the food. Otherwise denied chest pain shortness of breath diarrhea constipation dysuria. Patient nausea and vomiting has resolved, it is most likely related to ozempic, he can be discharged and patient wishes to be discharged, patient to f/u with urology for urinary retention and guillory can be removed as OP, phenergan prescription given. Total time spent 38 mints, patient is discharged in stable condition and verbalized and agreed with the discharge plan Exam Data for Last 24 hours Vital signs and Labs for Last 24 Hours: Temp Pulse Resp BP Pulse Ox O2 Del Method 97.5 F L 72 18 124/81 96 Room Air 08/21/23 08:00 08/21/23 08:00 08/21/23 08:00 08/21/23 08:00 08/21/23 08:00 08/21/23 08:00 Laboratory Results - last 24 hr 08/20/23 20:22: POC Glucose 142 H 08/21/23 06:02: WBC 9.6, RBC 4.21 L, Hgb 13.1 L D, Hct 38.5 L, MCV 91.5, MCH 31.1, MCHC 34.0, RDW 13.3, Plt Count 255, MPV 8.1, Neut % (Auto) 75.4, Lymph % (Auto) 18.3, [place] % (Auto) 3.8, Eos % (Auto) 2.2, Baso % (Auto) 0.3, Neut # (Auto) 7.2, Lymph # (Auto) 1.8, [place] # (Auto) 0.4, Eos # (Auto) 0.2, Baso # (Auto) 0.0, Sodium 137, Potassium 3.4 L, Chloride 100, Carbon Dioxide 28, Anion Gap 12.4, BUN 13, Creatinine 0.80, Estimated Creat Clear 179, Estimated GFR 102, Est GFR ( Amer) 123, Glucose 170 H, Calcium 9.3 08/21/23 06:15: POC Glucose 173 H I & O for Last 24 hours: Intake & Output 08/18/23 08/19/23 08/20/23 08/21/23 23:59 23:59 23:59 23:59 Intake Total 240 / 1075 970 / 970 Output Total 0 / 0 Balance 240 / 1075 970 / 970 Weight 116.176 kg 116 kg Constitutional Constitutional: no acute distress *Routine HEENT Exam Head: Present normocephalic Eye: Present EOMI and PERRL ENT: Present mucous membranes moist *Routine Neck Exam Neck: Present supple; Absent lymphadenopathy *Routine Respiratory Exam Respiratory: Present CTA bilaterally *Routine Cardiovascular Exam Cardiovascular: Present RRR *Routine Abdominal Exam Abdominal: Present soft and normoactive bowel sounds; Absent tenderness *Routine Extremities Exam Extremities: Absent cyanosis, clubbing or edema *Routine Skin Exam Skin: Present warm; Absent rash *Routine Neurological Exam Neurological: Present alert and oriented X3 Results Data Completed and Pending Labs on day of discharge: Labs from last 24 hours 08/21/23 08/21/23 08/20/23 06:15 06:02 20:22 WBC 9.6 RBC 4.21 L Hgb 13.1 L D Hct 38.5 L MCV 91.5 MCH 31.1 MCHC 34.0 RDW 13.3 Plt Count 255 MPV 8.1 Neut % (Auto) 75.4 Lymph % (Auto) 18.3 [place] % (Auto) 3.8 Eos % (Auto) 2.2 Baso % (Auto) 0.3 Neut # (Auto) 7.2 Lymph # (Auto) 1.8 [place] # (Auto) 0.4 Eos # (Auto) 0.2 Baso # (Auto) 0.0 Sodium 137 Potassium 3.4 L Chloride 100 Carbon Dioxide 28 Anion Gap 12.4 BUN 13 Creatinine 0.80 Estimated Creat Clear 179 Estimated GFR 102 Est GFR ( Amer) 123 Glucose 170 H POC Glucose 173 H 142 H Calcium 9.3 DS: Diagnosis Discharge Diagnosis (1) Vomiting: Status: Acute Code(s): R11.10 - Vomiting, unspecified (2) Intractable nausea and vomiting: Status: Acute Code(s): R11.2 - Nausea with vomiting, unspecified (3) Anxiety and depression: Status: Acute Code(s): F41.9 - Anxiety disorder, unspecified; F32.A - Depression, unspecified (4) Type 2 diabetes mellitus with diabetic neuropathy, with long-term current use of insulin: Status: Acute Code(s): E11.40 - Type 2 diabetes mellitus with diabetic neuropathy, unspecified; 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 Meds Home Medications and Allergies Home Medications Medication Instructions Recorded Confirmed Type Ultra-Thin II Ins Pen [place] 29 #100 ea 06/17/22 08/20/23 Rx gauge x 1/2 (pen needle, diabetic) blood sugar diagnostic (OneTouch #100 ea 09/16/22 08/19/23 Rx Verio test strips) blood-glucose meter #1 ea 09/16/22 08/20/23 Rx lancets 33 gauge #100 ea 09/16/22 08/20/23 Rx famotidine 20 mg tablet 20 mg PO DAILY 01/09/23 08/20/23 History clopidogrel 75 mg tablet 75 mg PO DAILY #90 tabs 03/10/23 08/20/23 Rx semaglutide 2 mg/dose (8 mg/3 mL) 2 mg (0.75 mL) SQ WEEKLY #3 mL 08/14/23 08/20/23 Rx subcutaneous pen injector cholecalciferol (vitamin D3) 1,250 1,250 mcg PO WEEKLY #12 caps 08/15/23 08/20/23 Rx mcg (50,000 unit) capsule doxycycline hyclate 100 mg capsule 100 mg PO BID 10 days #20 caps 08/19/23 08/20/23 Rx levofloxacin 750 mg tablet 750 mg PO DAILY 10 days #10 tabs 08/19/23 08/20/23 Rx metronidazole 500 mg tablet 500 mg PO TID 7 days #21 tabs 08/19/23 08/20/23 Rx promethazine 25 mg tablet 25 mg PO TID PRN nausea and 08/21/23 Rx vomiting 5 days #15 tabs New Prescriptions to Start Prescriptions: promethazine Nat Kaplan Allergies Allergy/AdvReac Type Severity Reaction Status Date / Time acetaminophen [From Percocet] Allergy Intermediate Rash Verified 08/19/23 08:10 oxycodone [From Percocet] Allergy Intermediate Rash Verified 08/19/23 08:10 hydrocodone [From VICODIN] Allergy Unknown Unknown Verified 08/14/23 08:56 allergy reaction methadone [METHADONE] Allergy Unknown Unknown Verified 08/14/23 08:56 allergy reaction morphine [MORPHINE] Allergy Unknown Unknown Verified 08/14/23 08:56 allergy reaction Discharge Plan Disposition Patient Disposition: Home, Self-Care Condition: Fair Follow up Plan Follow up with: Clementina Yost APRN [Primary Care Provider] - 09/03/23 10:00 am ([facility] ) Brian Ralph MD [Staff Physician] - 08/22/23 10:30 am Prescriptions/Medication Reconciliation: New promethazine 25 mg tablet 25 mg PO TID PRN (Reason: nausea and vomiting) 5 Days Qty: 15 0RF Continued (DME) pen needle, diabetic [Ultra-Thin II Ins Pen [place]] 29 gauge x 1/2 needle See Rx Instructions .ROUTE .MEDSUPPLY Qty: 100 1RF Rx Instructions: qid famotidine 20 mg tablet 20 mg PO DAILY clopidogrel 75 mg tablet 75 mg PO DAILY Qty: 90 1RF (DME) blood-glucose meter Misc See Rx Instructions .MEDSUPPLY Qty: 1 0RF Rx Instructions: As directed (DME) lancets 33 gauge misc See Rx Instructions .MEDSUPPLY Qty: 100 0RF Rx Instructions: Check Glucose 4 times daily (DME) OneTouch Verio test strips Strip See Rx Instructions .MEDSUPPLY Qty: 100 0RF Rx Instructions: Check Glucose 4 times daily cholecalciferol (vitamin D3) 1,250 mcg (50,000 unit) capsule 1,250 mcg PO WEEKLY Qty: 12 1RF doxycycline hyclate 100 mg capsule 100 mg PO BID 10 Days Qty: 20 0RF levofloxacin 750 mg tablet 750 mg PO DAILY 10 Days Qty: 10 0RF metronidazole 500 mg tablet 500 mg PO TID 7 Days Qty: 21 0RF Held semaglutide 2 mg/dose (8 mg/3 mL) pen injector 2 mg SQ WEEKLY Qty: 3 5RF Hold Instructions: Resume on 08/21/23. Problem Reconciliation Problems Reviewed?: Yes Patient Discharge Instructions ACTIVITY: Ambulate as tolerated DIET: continue same diet Patient Instructions: DI for Vomiting -- Adult, Catheter-associated Urinary Tract Infection Providers Primary Care Provider: Clementina Yost Admtrang Provider: Nat Kaplan Attending Provider: Nat Kaplan
--- NOTE | 2023-08-22 13:38 | SW/DCPLANNER ---
Follow up phone call: patient stated that he is doing well at home at this time and does not have any needs.
== END 2023-08-21 12:10 | disposition home or self-care (01) ==
LOC: ER 08:32 → 2ND 12:13
PROVIDERS: Admitting Provider Internal Medicine; Emergency Provider Emergency Medicine; PCP Nurse Practitioner Family; Visit Provider Internal Medicine
DX: R11.2 Nausea with vomiting, unspecified; F41.9 Anxiety disorder, unspecified; F32.A Depression, unspecified; E11.40 Type 2 diabetes mellitus with diabetic neuropathy, unspecified; Z79.4 Long term (current) use of insulin; F17.210 Nicotine dependence, cigarettes, uncomplicated; Z79.899 Other long term (current) drug therapy; Z79.85 Long-term (current) use of injectable non-insulin antidiabetic drugs
CPT/HCPCS: 36415; 80048; 80053; 81001; 82803; 82962; 83690; 85025; 99285; G0378; J1956; J2405

== ENCOUNTER 2023-09-25 10:39 | Emergency (ER) | payer MEDICARE, MEDICAID, SELFPAY ==
[2023-09-25 10:41] VITALS: BP 163/84; PULSE 84; RESP 18; TEMP 36.9; O2SAT 98; BMI 33.0
--- NOTE | 2023-09-25 10:55 | PC.NURSE ---
dr castro at bedside
--- NOTE | 2023-09-25 11:05 | CT_ITS ---
FINAL REPORT TECHNIQUE: After the administration of IV contrast, axial images through the abdomen and pelvis was performed by computed tomography. Sagittal and coronal reformatted images were obtained and reviewed. This study was performed with techniques to keep radiation doses as low as reasonably achievable (ALARA). Individualized dose reduction techniques using automated exposure control or adjustment of mA and/or kV according to the patient's size were employed. CLINICAL HISTORY: low back pain, prostatic mass COMPARISON: 08/18/2023 FINDINGS: Abdomen: No acute density is seen within the lung bases. Liver demonstrates a mildly nodular contour, underlying cirrhosis is not excluded. The gallbladder is contracted. There is a small hiatal hernia. Solid abdominal organs are unremarkable. There is a tiny nonobstructing right renal stone. No bowel obstruction is present. There is no free air. No fluid collection is seen. There is resolution of the colonic wall thickening as compared to previous. There is no adenopathy. Pelvis: The appendix is normal. Low-density mass again identified within the prostate measures 57 mm in height by 27 mm in width by 29 mm AP dimension, previously measured 45 mm in height by 23 mm in width, 26 mm AP dimension. There is no free fluid. IMPRESSION: Interval enlargement in the prosthetic low-density mass, could represent abscess or neoplasm. No evidence of upper urinary tract obstruction. Tiny nonobstructing right renal stone. Resolved colitis. Reviewed, Interpreted and Dictated by Keo Mackay MD Transcribed by Rima Cobian Authenticated and [facility]
--- NOTE | 2023-09-25 11:07 | ED_ITS ---
Discharge Plan Disposition Patient Disposition: Xfer Short-Term Hosp Chief Complaint: Skin/Abscess/Foreign Body Prescriptions Prescriptions: No Action (DME) pen needle, diabetic [Ultra-Thin II Ins Pen [place]] 29 gauge x 1/2 needle See Rx Instructions .ROUTE .MEDSUPPLY Qty: 100 1RF Rx Instructions: qid famotidine 20 mg tablet 20 mg PO DAILY clopidogrel 75 mg tablet 75 mg PO DAILY Qty: 90 1RF semaglutide 2 mg/dose (8 mg/3 mL) pen injector 2 mg SQ WEEKLY Qty: 3 5RF Hold Instructions: Resume on 08/21/23. (DME) blood-glucose meter Misc See Rx Instructions .MEDSUPPLY Qty: 1 0RF Rx Instructions: As directed (DME) lancets 33 gauge misc See Rx Instructions .MEDSUPPLY Qty: 100 0RF Rx Instructions: Check Glucose 4 times daily (DME) OneTouch Verio test strips Strip See Rx Instructions .MEDSUPPLY Qty: 100 0RF Rx Instructions: Check Glucose 4 times daily cholecalciferol (vitamin D3) 1,250 mcg (50,000 unit) capsule 1,250 mcg PO WEEKLY Qty: 12 1RF Referrals Follow up/Referrals: Clementina Yost APRN [Primary Care Provider] - See instructions Clinical Impressions Clinical Impression: Abscess, prostate Instructions Patient Instructions: DI for Skin Abscess Discharge ED Provider: Juanjose Biswas General Adult HPI General Chief complaint: Skin/Abscess/Foreign Body Stated complaint: not sure Time Seen by Provider: 09/25/23 10:40 Mode of Arrival: Ambulatory Source of Information: Patient Limitations: No Limitations Description of Symptoms (Recalled from ER Triage Doc. by RN): pt states he has an abscess on his prostate, was seen for this back in August and admitted, followed up with Dr Ralph and he states he didn't do anything for me and I don't want to see him again , denies following up with pcp, also reports lower back pain that started 2 weeks ago after sitting in a car for 10 hours, denies anything that has helped the pain, states it is constant History of Present Illness HPI narrative: Patient is a 53-year-old male with past medical history of recently diagnosed prostatic mass who presents emergency department for evaluation of low back pain. Patient states that he was admitted here approximately a month ago where workup was remarkable for mass versus abscess and he was discharged on prolonged course of antibiotics. He followed up with Dr. Ralph for which he does not agree with how he performed his rectal exam and does not want to see him again. Dr. Ralph did recommend surgery. He was also in a car for approximately 10 hours and has had resultant bilateral paraspinal lumbar pain since. No trauma. Related Data Home Medications Medication Instructions Recorded Confirmed famotidine 20 mg tablet 20 mg PO DAILY 01/09/23 09/03/23 Previous Rx's Medication Instructions Recorded Ultra-Thin II Ins Pen [place] 29 #100 ea 06/17/22 gauge x 1/2 (pen needle, diabetic) blood sugar diagnostic (OneTouch #100 ea 09/16/22 Verio test strips) blood-glucose meter #1 ea 09/16/22 lancets 33 gauge #100 ea 09/16/22 clopidogrel 75 mg tablet 75 mg PO DAILY #90 tabs 03/10/23 semaglutide 2 mg/dose (8 mg/3 mL) 2 mg (0.75 mL) SQ WEEKLY #3 mL 08/14/23 subcutaneous pen injector cholecalciferol (vitamin D3) 1,250 1,250 mcg PO WEEKLY #12 caps 08/15/23 mcg (50,000 unit) capsule Allergies Allergy/AdvReac Type Severity Reaction Status Date / Time oxycodone [From Percocet] Allergy Intermediate Rash Verified 09/03/23 10:03 hydrocodone [From VICODIN] Allergy Unknown Unknown Verified 09/03/23 10:03 allergy reaction methadone [METHADONE] Allergy Unknown Unknown Verified 09/03/23 10:03 allergy reaction morphine [MORPHINE] Allergy Unknown Unknown Verified 09/03/23 10:[address] [facility] Disclaimer: The information contained in this section may have been updated after the patient was seen, as this information can be updated by other users. Medical History (Updated 09/25/23 @ 14:11 by Juanjose Biswas MD) Vomiting Intractable nausea and vomiting Establishing care with new doctor, encounter for Shingles rash URI (upper respiratory infection) Routine lab draw Diabetes mellitus type 2, uncontrolled, with complications Flu syndrome Superficial burn of right ankle Full thickness burn of right ankle Noncompliance Open wound of right ankle Pneumonia COVID-19 Respiratory failure Pneumonia due to COVID-19 virus Abscess of left thigh Diabetic foot ulcer Pain of left great toe Fissure in skin of both feet Ulcer of left great toe due to diabetes mellitus Abscess Abscess and cellulitis of gluteal region Abscess of right groin Fissure in skin of foot Ulcer of second toe of left foot Ulcer of right great toe due to diabetes mellitus Encounter for wound care Pain of toe of right foot Pain of toe of left foot Diabetic foot infection Acute epididymitis Viral infection Sinusitis Bronchitis Influenza B Left against medical advice Hemorrhoids Cellulitis Removal of staple Digital nerve laceration, finger Laceration of left middle finger Contusion of right hip Dyspnea Hypertensive disorder Diabetes Sialoadenitis of submandibular gland Surgical History History of incision and drainage S/P foot surgery, right H/O colonoscopy H/O hernia repair Status post surgery Family History Mother Dementia Diabetes Stroke Father Coronary artery disease Heart attack Social History Smoking Status: Current every day smoker tobacco type: e-cigarettes years smoked: 30 how long ago did patient quit smokin07/21/2022 second hand exposure: No alcohol intake: never substance use type: marijuana current occupational status: disabled Travel in the last 8 weeks: None household members: none housing: house number of children: 0 current occupational exposures/hazards: No caffeine: No ROS Obtained: Yes Systems reviewed as appropriate & no additional complaints except as documented Physical Exam General General appearance: alert and in no apparent distress Head Head exam: atraumatic and normocephalic Eye Eye exam: Present PERRL ENT ENT exam: Present mucous membranes moist Neck Neck exam: Present normal inspection Chest Chest inspection: Present normal inspection and symmetric chest wall rise Respiratory Respiratory exam: Present normal lung sounds bilaterally; Absent respiratory distress Cardiovascular Cardiovascular exam: Present regular rate and normal rhythm Abdominal Exam Abdominal exam: Present soft; Absent tenderness, guarding or rebound Extremities Exam Extremities exam: Present normal inspection Back Exam Back exam: Present normal inspection and other (Bilateral lumbar paraspinal) Neurological Exam Neurological exam: Present alert, oriented X3 and CN II-XII intact; Absent motor sensory deficit Psychiatric Psychiatric exam: Present normal affect Skin Skin exam: Present warm and dry Medical Decision Making Johnnie Inquiry Pt receiving controlled substance: No Vital Signs: 09/25/23 10:41 09/25/23 12:11 09/25/23 12:17 Temperature 98.5 F Temperature Source Oral Pulse Rate 79 78 Pulse Rate [Left Radial] 84 Respiratory Rate 18 18 Blood Pressure 116/61 134/63 Blood Pressure [Right Arm] 163/84 H Blood Pressure Mean 79 74 Blood Pressure Mean [Right Arm] 110 Blood Pressure Source [Right Arm] Automatic Cuff Blood Pressure Position [Right Arm] Sitting 02 Sat by Pulse Oximetry 98 98 97 Oxygen Delivery Method Room Air Room Air 09/25/23 13:00 Temperature Temperature Source Pulse Rate 80 Pulse Rate [Left Radial] Respiratory Rate Blood Pressure 130/62 Blood Pressure [Right Arm] Blood Pressure Mean Blood Pressure Mean [Right Arm] Blood Pressure Source [Right Arm] Blood Pressure Position [Right Arm] 02 Sat by Pulse Oximetry 97 Oxygen Delivery Method Lab Data Lab Results 09/25/23 10:58: WBC 9.9, RBC 4.96, Hgb 15.2, Hct 45.2, MCV 91.2, MCH 30.7, MCHC 33.7, RDW 13.4, Plt Count 381, MPV 7.9, Neut % (Auto) 70.1, Lymph % (Auto) 21.8, [place] % (Auto) 4.5, Eos % (Auto) 3.1, Baso % (Auto) 0.6, Neut # (Auto) 6.9, Lymph # (Auto) 2.2, [place] # (Auto) 0.4, Eos # (Auto) 0.3, Baso # (Auto) 0.1, Sodium 140, Potassium 3.8, Chloride 100, Carbon Dioxide 30, Anion Gap 13.8, BUN 15, Creatinine 0.90, Estimated Creat Clear 160, Estimated GFR 89, Est GFR ( Amer) 108, Glucose 270 H, Calcium 9.8, Total Bilirubin 0.9, AST 31, ALT 33, Alkaline Phosphatase 81, Total Protein 8.7 H, Albumin 4.5, Globulin 4.2 H, Albumin/Globulin Ratio 1.1, Lipase 164 09/25/23 13:46: Urine Color Yellow, Urine Appearance Clear, Urine pH 6.0, Ur Specific [place] 1.025, Urine Protein Trace, Urine Glucose (UA) 3+, Urine Ketones Negative, Urine Blood Trace-i, Urine Nitrate Negative, Urine Bilirubin Negative, Urine Urobilinogen 1.0, Ur Leukocyte Esterase Negative 09/25/23 10:58 09/25/23 10:58 Orders (Tests/Meds): ED MEDICATIONS Discontinued Medications Generic Name Dose Route Start Last Admin Trade Name Whitney PRN Reason Stop Dose Admin Acetaminophen 1,000 mg 09/25/23 11:05 09/25/23 11:25 Acetaminophen 1,000mg/100ml Vial IV 09/25/23 11:06 1,000 mg ONCE ONE Administration Hydromorphone HCl 1 mg 09/25/23 13:13 09/25/23 13:19 Hydromorphone 2mg/Ml Syringe IV 09/25/23 13:14 1 mg ONCE ONE Administration Lactated Ringer's 1,000 mls @ 999 mls/hr 09/25/23 11:05 09/25/23 11:25 Lactated Ringer's 1000 Ml Bag IV 09/25/23 12:05 999 mls/hr .Q1H1M ONE Administration Piperacillin Sod/Tazobactam 50 mls @ 100 mls/hr 09/25/23 13:13 09/25/23 13:19 Sod 3.375 gm/ Sodium Chloride IV 09/25/23 13:42 100 mls/hr ONCE ONE Administration Iopamidol 75 ml 09/25/23 11:47 09/25/23 11:48 Iopamidol-370 (76%);100ml Bottle IV 09/25/23 11:48 75 ml ONCE ONE Administration Ketorolac Tromethamine 30 mg 09/25/23 11:05 09/25/23 11:25 Ketorolac 30mg/Ml Vial IV 09/25/23 11:06 30 mg ONCE ONE Administration Lidocaine 1 each 09/25/23 11:05 09/25/23 11:25 Lidocaine 5% Transdermal Patch TP 09/25/23 11:06 1 each ONCE ONE Administration Sodium Chloride 10 ml 09/25/23 11:47 09/25/23 11:48 Sodium Chloride 0.9% 10ml Syr (Rad Only) IV 09/25/23 11:48 10 ml ONCE ONE Administration ORDERS Category Date Time Status CT abdomen pelvis w con Stat Cat Scan 09/25/23 11:05 Completed CBC w/Auto Diff [Complete Blood Count Auto Diff] Stat Lab 09/25/23 10:58 Completed CMP [Comprehensive Metabolic Panel] Stat Lab 09/25/23 10:58 Completed Lipase Stat Lab 09/25/23 10:58 Completed UA [Urinalysis and Microscopic] Stat Lab 09/25/23 13:46 Results Medical Decision Narrative: In summary patient is a 53-year-old male with past medical history described above who presents emergency department for evaluation of low back pain in the setting of known prostatic mass versus abscess that has not undergone surgical intervention. Patient is hemodynamically stable nontoxic-appearing upon arrival, afebrile. Differential includes worsening prostatic abscess, referred pain, lumbar ago, urinary tract infection, among others. Workup will be conducted with hematologic labs, urinalysis, CT abdomen pelvis with IV contrast. Initial interventions include Toradol, Tylenol, lidocaine patch, crystalloid bolus. Patient is well-appearing and broad-spectrum empiric antibiotics were considered but will be deferred initially. Initial workup reviewed by me, hematologic labs are nonactionable, no leukocytosis or significant electrolyte abnormality, elevated glucose 270 without elevated anion gap. Patient is in acute urinary retention and was decompressed with Lo catheter. Urinalysis interpreted by me, 3+ glucose, no overt infection on dip, microscopy pending. CT imaging informally visualized by me, it appears the prostate hypodensity is enlarging. Zosyn initiated 3.[address] read shows interval enlargement of the process static low-density mass indirect sales representative of abscess or neoplasm. Case was discussed with [facility] Dr. Anderson who agrees that inpatient management is warranted at this time. Patient was transported to [facility] in stable condition. Critical Care Critical Care Time Critical Care Time: No
[2023-09-25 11:16] LABS: Basophils # 0.1 K/mm3 (0-0.2); Basophils % 0.6 % (0.1-2.0); Eosinophils # 0.3 K/mm3 (0.0-0.4); Eosinophils % 3.1 % (0.1-12.0); Hematocrit 45.2 % (42.0-52.0); Hemoglobin 15.2 g/dL (14.1-18.0); Lymphocytes # 2.2 K/mm3 (0.7-4.5); Lymphocytes % 21.8 % (10-50); Mean Corpuscular HGB Conc 33.7 g/dL (31.8-35.4); Mean Corpuscular Hemoglobin 30.7 pg (27.0-31.2); Mean Corpuscular Volume 91.2 fl (80-94); Mean Platelet Volume 7.9 fl (7.4-10.4); Monocytes # 0.4 K/mm3 (0.1-1.0); Monocytes % 4.5 % (1.7-9.3); Neutrophils # 6.9 K/mm3 (1.8-7.8); Neutrophils % 70.1 % (37.0-80.0); Platelet Count 381 K/mm3 (142-424); Red Blood Count 4.96 M/mm3 (4.60-6.20); Red Cell Distribution Width 13.4 % (11.5-17.5); White Blood Count 9.9 K/mm3 (4.8-10.8)
[2023-09-25 11:18] LABS: Alanine Aminotransferase 33 U/L (12-78); Anion Gap 13.8 mEq/L (5-15); Aspartate Amino Transferase 31 U/L (17-59); Bilirubin,Total 0.9 mg/dl (0.2-1.3); Blood Urea Nitrogen 15 mg/dl (9-20); Calcium 9.8 mg/dl (8.4-10.2); Carbon Dioxide 30 mmol/L (22.0-30.0); Chloride 100 mmol/L (98-107); Creatinine Clearance Estimated 160 mL/min (50-200); Estimated Glomerular Filt Rate 89 ml/min (>60); GFR (African American) 108 ML/MIN (>60); Glucose 270 mg/dl (74-100); Potassium 3.8 mmoL/L (3.5-5.1); Sodium 140 mmol/L (136-145); Total Protein,Serum 8.7 g/dl (6.3-8.2)
[2023-09-25 11:19] LABS: Albumin Level 4.5 g/dl (3.5-5.0); Albumin/Globulin Ratio 1.1 (1.1-1.8); Alkaline Phosphatase 81 U/L (38-126); Globulin 4.2 g/dL (1.3-3.2); Lipase 164 U/L (23-300)
[2023-09-25] MEDS: LIDOCAINE 5% TRANSDERMAL PATCH 1 EACH TP (11:25)
[2023-09-25] MEDS: ACETAMINOPHEN 1,000MG/100ML VIAL 1000 MG IV (11:25)
[2023-09-25] MEDS: LACTATED RINGERS 1000ML 1,000 ML 999 ML IV (11:25)
[2023-09-25] MEDS: KETOROLAC 30MG/ML VIAL 30 MG IV (11:25)
--- NOTE | 2023-09-25 11:33 | PC.NURSE ---
PT TO CT
[2023-09-25] MEDS: SODIUM CHLORIDE 0.9% 10ML SYR (RAD ONLY) 10 ML IV (11:48)
[2023-09-25] MEDS: IOPAMIDOL-370 (76%);100ML BOTTLE 75 ML IV (11:48)
--- NOTE | 2023-09-25 11:49 | PC.NURSE ---
provided pt with a warm blanket.
[2023-09-25 12:11] VITALS: BP 116/61; PULSE 79; O2SAT 98
[2023-09-25 12:17] VITALS: BP 134/63; PULSE 78; RESP 18; O2SAT 97
--- NOTE | 2023-09-25 12:24 | PC.NURSE ---
pt resting in bed. call light within reach. updated on plan of care. no questions or concerns voiced.
[2023-09-25 13:00] VITALS: BP 130/62; PULSE 80; O2SAT 97
[2023-09-25] MEDS: PIPERACILLIN/TAZO 3.375 GM in 0.9 % SODIUM CHLORIDE 50 ML IV (13:19)
[2023-09-25] MEDS: HYDROMORPHONE 2MG/ML SYRINGE 1 MG IV (13:19)
--- NOTE | 2023-09-25 13:32 | PC.NURSE ---
Paged control technician Urologist with [facility] for consult; awaiting a call back
[2023-09-25 13:50] LABS: Microscopic, Urine URINE MICROSCOPIC (MICROSCOPIC)
--- NOTE | 2023-09-25 14:03 | PC.NURSE ---
Called Rochelle for an update on Urology call back, Denise reports it should not be much longer as she has spoken with the urology office herself already.
[2023-09-25 14:04] LABS: Appearance,Urine CLEAR (Clear); Bilirubin,Urine Negative (Negative); Blood, Urine TRACE-I (Negative); Color,Urine YELLOW (Yellow); Glucose,Urine (UA) 3+ (Negative); Ketones,Urine Negative (Negative); Leukocyte Esterase,Urine Negative (Negative); Nitrate,Urine Negative (Negative); Protein,Urine TRACE (Negative); Specific Gravity, Urine 1.025 (1.005-1.030)
--- NOTE | 2023-09-25 14:13 | PC.NURSE ---
DR EWING AT BEDSIDE TO UPDATE PT
--- NOTE | 2023-09-25 14:14 | PC.NURSE ---
[facility]
[2023-09-25 14:29] LABS: Bacteria,Urine Trace /lpf; Squamous Epithelial Cell,Urine Occasional #/hpf (0-5)
--- NOTE | 2023-09-25 14:47 | PC.NURSE ---
report called to Constance @ [facility]. pt will be going to [phone]
[2023-09-25 14:53] VITALS: BP 123/71; PULSE 80; RESP 18; O2SAT 98
--- NOTE | 2023-09-25 15:10 | PC.NURSE ---
PT REQUESTS [facility]NADRYL FOR ITCHING, DR EWING NOTIFIED. ORDERS RECEIVED
[2023-09-25] MEDS: diphenhydrAMINE 50MG/ML VIAL 25 MG IV (15:15)
[2023-09-25 17:00] VITALS: BP 138/71; PULSE 80; RESP 18; TEMP 36.7; O2SAT 99
--- NOTE | 2023-09-25 20:30 | PC.NURSE ---
[facility] called for last dose of Zosyn.
== END 2023-09-25 17:00 | disposition short-term general hospital (02) ==
PROVIDERS: Emergency Provider Emergency Medicine; PCP Nurse Practitioner Family
DX: N41.2 Abscess of prostate (principal); N42.89 Other specified disorders of prostate; R33.9 Retention of urine, unspecified; E11.65 Type 2 diabetes mellitus with hyperglycemia; I10 Essential (primary) hypertension; F17.290 Nicotine dependence, other tobacco product, uncomplicated; Z79.85 Long-term (current) use of injectable non-insulin antidiabetic drugs
CPT/HCPCS: 51702; 74177; 80053; 81001; 83690; 85025; 96361; 96365; 96375; 99285; J0131; J1170; J1885; J2543; J7120; Q9967

== ENCOUNTER 2023-11-20 15:15 | Outpatient (CLI) | payer MEDICARE, SELFPAY ==
[2023-11-20 13:20] LABS: Microscopic, Urine URINE MICROSCOPIC (MICROSCOPIC)
[2023-11-20 13:59] LABS: Basophils % 0.4 % (0.1-2.0); Eosinophils # 0.3 K/mm3 (0.0-0.4); Eosinophils % 3.9 % (0.1-12.0); Hematocrit 45.8 % (42.0-52.0); Hemoglobin 14.8 g/dL (14.1-18.0); Lymphocytes # 2.2 K/mm3 (0.7-4.5); Lymphocytes % 27.9 % (10-50); Mean Corpuscular HGB Conc 32.3 g/dL (31.8-35.4); Mean Corpuscular Hemoglobin 31.6 pg (27.0-31.2); Mean Corpuscular Volume 97.7 fl (80-94); Mean Platelet Volume 8.4 fl (7.4-10.4); Monocytes # 0.4 K/mm3 (0.1-1.0); Monocytes % 5.4 % (1.7-9.3); Neutrophils # 4.9 K/mm3 (1.8-7.8); Neutrophils % 62.3 % (37.0-80.0); Platelet Count 313 K/mm3 (142-424); Red Blood Count 4.68 M/mm3 (4.60-6.20); Red Cell Distribution Width 14.8 % (11.5-17.5); White Blood Count 7.8 K/mm3 (4.8-10.8)
[2023-11-20 14:15] LABS: Alanine Aminotransferase 33 U/L (12-78); Albumin Level 4.2 g/dl (3.5-5.0); Albumin/Globulin Ratio 1.2 (1.1-1.8); Alkaline Phosphatase 73 U/L (38-126); Anion Gap 14.6 mEq/L (5-15); Aspartate Amino Transferase 31 U/L (17-59); Bilirubin,Total 0.6 mg/dl (0.2-1.3); Blood Urea Nitrogen 18 mg/dl (9-20); Calcium 9.7 mg/dl (8.4-10.2); Carbon Dioxide 26 mmol/L (22.0-30.0); Chloride 100 mmol/L (98-107); Chol/HDL Ratio 4.4 (1-3.5); Cholesterol 192 mg/dl (140-200); Estimated Glomerular Filt Rate 119 ml/min (>60); GFR (African American) 144 ML/MIN (>60); Globulin 3.5 g/dL (1.3-3.2); Glucose 280 mg/dl (74-100); HDL Cholesterol 44 mg/dl (40-60); Potassium 4.6 mmoL/L (3.5-5.1); Sodium 136 mmol/L (136-145); Total Protein,Serum 7.7 g/dl (6.3-8.2); Triglycerides 97 mg/dl (30-150); VLDL Cholesterol 19 mg/dL (0-40)
[2023-11-20 14:27] LABS: Direct LDL Cholesterol 116.35 mg/dL (100-129)
[2023-11-20 14:31] LABS: 25-OH Vitamin D, Total 24.6 ng/mL (30-100)
[2023-11-20 14:31] LABS: Appearance,Urine CLEAR (Clear); Bilirubin,Urine Negative (Negative); Blood, Urine 1+ (Negative); Color,Urine YELLOW (Yellow); Glucose,Urine (UA) 3+ (Negative); Ketones,Urine Negative (Negative); Leukocyte Esterase,Urine Negative (Negative); Nitrate,Urine Negative (Negative); Protein,Urine Negative (Negative); Urobilinogen,Urine 0.2 EU/dl (0.2)
[2023-11-20 15:20] LABS: Bacteria,Urine 1+ /lpf
[2023-11-20 15:21] LABS: RBC,Urine 20-50 #/hpf (0-3); WBC,Urine TNTC #/hpf (0-3); Yeast,Urine Occasional /lpf
[2023-11-21 03:22] LABS: Hemoglobin A1C 8.9 % (4.0-6.0)
== END 2023-11-20 23:59 | disposition home or self-care (01) ==
LOC: LAB.DROPOF 15:16
PROVIDERS: PCP Nurse Practitioner Family; Visit Provider Nurse Practitioner Family
DX: E11.69 Type 2 diabetes mellitus with other specified complication (principal); E11.9 Type 2 diabetes mellitus without complications; R39.198 Other difficulties with micturition; N39.43 Post-void dribbling; I10 Essential (primary) hypertension; R53.83 Other fatigue; E55.9 Vitamin D deficiency, unspecified; Z79.4 Long term (current) use of insulin; Z72.0 Tobacco use
CPT/HCPCS: 80053; 80061; 81001; 82306; 83036; 85025; 87086

== ENCOUNTER 2024-02-23 13:59 | Outpatient (CLI) | payer MEDICARE, SELFPAY ==
[2024-02-23 13:31] LABS: Anion Gap 15.1 mEq/L (5-15); Blood Urea Nitrogen 17 mg/dl (9-20); Calcium 9.5 mg/dl (8.4-10.2); Carbon Dioxide 27 mmol/L (22.0-30.0); Chloride 102 mmol/L (98-107); Estimated Glomerular Filt Rate 119 ml/min (>60); GFR (African American) 144 ML/MIN (>60); Glucose 199 mg/dl (74-100); Potassium 4.1 mmoL/L (3.5-5.1); Sodium 140 mmol/L (136-145)
[2024-02-23 14:01] LABS: Hemoglobin A1C 8.3 % (4.0-6.0)
== END 2024-02-23 23:59 | disposition home or self-care (01) ==
LOC: LAB.DROPOF 14:00
PROVIDERS: PCP Nurse Practitioner Family; Visit Provider Nurse Practitioner Family
DX: E11.69 Type 2 diabetes mellitus with other specified complication (principal); I10 Essential (primary) hypertension; R39.9 Unspecified symptoms and signs involving the genitourinary system
CPT/HCPCS: 80048; 83036

== ENCOUNTER 2024-08-01 18:59 | Emergency (ER) | payer MEDICARE, MEDICAID, SELFPAY ==
[2024-08-01 18:52] VITALS: BP 180/82; PULSE 100; RESP 18; TEMP 36.6; O2SAT 100; BMI 34.5
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
--- NOTE | 2024-08-01 19:22 | PC.NURSE ---
Addendum entered by Debi Ramos RN 08/01/24 19:23: correction AOx4, Original Note: provider at the bedside at this time. Pt aox3, nad noted, RR even and non labored, skin pwd.
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
[2024-08-01 21:30] VITALS: BP 134/87; PULSE 80; RESP 18; TEMP 36.4; O2SAT 99
== END 2024-08-01 21:31 | disposition home or self-care (01) ==
PROVIDERS: Emergency Provider Emergency Medicine; PCP Nurse Practitioner Family
DX: M25.551 Pain in right hip (principal); M87.051 Idiopathic aseptic necrosis of right femur; W19.XXXA Unspecified fall, initial encounter; Y04.8XXA Assault by other bodily force, initial encounter
CPT/HCPCS: 72192; 99284

== ENCOUNTER 2024-09-16 11:16 | Outpatient (CLI) | payer MEDICARE, MEDICAID, SELFPAY ==
[2024-09-16 14:25] LABS: Microscopic, Urine URINE MICROSCOPIC (MICROSCOPIC)
[2024-09-16 14:56] LABS: Basophils % 0.5 % (0.1-2.0); Eosinophils # 0.4 Kmm3 (0.0-0.4); Eosinophils % 4.9 % (0.1-12.0); Hematocrit 43.8 % (42.0-52.0); Hemoglobin 15.1 g/dL (14.1-18.0); Immature Granulocytes # 0.03 10^3uL; Immature Granulocytes % 0.4 %; Lymphocytes # 1.5 K/mm3 (0.7-4.5); Lymphocytes % 21.1 % (10-50); Mean Corpuscular HGB Conc 34.5 g/dL (31.8-35.4); Mean Corpuscular Hemoglobin 31.1 pg (27.0-31.2); Mean Corpuscular Volume 90.1 fl (80-94); Mean Platelet Volume 10.3 fl (7.4-10.4); Monocytes # 0.5 K/mm3 (0.1-1.0); Monocytes % 7.1 % (1.7-9.3); Neutrophils # 4.8 K/mm3 (1.8-7.8); Nucleated Red Blood Cells # 0 10^3/uL; Nucleated Red Blood Cells % 0 %; Platelet Count 281 K/mm3 (142-424); Red Blood Count 4.86 M/mm3 (4.60-6.20); Red Cell Distribution Width 11.5 % (11.5-17.5); Red Cell Distribution Width-SD 37.7 fL; White Blood Count 7.3 K/mm3 (4.8-10.8)
[2024-09-16 15:11] LABS: Hemoglobin A1C 6.5 % (4.0-6.0)
[2024-09-16 15:15] LABS: Alanine Aminotransferase 30 U/L (12-78); Albumin Level 4.5 g/dl (3.5-5.0); Albumin/Globulin Ratio 1.4 (1.1-1.8); Alkaline Phosphatase 68 U/L (38-126); Aspartate Amino Transferase 33 U/L (17-59); Bilirubin,Total 0.5 mg/dl (0.2-1.3); Blood Urea Nitrogen 22 mg/dl (9-20); Calcium 9.5 mg/dl (8.4-10.2); Carbon Dioxide 28 mmol/L (22.0-30.0); Chloride 102 mmol/L (98-107); Chol/HDL Ratio 4.8 (1-3.5); Cholesterol 192 mg/dl (140-200); Estimated Glomerular Filt Rate 102 ml/min (>60); GFR (African American) 123 ML/MIN (>60); Globulin 3.3 g/dL (1.3-3.2); Glucose 208 mg/dl (74-100); HDL Cholesterol 40 mg/dl (40-60); Sodium 136 mmol/L (136-145); Total Protein,Serum 7.8 g/dl (6.3-8.2); Triglycerides 63 mg/dl (30-150); VLDL Cholesterol 13 mg/dL (0-40)
[2024-09-16 15:21] LABS: Microalbumin/Creatinine Ratio 92.6
[2024-09-16 15:23] LABS: Creatinine,Urine Random 165 mg/dL (Not Estab.)
[2024-09-16 15:43] LABS: Appearance,Urine CLEAR (Clear); Bilirubin,Urine Negative (Negative); Blood, Urine Negative (Negative); Color,Urine YELLOW (Yellow); Glucose,Urine (UA) 2+ (Negative); Ketones,Urine Negative (Negative); Leukocyte Esterase,Urine Negative (Negative); Nitrate,Urine Negative (Negative); Protein,Urine 1+ (Negative); Specific Gravity, Urine 1.025 (1.005-1.030); Urobilinogen,Urine 0.2 EU/dl (0.2)
[2024-09-16 16:58] LABS: Free T4 (Free Thyroxine) 1.19 ng/dl (0.78-2.19)
--- OUTSIDE RECORDS SUMMARY | 2024-09-20 11:20 | XMS_ITS | Data Portability ---
Author Organization [facility] & DIYA Shankar ADMIN Address [address] [place] [id number] Assessment No assessment recorded. Plan of Treatment Reminders Order Date Submit Date Provider Last Modified By Organization Details Last Modified Time Details Appointments None recorded. Lab C-reactive protein, quantitativ e, serum or plasma 2022 023 ariana [facility], [address], [address], [place], [address], 3 13:55:24 ESR (erythrocyt e sedimentati on rate), blood 2022 023 JEFE [facility], [address], [address], [place], [address], 3 17:09:33 C-reactive protein, quantitativ e, serum or plasma 2022 023 [email or web address], [address], [address], [place], [address], 3 06:11:05 ESR (erythrocyt e sedimentati on rate), blood 2022 023 JEFE [facility], [address], [address], [place], [address], 3 19:11:11 ESR (erythrocyt e sedimentati on rate), blood 2022 023 JEFE [facility], [address], [address], [place], [address], 3 15:09:43 C-reactive protein, quantitativ e, serum or plasma 2022 023 [email or web address] [facility], [address], [address], [place], [address], 3 07:32:31 CBC 2022 023 JEFE [facility], [address], [address], [place], [address], 3 15:09:42 CMP, serum or plasma 2022 023 JEFE [facility], [address], [address], [place], [address], 3 15:09:41 C-reactive protein, quantitativ e, serum or plasma 2022 023 [email or web address] [facility], [address], [address], [place], [address], 3 06:34:00 CBC 2022 023 JEFE [facility], [address], [address], [place], [address], 3 13:08:36 CMP, serum or plasma 2022 023 JEFE [facility], [address], [address], [place], [address], 3 13:08:35 ESR (erythrocyt e sedimentati on rate), blood 2022 023 JEFE [facility], [address], [address], [place], [address], 3 13:08:37 Referral None recorded. Procedures None recorded. Surgeries None recorded. Imaging None recorded. Medication Orders clotrimazol e 1 % topical cream 2022 023 [id number], [address], [id number], 3 09:48:58 levofloxaci n 750 mg tablet 2022 023 [facility] #[id number], [address], [id number], 3 08:57:24 Patient TargetsNo targets recorded. Patient InstructionsNo instructions recorded. Reason for Referral None Reported. Results Created Date Observation Date Name Description Value Unit Range Abnormal Flag Note LastModifiedBy Organization Detail LastModifiedTime 11/15/1911/15/2022 COMP. METAB OLIC PANEL (14) glucose 377 mg/dL 70-99 above high normal Not Available [facility] ([facility]) [address] [place], [address], 11/15/2022 13:11:08 11/15/19 23 11/15/2022 COMP. METAB OLIC PANEL (14) BUN 15 mg/dL 6-24 Not Available [facility] ([facility]) [address] [place], [address], 11/15/2022 13:11:08 11/15/19 23 11/15/2022 COMP. METAB OLIC PANEL (14) creatinine 0.87 mg/dL 0.76-1 .27 Not Available [facility] ([facility]) [address] [place], [address], 11/15/2022 13:11:08 11/15/19 23 11/15/2022 COMP. METAB OLIC PANEL (14) eGFR 105 mL/mi n/1.7 3 >59 Not Available [facility] ([facility]) [address] [place], [address], 11/15/2022 13:11:08 11/15/19 23 11/15/2022 COMP. METAB OLIC PANEL (14) BUN/creatini ne ratio 17 9-20 Not Available [facility] ([facility]) [address] [facility], [place], [address], 11/15/2022 13:11:08 11/15/19 23 11/15/2022 COMP. METAB OLIC PANEL (14) sodium 134 mmol/ L 134-14 4 Not Available [facility] ([facility]) [address] [facility], [place], [address], 11/15/2022 13:11:08 11/15/19 23 11/15/2022 COMP. METAB OLIC PANEL (14) potassium 4.4 mmol/ L 3.5-5. 2 Not Available [facility] ([facility]) [address] [facility], [place], [address], 11/15/2022 13:11:08 11/15/19 23 11/15/2022 COMP. METAB OLIC PANEL (14) chloride 97 mmol/ L 96-106 Not Available [facility] ([facility]) [address] [place], [address], 11/15/2022 13:11:08 11/15/19 23 11/15/2022 COMP. METAB OLIC PANEL (14) carbon dioxide, total 20 mmol/ L 20-29 Not Available [facility] ([facility]) [address] [place], [address], 11/15/2022 13:11:08 11/15/19 23 11/15/2022 COMP. METAB OLIC PANEL (14) calcium 9.7 mg/dL 8.7-10 .2 Not Available [facility] ([facility]) [address] [place], [address], 11/15/2022 13:11:08 11/15/19 23 11/15/2022 COMP. METAB OLIC PANEL (14) protein, total 8.0 g/dL 6.0-8. 5 Not Available [facility] ([facility]) [address] [place], [address], 11/15/2022 13:11:08 11/15/19 23 11/15/2022 COMP. METAB OLIC PANEL (14) albumin 4.5 g/dL 4.1-5. 1 Not Available [facility] ([facility]) [address], [place], [address], 11/15/2022 13:11:08 11/15/19 23 11/15/2022 COMP. METAB OLIC PANEL (14) globulin, total 3.5 g/dL 1.5-4. 5 Not Available [facility] ([facility]) [address], [place], [address], 11/15/2022 13:11:08 11/15/19 23 11/15/2022 COMP. METAB OLIC PANEL (14) A/G ratio 1.3 1.2-2. 2 Not Available [facility] ([facility]) [address] [place], [address], 11/15/2022 13:11:08 11/15/19 23 11/15/2022 COMP. METAB OLIC PANEL (14) bilirubin, total 0.3 mg/dL 0.0-1. 2 Not Available [facility] ([facility]) [address] [facility] [place], [address], 11/15/2022 13:11:08 11/15/19 23 11/15/2022 COMP. METAB OLIC PANEL (14) alkaline phosphatase 85 IU/L 44-121 Not Available [facility] [address] [place], [address], 11/15/2022 13:11:08 11/15/19 23 11/15/2022 COMP. METAB OLIC PANEL (14) AST (SGOT) 29 IU/L 0-40 Not Available [facility] ([facility]) [address] [facility], [place], [address], 11/15/2022 13:11:08 11/15/19 23 11/15/2022 COMP. METAB OLIC PANEL (14) ALT (SGPT) 35 IU/L 0-44 Not Available [facility] ([facility]) [address] [facility], [place], [address], 11/15/2022 13:11:08 11/15/19 23 11/15/2022 CBC, PLATE LET, NO DIFFE RENTI AL WBC 8.4 x10e3 /uL 3.4-10 .8 Not Available [facility] ([facility]) [address] [facility], [place], [address], 11/15/2022 13:11:09 11/15/19 23 11/15/2022 CBC, PLATE LET, NO DIFFE RENTI AL RBC 5.30 x10e6 /uL 4.14-5 .80 Not Available [facility] ([facility]) [address] [facility], [place], [address], 11/15/2022 13:11:09 11/15/19 23 11/15/2022 CBC, PLATE LET, NO DIFFE RENTI AL hemoglobin 15.6 g/dL 13.0-1 7.7 Not Available [facility] ([facility]) [address] [facility], [place], [address], 11/15/2022 13:11:09 11/15/19 23 11/15/2022 CBC, PLATE LET, NO DIFFE RENTI AL hematocrit 46.0 % 37.5-5 1.0 Not Available [facility] ([facility]) [address] [facility], [place], [address], 11/15/2022 13:11:09 11/15/19 23 11/15/2022 CBC, PLATE LET, NO DIFFE RENTI AL MCV 87 fL 79-97 Not Available [facility] ([facility]) [address] [facility], [place], [address], 11/15/2022 13:11:09 11/15/19 23 11/15/2022 CBC, PLATE LET, NO DIFFE RENTI AL MCH 29.4 pg 26.6-3 3.0 Not Available [facility] ([facility]) [address] [facility], [place], [address], 11/15/2022 13:11:09 11/15/19 23 11/15/2022 CBC, PLATE LET, NO DIFFE RENTI AL MCHC 33.9 g/dL 31.5-3 5.7 Not Available [facility] ([facility]) [address] [facility], [place], [address], 11/15/2022 13:11:09 11/15/19 23 11/15/2022 CBC, PLATE LET, NO DIFFE RENTI AL RDW 12.9 % 11.6-1 5.4 Not Available [facility] ([facility]) [address] [facility], [place], [address], 11/15/2022 13:11:09 11/15/19 23 11/15/2022 CBC, PLATE LET, NO DIFFE RENTI AL platelets 323 x10e3 /uL 150-45 0 Not Available [facility] ([facility]) [address] [facility], [place], [address], 11/15/2022 13:11:09 11/15/19 23 11/15/2022 CBC, PLATE LET, NO DIFFE RENTI AL NRBC EMPLOYMENT COORDINATOR Not Available [facility] ([facility]) [address] [facility], [place], [address], 11/15/2022 13:11:09 11/15/19 23 11/15/2022 SEDIM ENTAT ION RATE- WESTE RGREN sedimentatio n rate-westerg ellen 36 mm/HR 0-30 above high normal Not Available [facility] ([facility]) [address] [facility], [place], [address], 11/15/2022 13:11:10 11/15/19 23 11/15/2022 C-SYLVIE CTIVE PROTE IN, QUANT C-reactive protein, quant 3 mg/L 0-10 Not Available [facility] ([facility]) [address] [facility], [place], [address], 11/15/2022 13:11:11 11/23/19 23 11/23/2022 CMP14 +EGFR glucose 294 mg/dL 70-99 above high normal Not Available [facility] ([facility]) [address] [place], [address], 11/23/2022 10:11:08 11/23/19 23 11/23/2022 CMP14 +EGFR BUN 14 mg/dL 6-24 Not Available [facility] ([facility]) [address] [place], [address], 11/23/2022 10:11:08 11/23/19 23 11/23/2022 CMP14 +EGFR creatinine 0.81 mg/dL 0.76-1 .27 Not Available [facility] ([facility]) [address] [facility], [place], [address], 11/23/2022 10:11:08 11/23/19 23 11/23/2022 CMP14 +EGFR eGFR 107 mL/mi n/1.7 3 >59 Not Available [facility] ([facility]) [address] [facility], [place], [address], 11/23/2022 10:11:08 11/23/1911/23/2022 CMP14 +EGFR BUN/creatini ne ratio 17 9-20 Not Available [facility] ([facility]) [address] [place], [address], 11/23/2022 10:11:08 11/23/19 23 11/23/2022 CMP14 +EGFR sodium 136 mmol/ L 134-14 4 Not Available [facility] ([facility]) [address] [facility], [place], [address], 11/23/2022 10:11:08 11/23/19 23 11/23/2022 CMP14 +EGFR potassium 4.0 mmol/ L 3.5-5. 2 Not Available [facility] ([facility]) [address] [facility], [place], [address], 11/23/2022 10:11:08 11/23/19 23 11/23/2022 CMP14 +EGFR chloride 99 mmol/ L 96-106 Not Available [facility] ([facility]) [address] [facility] [place], [address], 11/23/2022 10:11:08 11/23/19 23 11/23/2022 CMP14 +EGFR carbon dioxide, total 22 mmol/ L 20-29 Not Available [facility] ([facility]) [address] [facility], [place], [address], 11/23/2022 10:11:08 11/23/19 23 11/23/2022 CMP14 +EGFR calcium 9.2 mg/dL 8.7-10 .2 Not Available [facility] ([facility]) [address] [facility], [place], [address], 11/23/2022 10:11:08 11/23/19 23 11/23/2022 CMP14 +EGFR protein, total 7.3 g/dL 6.0-8. 5 Not Available [facility] ([facility]) [address] [facility] [place], [address], 11/23/2022 10:11:08 11/23/19 23 11/23/2022 CMP14 +EGFR albumin 4.3 g/dL 4.1-5. 1 Not Available [facility] ([facility]) [address] [facility] [place], [address], 11/23/2022 10:11:08 11/23/19 23 11/23/2022 CMP14 +EGFR globulin, total 3.0 g/dL 1.5-4. 5 Not Available [facility] ([facility]) [address] [place], [address], 11/23/2022 10:11:08 11/23/19 23 11/23/2022 CMP14 +EGFR A/G ratio 1.4 1.2-2. 2 Not Available [facility] ([facility]) [address] [place], [address], 11/23/2022 10:11:08 11/23/1911/23/2022 CMP14 +EGFR bilirubin, total 0.7 mg/dL 0.0-1. 2 Not Available [facility] ([facility]) [address] [place], [address], 11/23/2022 10:11:08 11/23/19 23 11/23/2022 CMP14 +EGFR alkaline phosphatase 82 IU/L 44-121 Not Available [facility] ([facility] [address] [place], [address], 11/23/2022 10:11:08 11/23/19 23 11/23/2022 CMP14 +EGFR AST (SGOT) 24 IU/L 0-40 Not Available [facility] ([facility]) [address] [place], [address], 11/23/2022 10:11:08 11/23/1911/23/2022 CMP14 +EGFR ALT (SGPT) 27 IU/L 0-44 Not Available [facility] ([facility]) [address] [place], [address], 11/23/2022 10:11:08 11/23/1911/23/2022 CBC, PLATE LET, NO DIFFE RENTI AL WBC 7.6 x10e3 /uL 3.4-10 .8 Not Available [facility] ([facility] [address] [facility] [place], [address], 11/23/2022 10:11:09 11/23/1911/23/2022 CBC, PLATE LET, NO DIFFE RENTI AL RBC 4.91 x10e6 /uL 4.14-5 .80 Not Available [facility] ([facility]) [address] [facility], [place], [address], 11/23/2022 10:11:09 11/23/1911/23/2022 CBC, PLATE LET, NO DIFFE RENTI AL hemoglobin 14.5 g/dL 13.0-1 7.7 Not Available [facility] ([facility]) [address] [facility], [place], [address], 11/23/2022 10:11:09 11/23/1911/23/2022 CBC, PLATE LET, NO DIFFE RENTI AL hematocrit 43.1 % 37.5-5 1.0 Not Available [facility] ([facility]) [address] [facility], [place], [address], 11/23/2022 10:11:11/23/1911/23/2022 CBC, PLATE LET, NO DIFFE RENTI AL MCV 88 fL 79-97 Not Available [facility] ([facility]) [address] [facility], [place], [address], 11/23/2022 10:11:09 11/23/1911/23/2022 CBC, PLATE LET, NO DIFFE RENTI AL MCH 29.5 pg 26.6-3 3.0 Not Available [facility] ([facility]) [address] [place], [address], 11/23/2022 10:11:09 11/23/1911/23/2022 CBC, PLATE LET, NO DIFFE RENTI AL MCHC 33.6 g/dL 31.5-3 5.7 Not Available [facility] ([facility]) [address] [facility], [place], [address], 11/23/2022 10:11:09 11/23/19 23 11/23/2022 CBC, PLATE LET, NO DIFFE RENTI AL RDW 13.1 % 11.6-1 5.4 Not Available [facility] ([facility]) [address] [facility], [place], [address], 11/23/2022 10:11:09 11/23/19 23 11/23/2022 CBC, PLATE LET, NO DIFFE RENTI AL platelets 287 x10e3 /uL 150-45 0 Not Available [facility] ([facility]) [address] [facility], [place], [address], 11/23/2022 10:11:09 11/23/19 23 11/23/2022 CBC, PLATE LET, NO DIFFE RENTI AL NRBC EMPLOYMENT COORDINATOR Not Available [facility] ([facility]) [address] [facility], [place], [address], 11/23/2022 10:11:09 11/23/19 23 11/23/2022 SEDIM ENTAT ION RATE- WESTE RGREN sedimentatio n rate-westerg ellen 19 mm/HR 0-30 Not Available [facility] ([facility]) [address] [facility], [place], [address], 11/23/2022 10:11:10 11/23/19 23 11/23/2022 C-SYLVIE CTIVE PROTE IN, QUANT C-reactive protein, quant 3 mg/L 0-10 Not Available [facility] ([facility]) [address] [facility], [place], [address], 11/23/2022 10:11:11 12/07/19 23 12/07/2022 COMP. METAB OLIC PANEL (14) glucose 343 mg/dL 70-99 above high normal Not Available [facility] ([facility]) [address] [facility], [place], [address], 12/10/2022 13:08:35 12/07/19 23 12/07/2022 COMP. METAB OLIC PANEL (14) BUN 10 mg/dL 6-24 Not Available [facility] ([facility]) [address] [facility], [place], [address], 12/10/2022 13:08:35 12/07/19 23 12/07/2022 COMP. METAB OLIC PANEL (14) creatinine 0.84 mg/dL 0.76-1 .27 Not Available [facility] ([facility]) [address] [facility], [place], [address], 12/10/2022 13:08:35 12/07/19 23 12/07/2022 COMP. METAB OLIC PANEL (14) eGFR 106 mL/mi n/1.7 3 >59 Not Available [facility] ([facility]) [address] [facility], [place], [address], 12/10/2022 13:08:35 12/07/19 23 12/07/2022 COMP. METAB OLIC PANEL (14) BUN/creatini ne ratio 12 9-20 Not Available [facility] ([facility]) [address] [facility], [place], [address], 12/10/2022 13:08:35 12/07/19 23 12/07/2022 COMP. METAB OLIC PANEL (14) sodium 135 mmol/ L 134-14 4 Not Available [facility] ([facility]) [address] [facility], [place], [address], 12/10/2022 13:08:35 12/07/19 23 12/07/2022 COMP. METAB OLIC PANEL (14) potassium 4.3 mmol/ L 3.5-5. 2 Not Available [facility] ([facility]) [address] [facility], [place], [address], 12/10/2022 13:08:35 12/07/19 23 12/07/2022 COMP. METAB OLIC PANEL (14) chloride 98 mmol/ L 96-106 Not Available [facility] ([facility]) [address] [facility] [place], [address], 12/10/2022 13:08:35 12/07/19 23 12/07/2022 COMP. METAB OLIC PANEL (14) carbon dioxide, total 25 mmol/ L 20-29 Not Available [facility] ([facility]) [address], [place], [address], 12/10/2022 13:08:35 12/07/19 23 12/07/2022 COMP. METAB OLIC PANEL (14) calcium 9.6 mg/dL 8.7-10 .2 Not Available [facility] ([facility]) [address], [place], [address], 12/10/2022 13:08:35 12/07/19 23 12/07/2022 COMP. METAB OLIC PANEL (14) protein, total 7.2 g/dL 6.0-8. 5 Not Available [facility] ([facility]) [address] [facility] [place], [address], 12/10/2022 13:08:35 12/07/19 23 12/07/2022 COMP. METAB OLIC PANEL (14) albumin 4.4 g/dL 4.1-5. 1 Not Available [facility] ([facility]) [address] [facility] [place], [address], 12/10/2022 13:08:35 12/07/19 23 12/07/2022 COMP. METAB OLIC PANEL (14) globulin, total 2.8 g/dL 1.5-4. 5 Not Available [facility] ([facility]) [address] [facility] [place], [address], 12/10/2022 13:08:35 12/07/19 23 12/07/2022 COMP. METAB OLIC PANEL (14) A/G ratio 1.6 1.2-2. 2 Not Available [facility] ([facility]) [address] [facility], [place], [address], 12/10/2022 13:08:35 12/07/19 23 12/07/2022 COMP. METAB OLIC PANEL (14) bilirubin, total 0.4 mg/dL 0.0-1. 2 Not Available [facility] ([facility]) [address] [facility], [place], [address], 12/10/2022 13:08:35 12/07/19 23 12/07/2022 COMP. METAB OLIC PANEL (14) alkaline phosphatase 81 IU/L 44-121 Not Available [facility] ([facility] [address] [facility] [place], [address], 12/10/2022 13:08:35 12/07/19 23 12/07/2022 COMP. METAB OLIC PANEL (14) AST (SGOT) 27 IU/L 0-40 Not Available [facility] ([facility]) [address] [facility], [place], [address], 12/10/2022 13:08:35 12/07/19 23 12/07/2022 COMP. METAB OLIC PANEL (14) ALT (SGPT) 32 IU/L 0-44 Not Available [facility] ([facility]) [address] [facility], [place], [address], 12/10/2022 13:08:35 12/07/19 23 12/07/2022 CBC, NO DIFFE RENTI AL/PL ATELE T WBC 6.8 x10e3 /uL 3.4-10 .8 Not Available [facility] ([facility]) [address] [place], [address], 12/10/2022 13:08:36 12/07/19 23 12/07/2022 CBC, NO DIFFE RENTI AL/PL ATELE T RBC 4.82 x10e6 /uL 4.14-5 .80 Not Available [facility] ([facility]) [address] [facility], [place], [address], 12/10/2022 13:08:36 12/07/19 23 12/07/2022 CBC, NO DIFFE RENTI AL/PL ATELE T hemoglobin 14.5 g/dL 13.0-1 7.7 Not Available [facility] ([facility]) [address] [facility], [place], [address], 12/10/2022 13:08:36 12/07/19 23 12/07/2022 CBC, NO DIFFE RENTI AL/PL ATELE T hematocrit 43.0 % 37.5-5 1.0 Not Available [facility] ([facility]) [address] [facility], [place], [address], 12/10/2022 13:08:36 12/07/19 23 12/07/2022 CBC, NO DIFFE RENTI AL/PL ATELE T MCV 89 fL 79-97 Not Available [facility] ([facility]) [address] [facility], [place], [address], 12/10/2022 13:08:36 12/07/19 23 12/07/2022 CBC, NO DIFFE RENTI AL/PL ATELE T MCH 30.1 pg 26.6-3 3.0 Not Available [facility] ([facility]) [address] [facility], [place], [address], 12/10/2022 13:08:36 12/07/19 23 12/07/2022 CBC, NO DIFFE RENTI AL/PL ATELE T MCHC 33.7 g/dL 31.5-3 5.7 Not Available [facility] ([facility]) [address] [facility], [place], [address], 12/10/2022 13:08:36 12/07/19 23 12/07/2022 CBC, NO DIFFE RENTI AL/PL ATELE T RDW 13.4 % 11.6-1 5.4 Not Available [facility] ([facility]) [address] [facility], [place], [address], 12/10/2022 13:08:36 12/07/19 23 12/07/2022 CBC, NO DIFFE RENTI AL/PL ATELE T NRBC EMPLOYMENT COORDINATOR Not Available [facility] ([facility]) [address] [facility], [place], [address], 12/10/2022 13:08:36 12/07/19 23 12/07/2022 SEDIM ENTAT ION RATE- WESTE RGREN sedimentatio n rate-westerg ellen 19 mm/HR 0-30 Not Available [facility] ([facility]) [address] [facility], [place], [address], 12/10/2022 13:08:37 12/07/19 23 12/07/2022 C-SYLVIE CTIVE PROTE IN, QUANT C-reactive protein, quant 4 mg/L 0-10 Not Available [facility] ([facility]) [address] [facility], [place], [address], 12/10/2022 13:08:38 12/20/19 23 12/20/2022 CMP14 +EGFR glucose 410 mg/dL 70-99 above high normal Not Available [facility] ([facility]) [address] [facility], [place], [address], 12/20/2022 15:09:41 12/20/19 23 12/20/2022 CMP14 +EGFR BUN 12 mg/dL 6-24 Not Available [facility] ([facility]) [address] [facility] [place], [address], 12/20/2022 15:09:41 12/20/1912/20/2022 CMP14 +EGFR creatinine 0.84 mg/dL 0.76-1 .27 Not Available [facility] ([facility]) [address] [facility] [place], [address], 12/20/2022 15:09:41 12/20/19 23 12/20/2022 CMP14 +EGFR eGFR 106 mL/mi n/1.7 3 >59 Not Available [facility] ([facility]) [address] [facility], [place], [address], 12/20/2022 15:09:41 12/20/19 23 12/20/2022 CMP14 +EGFR BUN/creatini ne ratio 14 9-20 Not Available [facility] ([facility]) [address] [facility], [place], [address], 12/20/2022 15:09:41 12/20/19 23 12/20/2022 CMP14 +EGFR sodium 134 mmol/ L 134-14 4 Not Available [facility] ([facility]) [address] [facility], [place], [address], 12/20/2022 15:09:41 12/20/19 23 12/20/2022 CMP14 +EGFR potassium 4.3 mmol/ L 3.5-5. 2 Not Available [facility] ([facility]) [address] [facility], [place], [address], 12/20/2022 15:09:41 12/20/19 23 12/20/2022 CMP14 +EGFR chloride 97 mmol/ L 96-106 Not Available [facility] ([facility]) [address] [place], [address], 12/20/2022 15:09:41 12/20/19 23 12/20/2022 CMP14 +EGFR carbon dioxide, total 24 mmol/ L 20-29 Not Available [facility] ([facility]) [address] [place], [address], 12/20/2022 15:09:41 12/20/19 23 12/20/2022 CMP14 +EGFR calcium 9.3 mg/dL 8.7-10 .2 Not Available [facility] ([facility]) [address] [place], [address], 12/20/2022 15:09:41 12/20/19 23 12/20/2022 CMP14 +EGFR protein, total 7.1 g/dL 6.0-8. 5 Not Available [facility] ([facility]) [address] [facility], [place], [address], 12/20/2022 15:09:41 12/20/19 23 12/20/2022 CMP14 +EGFR albumin 4.2 g/dL 4.1-5. 1 Not Available [facility] ([facility]) [address] [facility] [address], [place], [address], 12/20/2022 15:09:41 12/20/19 23 12/20/2022 CMP14 +EGFR globulin, total 2.9 g/dL 1.5-4. 5 Not Available [facility] ([facility]) [address] [facility], [place], [address], 12/20/2022 15:09:41 12/20/19 23 12/20/2022 CMP14 +EGFR A/G ratio 1.4 1.2-2. 2 Not Available [facility] ([facility]) [address] [place], [address], 12/20/2022 15:09:41 12/20/19 23 12/20/2022 CMP14 +EGFR bilirubin, total 0.6 mg/dL 0.0-1. 2 Not Available [facility] ([facility] [facility] [address] [place], [address], 12/20/2022 15:09:41 12/20/19 23 12/20/2022 CMP14 +EGFR alkaline phosphatase 82 IU/L 44-121 Not Available [facility]) [address] [facility], [place], [address], 12/20/2022 15:09:41 12/20/19 23 12/20/2022 CMP14 +EGFR AST (SGOT) 35 IU/L 0-40 Not Available [facility] ([facility]) [address] [facility], [place], [address], 12/20/2022 15:09:41 12/20/1912/20/2022 CMP14 +EGFR ALT (SGPT) 34 IU/L 0-44 Not Available [facility] ([facility]) [address] [facility], [place], [address], 12/20/2022 15:09:41 12/20/19 23 12/20/2022 CBC, NO DIFFE RENTI AL/PL ATELE T WBC 6.6 x10e3 /uL 3.4-10 .8 Not Available [facility] ([facility]) [address] [facility], [place], [address], 12/20/2022 15:09:42 12/20/19 23 12/20/2022 CBC, NO DIFFE RENTI AL/PL ATELE T RBC 4.94 x10e6 /uL 4.14-5 .80 Not Available [facility] ([facility]) [address] [facility], [place], [address], 12/20/2022 15:09:42 12/20/19 23 12/20/2022 CBC, NO DIFFE RENTI AL/PL ATELE T hemoglobin 14.6 g/dL 13.0-1 7.7 Not Available [facility] ([facility]) [address] [place], [address], 12/20/2022 15:09:42 12/20/1912/20/2022 CBC, NO DIFFE RENTI AL/PL ATELE T hematocrit 44.9 % 37.5-5 1.0 Not Available [facility] ([facility]) [address] [facility], [place], [address], 12/20/2022 15:09:42 12/20/19 23 12/20/2022 CBC, NO DIFFE RENTI AL/PL ATELE T MCV 91 fL 79-97 Not Available [facility] ([facility]) [address] [facility], [place], [address], 12/20/2022 15:09:42 12/20/19 23 12/20/2022 CBC, NO DIFFE RENTI AL/PL ATELE T MCH 29.6 pg 26.6-3 3.0 Not Available [facility] ([facility]) [address] [facility], [place], [address], 12/20/2022 15:09:42 12/20/19 23 12/20/2022 CBC, NO DIFFE RENTI AL/PL ATELE T MCHC 32.5 g/dL 31.5-3 5.7 Not Available [facility] ([facility]) [address] [facility], [place], [address], 12/20/2022 15:09:42 12/20/19 23 12/20/2022 CBC, NO DIFFE RENTI AL/PL ATELE T RDW 13.1 % 11.6-1 5.4 Not Available [facility] ([facility]) [address] [facility] [place], [address], 12/20/2022 15:09:42 12/20/19 23 12/20/2022 CBC, NO DIFFE RENTI AL/PL ATELE T NRBC EMPLOYMENT COORDINATOR Not Available [facility] ([facility]) [address] [facility], [place], [address], 12/20/2022 15:09:42 12/20/19 23 12/20/2022 SEDIM ENTAT ION RATE- WESTE RGREN sedimentatio n rate-westerg ellen 14 mm/HR 0-30 Not Available [facility] ([facility]) [address] [facility] [place], [address], 12/20/2022 15:09:43 12/20/19 23 12/20/2022 C-SYLVIE CTIVE PROTE IN, QUANT C-reactive protein, quant 3 mg/L 0-10 Not Available [facility] ([facility]) [address] [facility], [place], [address], 12/20/2022 15:09:44 01/03/2001/03/2023 SEDIM ENTAT ION RATE- WESTE RGREN sedimentatio n rate-westerg ellen 3 mm/HR 0-30 Not Available [facility] ([facility]) [address] [facility], [place], [address], 01/03/2023 19:11:11 01/03/2001/04/2023 C-SYLVIE CTIVE PROTE IN, QUANT C-reactive protein, quant 3 mg/L 0-10 Not Available [facility] ([facility]) [address] [facility], [place], [address], 01/04/2023 06:27:58 01/03/2001/03/2023 GAYLE EN AUTHO RIZAT ION written authorizatio n Shashi Ashley en Autho rizat ion Recei leanne. Autho rizat ion recei leanne from PER ORIGI NAL ORDER 01-03 Logge d by Leonarda doyle Not Available [facility] ([facility]) [address] [facility], [place], [address], 01/04/2023 06:27:58 01/31/2001/31/2023 SEDIM ENTAT ION RATE- WESTE RGREN sedimentatio n rate-westerg ellen 15 mm/HR 0-30 Not Available [facility] ([facility]) [address] [facility], [place], [address], 01/31/2023 17:09:33 01/31/2002/01/2023 C-SYLVIE CTIVE PROTE IN, QUANT C-reactive protein, quant 5 mg/L 0-10 Not Available [facility] ([facility]) [address] [facility], [place], [address], 02/01/2023 06:16:27 01/31/2001/31/2023 WRITT EN AUTHO AUGIE RICH written authorizatio n Commen t Writt en Autho augie rich Recei leanne. Autho augie rich recei leanne from PER ORIGI NAL ORDER 01-31 Logge d by Leonarda doyle Not Available [facility] ([facility]) [address] [facility], [place], [address], 02/01/2023 06:16:28 Result Notes None recorded. Problems Name Problem SNOMED Code Status Onset Date Resolution Date Notes Provider Name and Address Organization Details Recorded Time Sleep apnea 72814679 Active 023 Susana Chancemmett Abebe null, NATHAN - [facility] - [place] [facility] [place] 3 08:47:36 Arthritis 5201939 Active 023 Susana Chancemmett Lomas null, NATHAN - [facility] - [place] [facility] [place] 3 08:48:27 Diabetes mellitus 11138460 Active 023 Susana Joyceett Abebe null, NATHAN - [facility] - [place] [facility] [place] 3 08:48:33 Anxiety 57860299 Active 023 Susana Chancemmett Abebe null, NATHAN - [facility] - [place] [facility] [place] 3 08:48:51 Swelling 35609229 Active 023 Susana Chancemmett Lomas null, NATHAN - [facility] - [place] [facility] [place] 3 08:49:00 Cough 85256666 Active 023 Susana Joyceett Abebe null, NATHAN - [facility] - [place] [facility] [place] 3 08:49:06 Nasal congestion 98581389 Active 023 Susana Chancemmett Abebe null, NATHAN - [facility] - [place] [facility] [place] 3 08:49:14 Heartburn 99766037 Active 023 Susana Chancemmett Lomas null, NATHAN - [facility] - [place] [facility] [place] 3 08:49:57 Diarrhea 82754771 Active 023 NATHAN Mason [facility] & [place] 3 08:51:05 Pain of joint 15934656 Active 023 NATHAN Mason [facility] & [place] 3 08:51:26 Depressive disorder 09917826 Active 023 NATHAN Mason [facility] & [place] 3 08:51:39 Kidney stone 45895371 Active 024 NATHAN Shipman [facility] & [place] 4 09:46:28 Problem Notes None recorded. Procedures Surgical History Date Name Laterality Status Provider Name and Address Organization Details Recorded Time Hernia Repair completed Johnathan KEANE [facility] & [place] 08/22/2023 09:47:53 Imaging Results None recorded. Procedure Notes None recorded. Medical Equipment None Reported. Allergies Allergen ID Allergen Name Allergen Category Reaction Reaction Severity Criticality Documentation Date Start Date Code Code System Note Provider Name and Address Organization Details Recorded Time 69319 acetamino phen / oxycodone medicatio n Not available Not available Not available 11/14/202213498 3 RxNorm NATHAN Viera [facility] & [place] 3 10:17:25 11652 acetamino phen / hydrocodo ne medicatio n Not available Not available Not available 11/14/202214853 2 RxNorm NATHAN Viera [facility] & [place] 3 10:17:34 91370 methadone medicatio n Not available Not available Not available 11/14/2022 6813 RxNorm NATHAN Viera [facility] & [place] 3 10:17:40 01012 morphine medicatio n Not available Not available Not available 11/14/2022 7052 RxNorm NATHAN Viera [facility] & [place] 3 10:17:50 Medications Name Sig Start Date Stop Date Status Note LastModified by Organization Details LastModified Time tetracyclin e 500 mg capsule TAKE 1 CAPSULE BY MOUTH EVERY 6 HOURS FOR 7 DAYS active Not Available Not Available No t Available doxycycline hyclate 100 mg capsule TAKE 1 CAPSULE BY MOUTH TWICE DAILY FOR 10 DAYS active Not Available Not Available No t Available triamcinolo ne acetonide 0.5 % topical cream APPLY 1 GRAM TOPICALLY TO THE AFFECTED AREA ONCE DAILY active Not Available Not Available No t Available ampicillin 500 mg capsule TAKE 1 CAPSULE BY MOUTH EVERY 12 HOURS FOR 7 DAYS active Not Available Not Available No t Available valacyclovi r 1 gram tablet TAKE 1 TABLET BY MOUTH EVERY 8 HOURS FOR 7 DAYS active Not Available Not Available No t Available prednisone 20 mg tablet TAKE 1 TABLET BY MOUTH TWICE DAILY WITH FOOD 06/11 completed Not Available Not Available Not Available metronidazo le 500 mg tablet TAKE 1 TABLET BY MOUTH EVERY 8 HOURS active Not Available Not Available No t Available clopidogrel 75 mg tablet TAKE 1 TABLET BY MOUTH DAILY active Not Available Not Available No t Available sulfamethox azole 800 mg-trimetho prim 160 mg tablet TAKE 1 TABLET BY MOUTH TWICE DAILY FOR 7 DAYS active Not Available Not Available No t Available doxycycline monohydrate 100 mg tablet TAKE 1 TABLET BY MOUTH EVERY 12 HOURS active Not Available Not Available No t Available meloxicam 7.5 mg tablet TAKE 1 TABLET BY MOUTH EVERY DAY NEEDED active Not Available Not Available No t Available benzonatate 100 mg capsule 06/11 completed Not Available Not Available Not Available cephalexin 500 mg capsule TAKE 1 CAPSULE BY MOUTH FOUR TIMES DAILY FOR 7 DAYS active Not Available Not Available No t Available oseltamivir 75 mg capsule TAKE 1 CAPSULE BY MOUTH TWICE DAILY FOR 5 DAYS 06/11 completed Not Available Not Available Not Available promethazin e 25 mg tablet TAKE 1 TABLET BY MOUTH THREE TIMES DAILY FOR 5 DAYS NEEDED FOR NAUSEA OR VOMITING active Not Available Not Available No t Available mupirocin 2 % topical ointment APPLY TOPICALLY TO THE AFFECTED AREA THREE TIMES DAILY FOR 10 DAYS DIRECTED 06/11 completed Not Available Not Available Not Available levofloxaci n 750 mg tablet TAKE 1 TABLET BY MOUTH DAILY FOR 10 DAYS active Not Available Not Available No t Available SSD 1 % topical cream APPLY 1 GRAM TOPICALLY TO THE AFFECTED AREA DAILY active Not Available Not Available No t Available ondansetron 4 mg disintegrat ing tablet DISSOLVE 1 TABLET ON THE TONGUE EVERY 8 HOURS NEEDED FOR NAUSEA OR VOMITING active Not Available Not Available No t Available clotrimazol e 1 % topical cream APPLY A LIBERAL AMOUNT TO THE BILATERAL FEET TWICE DAILY active Not Available Not Available No t Available Novolog FlexPen U-100 Insulin aspart 100 unit/mL (3 mL) subcutaneou s ADMINISTE R 10 UNITS UNDER THE SKIN THREE TIMES DAILY WITH MEALS active Not Available Not Available No t Available nitrofurant oin monohydrate /macrocryst als 100 mg capsule TAKE 1 CAPSULE BY MOUTH EVERY 12 HOURS WITH FOOD/MEAL FOR 7 DAYS active Not Available Not Available No t Available Levemir FlexPen 100 unit/mL (3 mL) solution subcutaneou s insulin pen ADMINISTE R 20 UNITS UNDER THE SKIN EVERY NIGHT AT BEDTIME active Not Available Not Available No t Available BD Ultra-Fine Original Pen Needle 29 gauge x 1/2 USE DIRECTED 4 TIMES A DAY active Not Available Not Available No t Available cholecalcif melodie (vitamin D3) 1,250 mcg (50,000 unit) capsule TAKE 1 CAPSULE BY MOUTH ONCE A WEEK ON SAME DAY EACH WEEK active Not Available Not Available No t Available insulin glargine (U-100) 100 unit/mL (3 mL) subcutaneou s pen active Not Available Not Available Not Available Omnipod Classic Pods (Gen 3) subcutaneou s cartridge USE DIRECTED active Not Available Not Available No t Available Ozempic 1 mg/dose (4 mg/3 mL) subcutaneou s pen injector ADMINISTE R 1 MG UNDER THE SKIN WEEKLY active Not Available Not Available No t Available Ozempic 2 mg/dose (8 mg/3 mL) subcutaneou s pen injector ADMINISTE R 2 MG UNDER THE SKIN WEEKLY active Not Available Not Available No t Available Ozempic 0.25 mg or 0.5 mg (2 mg/3 mL) subcutaneou s pen injector ADMINISTE R 0.5MG UNDER THE SKIN ONCE WEEKLY active Not Available Not Available No t Available Vitals Date Recorded Body height Body mass index (BMI) Body weight Body temperature Provider Name and Address Organization Details Last Updated DateTime 08/22/2023 187.96 cm 32.7 kg/m2 201720.05 g 98.1 [degF] Johnathan Nye [facility] 08/22/2023 10:03:58 Date Recorded Body height Oxygen saturation Oxygen saturation in Arterial blood by Pulse oximetry Heart rate Body temperature Body mass index (BMI) Body weight Systolic blood pressure Diastolic blood pressure Provider Name and Address Organization Details Last Updated DateTime 3 187.96 cm 98 % 98 % 76 /min 97.9 [degF] 37 kg/m2 912673. 6 g 128 mm[Hg] 74 mm[Hg] Lachelle EVANS [facility] & [place] 3 08:45:28 Date Recorded Body height Oxygen saturation Oxygen saturation in Arterial blood by Pulse oximetry Heart rate Body temperature Body mass index (BMI) Body weight Provider Name and Address Organization Details Last Updated DateTime 3 187.96 cm 98 % 98 % 76 /min 98.1 [degF] 36.1 kg/m2 205769. 46 g Lachelle Veronica [facility] & [place] 3 08:47:02 Date Recorded Body height Body mass index (BMI) Body weight Body temperature Heart rate Oxygen saturation Oxygen saturation in Arterial blood by Pulse oximetry Systolic blood pressure Diastolic blood pressure Provider Name and Address Organization Details Last Updated DateTime 3 187.96 cm 35.7 kg/m2 165129. 68 g 97.5 [degF] 74 /min 98 % 98 % 124 mm[Hg] 72 mm[Hg] Lachelle EVANS [facility] & [place] 3 10:25:19 Date Recorded Body height Heart rate Oxygen saturation Oxygen saturation in Arterial blood by Pulse oximetry Heart rate Body temperature Body mass index (BMI) Body weight Systolic blood pressure Diastolic blood pressure Provider Name and Address Organization Details Last Updated DateTime 3 187.96 cm 85 /min 98 % 98 % 85 /min 98.6 [degF] 35.6 kg/m2 056597. 09 g 148 mm[Hg] 80 mm[Hg] Maria Del Carmen EVANS [facility] & [place] 3 09:35:59 Social History Question Answer Notes LastModified by Organizat ion Details LastModified Time Tobacco Smoking Status Never Smoker Lachelle ovalle [facility] & [place] 11/14/2022 10:18:10 What Is Your Level Of Caffeine Consumption? Occasional [email or web address] Information not available 11/14/2022 Sex: Unknown Functional Status None recorded. Mental Status None recorded. Family History Relationship Description Onset Age of this Age Resolved Age Notes LastModified by Organization Details LastModified Time Mother No current problems or disability Not available 08/21 09:46:41 Brother No current problems or disability [email or web address] Not available 08/21 09:46:49 Sister No current problems or disability [email or web address] Not available 08/21 09:46:52 Father Myocardial infarction dec [email or web address] Not available 08/21 09:47:06 Medical History No medical history recorded. Past Encounters Encounter ID Performer Location Encounter Start Date Encounter Closed Date Diagnosis/Indication Diagnosis SNOMED-CT Code Diagnosis ICD10 Code Diagnosis Note [id number] River Ramires MD [facility] [address] [facility] [address] [place] [address] 06/11/2022 08:41:24 06/12/2022 09:30:01 [id number] Gideon Ash MD [facility] [address] [facility] [address] [place] [address] 11/14/2022 10:08:32 11/14/2022 10:45:56 Osteomyelitis of right foot 6108451000 915620 M86.9 Chronic osteomyeli tis of the right foot with predominan t pathogen being Proteus mirabilis. Concomitan t anaerobes are suspected as well. This is occurring in the context of diabetes mellitus. While the patient was in the hospital, he underwent a debridemen t of the right calcaneus. He is currently on levofloxac in 750 mg p.o. per day plus metronidaz ole 500 mg p.o. t.i.d. to treat the relevant pathogens. Overall, his infection appears to be controlled , though there is still a risk of amputation . He is tolerating the antibiotic s. I will check basic laboratory work and inflammato ry markers today. This will be to help monitor his infection and make sure there is no hepatic or renal aberration s related to the chronic antibiotic therapy. I will plan will be at least another 2-3 weeks of the above antibiotic therapy. I will re-evaluat e him again next week. Bacterial infection caused by Proteus mirabilis 23496050 A49.8 As above [id number] Gideon Ash MD [facility] [address] [place] [address] [facility] [place] [address] 11/22/2022 09:12:06 11/22/2022 10:00:47 Osteomyelitis of right foot 7666661975 369734 M86.9 Chronic osteomyeli tis of the right foot with predominan t pathogen being Proteus mirabilis. Concomitan t anaerobes are suspected as well. This is occurring in the context of diabetes mellitus. While the patient was in the hospital, he underwent a debridemen t of the right calcaneus. He is currently on levofloxac in 750 mg p.o. per day plus metronidaz ole 500 mg p.o. t.i.d. to treat the relevant pathogens x 2 weeks. Overall, based on his history and exam from today, I believe is infection is controlled . Inflammato ry markers corroborat e this.. He is tolerating the antibiotic therapy well. I will repeat his basic laboratory work and inflammato ry markers again today.. I will plan at least another 2 weeks of the 2 antibiotic s together. After that time, I will likely stop the metronidaz ole and continue the levofloxac in alone if additional antibiotic s are needed. This will be to prevent any cumulative neurotoxic ity with the metronidaz ole. He will follow up with me again in 2 weeks. He continues to follow with Podiatry. Bacterial infection caused by Proteus mirabilis 69593053 A49.8 As above [id number] Gideon Ash MD [facility] [address] [place] [address] [place] [address] 12/06/2022 08:06:16 12/06/2022 09:06:41 Osteomyelitis of right foot 5011056514 636949 M86.9 Chronic osteomyeli tis of the right foot with predominan t pathogen being Proteus mirabilis. Concomitan t anaerobes are suspected as well. This is occurring in the context of diabetes mellitus. While the patient was in the hospital, he underwent a debridemen t of the right calcaneus. He is currently on levofloxac in 750 mg p.o. per day plus metronidaz ole 500 mg p.o. t.i.d. to treat the relevant pathogens x 4 weeks. Overall, based on his history and clinical exam from today, I think his infection is very well controlled . Laboratory work corroborat es this, especially given that the ESR and CRP are now normal. At this time, I am going to stop the metronidaz ole to prevent any chemo have neurotoxic ity. He will continue another couple weeks of levofloxac in 750 mg p.o. per day. I am going to repeat his basic laboratory work and inflammato ry markers today. He will continue to follow with Podiatry. He will follow up with me again in 2 weeks. Bacterial infection caused by Proteus mirabilis 21246431 A49.8 As above [id number] Gideon Ash MD [facility] [address] [place] [address] 12/19/2022 08:39:35 12/19/2022 09:08:26 Osteomyelitis of right foot 6157420477 711380 M86.9 Chronic osteomyeli tis of the right foot with predominan t pathogen being Proteus mirabilis. Concomitan t anaerobes are suspected as well. This has aoccured in the context of diabetes mellitus. While the patient was in the hospital, he underwent a debridemen t of the right calcaneus. As of today, he has completed 6 weeks of oral high-dose levofloxac in and 4 weeks of metronidaz ole. Based on his exam from today and recent laboratory work, I think his infection is resolved. I am going to repeat his basic laboratory work and inflammato ry markers today. If the inflammato ry markers are normal, I will discontinu e any further antibiotic s and monitor him. He will follow up with me again in 2 weeks Bacterial infection caused by Proteus mirabilis 75375980 A49.8 As above [id number] Gideon Ash MD [facility] [address] [place] [address] 01/02/2023 09:58:49 01/02/2023 10:52:07 Osteomyelitis of right foot 9702002888 754841 M86.9 Chronic osteomyeli tis of the right foot with predominan t pathogen being Proteus mirabilis. Concomitan t anaerobes were suspected as well. This occurred in the context of diabetes mellitus. While the patient was in the hospital, he underwent a debridemen t of the right calcaneus and subsequent ly completed 6 weeks of oral high-dose levofloxac in for the Proteus mirabilis abd 4 weeks of metronidaz ole for anaerobes. At his last visit, based on his history, laboratory work, and physical exam, I felt all the infection was resolved. He is here for follow-up off antibiotic s. Based on his history and physical exam from today, I think his infection remains resolved. I am going to check his basic inflammato ry markers today. If these look normal, I will continue him off antibiotic s. He will follow up with me again in 1 month for surveillajanett ce. Bacterial infection caused by Proteus mirabilis 01234182 A49.8 As above [id number] Gideon Ash MD [facility] [address] [place] [address] 01/30/2023 09:09:56 01/30/2023 10:01:15 Osteomyelitis of right foot 0101545513 029036 M86.9 Chronic osteomyeli tis of the right foot with predominan t pathogen being Proteus mirabilis. Concomitan t anaerobes were suspected as well. This occurred in the context of diabetes mellitus. While the patient was in the hospital, he underwent a debridemen t of the right calcaneus and subsequent ly completed 6 weeks of oral high-dose levofloxac in for the Proteus mirabilis and 4 weeks of metronidaz ole for anaerobes. For the last several weeks he has been off all antibiotic s, as his infection is appear to be resolved. Based on his exam, I do not think there is any recurrent osteomyeli tis. I will repeat his inflammato ry markers today to be sure. No additional antibiotic s at this time. Continue to follow with Podiatry. Tinea pedis 5173559 B35. 3 This is severe and predominan tly involves the right foot. This appears to be moccasin foot. I am going to start with topical trochlea resolved. This may very well not work and he will need a course of terbinafin e. He will return to clinic to see me in 2 weeks. [id number] Brian Ralph Jr, MD [facility] [address] [address] 08/22/2023 09:18:57 08/22/2023 11:51:03 Acute retention of urine [id number] R33.8 patient with recent rectal pain and difficulty voiding. Patient seen at [facility] and Lo catheter placed. Patient is having lot of pain from the catheter and would like it removed today. 300 cc placed into the patient's bladder and the catheter removed. He was able to void 175 cc. Rectal pain 07569747 K62 .89 patient known to have some homosexual intercours e. Recent CT scan consistent with prostatic abscess. Physical examinatio n consistent with prostatic abscess. Recommende d trans urethral unroofing of prostatic abscess. Patient currently on antibiotic s and to continue. We discussed the operative procedure and overnight stay. Patient states that he has transporta tion problems and financial difficulty . We discussed that this could lead to sepsis if he does not proceed in a timely fashion. Health Concerns Section Related Observation LastModified by Organization Detai ls LastModified Time None Recorded Concern Status LastModified by Organization Details LastModified Time None Recorded Advance Directives Directive None Recorded Payers Insurance Date Sequence Insurance Name Policy Number Policy Batista Covered Member ID Batista Member ID Guarantor Name 10/25/2023 2 [place] [employer] [place] FFS/TRADITIO NAL Omari Andrade [id number] Omari Andrade 10/25/2023 1 [place] Omari Andrade [id number] Omari Andrade Notes Date Note Type Note Provider Name and Address Organization Details Recorded Time 12/06/2022 text/html This is a 52-year-old white male following up with me for a right calcaneal osteomyelitis with the predominant pathogen being Proteus mirabilis. Anaerobes were suspected in addition. While he was in the hospital, he underwent a debridement of the right calcaneus. He improved. He was discharged to complete a prolonged course of levofloxacin for the Proteus mirabilis and metronidazole for concomitant anaerobes. This is his 3rdinic follow-up. He is completed 4 weeks of levofloxacin and metronidazole together. He states he is tolerating the antibiotics relatively well without any nausea, vomiting, diarrhea, rashes, or tendon pain. He has been compliant with them. No complaints referable to his foot. He has scant drainage. No redness. No pain. No fever. Gideon Ash MD [address], [place], [address], [facility] 12/06/2022 08:57:58 12/19/2022 text/html This is a 52-year-old white male following up with ok for a right calcaneal osteomyelitis with the predominant pathogen being Proteus mirabilis. Anaerobes were suspected in addition. While he was in the hospital, he underwent a debridement of the right calcaneus. He improved. He was discharged to complete a prolonged course of levofloxacin for the Proteus mirabilis and metronidazole for concomitant anaerobes. This is his 4th clinic follow-up. He has completed 4 weeks of metronidazole and 6 weeks total levofloxacin. He states he is doing well. He has no persisting drainage from the foot. There is still a linear wound present. No surrounding redness. He is not had any fever. He is tolerated levofloxacin well without nausea, vomiting, diarrhea, rashes. He has been compliant with it. No other issues today. He recently saw podiatry this morning. Gideon Ash MD [address], [place], [address], [facility] 12/19/2022 09:00:28 01/02/2023 text/html This is a 52-year-old white male following up with ok for a right calcaneal osteomyelitis with the predominant pathogen being Proteus mirabilis. Anaerobes were suspected in addition. While he was in the hospital, he underwent a debridement of the right calcaneus. He improved. He was discharged to complete a prolonged course of levofloxacin for the Proteus mirabilis and metronidazole for concomitant anaerobes. Overall, he completed 6 weeks total levofloxacin and 4 weeks total metronidazole. At his last clinic visit, I stopped all antibiotics, as I felt all the infection was resolved based on physical exams and imaging. He is here for follow-up off antibiotics. He has no complaints today. He was just seen by the aeronautical research engineer. Apparently, the wound is looking really good. He has scant drainage. No redness. No undue pain. No fever. Gideon Ash MD [address], [place], [address], [facility] 01/02/2023 10:43:37 01/30/2023 text/html This is a 52-year-old white male following up with ok for a right calcaneal osteomyelitis with the predominant pathogen being Proteus mirabilis. Anaerobes were suspected in addition. While he was in the hospital, he underwent a debridement of the right calcaneus. He improved. He was discharged to complete a prolonged course of levofloxacin for the Proteus mirabilis and metronidazole for concomitant anaerobes. Overall, he completed 6 weeks total levofloxacin and 4 weeks total metronidazole. He has been off all antibiotics for the past several weeks he still has a slight wound. No redness. Gideon Ash MD [address], [place], [address], [facility] 01/30/2023 16:44:29 08/22/2023 text/html Patient is a 53-year-old white male with history of depression, anxiety recently presented to the [facility] with difficulty voiding. Lo catheter was placed patient treated with antibiotics. CT scan showed a mass on his prostate consistent with an abscess. Patient continues to have suprapubic pressure, weak stream and erectile discomfort. Patient is not on alpha-chris therapy at this time. Patient states he has been engaging in sexual intercourse with a male. Does have history of rectal abscesses. Brian Ralph Jr, MD [address] [place] [address], [address], [place], [address], [facility] 09/01/2023 11:36:59
--- OUTSIDE RECORDS SUMMARY | 2024-09-20 11:20 | XMS_ITS | Clinical Summary ---
Author Organization Healthcare Address [address] [place] [address] Care Team Providers Care Eastern Philosophy Professor Name Role Phone Domingo Rivera ZULEYMA Primary Care Provider [phone] Social History Tobacco Use Types Packs/Day Years Used Date Smoking Tobacco: Former Alcohol Use Standard Drinks/Week Comments Yes 0 (1 standard drink = 0.6 oz pure alcohol) Alcoholic Drinks/day: Acute alcohol use Sex and Gender Information Value Date Recorded Sex Assigned at Not on file Legal Sex Male 8:45 PM EDT Gender Identity Not on file Sexual Orientation Not on file Last Filed Vital Signs Vital Sign Reading Time Taken Comments Blood Pressure 128/83 11/13/2017 2:12 PM EDT Pulse 92 11/13/2017 2:12 PM EDT Temperature - - Respiratory Rate - - Oxygen Saturation - - Inhaled Oxygen Concentration - - Weight 150 kg (330 lb 0.1 oz) 11/13/2017 2:12 PM EDT Height 190.5 cm (6' 3 ) 11/13/2017 2:12 PM EDT Body Mass Index 41.25 11/13/2017 2:12 PM EDT Plan of Treatment Health Maintenance Due Date Last Done Comments [facility]-Depression Screening 1972 [facility]-Infant/Child/Adol SDOH Screenings 1972 [facility]- SDOH Screenings 1990 [facility]-Adult SDOH Screenings 1990 [facility]-DTaP,Tdap,and Td Vaccine s (1 - Tdap) 1991 [facility]-Hepatitis B Vaccines (1 of 3 - 19+ 3-dose series) 1991 CT Colonography 2017 Colonoscopy 2017 FIT-DNA 2017 FIT 2017 FOBT 2017 Sigmoidoscopy 2017 [facility]-Colorectal Cancer Screening 2017 [facility]-Pneumococcal Vaccine: 50 + Years (1 of 1 - PCV) 2022 [facility]-Zoster Vaccines (1 of 2) 2022 [id number]-37 Vaccine (1 - season) 2023 [facility]-Influenza Vaccine (Seaso n Ended) 2024 05/14/2018, 12/31/2016 HPV Vaccines Aged Out No longer eligi ble based on patient's age to complete this topic [facility]-HIB Vaccines Aged Out No longer e ligible based on patient's age to complete this topic [facility]-Hepatitis A Vaccines Aged Out No longer eligible based on patient's age to complete this topic [facility]-IPV Vaccines Aged Out No longer e ligible based on patient's age to complete this topic [facility]-Rotavirus Vaccines Aged Out No lo nger eligible based on patient's age to complete this topic Care Teams Eastern Philosophy Professor Relationship Specialty Start Date End Date Domingo Rivera APRN [address] [place] [id number] PCP - General 08/18/20
== END 2024-09-16 23:59 | disposition home or self-care (01) ==
LOC: LAB.DROPOF 09-20 11:18
PROVIDERS: PCP Nurse Practitioner Family; Visit Provider Nurse Practitioner Family
DX: E11.40 Type 2 diabetes mellitus with diabetic neuropathy, unspecified (principal); E11.69 Type 2 diabetes mellitus with other specified complication; I10 Essential (primary) hypertension; K21.9 Gastro-esophageal reflux disease without esophagitis; G47.33 Obstructive sleep apnea (adult) (pediatric); R41.3 Other amnesia; R53.83 Other fatigue; Z79.4 Long term (current) use of insulin
CPT/HCPCS: 80053; 80061; 81001; 82043; 82570; 83036; 84439; 84443; 85025; 87086

== ENCOUNTER 2024-12-30 09:00 | Outpatient (CLI) | payer MEDICARE, MEDICAID, SELFPAY ==
--- OUTSIDE RECORDS SUMMARY | 2024-12-30 09:04 | XMS_ITS | Clinical Summary ---
Author Organization [employer] ([place], [place], [place], [place]) Address [address] [place] [address] Care Team Providers Care Stretcher Drier Operator Name Role Phone [facility], Provider Not In The System Primary Care Provider Unavailable Allergies Active Allergy Reactions Criticality Noted Date Comments Methadone Itching 07/18/2022 Morphine Other (See Comments) 07/18/2022 Doesn't work Hydrocodone-Acetaminophen Itching 07/18/2022 Medications clopidogreL (PLAVIX) 75 mg tablet Take 1 tablet (75 mg total) by mouth in the morning. 07/16/19 23 Active acetaminophen (TYLENOL) 500 MG tablet Take 2 tablets (1,000 mg total) by mouth every 6 (six) hours as needed. 30 tablet 07/30/19 23 Active aspirin 81 MG EC tablet Take 1 tablet (81 mg total) by mouth in the morning. 0 07/31/19 23 Active docusate sodium (COLACE) 100 MG capsule Take 1 capsule (100 mg total) by mouth 2 (two) times daily as needed for Constipation. 07/30/19 23 Active senna (SENOKOT) 8.6 mg tablet Take 1 tablet (8.6 mg total) by mouth every night as needed for Constipation. 0 07/30/19 23 Active QUEtiapine (SEROquel) 25 MG tablet Take 1 tablet (25 mg total) by mouth every 6 (six) hours as needed (anxiety). 0 07/30/19 23 Active ondansetron (ZOFRAN-ODT) 4 MG disintegrating tablet Take 1 tablet (4 mg total) by mouth every 8 (eight) hours as needed. 07/30/19 23 Active nicotine, polacrilex, (NICORETTE) 2 mg gum Take 1 each (2 mg total) by mouth every hour as needed for Smoking cessation. 100 tablet 07/30/19 Active insulin lispro (HumaLOG) 100 unit/mL injection Inject 0-24 Units subcutaneously 4 (four) times daily before meals and nightly. 0 07/31/19 Active insulin glargine-yfgn (SEMGLEE) 100 unit/mL Soln solution Inject 10 Units subcutaneously nightly. 0 07/31/19 Active famotidine (PEPCID) 20 MG tablet Take 1 tablet (20 mg total) by mouth in the morning. 0 07/31/19 Active hydrOXYzine (VISTARIL) 25 MG capsule Take 1 capsule (25 mg total) by mouth 3 (three) times daily as needed for Anxiety . 0 07/30/19 Active melatonin 3 mg tablet Take 1 tablet (3 mg total) by mouth every night as needed for Sleep. 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 07/18/2022 PAD (peripheral artery disease) 07/18/2022 Family History Medical History Relation Name Comments Heart disease Father Heart disease Mother Hypertension Mother Stroke Mother Relation Name Status Comments Father Mother Social History Tobacco Use Types Packs/Day Years Used Date Smoking Tobacco: Former Cigarettes 2 30 Tobacco Cessation:Counseling Given: Not Answered Alcohol Use Standard Drinks/Week Comments Not Asked 0 (1 standard drink = 0.6 oz pur e alcohol) 1-2 yearly PRAPARE - Transportation Answer Date Re corded In the past 12 months, has l ack of transportation kept you from medical appointments or from getting medications? No 07/27/2022 Lack of Transportation (Non-Medical) Not on file 07/27/2022 Food Insecurity Answer Date Recorded Food run out past 12 months Not on file 04/08 Food did not last past 12 months Not on file 04/26/2023 Employment Answer Date Recorded Help finding and keeping a job Not on file 0 04/26/2023 Family and Community Support Answer Wagner e Recorded Help with Day to Day Activities Not on file 04/26/2023 Feeling Lonely or Isolated Not on file 04/26 Educational Attainment Answer Date Prince rded Speak language other than Serbian at home Not on file 04/26/2023 Want help with school or training Not on file 04/26/2023 Substance Use Answer Date Recorded Used prescription meds for non-medical reasons N ot on file 04/26/2023 Used illegal drugs past 12 months Not on file 04/26/2023 Sex and Gender Information Value Date Recorded Sex Assigned at Not on file Legal Sex Male 10:47 AM CDT Gender Identity Not on file Sexual Orientation Not on file Last Filed Vital Signs Vital Sign Reading Time Taken Comments Blood Pressure 130/87 07/30/2022 11:00 AM EDT Pulse 86 07/30/2022 11:00 AM EDT Temperature 36.5 C (97.7 F) 07/30/2022 11:00 AM EDT Respiratory Rate 17 07/30/2022 8:50 AM EDT Oxygen Saturation 96% 07/30/2022 11:00 AM EDT Inhaled Oxygen Concentration - - Weight 121.6 kg (268 lb) 07/18/2022 11:44 PM EDT Height 188 cm (6' 2 ) 07/18/2022 11:44 PM EDT Body Mass Index 34.41 07/18/2022 11:44 PM EDT Plan of Treatment Health Maintenance Due Date Last Done Comments Medicare Initial AWV [id number] CT Colonography 1972 Colonoscopy 1972 Colorectal Cancer Screening 1972 Diabetic Kidney Health Evalu ation (KED) 1972 FOBT/FIT 1972 Fit-DNA (Cologuard) 1972 Sigmoidoscopy 1972 Diabetic Eye Exam 1982 DTAP/TDAP/TD VACCINES (4 - Tdap) 1983 07/16/1977, 04/16/1977, 09/05/1976 Depression Screening (12+) 1984 HIV Screening 1987 Hepatitis C Screening 1990 Pneumococcal 50+ years (1 of 2 - PCV) 1991 Shingles Vaccine (Zoster) (1 of 2) 2022 Hemoglobin A1C 07/18/2022 Tobacco Cessation Counseling and Screening (12+) 07/22/2023 07/21/2022 COVID-19 VACCINE ( - season) 2024 Influenza Vaccine (#1) 2024 Lipid Panel 07/19/2025 07/19/2022 Medical Devices Implanted Type Area Carbon Capture Power Plant Engineer Device Identifier Shelf Expiration Date Model / Serial / Lot Bone Putty Anais 5cc 620-005 - [id number] Implanted:Qty: 1 on 07/21/2022 by Kofi Laughlin DPM at [facility] IMPLANTS Right: Foot [employer] 04/06/2025 620-005 / / [id number] Procedures Procedure Name Priority Date/Time Associated Diagnosis Comments LIPID PANEL STAT 07/19/2022 7:19 AM EDT from Last 3 Months or Most Recently Relevant to Health Maintenance Results * (ABNORMAL) Lipid panel (07/19/2022 7:19 AM EDT) Triglycerides 80 0 - 249 mg/dL 07/19/2022 8:[address] [facility] Cholesterol 112 0 - 199 mg/dL 07/19/2022 8:[address] [facility] Comment: 200 to 239 mg/dL = Moderate (borderline) >239 mg/dL = High HDL Cholesterol 28(L) >=40 mg/dL 07/19/2022 8:[address] [facility] Comment: >=60 mg/dL = Desirable <40 mg/dL = Increased Risk All other components are listed individually or are calculations VLDL Cholesterol 16 5 - 40 mg/dL 07/19/2022 8:[address] [facility] Cholesterol/HDL ratio 4.0(H) 0.0 - 3.2 07/19/2022 8:[address] [facility] LDl/HDL Ratio 2 0 - 4 07/19/2022 8:[address] [facility] RISK COMP 4 07/19/2022 8:[address] [facility] LDL Cholesterol, Calculated 68 0 - 99 mg/dL 07/19/2022 8:[address] [facility] Blood Venipuncture / Unknown 07/19/2022 7:19 AM EDT 07/19/2022 8:00 AM EDT Joann Mac PA-C LAB BLOOD ORDERABLES Final R esult [facility] [address] [id number], [facility] [phone] from Last 3 Months or Most Recently Relevant to Health Maintenance Insurance MEDICAID [place] MEDICARE PART A B Advance Directives For more information, please contact: [phone] * Full Code (Latest Code Status on File) Date Activated Date Inactivated Comments 07/18/2022 2:46 PM 07/30/2022 4:36 PM Care Teams Stretcher Drier Operator Relationship Specialty Start Date End Date Svetlana, Provider Not In The System, [place] [address] PCP - General 07/18/22
--- OUTSIDE RECORDS SUMMARY | 2024-12-30 09:05 | XMS_ITS | Referral Summary ---
Author Organization [employer] ([place], [place], [place], [place]) Address [address] [place] [address] Care Team Providers Care Feed Research Technician Name Role Phone [facility], Provider Not In The System Primary [...] er 07/18/2022 PAD (peripheral artery disease) 07/18/2022 Social History Tobacco Use Types Packs/Day Years [...] Date Prince rded Speak language other than French at home Not on file 04/26/2023 Want [...] 07/18/2022 11:44 PM EDT Plan of Treatment Not on file Medical Devices Implanted Type Area Tours Hostess Device Identifier Shelf Expiration Date Model / Serial / Lot Bone Putty Stimulan [facility] 620-005 - [id number] Implanted:Qty: 1 on 07/21/2022 by Kofi Laughlin DPM at [facility] IMPLANTS Right: Foot [employer] 04/06/2025 620-005 / / [id number] Procedures Procedure Name Priority Date/Time Associated Diagnosis Comments LIPID PANEL STAT 07/19/2022 7:19 AM EDT from Last 3 Months or Most Recently Relevant to Health Maintenance Results * (ABNORMAL) Lipid panel (07/19/2022 7:19 AM EDT) Triglycerides 80 0 - 249 mg/dL 07/19/2022 8:30 AM EDT [facility] Cholesterol 112 0 - 199 mg/dL 07/19/2022 8:30 AM EDT [facility] Comment: 200 to 239 mg/dL = Moderate (borderline) >239 mg/dL = High HDL Cholesterol 28(L) >=40 mg/dL 07/19/2022 8:30 AM EDT [facility] Comment: >=60 mg/dL = Desirable <40 mg/dL = Increased Risk All other components are listed individually or are calculations VLDL Cholesterol 16 5 - 40 mg/dL 07/19/2022 8:30 AM EDT [facility] Cholesterol/HDL ratio 4.0(H) 0.0 - 3.2 07/19/2022 8:30 AM EDT [facility] LDl/HDL Ratio 2 0 - 4 07/19/2022 8:30 AM EDT [facility] RISK COMP 4 07/19/2022 8:30 AM EDT [facility] LDL Cholesterol, Calculated 68 0 - 99 mg/dL 07/19/2022 8:30 AM EDT [facility] Blood Venipuncture / Unknown 07/19/2022 7:19 AM EDT 07/19/2022 8:00 AM EDT Jonan Mac PA-C LAB BLOOD ORDERABLES Final R esult [facility] [address] [phone] from Last 3 Months or Most Recently Relevant to Health Maintenance Insurance MEDICAID [place] MEDICARE PART A B Advance Directives For more information, please contact: [phone] * Full Code (Latest Code Status on File) Date Activated Date Inactivated Comments 07/18/2022 2:46 PM 07/30/2022 4:36 PM Care Teams Feed Research Technician Relationship Specialty Start Date End Date [facility], Provider Not In The System, [place] [address] PCP - General 07/18/22
--- OUTSIDE RECORDS SUMMARY | 2024-12-30 09:05 | XMS_ITS | Clinical Summary ---
Author Organization [facility] Address [address] [place] [id number] Phone Care Team Providers Care Medical Assisting Instructor Name Role Phone Brian Bentley Unavailable Unavailable Conditions or Problems Problem Name Problem Code Onset Date Status Entry Date Provider Comment Standard Description Annotate Nicotine dependence, vaping 65272016 (SNOMED CT) 09/30 Active 09/30 Nikole Valles Cigar smoker MRSA infection 996179399 (SNOMED CT) 09/30 Active 09/30 Nikole Valles Methicillin resistant Staphylococcus aureus infection History of urinary tract infection(s) Z87.440 (ICD-10-CM ) 09/30 Active 09/30 Nikole Valles Personal history of urinary (tract) infections DM II with Charcot's joints E11.610 (ICD-10-CM ) 09/30 Active 09/30 Nikole Valles Type 2 diabetes mellitus with diabetic neuropathic arthropathy Pyuria 1763130 (SNOMED CT) 09/30 Active 09/30 Nikole Valles Pyuria Abscess, prostate N41.2 (ICD-10-CM ) 09/30 Active 09/30 Nikole Valles Abscess of prostate Enterococcal faecalis infection B95.2 (ICD-10-CM ) 07/31 Resolved 07/31 Nikole Valles Enterococcus as the cause of diseases classified elsewhere Strep agalactiae infection B95.4 (ICD-10-CM ) 07/31 Resolved 07/31 Nikole Valles Other streptococcus as the cause of diseases classified elsewhere 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 involvement 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 (E11.621) L97.416 (ICD-10-CM ) 07/31 Resolved 07/31 Nikole Valles 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 Acute osteomyelitis , right foot/heel M86.171 (ICD-10-CM ) 07/31 Resolved 07/31 Nikole Valles Other acute osteomyelitis, right ankle and foot Cellulitis, foot, right 817573838 (SNOMED CT) 07/31 Resolved 07/31 Nikole Valles Cellulitis of foot Cellulitis, foot, left 659988422 (SNOMED CT) 07/31 Resolved 07/31 Nikole Valles Cellulitis of lower limb Cellulitis, foot, left 669441281 (SNOMED CT) 07/31 Removed 07/31 Nikole Valles Cellulitis of lower limb Acute osteomyelitis , right foot/heel M86.171 (ICD-10-CM ) 07/31 Removed 07/31 Nikole Valles Other acute osteomyelitis, right ankle and foot Obesity due to excess calories E66.09 (ICD-10-CM ) 07/31 Active 07/31 Nikole Valles Other obesity due to excess calories Strep agalactiae infection B95.4 (ICD-10-CM ) 07/31 Removed 07/31 Nikole Valles Other streptococcus as the cause of diseases classified elsewhere Enterococcal faecalis infection B95.2 (ICD-10-CM ) 07/31 Removed 07/31 Nikole Valles Enterococcus as the cause of diseases classified elsewhere 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 10/05 linezolid [id number] Garret Yanes MD ZYVOX 600 MG TABS Take 1 tablet by mouth twice a day 10/19 linezolid [id number] Garret Yanes MD LINEZOLID 600 MG TABS Take 1 tablet by mouth 2 (Two) Times a Day for 14 days. 10/11 linezolid [id number] QIE qieuser UNASYN 3 (2-1) GM SOLR 3gm IV Q6hrs/ [facility] ampicillin-sulb actam [id number] Mallory Castellanos RN RA ACETAMINOPHEN EX ST 500 MG TABS 2 tablet by mouth every six hours as needed acetaminophen 22329961495 Katt Bobby ASPIRIN EC 81 MG TBEC by mouth once a day aspirin 98614747572 Katt Bobby CLOPIDOGREL BISULFATE 75 MG TABS by mouth once a day clopidogrel 55207641329 Katt Bobby FAMOTIDINE 20 MG TABS by mouth once a day famotidine 69994412953 Katt Bobby GABAPENTIN 800 MG TABS by mouth four times a day gabapentin 07003018570 Katt Bobby HYDROXYZINE PAMOATE 25 MG CAPS by mouth three times a day as needed hydroxyzine pamoate 09102332536 Katt Bobby INSULIN GLARGINE-YFGN 100 UNIT/ML SOLN 10 unit subcutaneously once a day insulin glargine-yfgn 52374070599 Katt Bobby INSULIN LISPRO 100 UNIT/ML SOLN subcutaneously four times a day 0-24 units insulin lispro 05846040826 Katt Bobby MELATONIN 3 MG TABS by mouth once a day melatonin 39189105966 Katt Bobby NICOTINE POLACRILEX 2 MG GUM in mouth every hour as needed nicotine (polacrilex) 99194660445 Katt Bobby ONDANSETRON HCL 4 MG TABS by mouth every eight hours as needed ondansetron hcl 38857622247 Katt Bobby OXYCODONE-ACETAM INOPHEN 10-325 MG TABS by mouth every six hours as needed oxycodone-aceta minophen 52956333337 Katt Bobby QUETIAPINE FUMARATE 25 MG TABS by mouth every six hours as needed quetiapine 70607577688 Katt Bobby SACCHAROMYCES BOULARDII 250 MG CAPS by mouth twice a day saccharomyces boulardii 38836407703 Katt Bobby SENNOSIDES 8.6 MG TABS by mouth once a day as needed sennosides 73484033295 Katt Bobby ZOLPIDEM TARTRATE 10 MG TABS by mouth once a day as needed zolpidem 09731801805 Katt Bobby Medications Administered No information available. Allergies, Adverse Reactions, Alerts Allergy Name Reaction Description Start Date Severity Status Provider MORPHINE SULFATE (CONCENTRATE) Doesn't work Moderate No Longer Active Catherine Minor METHADONE HCL Itching Moderate No Longer Active Catherine Minor HYDROMORPHONE Other (See Comments) Mild No Longer Active Catherine Minor OXYCODONE-ACETAMINOP HEN Itching Mild Active Catherine Minor MORPHINE Itching Mild Active Catherine Mi nor METHADONE Itching Mild Active Catherine Mi nor HYDROMORPHONE Other (See Comments) Mild No Longer Active Catherine Minor METHADONE HCL Itching Moderate No Longer Active Katt Bobby MORPHINE SULFATE (CONCENTRATE) Doesn't work Moderate No Longer Active Katt Bobby HYDROCODONE-ACETAMIN OPHEN Itching Moderate Active Katt Bobby Results Date Name Value Unit Range Flag Description Clinical Lists Update: Prelo ad VAPE_USE Current Tobacco smok ing status Chart Maintenance: lab updat e ESR 29 mm/h Erythrocyte sedimentation rate by Westergren method CRP 5.6 mg/dL C reactive pr otein [Mass/volume] in Serum or Plasma MONOCYTE BF 6.7 % monocytes as percent of body fluid leukocytes NEUTROP BF 62.3 % Neutrophil s/100 leukocytes in Body fluid Office Visit: Office Visit: rm 12 hfu SEXUAL ACTIV yes Have you ever had vaginal intercourse [PhenX] ORALTOBACUSE Never Tobacco smoking status SMOK STATUS Former smoker Tobacco smoking status MEDS REVIEW Done Documenta tion of current medications (procedure) Lab Report: CBC With Differe ntial/Platelet, Comp. Metabolic Panel (14) SGPT (ALT) 27 U/L 0-44 Alanine aminotransferase [Enzymatic activity/volume] in Serum or Plasma SGOT (AST) 18 U/L 0-40 Aspartate aminotransferase [Enzymatic activity/volume] in Serum or Plasma ALK PHOS 82 U/L 44-121 Alkaline tiburcio sphatase [Enzymatic activity/volume] in Blood BILI TOTAL 0.6 mg/dL 0.0-1.2 Bilirubin. total [Mass/volume] in Serum or Plasma GLOBULIN 3.8 1.5-4.5 Globulin [Mass/volume] in Serum ALBUMIN 4.3 g/dL 3.8-4.9 Albumin [Mass /volume] in Serum or Plasma PROTEIN, TOT 8.1 g/dL 6.0-8.5 Protein [Mass/volume] in Serum or Plasma CALCIUM 10.2 mg/dL 8.7-10.2 Calcium [Moles/volume] in Serum or Plasma CO2 24 mmol/L 20-29 Carbon dioxid e, total [Moles/volume] in Venous blood CHLORIDE 98 mmol/L 96-106 Chloride [Moles/volume] in Serum or Plasma POTASSIUM 5.0 mmol/L 3.5-5.2 Potassium [Moles/volume] in Serum or Plasma SODIUM 134 mmol/L 134-144 Sodium [Moles /volume] in Serum or Plasma BUN/CREAT 16 9-20 Urea nitrogen/Creatinine [Mass Ratio] in Serum or Plasma CREATININE 0.92 mg/dL 0.76-1.27 Creatini ne [Mass/volume] in Serum or Plasma BUN 15 mg/dL 6-24 Urea nitrogen [Mass/volume] in Serum or Plasma GLUCOSE SER 295 mg/dL 70-99 H Glucose [ Mass/volume] in Serum or Plasma IMMATUREGRAN 0.1 X10E3/UL 0.0-0.1 Imm ature granulocytes [#/volume] in Blood IMM GRANU % 1 % Not Estab. Immatu re granulocytes/100 leukocytes in Blood BASO# 0.1 x10E3/uL 0.0-0.2 Basophil s [#/volume] in Blood EOS ABSLT 0.3 X10E3/UL 10*3/uL 0.0-0.4 Eosino phils [#/volume] in Blood MONOSCT AUTO 0.8 X10E3/UL 10*3/uL 0.1-0.9 Mon ocytes [#/volume] in Blood by Automated count LYMPHCT AUTO 2.2 X10E3/UL 10*3/mm3 0.7-3.1 Ly mphocytes [#/volume] in Blood by Automated count ABS NEUTROPH 9.7 X10E3/UL 10*3/uL 1.4-7.0 H Gayla trophils [#/volume] in Blood BASOPHIL % 0 % Not Estab. Basophi ls/100 leukocytes in Blood by Manual count % EOS AUTO 3 % Not Estab. Eosinop hils/100 leukocytes in Blood by Automated count MONOCYTE % 6 % Not Estab. Monocyt es/100 leukocytes in Blood by Automated count LYMPHS % 17 % Not Estab. Lymphocyt es/100 leukocytes in Blood by Automated count PMN % 73 % Not Estab. Neutrophil s/100 leukocytes in Blood by Automated count PLATELETS 366 X10E3/UL 10*3/mm3 150-450 Plate lets [#/volume] in Blood by Automated count RDW 12.7 % 11.6-15.4 Erythrocyte distribution width [Ratio] by Automated count MCHC 32.7 G/DL 31.5-35.7 MCHC [Mass/ volume] by Automated count MCH 29.5 pg 26.6-33.0 MCH [Entiti c mass] by Automated count MCV 90 fL 79-97 MCV [Entitic volume] by Automated count HCT 45.3 % 37.5-51.0 Hematocrit [Volume Fraction] of Blood by Automated count HGB 14.8 g/dL 13.0-17.7 Hemoglobin [Mass/volume] in Blood RBC 5.01 X10E6/UL 10*6/mm3 4.14-5.80 Erythrocytes [#/volume] in Blood by Automated count WBC 13.1 X10E3/UL 10*3/mm3 3.4-10.8 H Leukocytes [#/vo lume] in Blood by Automated count Plan of Care Type Date Detail Pending order CMP Pending order CBC w/o Differen tial Pending order Continue IV anti biotics Pending order Weekly Labs (Con tinue) Pending order Weekly PICC Line Care Pending order Continue IV anti biotics Pending order Continue IV anti biotics Pending order Weekly Labs (Con tinue) Pending order Weekly PICC Line Care Pending order Continue IV anti biotics Pending order Weekly Labs (Con tinue) Pending order Weekly PICC Line Care Pending order Weekly labs Procedures Code Procedure Name Date Entry Date CPT-68748 CMP CPT-07962 CBC w/o Differential CPT-ca Continue IV antibiotics 2022 CPT-cwl Weekly Labs (Continue) 08/07 CPT-wpc Weekly PICC Line Care 0 08/07 CPT-ca Continue IV antibiotics 2022 CPT-cwl Weekly Labs (Continue) 07/31 CPT-wpc Weekly PICC Line Care 0 07/31 CPT: weekly Weekly labs Vital Signs Date Name Value Unit Description BMI (Body Mass Index) 32.09 kg/m2 Bod y Mass Index (Ratio) Body Temperature 97.3 [degF] temperat ure E&M BP Diastolic 62 mm[Hg] blood pressu re, diastolic BP Systolic 124 mm[Hg] blood pressur e, systolic Heart Rate 92 /min pulse rate Height 74 [in_us] height E&M Respiratory Rate 16 /min respirat ory rate E&M Weight Measured 250 [lb_av] weight E& M Weight Measured 250 [lb_av] weight E& M Immunizations No information available. Advance Directives Directive Description Start Date NO ADVANCE DIRECTIVES
--- OUTSIDE RECORDS SUMMARY | 2024-12-30 09:05 | XMS_ITS | Clinical Summary ---
Author Organization [facility] Address [address] [place] [address] Care Team Providers Care Vice President Sales And Marketing Name Role Phone Clementina Yost APRN Primary Care Provider [phone] Allergies Active Allergy Reactions Criticality Noted Date Comments Acetaminophen Rash High 08/19/2023 Hydromorphone Other (See Comments) 09/26/2023 Not specified Methadone Itching 09/25/2023 Morphine Itching 09/25/2023 Hydrocodone-Acetaminophen Itching 09/25/2023 Oxycodone Rash High 08/19/2023 Oxycodone-Acetaminophen Itching 09/25/2023 Medications No known medications Active Problems Problem Noted Date Diagnosed Date PVD (peripheral vascular disease) 09/25/2023 Marijuana use 09/25/2023 Type 2 diabetes mellitus 09/25/2023 Vapes nicotine containing substance 09/25/2023 Prostate abscess 09/25/2023 Resolved Problems Problem Noted Date Diagnosed Date Resolved Date Rectal pain 09/25/2023 09/29/2023 Acute urinary retention 09/25/202309/06 Family History Medical History Relation Name Comments Heart disease Father Dementia Mother Relation Name Status Comments Father Mother Alive Social History Tobacco Use Types Packs/Day Years Used Date Smoking Tobacco: Former Cigarettes Smokeless Tobacco: Never Tobacco Cessation:Counseling Given: Not Answered [facility] Utilities Answer Date Recorded In the past 12 months has e [employer], gas, oil, or water company threatened to shut off services in your home? No 09/26/2023 AUDIT-C Answer Date Recorded Q1: How often do you have a drink containing alc ohol? Monthly or less 09/25/2023 Q2: How many drinks containi ng alcohol do you have on a typical day when you are drinking? 1 or 2 09/25/2023 Q3: How often do you have si x or more drinks on one occasion? Never 09/25/2023 Exercise Vital Sign Answer Date Recorde d On average, how many days pe r week do you engage in moderate to strenuous exercise (like a brisk walk)? 0 days 09/26/2023 On average, how many minutes do you engage in exercise at this level? 0 min 09/26/2023 PRAPARE - Transportation Answer Date Re corded In the past 12 months, has l ack of transportation kept you from medical appointments or from getting medications? No 09/06 In the past 12 months, has l ack of transportation kept you from meetings, work, or from getting things needed for daily living? No 09/26/2023 Abuse Screen Answer Date Recorded Feels Unsafe at Home or Work/School no 09/25/2023 Feels Threatened by Someone no 09/06 Does Anyone Try to Keep You From Having Contact with Others or Doing Things Outside Your Home? no 09/25/2023 Physical Signs of Abuse Present no 09/25/2023 Housing Stability Answer Date Recorded Current Living Arrangements home 09/06 Potentially Unsafe Housing Conditions unable to assess 09/26/2023 Family and Community Support Answer Wagner e Recorded Help with Day-to-Day Activities Not on file 01/17/2023 Lonely or Isolated Not on file 01/17/2023 Employment Answer Date Recorded Do you want help finding or keeping work or a chayito b? Not on file 01/17/2023 Disabilities Answer Date Recorded Difficulty Concentrating, Remembering or Making Decisions no 09/25/2023 Difficulty Managing Errands Independently no 09/25/2023 Education Answer Date Recorded Help with school or training? Not on file Preferred Language Beninese 09/26/2023 Sex and Gender Information Value Date Recorded Sex Assigned at Not on file Legal Sex Male 11:20 AM EDT Gender Identity Not on file Sexual Orientation Not on file Last Filed Vital Signs Vital Sign Reading Time Taken Comments Blood Pressure 132/73 09/29/2023 11:34 AM EDT Pulse 60 09/29/2023 1:00 PM EDT Temperature 36.7 C (98 F) 09/29/2023 11:34 AM EDT Respiratory Rate 16 09/29/2023 11:34 AM EDT Oxygen Saturation 99% 09/27/2023 11:40 AM EDT Inhaled Oxygen Concentration - - Weight 112 kg (246 lb) 09/26/2023 3:03 PM EDT Height 190.5 cm (6' 3 ) 09/26/2023 3:03 PM EDT Body Mass Index 30.75 09/26/2023 3:03 PM EDT Plan of Treatment Health Maintenance Due Date Last Done Comments DIABETIC EYE EXAM 1982 DIABETIC FOOT EXAM 1982 URINE MICROALBUMIN-CREATININE RATIO (uACR) 1982 Hepatitis B (1 of 3 - 19+ 3-dose series) 1991 Pneumococcal Vaccine 50+ (1 of 2 - PCV) 1991 TDAP/TD VACCINES (1 - Tdap) 1991 COLOGUARD 2017 COLON CANCER SCREENING 5 YEA R SIGMOIDOSCOPY 2017 COLONOSCOPY 2017 [address]AL CANCER SCREENING 2017 CT COLONOGRAPHY 2017 FECAL OCCULT BLOOD TEST 2017 FIT Testing (1 year) 2017 ZOSTER VACCINE (1 of 2) 2022 ANNUAL WELLNESS VISIT 09/25/2023 HEPATITIS C SCREENING 09/25/2023 HEMOGLOBIN A1C 03/27/2024 09/26/2023 INFLUENZA VACCINE 11/05/2024 05/14/2018, 12/31/2016 Procedures Procedure Name Priority Date/Time Associated Diagnosis Comments HEMOGLOBIN A1C Urgent 09/26/2023 6:50 AM EDT from Last 3 Months or Most Recently Relevant to Health Maintenance Results * (ABNORMAL) Hemoglobin A1c (09/26/2023 6:50 AM EDT) Hemoglobin A1C 8.60(H) 4.80 - 5.60 % 09/26/2023 7:31 AM EDT [facility] Blood Venipuncture / Unknown 09/26/2023 6:50 AM EDT 09/26/2023 7:00 AM EDT [facility] - 09/26/2023 7:31 AM EDT Hemoglobin A1C Ranges: Increased Risk for Diabetes 5.7% to 6.4% Diabetes >= 6.5% Diabetic Goal < 7.0% Laina Spivey APRN LAB BLOOD ORDERABLES Final Result [facility]
[address] [place] [address], from Last 3 Months or Most Recently Relevant to Health Maintenance Additional Health Concerns Infection Onset Date Last Indicated MRSA 09/26/2023 09/26/2023 Insurance MEDICARE A & B [place]ICAID [place] Advance Directives * CPR (Attempt to Resuscitate) (Latest Code Status on File) Date Activated Date Inactivated Comments 09/25/2023 8:19 PM 09/29/2023 5:19 PM Question Answer Comments Code Status (Patient has no pulse and is not breathing): CPR (Attempt to Resuscitate) Medical Interventions (Patie nt has pulse or is breathing): Full Support Level Of Support Discussed With: Patient Care Teams Vice President Sales And Marketing Relationship Specialty Start Date End Date Clementina Yost APRN [address] [place] [address] [place] [address] PCP - General Nurse Practitioner 09/26/23
--- OUTSIDE RECORDS SUMMARY | 2024-12-30 09:05 | XMS_ITS | Clinical Summary ---
Author Organization Healthcare Address [address] [place] [address] Care Team Providers Care Operating Room Nurse Name Role Phone Domingo Rivera ZULEYMA Primary Care Provider [phone] Social History Tobacco Use Types Packs/Day Years [...] Date Last Done Comments [facility]-Depression Screening 1972 [facility]-/Child/Adol SDOH Screenings 1972 [facility]- SDOH Screenings 1990 [...] 2022 [facility]-Zoster Vaccines (1 of 2) 2022 [id number] Vaccine (1 - season) 2024 [facility]-Influenza Vaccine (#1) 12/06/202405/14, 12/31/2016 HPV Vaccines Aged Out No longer [...] age to complete this topic Care Teams Operating Room Nurse Relationship Specialty Start Date End Date Domingo Rivera APRN [address] [place] [id number] PCP - General 08/18/20
[2024-12-30 10:03] LABS: Anion Gap 11.0 mEq/L (5-15); Blood Urea Nitrogen 11 mg/dl (9-20); Calcium 9.3 mg/dl (8.4-10.2); Carbon Dioxide 25 mmol/L (22.0-30.0); Chloride 102 mmol/L (98-107); Creatinine,Serum 0.70 mg/dl (0.66-1.25); Estimated Glomerular Filt Rate 118 ml/min (>60); GFR (African American) 143 ML/MIN (>60); Glucose 203 mg/dl (74-100); Potassium 4.0 mmoL/L (3.5-5.1); Sodium 134 mmol/L (136-145)
[2024-12-30 11:17] LABS: Hemoglobin A1C 8.7 % (4.0-6.0)
== END 2024-12-30 23:59 | disposition home or self-care (01) ==
LOC: LAB 09:01
PROVIDERS: PCP Nurse Practitioner Family; Visit Provider Nurse Practitioner Family
DX: K21.9 Gastro-esophageal reflux disease without esophagitis (principal); N42.89 Other specified disorders of prostate; Z12.5 Encounter for screening for malignant neoplasm of prostate; F41.9 Anxiety disorder, unspecified; F32.A Depression, unspecified; E13.51 Other specified diabetes mellitus with diabetic peripheral angiopathy without gangrene; E66.9 Obesity, unspecified; I10 Essential (primary) hypertension
CPT/HCPCS: 36415; 80048; 83013; 83036; G0103

== ENCOUNTER 2025-02-04 10:23 | Outpatient (CLI) | payer MEDICARE, MEDICAID, SELFPAY ==
--- OUTSIDE RECORDS SUMMARY | 2025-02-04 10:25 | XMS_ITS | Clinical Summary ---
Author Organization [facility] Address [address] [place] [address] Care Team Providers Care Cuff Presser Name Role Phone Clementina Yost APRN Primary Care Provider [phone] Allergies Active Allergy Reactions Criticality Noted Date [...] Tobacco: Never Tobacco Cessation:Counseling Given: Not Answered [facility] Utilities Answer Date Recorded In the past 12 months has e [employer], gas, oil, or water company threatened to [...] or training? Not on file Preferred Language Namibian 09/26/2023 Sex and Gender Information Value Date [...] - 5.60 % 09/26/2023 7:31 AM EDT [facility] Blood Venipuncture / Unknown 09/26/2023 6:50 AM EDT 09/26/2023 7:00 AM EDT [facility] - 09/26/2023 7:31 AM EDT Hemoglobin A1C Ranges: Increased Risk for Diabetes 5.7% to 6.4% Diabetes >= 6.5% Diabetic Goal < 7.0% Laina Spivey APRN LAB BLOOD ORDERABLES Final Result [facility]
[address] [place] [address], from Last 3 Months or Most Recently Relevant to Health Maintenance Additional Health Concerns Infection Onset Date Last Indicated MRSA 09/26/2023 09/26/2023 Insurance MEDICARE A & B MEDICAID [place] Advance Directives * CPR (Attempt to Resuscitate) (Latest Code Status on File) Date Activated Date Inactivated Comments 09/25/2023 8:19 PM 09/29/2023 5:19 PM Question Answer Comments Code Status (Patient has no pulse and is not breathing): CPR (Attempt to Resuscitate) Medical Interventions (Patie nt has pulse or is breathing): Full Support Level Of Support Discussed With: Patient Care Teams Cuff Presser Relationship Specialty Start Date End Date Clementina Yost APRN [address] [place] [address] [place] [address] PCP - General Nurse Practitioner 09/26/23
--- OUTSIDE RECORDS SUMMARY | 2025-02-04 10:25 | XMS_ITS | Clinical Summary ---
Author Organization [facility] Address [address] [place] [address] Care Team Providers Care Health Analyst Name Role Phone Domingo Rivera ZULEYMA Primary Care Provider [phone] Social History Tobacco Use Types Packs/Day Years [...] 2022 [facility]-Zoster Vaccines (1 of 2) 2022 [id number] Vaccine (1 - season) 2024 [facility]-Influenza Vaccine [...] age to complete this topic Care Teams Health Analyst Relationship Specialty Start Date End Date Domingo Rivera APRN [address] [place] [id number] PCP - General 08/18/20
--- OUTSIDE RECORDS SUMMARY | 2025-02-04 10:25 | XMS_ITS | Clinical Summary ---
Author Organization [facility] Address [address] [place] [phone] Phone Care Team Providers Care Manager Market Research Name Role Phone Brian Bentley Unavailable Unavailable Conditions or Problems Problem Name Problem Code Onset Date Status Entry Date Provider Comment Standard Description Annotate Nicotine dependence, vaping 29969078 (SNOMED CT) 09/30 Active 09/30 Nikole Valles Cigar smoker MRSA infection 672029487 (SNOMED CT) 09/30 Active 09/30 Nikole Valles Methicillin resistant Staphylococcus aureus infection History of urinary tract infection(s) Z87.440 (ICD-10-CM ) 09/30 Active 09/30 Nikole Valles Personal history of urinary (tract) infections DM II with Charcot's joints E11.610 (ICD-10-CM ) 09/30 Active 09/30 Nikole Valles Type 2 diabetes mellitus with diabetic neuropathic arthropathy Pyuria 3429086 (SNOMED CT) 09/30 Active 09/30 Nikole Valles [...] right ankle and foot Cellulitis, foot, right 909720732 (SNOMED CT) 07/31 Resolved 07/31 Nikole Valles Cellulitis of foot Cellulitis, foot, left 076801663 (SNOMED CT) 07/31 Resolved 07/31 Nikole Valles Cellulitis of lower limb Cellulitis, foot, left 173651376 (SNOMED CT) 07/31 Removed 07/31 Nikole Valles [...] 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 Cellulitis, foot, right 094696151 (SNOMED CT) 07/31 Removed 07/31 Nikole Valles Cellulitis of foot DM II with diabetic PVD 483628871 (SNOMED CT) 07/31 Active 07/31 Nikole Valles Peripheral vascular disease Medications Medication Instructions Start Date Stop Date Generic Name NDC Provider LINEZOLID 600 MG TABS Take 1 tablet by mouth 2 (Two) Times a Day for 14 days. 10/05 linezolid [id number] Garret Yanes MD ZYVOX 600 MG TABS Take 1 tablet by mouth twice a day 10/19 linezolid [id number] Garret Yanes MD LINEZOLID 600 MG TABS Take 1 tablet by mouth 2 (Two) Times a Day for 14 days. 10/11 linezolid [id number] QIE qieuser UNASYN 3 (2-1) GM SOLR 3gm IV Q6hrs/ [facility] ampicillin-sulb actam [id number] Mallory Castellanos RN RA ACETAMINOPHEN EX ST 500 MG TABS 2 tablet by mouth every six hours as needed acetaminophen 16507187207 Katt Bobby ASPIRIN EC 81 MG TBEC by mouth once a day aspirin 69635474107 Katt Bobby CLOPIDOGREL BISULFATE 75 MG TABS by mouth once a day clopidogrel 51176262557 Katt Bobby FAMOTIDINE 20 MG TABS by mouth once a day famotidine 38410078754 Katt Bobby GABAPENTIN 800 MG TABS by mouth four times a day gabapentin 42979804559 Katt Bobby HYDROXYZINE PAMOATE 25 MG CAPS by mouth three times a day as needed hydroxyzine pamoate 38153499860 Katt Bobby INSULIN GLARGINE-YFGN 100 UNIT/ML SOLN 10 unit subcutaneously once a day insulin glargine-yfgn 15591309024 Katt Bobby INSULIN LISPRO 100 UNIT/ML SOLN subcutaneously four times a day 0-24 units insulin lispro 66653936778 Katt Bobby MELATONIN 3 MG TABS by mouth once a day melatonin 07158777424 Katt Bobby NICOTINE POLACRILEX 2 MG GUM in mouth every hour as needed nicotine (polacrilex) 75053628554 Katt Bobby ONDANSETRON HCL 4 MG TABS by mouth every eight hours as needed ondansetron hcl 47366297646 Katt Bobby OXYCODONE-ACETAM INOPHEN 10-325 MG TABS by mouth every six hours as needed oxycodone-aceta minophen 89356735293 Katt Bobby QUETIAPINE FUMARATE 25 MG TABS by mouth every six hours as needed quetiapine 41232441240 Katt Bobby SACCHAROMYCES BOULARDII 250 MG CAPS by mouth twice a day saccharomyces boulardii 33892569828 Katt Bobby SENNOSIDES 8.6 MG TABS by mouth once a day as needed sennosides 80797830404 Katt Bboby ZOLPIDEM TARTRATE 10 MG TABS by mouth once a day as needed zolpidem 86364556045 Katt Bobby Medications Administered No information available. [...] Procedures Code Procedure Name Date Entry Date CPT-98838 CMP CPT-53318 CBC w/o Differential CPT-ca Continue IV antibiotics [...]
--- OUTSIDE RECORDS SUMMARY | 2025-02-04 10:26 | XMS_ITS | Data Portability ---
Author Organization [facility] ADMIN Address [address] [place] [id number] Assessment No assessment recorded. Plan of Treatment Reminders Order Date Submit Date Provider Last Modified By Organization Details Last Modified Time Details Appointments None recorded. Lab C-reactive protein, quantitativ e, serum or plasma 2022 023 ariana [facility], [address], [address], [place], [address], 3 13:55:24 ESR (erythrocyt e sedimentati on rate), blood 2022 023 JEFE [facility], [address], [address], [place], [address], 3 17:09:33 C-reactive protein, quantitativ e, serum or plasma 2022 023 [email or web address], [address], [address], [place], [address], 3 06:11:05 ESR (erythrocyt e sedimentati on rate), blood 2022 023 JEFE [facility], [address], [address], [place], [address], 3 19:11:11 ESR (erythrocyt e sedimentati on rate), blood 2022 023 JEFE [facility], [address], [address], [place], [address], 3 15:09:43 C-reactive protein, quantitativ e, serum or plasma 2022 023 [email or web address] [facility], [address], [address], [place], [address], 3 07:32:31 CBC 2022 023 JEFE [facility], [address], [address], [place], [address], 3 15:09:42 CMP, serum or plasma 2022 023 JEFE [facility], [address], [address], [place], [address], 3 15:09:41 C-reactive protein, quantitativ e, serum or plasma 2022 023 [email or web address] [facility], [address], [address], [place], [address], 3 06:34:00 CBC 2022 023 JEFE [facility], [address], [address], [place], [address], 3 13:08:36 CMP, serum or plasma 2022 023 JEFE [facility], [address], [address], [place], [address], 3 13:08:35 ESR (erythrocyt e sedimentati on rate), blood 2022 023 JEFE [facility], [address], [address], [place], [address], 3 13:08:37 Referral None recorded. Procedures None recorded. Surgeries None recorded. Imaging None recorded. Medication Orders clotrimazol e 1 % topical cream 2022 023 [id number], [address] [place], [id number], 3 09:48:58 levofloxaci n 750 mg tablet 2022 023 [id number], [address] [place], [id number], 3 08:57:24 Patient TargetsNo targets recorded. Patient InstructionsNo instructions recorded. Reason for Referral None Reported. Results Created Date Observation Date Name Description Value Unit Range Abnormal Flag Note LastModifiedBy Organization Detail LastModifiedTime 11/15/1911/15/2022 COMP. METAB OLIC PANEL (14) glucose 377 mg/dL 70-99 above high normal Not Available [facility] ([facility]) [address] [place], [address], 11/15/2022 13:11:08 11/15/19 23 11/15/2022 COMP. METAB OLIC PANEL (14) BUN 15 mg/dL 6-24 Not Available [facility] ([facility]) [address] [place], [address], 11/15/2022 13:11:08 11/15/19 23 11/15/2022 COMP. METAB OLIC PANEL (14) creatinine 0.87 mg/dL 0.76-1 .27 Not Available [facility] ([facility]) [address] [place], [address], 11/15/2022 13:11:08 11/15/19 23 11/15/2022 COMP. METAB OLIC PANEL (14) eGFR 105 mL/mi n/1.7 3 >59 Not Available [facility] ([facility]) [address] [place], [address], 11/15/2022 13:11:08 11/15/19 23 11/15/2022 COMP. METAB OLIC PANEL (14) BUN/creatini ne ratio 17 9-20 Not Available [facility] ([facility]) [address] [facility], [place], [address], 11/15/2022 13:11:08 11/15/19 23 11/15/2022 COMP. METAB OLIC PANEL (14) sodium 134 mmol/ L 134-14 4 Not Available [facility] ([facility]) [address] [facility], [place], [address], 11/15/2022 13:11:08 11/15/19 23 11/15/2022 COMP. METAB OLIC PANEL (14) potassium 4.4 mmol/ L 3.5-5. 2 Not Available [facility] ([facility]) [address] [place], [address], 11/15/2022 13:11:08 11/15/19 23 11/15/2022 COMP. METAB OLIC PANEL (14) chloride 97 mmol/ L 96-106 Not Available [facility] ([facility]) [address] [place], [address], 11/15/2022 13:11:08 11/15/19 23 11/15/2022 COMP. METAB OLIC PANEL (14) carbon dioxide, total 20 mmol/ L 20-29 Not Available [facility] ([facility]) [address] [place], [address], 11/15/2022 13:11:08 11/15/19 23 11/15/2022 COMP. METAB OLIC PANEL (14) calcium 9.7 mg/dL 8.7-10 .2 Not Available [facility] ([facility]) [address] [place], [address], 11/15/2022 13:11:08 11/15/19 23 11/15/2022 COMP. METAB OLIC PANEL (14) protein, total 8.0 g/dL 6.0-8. 5 Not Available [facility] ([facility]) [address] [place], [address], 11/15/2022 13:11:08 11/15/19 23 11/15/2022 COMP. METAB OLIC PANEL (14) albumin 4.5 g/dL 4.1-5. 1 Not Available [facility] ([facility]) [address] [facility], [place], [address], 11/15/2022 13:11:08 11/15/19 23 11/15/2022 COMP. METAB OLIC PANEL (14) globulin, total 3.5 g/dL 1.5-4. 5 Not Available [facility] ([facility]) [address] [place], [address], 11/15/2022 13:11:08 11/15/19 23 11/15/2022 COMP. METAB OLIC PANEL (14) A/G ratio 1.3 1.2-2. 2 Not Available [facility] ([facility]) [address] [place], [address], 11/15/2022 13:11:08 11/15/19 23 11/15/2022 COMP. METAB OLIC PANEL (14) bilirubin, total 0.3 mg/dL 0.0-1. 2 Not Available [facility] ([facility]) [address] [place], [address], 11/15/2022 13:11:08 11/15/19 23 11/15/2022 COMP. METAB OLIC PANEL (14) alkaline phosphatase 85 IU/L 44-121 Not Available [facility] ([facility]) [address] [place], [address], 11/15/2022 13:11:08 11/15/19 23 11/15/2022 COMP. METAB OLIC PANEL (14) AST (SGOT) 29 IU/L 0-40 Not Available [facility] ([facility]) [address] [facility], [place], [address], 11/15/2022 13:11:08 11/15/19 23 11/15/2022 COMP. METAB OLIC PANEL (14) ALT (SGPT) 35 IU/L 0-44 Not Available [facility] ([facility]) [address] [facility], [place], [address], 11/15/2022 13:11:08 11/15/19 23 11/15/2022 CBC, PLATE LET, NO DIFFE RENTI AL WBC 8.4 x10e3 /uL 3.4-10 .8 Not Available [facility] ([facility]) [address] [facility], [place], [address], 11/15/2022 13:11:09 11/15/19 23 11/15/2022 CBC, PLATE LET, NO DIFFE RENTI AL RBC 5.30 x10e6 /uL 4.14-5 .80 Not Available [facility] ([facility]) [address] [facility], [place], [address], 11/15/2022 13:11:09 11/15/19 23 11/15/2022 CBC, PLATE LET, NO DIFFE RENTI AL hemoglobin 15.6 g/dL 13.0-1 7.7 Not Available [facility] ([facility]) [address] [facility], [place], [address], 11/15/2022 13:11:09 11/15/19 23 11/15/2022 CBC, PLATE LET, NO DIFFE RENTI AL hematocrit 46.0 % 37.5-5 1.0 Not Available [facility] ([facility]) [address] [facility], [place], [address], 11/15/2022 13:11:09 11/15/19 23 11/15/2022 CBC, PLATE LET, NO DIFFE RENTI AL MCV 87 fL 79-97 Not Available [facility] ([facility]) [address] [facility], [place], [address], 11/15/2022 13:11:09 11/15/19 23 11/15/2022 CBC, PLATE LET, NO DIFFE RENTI AL MCH 29.4 pg 26.6-3 3.0 Not Available [facility] ([facility]) [address] [facility], [place], [address], 11/15/2022 13:11:09 11/15/19 23 11/15/2022 CBC, PLATE LET, NO DIFFE RENTI AL MCHC 33.9 g/dL 31.5-3 5.7 Not Available [facility] ([facility]) [address] [facility], [place], [address], 11/15/2022 13:11:09 11/15/19 23 11/15/2022 CBC, PLATE LET, NO DIFFE RENTI AL RDW 12.9 % 11.6-1 5.4 Not Available [facility] ([facility]) [address] [facility], [place], [address], 11/15/2022 13:11:09 11/15/19 23 11/15/2022 CBC, PLATE LET, NO DIFFE RENTI AL platelets 323 x10e3 /uL 150-45 0 Not Available [facility] ([facility]) [address] [facility], [place], [address], 11/15/2022 13:11:09 11/15/19 23 11/15/2022 CBC, PLATE LET, NO DIFFE RENTI AL NRBC CERTIFIED PUBLIC ACCOUNTANT Not Available [facility] ([facility]) [address] [place], [address], 11/15/2022 13:11:09 11/15/19 23 11/15/2022 SEDIM ENTAT ION RATE- WESTE RGREN sedimentatio n rate-westerg ellen 36 mm/HR 0-30 above high normal Not Available [facility] ([facility]) [address] [place], [address], 11/15/2022 13:11:10 11/15/19 23 11/15/2022 C-SYLVIE CTIVE PROTE IN, QUANT C-reactive protein, quant 3 mg/L 0-10 Not Available [facility] ([facility]) [address] [facility], [place], [address], 11/15/2022 13:11:11 11/23/19 23 11/23/2022 CMP14 +EGFR glucose 294 mg/dL 70-99 above high normal Not Available [facility] ([facility]) [address] [facility], [place], [address], 11/23/2022 10:11:08 11/23/1911/23/2022 CMP14 +EGFR BUN 14 mg/dL 6-24 Not Available [facility] ([facility]) [address] [facility], [place], [address], 11/23/2022 10:11:08 11/23/19 23 11/23/2022 CMP14 +EGFR creatinine 0.81 mg/dL 0.76-1 .27 Not Available [facility] ([facility]) [address] [facility], [place], [address], 11/23/2022 10:11:08 11/23/1911/23/2022 CMP14 +EGFR eGFR 107 mL/mi n/1.7 3 >59 Not Available [facility] ([facility]) [address] [facility], [place], [address], 11/23/2022 10:11:08 11/23/1911/23/2022 CMP14 +EGFR BUN/creatini ne ratio 17 9-20 Not Available [facility] ([facility]) [address] [place], [address], 11/23/2022 10:11:08 11/23/19 23 11/23/2022 CMP14 +EGFR sodium 136 mmol/ L 134-14 4 Not Available [facility] ([facility]) [address] [facility] [place], [address], 11/23/2022 10:11:08 11/23/19 23 11/23/2022 CMP14 +EGFR potassium 4.0 mmol/ L 3.5-5. 2 Not Available [facility] ([facility]) [address] [facility] [place], [address], 11/23/2022 10:11:08 11/23/19 23 11/23/2022 CMP14 +EGFR chloride 99 mmol/ L 96-106 Not Available [facility] ([facility]) [address] [facility] [place], [address], 11/23/2022 10:11:08 11/23/19 23 11/23/2022 CMP14 +EGFR carbon dioxide, total 22 mmol/ L 20-29 Not Available [facility] ([facility]) [address] [facility] [place], [address], 11/23/2022 10:11:08 11/23/19 23 11/23/2022 CMP14 +EGFR calcium 9.2 mg/dL 8.7-10 .2 Not Available [facility] ([facility]) [address] [facility] [place], [address], 11/23/2022 10:11:08 11/23/19 23 11/23/2022 CMP14 +EGFR protein, total 7.3 g/dL 6.0-8. 5 Not Available [facility] ([facility]) [address] [place], [address], 11/23/2022 10:11:08 11/23/19 23 11/23/2022 CMP14 +EGFR albumin 4.3 g/dL 4.1-5. 1 Not Available [facility] ([facility]) [address] [place], [address], 11/23/2022 10:11:08 11/23/19 23 11/23/2022 CMP14 +EGFR globulin, total 3.0 g/dL 1.5-4. 5 Not Available [facility] ([facility]) [address] [facility], [place], [address], 11/23/2022 10:11:08 11/23/19 23 11/23/2022 CMP14 +EGFR A/G ratio 1.4 1.2-2. 2 Not Available [facility] ([facility]) [address] [facility], [place], [address], 11/23/2022 10:11:08 11/23/1911/23/2022 CMP14 +EGFR bilirubin, total 0.7 mg/dL 0.0-1. 2 Not Available [facility] ([facility]) [address] [facility], [place], [address], 11/23/2022 10:11:08 11/23/19 23 11/23/2022 CMP14 +EGFR alkaline phosphatase 82 IU/L 44-121 Not Available [facility] ([facility]) [address] [facility], [place], [address], 11/23/2022 10:11:08 11/23/19 23 11/23/2022 CMP14 +EGFR AST (SGOT) 24 IU/L 0-40 Not Available [facility] ([facility]) [address] [facility], [place], [address], 11/23/2022 10:11:08 11/23/19 23 11/23/2022 CMP14 +EGFR ALT (SGPT) 27 IU/L 0-44 Not Available [facility] ([facility]) [address] [place], [address], 11/23/2022 10:11:08 11/23/19 23 11/23/2022 CBC, PLATE LET, NO DIFFE RENTI AL WBC 7.6 x10e3 /uL 3.4-10 .8 Not Available [facility] ([facility]) [address] [facility], [place], [address], 11/23/2022 10:11:09 11/23/1911/23/2022 CBC, PLATE LET, NO DIFFE RENTI AL RBC 4.91 x10e6 /uL 4.14-5 .80 Not Available [facility] ([facility]) [address] [facility], [place], [address], 11/23/2022 10:11:09 11/23/1911/23/2022 CBC, PLATE LET, NO DIFFE RENTI AL hemoglobin 14.5 g/dL 13.0-1 7.7 Not Available [facility] ([facility]) [address] [facility], [place], [address], 11/23/2022 10:11:09 11/23/1911/23/2022 CBC, PLATE LET, NO DIFFE RENTI AL hematocrit 43.1 % 37.5-5 1.0 Not Available [facility] ([facility]) [address] [facility], [place], [address], 11/23/2022 10:11:09 11/23/1911/23/2022 CBC, PLATE LET, NO DIFFE RENTI AL MCV 88 fL 79-97 Not Available [facility] ([facility]) [address] [place], [address], 11/23/2022 10:11:09 11/23/1911/23/2022 CBC, PLATE LET, NO DIFFE RENTI AL MCH 29.5 pg 26.6-3 3.0 Not Available [facility] ([facility]) [address] [place], [address], 11/23/2022 10:11:09 11/23/1911/23/2022 CBC, PLATE LET, NO DIFFE RENTI AL MCHC 33.6 g/dL 31.5-3 5.7 Not Available [facility] ([facility]) [address] [place], [address], 11/23/2022 10:11:09 11/23/19 23 11/23/2022 CBC, PLATE LET, NO DIFFE RENELÍAS AL RDW 13.1 % 11.6-1 5.4 Not Available [facility] ([facility]) [address] [facility], [place], [address], 11/23/2022 10:11:09 11/23/19 23 11/23/2022 CBC, PLATE LET, NO DIFFE RENELÍAS AL platelets 287 x10e3 /uL 150-45 0 Not Available [facility] ([facility]) [address] [facility], [place], [address], 11/23/2022 10:11:09 11/23/1911/23/2022 CBC, PLATE LET, NO DIFFE CHRISTY AL NRBC CERTIFIED PUBLIC ACCOUNTANT Not Available [facility] ([facility]) [address] [facility], [place], [address], 11/23/2022 10:11:09 11/23/1911/23/2022 SEDIM ENTAT ION RATE- WESTE RGREN sedimentatio n rate-westerg ellen 19 mm/HR 0-30 Not Available [facility] ([facility]) [address] [facility], [place], [address], 11/23/2022 10:11:10 11/23/1911/23/2022 C-SYLVIE CTIVE PROTE IN, QUANT C-reactive protein, quant 3 mg/L 0-10 Not Available [facility] ([facility]) [address] [place], [address], 11/23/2022 10:11:11 12/07/19 23 12/07/2022 COMP. METAB OLIC PANEL (14) glucose 343 mg/dL 70-99 above high normal Not Available [facility] ([facility]) [address] [place], [address], 12/10/2022 13:08:35 12/07/19 23 12/07/2022 COMP. METAB OLIC PANEL (14) BUN 10 mg/dL 6-24 Not Available [facility] ([facility]) [address] [facility] [place], [address], 12/10/2022 13:08:35 12/07/19 23 12/07/2022 COMP. METAB OLIC PANEL (14) creatinine 0.84 mg/dL 0.76-1 .27 Not Available [facility] ([facility]) [address] [facility] [place], [address], 12/10/2022 13:08:35 12/07/19 23 12/07/2022 COMP. METAB OLIC PANEL (14) eGFR 106 mL/mi n/1.7 3 >59 Not Available [facility] ([facility]) [address] [facility] [place], [address], 12/10/2022 13:08:35 12/07/19 23 12/07/2022 COMP. METAB OLIC PANEL (14) BUN/creatini ne ratio 12 9-20 Not Available [facility] ([facility]) [address] [facility] [place], [address], 12/10/2022 13:08:35 12/07/19 23 12/07/2022 COMP. METAB OLIC PANEL (14) sodium 135 mmol/ L 134-14 4 Not Available [facility] ([facility]) [address] [facility] [place], [address], 12/10/2022 13:08:35 12/07/19 23 12/07/2022 COMP. METAB OLIC PANEL (14) potassium 4.3 mmol/ L 3.5-5. 2 Not Available [facility] ([facility]) [address] [facility] [place], [address], 12/10/2022 13:08:35 12/07/19 23 12/07/2022 COMP. METAB OLIC PANEL (14) chloride 98 mmol/ L 96-106 Not Available [facility] ([facility]) [address] [facility] [place], [address], 12/10/2022 13:08:35 12/07/19 23 12/07/2022 COMP. METAB OLIC PANEL (14) carbon dioxide, total 25 mmol/ L 20-29 Not Available [facility] ([facility]) [address] [facility], [place], [address], 12/10/2022 13:08:35 12/07/19 23 12/07/2022 COMP. METAB OLIC PANEL (14) calcium 9.6 mg/dL 8.7-10 .2 Not Available [facility] ([facility]) [address] [facility], [place], [address], 12/10/2022 13:08:35 12/07/19 23 12/07/2022 COMP. METAB OLIC PANEL (14) protein, total 7.2 g/dL 6.0-8. 5 Not Available [facility] ([facility]) [address] [facility] [place], [address], 12/10/2022 13:08:35 12/07/19 23 12/07/2022 COMP. METAB OLIC PANEL (14) albumin 4.4 g/dL 4.1-5. 1 Not Available [facility] ([facility]) [address] [facility], [place], [address], 12/10/2022 13:08:35 12/07/19 23 12/07/2022 COMP. METAB OLIC PANEL (14) globulin, total 2.8 g/dL 1.5-4. 5 Not Available [facility] ([facility]) [address] [facility] [place], [address], 12/10/2022 13:08:35 12/07/19 23 12/07/2022 COMP. METAB OLIC PANEL (14) A/G ratio 1.6 1.2-2. 2 Not Available [facility] ([facility]) [address] [facility], [place], [address], 12/10/2022 13:08:35 12/07/19 23 12/07/2022 COMP. METAB OLIC PANEL (14) bilirubin, total 0.4 mg/dL 0.0-1. 2 Not Available [facility] ([facility]) [address] [facility] [place], [address], 12/10/2022 13:08:35 12/07/19 23 12/07/2022 COMP. METAB OLIC PANEL (14) alkaline phosphatase 81 IU/L 44-121 Not Available [facility] ([facility]) [address] [facility], [place], [address], 12/10/2022 13:08:35 12/07/19 23 12/07/2022 COMP. METAB OLIC PANEL (14) AST (SGOT) 27 IU/L 0-40 Not Available [facility] ([facility]) [address] [facility], [place], [address], 12/10/2022 13:08:35 12/07/19 23 12/07/2022 COMP. METAB OLIC PANEL (14) ALT (SGPT) 32 IU/L 0-44 Not Available [facility] ([facility]) [address] [facility] [place], [address], 12/10/2022 13:08:35 12/07/19 23 12/07/2022 CBC, NO DIFFE RENTI AL/PL ATELE T WBC 6.8 x10e3 /uL 3.4-10 .8 Not Available [facility] ([facility]) [address] [facility] [place], [address], 12/10/2022 13:08:36 12/07/19 23 12/07/2022 CBC, NO DIFFE RENTI AL/PL ATELE T RBC 4.82 x10e6 /uL 4.14-5 .80 Not Available [facility] ([facility]) [address] [facility], [place], [address], 12/10/2022 13:08:36 12/07/19 23 12/07/2022 CBC, NO DIFFE RENTI AL/PL ATELE T hemoglobin 14.5 g/dL 13.0-1 7.7 Not Available [facility] ([facility]) [address] [facility], [place], [address], 12/10/2022 13:08:36 12/07/19 23 12/07/2022 CBC, NO DIFFE RENTI AL/PL ATELE T hematocrit 43.0 % 37.5-5 1.0 Not Available [facility] ([facility]) [address] [facility], [place], [address], 12/10/2022 13:08:36 12/07/19 23 12/07/2022 CBC, NO DIFFE RENTI AL/PL ATELE T MCV 89 fL 79-97 Not Available [facility] ([facility]) [address] [facility], [place], [address], 12/10/2022 13:08:36 12/07/19 23 12/07/2022 CBC, NO DIFFE RENTI AL/PL ATELE T MCH 30.1 pg 26.6-3 3.0 Not Available [facility] ([facility]) [address] [facility], [place], [address], 12/10/2022 13:08:36 12/07/19 23 12/07/2022 CBC, NO DIFFE RENTI AL/PL ATELE T MCHC 33.7 g/dL 31.5-3 5.7 Not Available [facility] ([facility]) [address] [place], [address], 12/10/2022 13:08:36 12/07/19 23 12/07/2022 CBC, NO DIFFE RENTI AL/PL ATELE T RDW 13.4 % 11.6-1 5.4 Not Available [facility] ([facility]) [address], [place], [address], 12/10/2022 13:08:36 12/07/19 23 12/07/2022 CBC, NO DIFFE RENTI AL/PL ATELE T NRBC CERTIFIED PUBLIC ACCOUNTANT Not Available [facility] ([facility]) [address], [place], [address], 12/10/2022 13:08:36 12/07/19 23 12/07/2022 SEDIM ENTAT ION RATE- WESTE RGREN sedimentatio n rate-westerg ellen 19 mm/HR 0-30 Not Available [facility] ([facility]) [address] [facility], [place], [address], 12/10/2022 13:08:37 12/07/19 23 12/07/2022 C-SYLVIE CTIVE PROTE IN, QUANT C-reactive protein, quant 4 mg/L 0-10 Not Available [facility] ([facility]) [address] [facility], [place], [address], 12/10/2022 13:08:38 12/20/19 23 12/20/2022 CMP14 +EGFR glucose 410 mg/dL 70-99 above high normal Not Available [facility] ([facility]) [address] [facility], [place], [address], 12/20/2022 15:09:41 12/20/19 23 12/20/2022 CMP14 +EGFR BUN 12 mg/dL 6-24 Not Available [facility] ([facility]) [address] [facility] [place], [address], 12/20/2022 15:09:41 12/20/19 23 12/20/2022 CMP14 +EGFR creatinine 0.84 mg/dL 0.76-1 .27 Not Available [facility] ([facility]) [address] [facility] [place], [address], 12/20/2022 15:09:41 12/20/19 23 12/20/2022 CMP14 +EGFR eGFR 106 mL/mi n/1.7 3 >59 Not Available [facility] ([facility]) [address] [facility], [place], [address], 12/20/2022 15:09:41 12/20/19 23 12/20/2022 CMP14 +EGFR BUN/creatini ne ratio 14 9-20 Not Available [facility] ([facility]) [address] [facility], [place], [address], 12/20/2022 15:09:41 12/20/19 23 12/20/2022 CMP14 +EGFR sodium 134 mmol/ L 134-14 4 Not Available [facility] ([facility]) [address] [facility], [place], [address], 12/20/2022 15:09:41 12/20/19 23 12/20/2022 CMP14 +EGFR potassium 4.3 mmol/ L 3.5-5. 2 Not Available [facility] ([facility]) [address] [facility], [place], [address], 12/20/2022 15:09:41 12/20/19 23 12/20/2022 CMP14 +EGFR chloride 97 mmol/ L 96-106 Not Available [facility] ([facility]) [address] [place], [address], 12/20/2022 15:09:41 12/20/19 23 12/20/2022 CMP14 +EGFR carbon dioxide, total 24 mmol/ L 20-29 Not Available [facility] ([facility]) [address] [place], [address], 12/20/2022 15:09:41 12/20/19 23 12/20/2022 CMP14 +EGFR calcium 9.3 mg/dL 8.7-10 .2 Not Available [facility] ([facility]) [address] [place], [address], 12/20/2022 15:09:41 12/20/19 23 12/20/2022 CMP14 +EGFR protein, total 7.1 g/dL 6.0-8. 5 Not Available [facility] ([facility] [address] [facility] [facility], [place], [address], 12/20/2022 15:09:41 12/20/19 23 12/20/2022 CMP14 +EGFR albumin 4.2 g/dL 4.1-5. 1 Not Available [facility] ([facility]) [address] [place], [address], 12/20/2022 15:09:41 12/20/19 23 12/20/2022 CMP14 +EGFR globulin, total 2.9 g/dL 1.5-4. 5 Not Available [facility] ([facility]) [address] [place], [address], 12/20/2022 15:09:41 12/20/19 23 12/20/2022 CMP14 +EGFR A/G ratio 1.4 1.2-2. 2 Not Available [facility] ([facility]) [address] [place], [address], 12/20/2022 15:09:41 12/20/19 23 12/20/2022 CMP14 +EGFR bilirubin, total 0.6 mg/dL 0.0-1. 2 Not Available [facility] ([facility]) [address] [place], [address], 12/20/2022 15:09:41 12/20/19 23 12/20/2022 CMP14 +EGFR alkaline phosphatase 82 IU/L 44-121 Not Available [facility] ([facility]) [address] [place], [address], 12/20/2022 15:09:41 12/20/19 23 12/20/2022 CMP14 +EGFR AST (SGOT) 35 IU/L 0-40 Not Available [facility] ([facility]) [address] [facility], [place], [address], 12/20/2022 15:09:41 12/20/1912/20/2022 CMP14 +EGFR ALT (SGPT) 34 IU/L 0-44 Not Available [facility] ([facility]) [address] [facility], [place], [address], 12/20/2022 15:09:41 12/20/1912/20/2022 CBC, NO DIFFE RENTI AL/PL ATELE T WBC 6.6 x10e3 /uL 3.4-10 .8 Not Available [facility] ([facility]) [address] [facility], [place], [address], 12/20/2022 15:09:42 12/20/19 23 12/20/2022 CBC, NO DIFFE RENTI AL/PL ATELE T RBC 4.94 x10e6 /uL 4.14-5 .80 Not Available [facility] ([facility]) [address] [facility], [place], [address], 12/20/2022 15:09:42 12/20/1912/20/2022 CBC, NO DIFFE RENTI AL/PL ATELE T hemoglobin 14.6 g/dL 13.0-1 7.7 Not Available [facility] ([facility]) [address] [facility], [place], [address], 12/20/2022 15:09:42 12/20/1912/20/2022 CBC, NO DIFFE RENTI AL/PL ATELE T hematocrit 44.9 % 37.5-5 1.0 Not Available [facility] ([facility]) [address] [place], [address], 12/20/2022 15:09:42 12/20/19 23 12/20/2022 CBC, NO DIFFE RENTI AL/PL ATELE T MCV 91 fL 79-97 Not Available [facility] ([facility]) [address] [facility], [place], [address], 12/20/2022 15:09:42 12/20/19 23 12/20/2022 CBC, NO DIFFE RENTI AL/PL ATELE T MCH 29.6 pg 26.6-3 3.0 Not Available [facility] ([facility]) [address] [facility], [place], [address], 12/20/2022 15:09:42 12/20/19 23 12/20/2022 CBC, NO DIFFE RENTI AL/PL ATELE T MCHC 32.5 g/dL 31.5-3 5.7 Not Available [facility] ([facility]) [address] [facility], [place], [address], 12/20/2022 15:09:42 12/20/19 23 12/20/2022 CBC, NO DIFFE RENTI AL/PL ATELE T RDW 13.1 % 11.6-1 5.4 Not Available [facility] ([facility]) [address] [facility], [place], [address], 12/20/2022 15:09:42 12/20/19 23 12/20/2022 CBC, NO DIFFE RENTI AL/PL ATELE T NRBC CERTIFIED PUBLIC ACCOUNTANT Not Available [facility] ([facility]) [address] [facility], [place], [address], 12/20/2022 15:09:42 12/20/1912/20/2022 SEDIM ENTAT ION RATE- WESTE RGREN sedimentatio n rate-westerg ellen 14 mm/HR 0-30 Not Available [facility] ([facility]) [address] [facility], [place], [address], 12/20/2022 15:09:43 12/20/19 23 12/20/2022 C-SYLVIE CTIVE PROTE IN, QUANT C-reactive protein, quant 3 mg/L 0-10 Not Available [facility] ([facility]) [address] [facility], [place], [address], 12/20/2022 15:09:44 01/03/2001/03/2023 SEDIM ENTAT ION RATE- WESTE RGREN sedimentatio n rate-westerg ellen 3 mm/HR 0-30 Not Available [facility] ([facility]) [address] [facility], [place], [address], 01/03/2023 19:11:11 01/03/2001/04/2023 C-SYLVIE CTIVE PROTE IN, QUANT C-reactive protein, quant 3 mg/L 0-10 Not Available [facility] ([facility]) [address] [facility], [place], [address], 01/04/2023 06:27:58 01/03/2001/03/2023 GAYLE EN AUTHO RIZAT ION written authorizatio n Shashi Ashley en Autho rizat ion Recei leanne. Autho rizat ion recei leanne from PER ORIGI NAL ORDER 01-03 Logge d by Leonarda doyle Not Available [facility] ([facility]) [address] [facility], [place], [address], 01/04/2023 06:27:58 01/31/20 23 01/31/2023 SEDIM ENTAT ION RATE- WESTE RGREN sedimentatio n rate-westerg ellen 15 mm/HR 0-30 Not Available [facility] ([facility]) [address] [facility], [place], [address], 01/31/2023 17:09:33 01/31/2002/01/2023 C-SYLVIE CTIVE PROTE IN, QUANT C-reactive protein, quant 5 mg/L 0-10 Not Available [facility] ([facility]) [address] [facility], [place], [address], 02/01/2023 06:16:27 01/31/20 23 01/31/2023 GAYLE EN AUTHO AUGIE RICH written authorizatio n Nicolásen t Gayle en Autho augie rich Chidii leanne. Autho augie fuentesi leanne from PER ORIGI NAL ORDER 01-31 Logge d by Leonarda doyle Not Available [facility] ([facility]) [address] [facility], [place], [address], 02/01/2023 06:16:28 Result Notes None recorded. Problems Name Problem SNOMED Code Status Onset Date Resolution Date Notes Provider Name and Address Organization Details Recorded Time Sleep apnea 57976219 Active 023 Susana Chancemmett Lomas null, NATHAN - LPNT [facility] [place] 3 08:47:36 Arthritis 8444663 Active 023 Susana Chancetono Lomas null, NATHAN Veronica [facility]NT [facility] [place] 3 08:48:27 Diabetes mellitus 16220734 Active 023 Susana Chancemmett Lomas null, NATHAN - [facility] [place] [facility] [place] 3 08:48:33 Anxiety 60365034 Active 023 Susana Chancemmett Lomas null, NATHAN - [facility] [place] [facility] [place] 3 08:48:51 Swelling 01450271 Active 023 Susana Chancemmett Lomas null, NATHAN - [facility] [place] [facility] [place] 3 08:49:00 Cough 32500101 Active 023 Susana Chancemmett Lomas null, NATHAN - [facility] [place] [facility] [place] 3 08:49:06 Nasal congestion 86670847 Active 023 Susana Chancemmett Lomas null, NATHAN - [facility] [place] [facility] [place] 3 08:49:14 Heartburn 07504312 Active 023 Susana Chancemmett Lomas null, NATHAN - [facility] [place] [facility] [place] 3 08:49:57 Diarrhea 96414502 Active 023 NATHAN Mason [facility] [place] 3 08:51:05 Pain of joint 59356226 Active 023 Susana ovalle, NATHAN KEANE [facility] [place] 3 08:51:26 Depressive disorder 23099024 Active 023 NATHAN Mason [facility] [place] 3 08:51:39 Kidney stone 89134687 Active 024 NATHAN Shipman [facility] [place] 4 09:46:28 Problem Notes None recorded. Procedures Surgical History Date Name Laterality Status Provider Name and Address Organization Details Recorded Time Hernia Repair completed Johnathan KEANE [facility] [place] 08/22/2023 09:47:53 Imaging Results None recorded. Procedure Notes None recorded. Medical Equipment None Reported. Allergies Allergen ID Allergen Name Allergen Category Reaction Reaction Severity Criticality Documentation Date Start Date Code Code System Note Provider Name and Address Organization Details Recorded Time 72594 acetamino phen / oxycodone medicatio n Not available Not available Not available 11/14/202220142 3 RxNorm NATHAN Viera [facility] [place] 3 10:17:25 39856 acetamino phen / hydrocodo ne medicatio n Not available Not available Not available 11/14/202285786 2 RxNorm NATHAN Viera [facility] [place] 3 10:17:34 48118 methadone medicatio n Not available Not available Not available 11/14/2022 6813 RxNorm NATHAN Viera [facility]NT [facility] [place] 3 10:17:40 40584 morphine medicatio n Not available Not available Not available 11/14/2022 7052 RxNorm NATHAN Viera LPNT [facility] [place] 3 10:17:50 Medications Name Sig Start Date [...] Updated DateTime 08/22/2023 187.96 cm 32.7 kg/m2 275764.05 g 98.1 [degF] Johnathan Nye [place] - [facility] [place] 08/22/2023 10:03:58 Date Recorded Body height Oxygen saturation Oxygen saturation in Arterial blood by Pulse oximetry Heart rate Body temperature Body mass index (BMI) Body weight Systolic And Diastolic Provider Name and Address Organization Details Last Updated DateTime 3 187.96 cm 98 % 98 % 76 /min 97.9 [degF] 37 kg/m2 853912. 6 g 128/74 mm[Hg] Lachelle Veronica [facility] [place] 3 08:45:28 Date Recorded Body height Oxygen saturation Oxygen saturation in Arterial blood by Pulse oximetry Heart rate Body temperature Body mass index (BMI) Body weight Provider Name and Address Organization Details Last Updated DateTime 3 187.96 cm 98 % 98 % 76 /min 98.1 [degF] 36.1 kg/m2 587141. 46 g Lachelle Veronica [facility] [place] 3 08:47:02 Date Recorded Body height Body mass index (BMI) Body weight Body temperature Heart rate Oxygen saturation Oxygen saturation in Arterial blood by Pulse oximetry Systolic And Diastolic Provider Name and Address Organization Details Last Updated DateTime 3 187.96 cm 35.7 kg/m2 776745. 68 g 97.5 [degF] 74 /min 98 % 98 % 124/72 mm[Hg] Lachelle Veronica [facility] [place] 3 10:25:19 Date Recorded Body height Heart rate Oxygen saturation Oxygen saturation in Arterial blood by Pulse oximetry Heart rate Body temperature Body mass index (BMI) Body weight Systolic And Diastolic Provider Name and Address Organization Details Last Updated DateTime 3 187.96 cm 85 /min 98 % 98 % 85 /min 98.6 [degF] 35.6 kg/m2 373774. 09 g 148/80 mm[Hg] Maria Del Carmen Veronica [facility] [place] 3 09:35:59 Social History Question Answer Notes LastModified by Organizat ion Details LastModified Time Tobacco Smoking Status Never Smoker NATHAN Viera [facility] [place] 11/14/2022 10:18:10 What Is Your Level Of Caffeine Consumption? Occasional [email or web address] Information not available 11/14/2022 Sex: Unknown Functional Status None recorded. Mental Status None recorded. Family History Relationship Description Onset Age of this Age Resolved Age Notes LastModified by Organization Details LastModified Time Mother No current problems or disability [email or web address] Not available 08/21 09:46:41 Brother No current problems or disability [email or web address] Not available 08/21 09:46:49 Sister No current problems or disability [email or web address] Not available 08/21 09:46:52 Father Myocardial infarction dec [email or web address] Not available 08/21 09:47:06 Medical History No medical history recorded. Past Encounters Encounter ID Performer Location Encounter Start Date Encounter Closed Date Diagnosis/Indication Diagnosis SNOMED-CT Code Diagnosis ICD10 Code Diagnosis IMO Codes Diagnosis Note [id number] River Ramires MD [facility]- [address] [place] [address] [address] [place] [address] 06/11/2022 08:41:24 06/12/2022 09:30:01 [id number] Gideon Ash MD [facility] Disease [address] [facility] [address] [place] [address] 11/14/2022 10:08:32 11/14/2022 10:45:56 Osteomyelitis of right foot 6450396527 504281 M86.9 Chronic osteomyeli tis of the right [...] week. Bacterial infection caused by Proteus mirabilis 10881712 A49.8 As above [id number] Gideon Ash MD [facility] [address] [place] [address] 11/22/2022 09:12:06 11/22/2022 10:00:47 Osteomyelitis of right foot 0145226291 831851 M86.9 Chronic osteomyeli tis of the right [...] Podiatry. Bacterial infection caused by Proteus mirabilis 24269180 A49.8 As above [id number] Gideon Ash MD [facility] [address] [place] [address] 12/06/2022 08:06:16 12/06/2022 09:06:41 Osteomyelitis of right foot 2255961206 135021 M86.9 Chronic osteomyeli tis of the right [...] weeks. Bacterial infection caused by Proteus mirabilis 76659755 A49.8 As above [id number] [facility] [address] [place] [address] 12/19/2022 08:39:35 12/19/2022 09:08:26 Osteomyelitis of right foot 7548159711 670223 M86.9 Chronic osteomyeli tis of the right [...] weeks Bacterial infection caused by Proteus mirabilis 45130166 A49.8 As above [id number] [facility] [address] [place] [address] 01/02/2023 09:58:49 01/02/2023 10:52:07 Osteomyelitis of right foot 4308993223 561230 M86.9 Chronic osteomyeli tis of the right [...] ce. Bacterial infection caused by Proteus mirabilis 40531267 A49.8 As above [id number] Gideon Ash MD [facility] Disease [address] [place] [address] 01/30/2023 09:09:56 01/30/2023 10:01:15 Osteomyelitis of right foot 4026000494 988217 M86.9 Chronic osteomyeli tis of the right [...] Continue to follow with Podiatry. Tinea pedis 0775096 B35. 3 This is severe and predominan tly involves the right foot. This appears to be moccasin foot. I am going to start with topical trochlea resolved. This may very well not work and he will need a course of terbinafin e. He will return to clinic to see me in 2 weeks. [id number] Brian Ralph Jr, MD [facility] [address] [address] 08/22/2023 09:18:57 08/22/2023 11:51:03 Acute retention of urine 400284994 R33.8 patient with recent rectal pain and difficulty voiding. Patient seen at [facility] and Lo catheter placed. Patient is having lot of pain from the catheter and would like it removed today. 300 cc placed into the patient's bladder and the catheter removed. He was able to void 175 cc. Rectal pain 21131652 K62 .89 patient known to have some [...] Batista Member ID Guarantor Name 10/25/2023 2 MEDICAID-[facility] - FFS/TRADITIO NAL Omari Andrade [id number] Omari Andrade 10/25/2023 1 [place] Omari Andrade [id number] Omari Andrade Notes Date Note Type Note Provider Name and Address Organization Details Recorded Time 12/06/2022 text/html ROS as noted in the HPI This is a 52-year-old white male following up with vt for a right calcaneal osteomyelitis with the [...] fever. Gideon Ash MD [address], [place], [address], [facility] 12/06/2022 08:57:58 12/19/2022 text/html ROS as noted in the HPI This is a 52-year-old white male following up with vt for a right calcaneal osteomyelitis with the [...] morning. Gideon Ash MD [address], [place], [address], [facility] 12/19/2022 09:00:28 01/02/2023 text/html ROS as noted in the HPI This is a 52-year-old white male following up with vt for a right calcaneal osteomyelitis with the [...] today. He was just seen by the rheostat assembler. Apparently, the wound is looking really good. He has scant drainage. No redness. No undue pain. No fever. Gideon Ash MD [address], [place], [address], [facility] [place] 01/02/2023 10:43:37 01/30/2023 text/html ROS as noted in the HPI This is a 52-year-old white male following up with vt for a right calcaneal osteomyelitis with the [...] redness. Gideon Ash MD [address], [place], [address], [facility] [place] 01/30/2023 16:44:29 08/22/2023 text/html Patient is a 53-year-old white male with history of depression, anxiety recently presented to the [facility] with difficulty voiding. Lo catheter was [...] of rectal abscesses. Brian Ralph Jr, MD [address] [place] [address], [address], [place], [address], [facility] [place] 09/01/2023 11:36:59
[2025-02-04 10:27] LABS: Clostridium Difficile A/B, PCR Not Detected (NotDetected); Cyclospora Cayetanesis Not Detected (NotDetected); Salmonella, PCR Not Detected (NotDetected); Shiga-like toxin E coli Not Detected (NotDetected); Shigella Enterovasive E coli Not Detected (NotDetected); Vibrio, PCR Not Detected (NotDetected); Yersinia Entercolitica, PCR Not Detected (NotDetected)
== END 2025-02-04 23:59 | disposition home or self-care (01) ==
LOC: LAB 10:23
PROVIDERS: PCP Nurse Practitioner Family; Visit Provider Nurse Practitioner Family
DX: R19.7 Diarrhea, unspecified (principal)
CPT/HCPCS: 87045; 87506

== ENCOUNTER 2025-03-16 10:50 | Outpatient (CLI) | payer MEDICARE, MEDICAID, SELFPAY ==
[2025-03-16 15:08] LABS: Hematocrit 44.4 % (42.0-52.0); Hemoglobin 15.7 g/dL (14.1-18.0); Immature Granulocytes % 0.4 %; Mean Corpuscular HGB Conc 35.4 g/dL (31.8-35.4); Mean Corpuscular Hemoglobin 31.3 pg (27.0-31.2); Mean Corpuscular Volume 88.6 fl (80-94); Nucleated Red Blood Cells % 0 %; Platelet Count 303 K/mm3 (142-424); Red Blood Count 5.01 M/mm3 (4.60-6.20); Red Cell Distribution Width-SD 36.8 fL; White Blood Count 8.1 K/mm3 (4.8-10.8)
[2025-03-16 15:57] LABS: Alanine Aminotransferase 34 U/L (12-78); Albumin Level 4.7 g/dl (3.5-5.0); Albumin/Globulin Ratio 1.5 (1.1-1.8); Alkaline Phosphatase 71 U/L (38-126); Anion Gap 17.5 mEq/L (5-15); Aspartate Amino Transferase 34 U/L (17-59); Bilirubin,Total 0.7 mg/dl (0.2-1.3); Blood Urea Nitrogen 19 mg/dl (9-20); Calcium 9.7 mg/dl (8.4-10.2); Carbon Dioxide 29 mmol/L (22.0-30.0); Chloride 95 mmol/L (98-107); Cholesterol 179 mg/dl (140-200); Creatinine,Serum 1.20 mg/dl (0.66-1.25); Estimated Glomerular Filt Rate 63 ml/min (>60); GFR (African American) 77 ML/MIN (>60); Globulin 3.2 g/dL (1.3-3.2); Glucose 254 mg/dl (74-100); HDL Cholesterol 37 mg/dl (40-60); Iron 111 ug/dL (49-181); Potassium 4.5 mmoL/L (3.5-5.1); Sodium 137 mmol/L (136-145); Total Protein,Serum 7.9 g/dl (6.3-8.2); Triglycerides 180 mg/dl (30-150)
[2025-03-16 16:08] LABS: C-Reactive Protein 3.5 mg/L (0-4); Total Iron Binding Capacity 392 ug/dL (261-462)
[2025-03-16 16:12] LABS: 25-OH Vitamin D, Total 48.3 ng/mL (30-100)
[2025-03-16 16:33] LABS: Thyroid Stimulating Hormone 2.53 uIU/mL (0.465-4.68)
[2025-03-16 16:37] LABS: Ferritin 168 ng/ml (17.9-464)
[2025-03-16 16:51] LABS: Vitamin B12 316 pg/mL (239-931)
[2025-03-16 18:16] LABS: Free T4 (Free Thyroxine) 1.45 ng/dl (0.78-2.19)
[2025-03-16 18:20] LABS: Hemoglobin A1C 8.5 % (4.0-6.0)
[2025-03-18 15:12] LABS: Deamidated Gliadin Abs, IgA 7 units (0-19); Deamidated Gliadin Abs, IgG 2 units (0-19)
== END 2025-03-16 23:59 | disposition home or self-care (01) ==
LOC: LAB.DROPOF 03-18 11:28
PROVIDERS: PCP Nurse Practitioner Family; Visit Provider Nurse Practitioner Family
DX: K21.9 Gastro-esophageal reflux disease without esophagitis (principal); R19.7 Diarrhea, unspecified; N42.89 Other specified disorders of prostate; Z13.220 Encounter for screening for lipoid disorders; F33.1 Major depressive disorder, recurrent, moderate; F41.1 Generalized anxiety disorder; D64.9 Anemia, unspecified; E11.51 Type 2 diabetes mellitus with diabetic peripheral angiopathy without gangrene; E11.40 Type 2 diabetes mellitus with diabetic neuropathy, unspecified; E11.69 Type 2 diabetes mellitus with other specified complication; Z79.4 Long term (current) use of insulin; E66.9 Obesity, unspecified; I10 Essential (primary) hypertension; R41.3 Other amnesia; G47.33 Obstructive sleep apnea (adult) (pediatric)
CPT/HCPCS: 80053; 80061; 82306; 82607; 82728; 83036; 83540; 83550; 84439; 84443; 85025; 85651; 86140; 86225; 86231; 86235; 86258; 86364; 86671